=== PATIENT | female | born 1935 | race Caucasian/White ===

== ENCOUNTER → 2025-08-07 04:00 | Outpatient (REF) | payer MEDICARE, SELFPAY ==
--- OUTSIDE RECORDS SUMMARY | 2025-08-07 03:41 | XMS RPT_ITS | CCD ---
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 HOLLY MCNEAL Attending Unavailable Dr. BLAIR BEAUCHAMP Referring Unavaila Dr. Farhan Apple Primary Care Andree vailable Unavailable Unavailable Farhan Husain MD Primary Care Provider Farhan Husain MD Unavailable [phone] Brian Patel Unavailable Don Moran Unavailable Unavailable Don Moran Unavailable Katy PHAN PhD, Don Primary Care Provider Dr. Farhan Husain Primary Care Andree vailable Dr. Darian Dolan Attending Unavailable Juan Antonio II, Dr. Hal Grove Referring Unava ilable Kristi Doyle Attending Unavailable MD DON MORAN Primary Care Unavailable DO JOSHUA GROVE Attending Unavailsimone Husain, Dr. Farhan Poole Primary Care Andree vailable Lisha, Dr. Farhan Poole Primary Care Andree vailaMD BRIAN Lawson Attending Unavailable Lisha, Dr. Farhan Poole Primary Care Andree vailable Keo, MrCathi Casarez Attending Unava ilable Wall, Dr. Mann Fried Attending Unavai lable Wall, Dr. Mann Fried Admitting Unavai Kristi Hummel Referring Unavailable MD DON MORAN Primary Care Unavailable Lisha, Dr. Farhan Poole Attending Andree vailable Lisha, Dr. Farhan Poole Primary Care Andree vasia Husain, Dr. Farhan Poole Attending Andree vailajennifer Husain, Dr. Farhan Poole Referring Andree vailajennifer Husain, Dr. Farhan Poole Primary Care Andree vailable Juan Antonio II, Dr. Hal Grove Attending Unava ilable Juan Antonio II, Dr. Hal Grove Referring Unava ilable Janovick, Dr. Farhan Poole Primary Care Andree vailable Katy, Dr. Baker Attending Unavailable Katy, Dr. Baker Referring Unavailable Lisha, Dr. Farhan Poole Primary Care Andree vailaKristi Dumont Attending Unavailable Katy, Dr. Baker Referring Unavailable Katy, Dr. Baker Primary Care Unavailable Kristi Doyle Attending Unavailable MANN ARIAS Referring Unavailable Moran, Dr. Baker Primary Care Unavailable Juan Antonio II, Dr. Hal Grove Attending Unava ilable Lisha, Dr. Farhan Poole Primary Care Andree vailable Kaiden, Dr. Llanos Attending Unavailable Lisha, Dr. Farhna Poole Primary Care Andree Farhan Hatch MD Unavailable Unavailab peyman Husain MD, Farhan Nicolas Unavailable [phone] Katy PHAN PhD, Don Unavailable DON MORAN Primary Care Unavailable DON MORAN Referring Unavailable DON MORAN Primary Care Unavailable DON MORAN Primary Care Unavailable DON MORAN Primary Care Unavailable DON MORAN Attending Unavailable DON MORAN Primary Care Unavailable DON MORAN Attending Unavailable DON MORAN Primary Care Unavailable DON MORAN Attending Unavailable DON MORAN Primary Care Unavailable DON MORAN Attending Unavailable DON MORAN Primary Care Unavailable Unavailable Primary Care Provider Unavailsimone REY Dahl Primary Care Unavailable CHEKO MALONEY Attending Unavailable Katy PHAN PhD, Don Primary Care Provider Katy PHAN PhD, Don Unavailable Allergies Allergy Classification Reported Allergen(s) Allergy Type Date of Onset Reaction(s) Facility (2 sources) Sertraline Drug Allergy 05-05-2015 Other (See Comments) [place], [place] (2 sources) Sertraline Drug Allergy 05-05-2015 Other [facility] Medications Current Medications Medication Drug Class(es) Dates Sig (Normalized) Sig (Original) amoxicillin 875 mg / clavulanate 125 mg oral tablet (1 source) Penicillin-class Antibacterial Start: 11-27-2022 End: 12-03-2022 take 1 tablet by mouth every twelve hours amoxicillin-clavul anate 875 mg-125 mg oral tablet ; 1 tab(s) orally every 12 hours Quantity: 14 Refills: 0 Ordered: 27-Nov-2022 Norman Allison Start: 27-Nov-2022 End: 03-Dec-2022 Generic Substitution Allowed Comments: Finish all this medication unless otherwise directed by prescriber.Take with food or milk. Comment on above: Finish all this medi cation unless otherwise directed by prescriber.Take with food or milk. aspirin 81 mg delayed release oral tablet (9 sources) Platelet Aggregation Inhibitor, Nonsteroidal Anti-inflammatory Drug take 1 tablet by mouth once daily Aspir 81 oral delayed release tablet ; 1 tab(s) orally once a day Quantity: 0 Refills: 0 Ordered: 06-Jun-2019 Courtney Carroll Generic Substitution Allowed End: 12-23-2021 Aspirin 81 MG TABS Quantity: 0 Refills: 0 Ordered: 23-Dec-2021 DO End : 23-Dec-2021 Complete Aspirin 81 MG TA BS Quantity: 0 Refills: 0 Ordered: 03-Jul-2020 DO Active Aspirin 81 MG TA BS Refills: 0 Active cholecalciferol 0.025 mg ora l tablet (15 sources) Vitamin D take 1 tablet by mouth once daily D3 1000 oral tablet ; 1 tab(s) orally once a day Quantity: 0 Refills: 0 Ordered: 06-Jun-2019 Courtney Carroll Generic Substitution Allowed End: 10-15-2022 Vitamin D3 25 MCG (1000 UT) Oral Tablet Quantity: 0 Refills: 0 Ordered: 15-Oct-2022 DO End : 15-Oct-2022 Complete take 1 capsule by mo uth once daily Vitamin D (CHOLECALCIFEROL) 1000 UNITS CAPS capsule Take 1,000 Units by mouth daily 0 Active colestipol hydrochloride 1000 mg oral tablet (20 sources) Bile Acid Sequestrant Start: 07-26-2024 colestip ol (Colestid) 1 gram tablet Indications: Diarrhea, unspecified TAKE 1 TABLET bid 180 tablet 1 07/26/2024 Active Start: 07-25-2024 End: 07-26-2024 take 2 tablets by mouth once daily in the morning colestipol (Colestid) 1 gram tablet Indications: Diarrhea, unspecified TAKE 2 TABLETS BY MOUTH EVERY MORNING AND 2 TABLETS AT BEDTIME. TAKE AT LEAST 1 HOUR AFTER OR 4 HOURS BEFORE OTHER MEDICATIONS 360 tablet 1 07/25/2024 07/26/2024 Discontinued (Reorder) Start: 12-20-2022 End: 10-18-2023 take 2 tablets by mouth once daily in the morning colestipol (Colestid) 1 gram tablet Indications: Diarrhea, unspecified TAKE 2 TABLETS BY MOUTH EVERY MORNING AND 2 TABLETS AT BEDTIME. TAKE AT LEAST 1 HOUR AFTER OR 4 HOURS BEFORE OTHER MEDICATIONS 120 tablet 5 10/18/2023 Active Start: 11-17-2022 take 2 tablets by [facility] at bedtime colestipol (Colestid) 1 gram tablet Indications: Diarrhea, unspecified Take 2 tablets (2 g) by mouth in the morning and 2 tablets (2 g) before bedtime. Take at least 1 hour after or 4 hours before other medications.. 120 tablet 2 11/17/2022 Active Start: 10-15-2022 End: 11-17-2022 take 1 tablet by mouth three times daily Colestipol HCl - 1 GM Oral Tablet TAKE 1 TABLET 3 TIMES DAILY. Quantity: 90 Refills: 0 Ordered: 15-Oct-2022 Katy PHAN, PhD, Don Start : 15-Oct-2022 Active estradiol 0.5 mg oral tablet (2 sources) Estrogen Start: 10-24-2019 take 1 tablet by mouth once daily estradiol (ESTRACE) 0.5 MG tablet TAKE 1 TABLET BY MOUTH EVERY DAY 90 tablet 3 10/24/2019 Active Start: 10-26-2018 take 1 tablet by josefa th once daily estradiol (ESTRACE) 0.5 MG tablet TAKE 1 TABLET BY MOUTH DAILY 90 tablet 3 10/26/2018 Active levothyroxine sodium 0.025 mg oral tablet (20 sources) l-Thyroxine Start: 01-16-2025 levothyroxine (Synthroid, Levoxyl) 25 MCG tablet Take 12.5 mcg by mouth daily. 01/16/2025 Active Start: 01-16-2025 take 0.5 tablet by m out once daily levothyroxine (Synthroid, Levoxyl) 25 mcg tablet Indications: Acquired hypothyroidism Take 0.5 tablets (12.5 mcg) by mouth once daily. 45 tablet 3 01/16/2025 Active Start: 10-18-2024 End: 01-16-2025 take 0.5 tablet by mouth once daily levothyroxine (Synthroid, Levoxyl) 25 mcg tablet Take 0.5 tablets (12.5 mcg) by mouth once daily. 45 tablet 3 01/16/2025 01/16/2025 Discontinued (Therapy completed) Start: 08-16-2018 End: 10-18-2023 take 0.5 tablet by mouth once daily levothyroxine (Synthroid, Levoxyl) 25 mcg tablet Indications: Hypokalemia Take 0.5 tablets (12.5 mcg) by mouth once daily. 45 tablet 3 10/18/2023 Active take 0.5 capsule by mouth once daily levothyroxine 25 mcg (0.025 mg) oral capsule ; 0.5 cap(s) orally once a day Quantity: 0 Refills: 0 Ordered: 06-Jun-2019 Courtney Carroll Generic Substitution Allowed loperamide hydrochloride 2 mg oral tablet (2 sources) Opioid Agonist Start: 11-01-2023 End: 11-11-2023 take 1 tablet by mouth four times daily as needed for diarrhea loperamide (Imodium A-D) 2 mg tablet Indications: Diarrhea, unspecified type Take 1 tablet (2 mg) by mouth 4 times a day as needed for diarrhea for up to 10 days. 40 tablet 0 11/01/2023 11/11/2023 Active Start: 11-27-2022 take 1 capsule by mo [facility] every two hours loperamide 2 mg oral capsule ; 1 cap(s) orally after episode of diarrhea. Max of 20 mg daily. Quantity: 20 Refills: 0 Ordered: 27-Nov-2022 Norman Allison Start: 27-Nov-2022 Generic Substitution Allowed Comments: It is very important that you take or use this exactly as directed. Do not skip doses or discontinue unless directed by your doctor.May cause drowsiness. Alcohol may intensify this effect. Use care when operating dangerous machinery.Obtain medical advice before taking any non-prescription drugs as some may affect the action of this medication. Comment on above: It is very important that you take or use this exactly as directed. Do not skip doses or discontinue unless directed by your doctor.May cause drowsiness. Alcohol may intensify this effect. Use care when operating dangerous machinery.Obtain medical advice before taking any non-prescription drugs as some may affect the action of this medication. omega-3 acid ethyl esters (chcf) 1200 mg oral capsule (2 sources) [place]-3 Fatty Ac ids (FISH OIL) 1200 MG CAPS Take by mouth 0 Active ondansetron 4 mg disintegrating oral tablet (1 source) Serotonin-3 Receptor Antagonist Start: 2022 take 1 tablet by mouth every four hours ondansetron 4 mg oral tablet, disintegrating ; 1 tab(s) orally every 4 hours as needed for nausea Quantity: 12 Refills: 0 Ordered: 27-Nov-2022 Norman Allison Start: 27-Nov-2022 Generic Substitution Allowed microencapsulated potassium chloride 20 meq extended release oral tablet (10 sources) Start: 2023 End: 2024 take 1 tablet by mouth twice daily potassium chloride CR 20 mEq ER tablet Indications: Hypokalemia Take 1 tablet (20 mEq) by mouth 2 times a day. Do not crush, chew, or split. 180 tablet 1 10/18/2023 04/19/2024 Discontinued (Therapy completed) Start: 12-10-2022 End: 01-14-2024 take 1 tablet by mouth twice daily potassium chloride CR (K-Tab) 20 mEq ER tablet Indications: Hypokalemia Take 1 tablet (20 mEq) by mouth 2 times a day. Do not crush, chew, or split. 180 tablet 1 01/14/2023 10/18/2023 Discontinued (Reorder) Stool studies for C. Difficile toxin and C & S (1 source) Start: 09-21-2022 Stool studies for C. Difficile toxin and C & S ; Diagnosis: Diarrhea Quantity: 1 Refills: 0 Ordered: 21-Sep-2022 Loi Crowley Start: 21-Sep-2022 Generic Substitution Allowed traMADol hydrochloride 50 mg oral tablet (2 sources) Opioid Agonist Start: 11-18-2020 take 1 tablet by mouth every eight hours traMADol 50 mg oral tablet ; 1 tab(s) orally every 8 hours as needed for pain. Do not drive after taking. Day supply: 2 Quantity: 6 Refills: 0 Ordered: 18-Nov-2020 Irvin Fay Start: 18-Nov-2020 Generic Substitution Allowed Comments: Caution federal law prohibits the transfer of this drug to any person other than the person for whom it was prescribed.May cause drowsiness. Alcohol may intensify this effect. Use care when operating dangerous machinery.Obtain medical advice before taking any non-prescription drugs as some may affect the action of this medication. Comment on above: Caution federal law prohibits the transfer of this drug to any person other than the person for whom it was prescribed.May cause drowsiness. Alcohol may intensify this effect. Use care when operating dangerous machinery.Obtain medical advice before taking any non-prescription drugs as some may affect the action of this medication. Vitamins-Lipotropics (LIPOFLAVONOID PO) (1 source) Vitamins-Lipotro pic s (LIPOFLAVONOID PO) Take by mouth 3 times daily 0 Active Completed/Discontinued Medications Medication Drug Class(es) Dates Sig (Normalized) Sig (Original) cephalexin 500 mg oral capsule (7 sources) Cephalosporin Antibacterial Start: 04-21-2021 End: 10-15-2022 take 4 capsules by mouth every hour Cephalexin 500 MG Oral Capsule TAKE 4 CAPSULES 1 HOUR PRIOR DENTAL TREATMENT Quantity: 12 Refills: 0 Ordered: 21-Apr-2021 DO Start : 21-Apr-2021 End : 15-Oct-2022 Complete dicyclomine hydrochloride 10 mg oral capsule (3 sources) Anticholinergic Start: 09-28-2022 Dicyclomine HCl - 10 MG Oral Capsule Quantity: 21 Refills: 0 Ordered: 28-Sep-2022 DO Start : 28-Sep-2022 Complete Start: 09-28-2022 End: 10-04-2022 take 1 capsule by mouth three times daily before mealtime dicyclomine 10 mg oral capsule ; 1 cap(s) orally 3 times a day (before meals) -.Meds to Beds Quantity: 21 Refills: 0 Ordered: 28-Sep-2022 LeonilaMelina Gemma Start: 28-Sep-2022 End: 04-Oct-2022 Generic Substitution Allowed lidocaine 0.05 mg/mg medicated patch (2 sources) Antiarrhythmic, Amide Local Anesthetic Start: 05-26-2022 End: 06-24-2022 lidocaine 5% topical film ; Apply topically to affected area once a day, 12 hours on, 12 hours off Quantity: 10 Refills: 0 Ordered: 26-May-2022 Tereso Burroughs Start: 26-May-2022 End: 24-Jun-2022 Generic Substitution Allowed Comments: For external use only.Remove old patch prior to applying a new patch. Comment on above: For external use onl y.Remove old patch prior to applying a new patch. meclizine hydrochloride 25 mg oral tablet (2 sources) Antiemetic Start: 01-13-2020 End: 01-17-2020 take 1 tablet by mouth every six hours as needed meclizine 25 mg oral tablet ; 1 tab(s) orally every 6 hours, As Needed -for dizziness Quantity: 20 Refills: 0 Ordered: 13-Jan-2020 Marvin Marshall Start: 13-Jan-2020 End: 17-Jan-2020 Generic Substitution Allowed Comments: May cause drowsiness. Alcohol may intensify this effect. Use care when operating dangerous machinery. Comment on above: May cause drowsiness . Alcohol may intensify this effect. Use care when operating dangerous machinery. methylPREDNISolone 4 MG Oral Tablet Therapy Pack (2 sources) Start: 03-31-2022 methylPREDNISolone 4 MG Oral Tablet Therapy Pack Quantity: 21 Refills: 0 Ordered: 31-Mar-2022 DO Start : 31-Mar-2022 Complete Potassium (4 sources) Potassium TABS Quantity: 0 Refills: 0 Ordered: 27-Dec-2022 DO Active potassium citrate 10 meq extended release oral tablet (4 sources) Start: 09-28-2022 End: 10-01-2022 take 1 tablet by mouth twice daily at mealtime potassium citrate 10 mEq oral tablet, extended release ; 1 tab(s) orally 2 times a day Quantity: 3 Refills: 0 Ordered: 29-Sep-2022 Melina Keen Start: 29-Sep-2022 End: 01-Oct-2022 Generic Substitution Allowed Comments: It is very important that you take or use this exactly as directed. Do not skip doses or discontinue unless directed by your doctor.Medication should be taken with plenty of water.Take with food or milk. Comment on above: It is very important that you take or use this exactly as directed. Do not skip doses or discontinue unless directed by your doctor.Medication should be taken with plenty of water.Take with food or milk. predniSONE 20 mg oral tablet (2 sources) Start: 11-18-2020 End: 11-22-2020 take 2 tablets by mouth once daily at mealtime predniSONE 20 mg oral tablet ; 2 tab(s) orally once a day x 5 days Quantity: 10 Refills: 0 Ordered: 18-Nov-2020 Irvin Fay Start: 18-Nov-2020 End: 22-Nov-2020 Generic Substitution Allowed Comments: It is very important that you take or use this exactly as directed. Do not skip doses or discontinue unless directed by your doctor.Obtain medical advice before taking any non-prescription drugs as some may affect the action of this medication.Take with food or milk. Comment on above: It is very important that you take or use this exactly as directed. Do not skip doses or discontinue unless directed by your doctor.Obtain medical advice before taking any non-prescription drugs as some may affect the action of this medication.Take with food or milk. PreserVision AREDS 2 Oral Capsule (1 source) take 2 capsules by mouth once daily PreserVision AREDS 2 Oral Capsule TAKE 2 CAPSULE Daily Refills: 0 Active PreserVision AREDS 2 Oral Capsule (9 sources) End: 10-15-2022 take 2 capsules by mouth once daily PreserVision AREDS 2 Oral Capsule TAKE 2 CAPSULE Daily Quantity: 0 Refills: 0 Ordered: 15-Oct-2022 DO End : 15-Oct-2022 Complete take 2 capsules by mouth once da wil PreserVision AREDS 2 Oral Capsule TAKE 2 CAPSULE Daily Quantity: 0 Refills: 0 Ordered: 03-Jul-2020 DO Active Vitamin B12 TABS (1 source) Vitamin B12 Vitamin B12 TABS Refills: 0 Active Vitamin B12 TABS (9 sources) End: 10-15-2022 Vitamin B12 TABS Quantity: 0 Refills: 0 Ordered: 15-Oct-2022 DO End : 15-Oct-2022 Complete Vitamin B12 TABS Quantity: 0 Refills: 0 Ordered: 03-Jul-2020 DO Active Problems Active Problems Problem Classification Problem Date Documented Date Episodic/Chronic Abdominal pain (1 source) Epigastric pain; Translations: [Epigastric pain] Onset: 11-27-2022 Episodic Biliary tract disease (8 sources) Cholangiectasis; 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] Onset: 01-20-2023 Chronic Disorders of lipid metabolism (20 sources) Pure hypercholesterolemia; Translations: [Dyslipidemia] Onset: 03-24-2015 Resolved: 01-16-2025 06-22-2016 Chronic Diverticulosis and diverticulitis (4 sources) Diverticulosis of large intestine without perforation or abscess without bleeding; Translations: [Diverticulosis of large intestine] Onset: 05-15-2015 02-04-2023 Chronic Diverticulosis and diverticulitis (2 sources) Diverticulosis of large intestine; Translations: [Diverticulosis of large intestine] Onset: 03-24-2015 05-15-2015 Intestinal infection (3 sources) Bacterial enteritis; Translations: [Bacterial enteritis, unspecified] Onset: 11-27-2022 11-27-2022 Episodic Nausea and vomiting (3 sources) Vomiting, unspecified; Translations: [Nausea with vomiting, unspecified] Onset: 09-21-2022 Episodic Osteoarthritis (20 sources) Degenerative joint disease involving multiple joints; 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, primary osteoarthritis of the wrist] Onset: 03-24-2015 Resolved: 01-16-2025 03-24-2015 Chronic Other and unspecified benign neoplasm (1 source) Benign neoplasm of right adrenal gland; Translations: [Benign neoplasm of right adrenal gland] Onset: 01-20-2023 Episodic Other and unspecified benign neoplasm (1 source) Benign neoplasm of left adrenal gland; Translations: [Benign neoplasm of left adrenal gland] Onset: 01-20-2023 Episodic Other connective tissue disease (2 sources) Pain in left thumb; Translations: [Pain in left finger(s)] 01-21-2025 Episodic Other connective tissue disease (2 sources) Pain in left finger(s); Translations: [Pain in left finger(s)] Onset: 01-21-2025 Episodic Other ear and sense organ disorders (2 sources) Impacted cerumen, bilateral; Translations: [Impacted cerumen, bilateral] Onset: 01-16-2025 Episodic Other ear and sense organ disorders (2 sources) Impacted cerumen of bilateral ears; Translations: [Impacted cerumen, bilateral] Onset: 01-16-2025 01-16-2025 Episodic Other injuries and conditions due to external causes (4 sources) Injury of upper extremity; Translations: [Unspecified injury of left shoulder and upper arm, initial encounter] 01-21-2025 Episodic Other injuries and conditions due to external causes (2 sources) Unspecified injury of left shoulder and upper arm, initial encounter; Translations: [Unspecified injury of left shoulder and upper arm, initial encounter] Onset: 01-21-2025 Episodic Other liver diseases (20 sources) Fatty (change of) liver, not elsewhere classified; Translations: [Fatty liver disease, nonalcoholic] Onset: 11-16-2022 11-16-2022 Chronic Other liver diseases (1 source) Steatosis of liver; Translations: [Fatty (change of) liver, not elsewhere classified] 02-04-2023 Chronic Other nervous system disorders (1 source) Carpal tunnel syndrome, right upper limb; 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, right upper limb] Onset: 10-21-2022 Chronic Other non-traumatic joint disorders (2 sources) Pain in left knee; Translations: [Pain in left knee] Onset: 03-10-2024 Episodic Other non-traumatic joint disorders (2 sources) Pain in left hip; Translations: [Pain in left hip] Onset: 01-16-2025 Episodic Other non-traumatic joint disorders (3 sources) Hip pain; Translations: [Pain in left hip] Onset: 01-16-2025 01-16-2025 Episodic Other screening for suspected conditions (not mental disorders or infectious disease) (20 sources) Patient encounter status; Translations: [Screening for lipoid disorders] Onset: 06-14-2022 Episodic Other upper respiratory disease (4 sources) Allergic rhinitis; Translations: [Allergic rhinitis, unspecified] Onset: 03-24-2015 05-15-2015 Chronic Residual codes; unclassified (14 sources) H/O: vertigo; Translations: [Personal history of other disorders of nervous system and sense organs] Episodic Residual codes; unclassified (1 source) Acquired absence of other specified parts of digestive tract; Translations: [Acquired absence of other specified parts of digestive tract] Onset: 01-28-2023 Episodic Residual codes; unclassified (1 source) Acquired absence of both cervix and uterus; Translations: [Acquired absence of both cervix and uterus] Onset: 01-28-2023 Episodic Residual codes; unclassified (1 source) Disorder of digestive tract; Translations: [Acquired absence of other specified parts of digestive tract] 02-04-2023 Episodic Residual codes; unclassified (1 source) Acquired absence of cervix and uterus; Translations: [Acquired absence of both cervix and uterus] 02-04-2023 Episodic Superficial injury; contusion (6 sources) Contusion hand, dorsum; Translations: [Contusion of unspecified hand, initial encounter] Onset: 01-21-2025 01-21-2025 Episodic Thyroid disorders (20 sources) Hypothyroidism; Translations: [Unspecified acquired hypothyroidism] Onset: 03-24-2015 05-15-2015 Chronic Transient cerebral ischemia (1 source) Transient cerebral ischemia; 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 Unclassified (1 source) 6 MONTH F/U 12-23-2021 Comment on above: 6 MONTH F/U Unclassified (2 sources) DIARRHEA X5 DAYS 09-21-2022 Comment on above: DIARRHEA X5 DAYS Unclassified (1 source) 6 MONTH FOLLOW UP / NEW PATIENT 06-25-2022 Comment on above: 6 MONTH FOLLOW UP / NEW PATIENT Unclassified (1 source) EMG RUE 08-23-2022 Comment on above: EMG RUE Unclassified (2 sources) Contact with and (suspected) exposure to COVID-19; Translations: [Contact with and (suspected) exposure to COVID-19] Onset: 09-28-2022 Unclassified (2 sources) VOMITING DIARRHEA 11-27-2022 Comment on above: VOMITING DIARRHEA Past or Other Problems Problem Classification Problem Date Documented Da te Episodic/Chronic Complication of device; implant or graft (14 sources) Vaginal ulcer; Translations: [Erosion of implanted vaginal mesh and other prosthetic materials to surrounding organ or tissue] Resolved: 3 Episodic Conditions associated with dizziness or vertigo (15 sources) Dizziness and giddiness; Translations: [Dizziness and giddiness] Resolved: 3 Episodic Fluid and electrolyte disorders (20 sources) Hypokalemia; Translations: [Hypopotassemia] Onset: 3 Resolved: 5 09-21-2022 Episodic Menopausal disorders (20 sources) Postmenopausal bleeding; Translations: [Postmenopausal bleeding] Onset: 3 Resolved: 3 11-16-2022 Chronic Other aftercare (1 source) residential (current) use of aspirin; Translations: [intermediate designer (current) use of aspirin] Onset: 3 Episodic Other aftercare (1 source) Other [facility] (current) drug therapy; Translations: [Other superintendent terminal (current) drug therapy] Onset: 3 Episodic Other gastrointestinal disorders (20 sources) Diarrhea; Translations: [Diarrhea] Onset: 3 Resolved: 5 09-21-2022 Episodic Comment on above: DIARRHEA - (R19.7) Other gastrointestinal disorders (8 sources) Diarrhea, unspecified; Translations: [Diarrhea, unspecified] Onset: 3 Episodic Other nervous system disorders (20 sources) Carpal tunnel syndrome; 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] Onset: 3 Resolved: 5 11-16-2022 Chronic Residual codes; unclassified (2 sources) Other general symptoms and signs; Translations: [Other general symptoms and signs] Onset: 2 Episodic Residual codes; unclassified (1 source) H/O: gastrointestinal disease; Translations: [Personal history of other diseases of digestive system] Resolved: 3 Episodic Spondylosis; intervertebral disc disorders; other back problems (7 sources) Neck pain; Translations: [Cervicalgia] Onset: 2 05-26-2022 Episodic Comment on above: NECK PAIN Unclassified (1 source) Patient encounter status; Translations: [Screening for hyperlipidemia] Unclassified (11 sources) Onset: 3 Resolved: 5 11-17-2022 NEGATED: Highlighted row has not occurred!Residual codes; unclassified (2 sources) Disease Episodic Results Test Name Value Interpretation Reference Range Facility Basic Metabolic Profile (BMP )on 02-06-2025 BUN Normal 4-19 [facility] Comment on above: Order Comment: 518 Result Comment: CANC EL BLOOD DRAW PER NURSE CANDY @0620 Performed By: #### L 500.2500, L100.0500 #### [facility] [address] [place], [address] BUN/CRE Normal 10-20 [facility] Comment on above: Order Comment: 518 Result Comment: CANC EL BLOOD DRAW PER NURSE CANDY @0620 Performed By: #### L 500.2500, L100.0500 #### [facility] [address] [place], [address] Calcium Normal 7.6-11.0 [facility] Comment on above: Order Comment: 518 Result Comment: CANC EL BLOOD DRAW PER NURSE CANDY @0620 Performed By: #### L 500.2500, L100.0500 #### [facility] [address] [place], [address] CL Normal 98-108 [facility] Comment on above: Order Comment: 518 Result Comment: CANC EL BLOOD DRAW PER NURSE CANDY @0620 Performed By: #### L 500.2500, L100.0500 #### [facility] [address] [place], [address] CO2 Normal 21.0-32.0 [facility] Comment on above: Order Comment: 518 Result Comment: CANC EL BLOOD DRAW PER NURSE CANDY @0620 Performed By: #### L 500.2500, L100.0500 #### [facility] [address] [place], [address] CREAT,SERUM Normal 0.70-1.20 [facility] Comment on above: Order Comment: 518 Result Comment: CANC EL BLOOD DRAW PER NURSE CANDY @0620 Performed By: #### L 500.2500, L100.0500 #### [facility] [address] [place], [address] eGFR Normal >60 [facility] Comment on above: Order Comment: 518 Result Comment: CANC EL BLOOD DRAW PER NURSE CANDY @0620 Performed By: #### L 500.2500, L100.0500 #### [facility] [address] [place], [address] GAP Normal 5-15 [facility] Comment on above: Order Comment: 518 Result Comment: CANC EL BLOOD DRAW PER NURSE CANDY @0620 Performed By: #### L 500.2500, L100.0500 #### [facility] [address] [place], [address] GLU Normal 70-99 [facility] Comment on above: Order Comment: 518 Result Comment: CANC EL BLOOD DRAW PER NURSE CANDY @0620 Performed By: #### L 500.2500, L100.0500 #### [facility] [address] [place], [address] Potassium Normal 3.3-5.1 [facility] Comment on above: Order Comment: 518 Result Comment: CANC EL BLOOD DRAW PER NURSE CANDY @0620 Performed By: #### L 500.2500, L100.0500 #### [facility] [address] [place], [address] Basic Metabolic Profile (BMP) Normal 133-145 [facility] Comment on above: Order Comment: 518 Result Comment: CANC EL BLOOD DRAW PER NURSE CANDY @0620 Performed By: #### L 500.2500, L100.0500 #### [facility] [address] [place], [address] CBC-Complete Blood Cnt No Di ffon 02-06-2025 HCT Normal 37-47 [facility] Comment on above: Order Comment: 518 Result Comment: CANC EL BLOOD DRAW PER NURSE CANDY @0620 Performed By: #### L 500.2500, L100.0500 #### [facility] [address] [place], [address] HGB Normal 12.0-15.0 [facility] Comment on above: Order Comment: 518 Result Comment: CANC EL BLOOD DRAW PER NURSE CANDY @0620 Performed By: #### L 500.2500, L100.0500 #### [facility] [address] [place], [address] MCH Normal 27.0-32.0 [facility] Comment on above: Order Comment: 518 Result Comment: CANC EL BLOOD DRAW PER NURSE CANDY @0620 Performed By: #### L 500.2500, L100.0500 #### [facility] [address] [place], [address] MCHC Normal 32-36 [facility] Comment on above: Order Comment: 518 Result Comment: CANC EL BLOOD DRAW PER NURSE CANDY @0620 Performed By: #### L 500.2500, L100.0500 #### [facility] [address] [place], [address] MCV Normal 81-99 [facility] Comment on above: Order Comment: 518 Result Comment: CANC EL BLOOD DRAW PER NURSE CANDY @0620 Performed By: #### L 500.2500, L100.0500 #### [facility] [address] [place], [address] PLT Normal 150-450 [facility] Comment on above: Order Comment: 518 Result Comment: CANC EL BLOOD DRAW PER NURSE CANDY @0620 Performed By: #### L 500.2500, L100.0500 #### [facility] [address] [place], [address] RBC Normal 4.2-5.4 [facility] Comment on above: Order Comment: 518 Result Comment: CANC EL BLOOD DRAW PER NURSE CANDY @0620 Performed By: #### L 500.2500, L100.0500 #### [facility] [address] [place], [address] RDW CV Normal 11.6-14.6 [facility] Comment on above: Order Comment: 518 Result Comment: CANC EL BLOOD DRAW PER NURSE CANDY @0620 Performed By: #### L 500.2500, L100.0500 #### [facility] [address] [place], [address] RDW SD Normal 35.1-43.9 [facility] Comment on above: Order Comment: 518 Result Comment: CANC EL BLOOD DRAW PER NURSE CANDY @0620 Performed By: #### L 500.2500, L100.0500 #### [facility] [address] [place], [address] WBC Normal 4.4-11.0 [facility] Comment on above: Order Comment: 518 Result Comment: CANC EL BLOOD DRAW PER NURSE CANDY @0620 Performed By: #### L 500.2500, L100.0500 #### [facility] [address] [place], [address] ED Nursing Noteon 01-21-2025 ED Nursing Note States banged left h and on end table yesterday and today it is very painful and swollen. Intact sensation and pulses, right handed. Icebag applied Normal [facility] ED Provider Noteon ED Provider Note [facility] ED EMERGENCY DEPARTMENT ENCOUNTER Pt Name: Vinayak Montes Birthdate 1935 Date of evaluation: 01/21/2025 Provider: Cheko Maloney MD CHIEF COMPLAINT Chief Complaint Patient presents with Arm Injury HISTORY OF PRESENT ILLNESS (Location/Symptom, Timing/Onset,Context/Setting , Quality, Duration, Modifying Factors, Severity) Note limiting factors. Vinayak Montes is a 89 y.o. female who presents to the emergency department with left hand and wrist pain. Yesterday she struck it hard on a piece of furniture and feels like it is bruised and swollen hurts in the distal ulna and the dorsum of the hand. No numbness or tingling. No elbow pain. No finger pain. She did not fall. Did not bend awkwardly. No other injuries or complaints. HPI Historian is the patient Nurse's notes for past medical history, surgical history, social history were reviewed. Medications and allergies reviewed. PAST MEDICAL HISTORY Medical History[1] SURGICALHISTORY Surgical History[2] CURRENT MEDICATIONS Discharge Medication List as of 01/21/2025 3:28 PM CONTINUE these medications which have NOT CHANGED Details levothyroxine (Synthroid, Levoxyl) 25 MCG tablet Take 12.5 mcg by mouth daily., Starting 01/16/2025, Historical Med Sertraline FAMILY HISTORY Family History[3] SOCIAL HISTORY Social History[4] SCREENINGS PHYSICAL EXAM (up to 7 for level 4, 8 or more for level 5) @EDTRIAGEVSS@ Appropriate PPE including n 95, gown, gloves, goggles where worn when appropriate with this patient. Physical Exam General awake alert appropriate. Examination left upper extremity good range of motion left shoulder and elbow. Distal ulnar bruising soft tissue swelling dorsum of the hand. Normal finger tenderness normal capillary refill. Normal finger sensation. Equal pulses. No signs of dislocation. No signs of compartment syndrome no signs of arterial venous insufficiency. No signs of DVT. DIAGNOSTIC RESULTS RADIOLOGY: Interpretation per the Radiologist below, if availableat the time of this note: XR wrist 3+ views left Final Result No fracture or dislocation. Advanced osteoarthritis and chondrocalcinosis. Report Dictated on Electronically Signed By: Wilton Hinson MD Electronically Signed Date/Time: 01/21/2025 3:12 PM EDT XR hand 3+ views left Final Result No acute osseous abnormality of the left hand. Moderate osteoarthritic changes. Report Dictated on Electronically Signed By: Hal Nye DR Electronically Signed Date/Time: 01/21/2025 3:04 PM EDT ED BEDSIDE ULTRASOUND: Performed by ED Physician - none LABS: Labs Reviewed - No data to display All other labs were within normal range or not returned as of thisdictation. EMERGENCYDEPARTMENT COURSE and DIFFERENTIAL DIAGNOSIS/MDM: Vitals: Vitals: 01/21/25 1432 01/21/25 1439 BP: (!) 181/66 Pulse: 80 Resp: 14 Temp: 36.7 ?C (98.1 ?F) TempSrc: Oral SpO2: 98% Weight: 60.8 kg (134 lb) Height: 1.575 m (5' 2") Medical Decision Making Problems Addressed: Arm injury, left, initial encounter: complicated acute illness or injury Contusion of dorsum of hand: complicated acute illness or injury Thumb pain, left: complicated acute illness or injury Amount and/or Complexity of Data Reviewed Radiology: ordered. EMERGENCY DEPARTMENT COURSE and DIFFERENTIAL DIAGNOSIS/MDM: Vitals: Vitals: 01/21/25 1432 01/21/25 1439 BP: (!) 181/66 Pulse: 80 Resp: 14 Temp: 36.7 ?C (98.1 ?F) TempSrc: Oral SpO2: 98% Weight: 60.8 kg (134 lb) Height: 1.575 m (5' 2") The patient presented with a chief complaint of hand wrist pain. The differential diagnosis associated with this patient's presentation includes contusion sprain fracture dislocation. Our workup consisted of ordering/reviewing x-ray of the left hand and wrist. ED Course as of 01/21/25 1544 TueJan 21, 2025 1527 Will apply an Piyush wrap. Use this for comfort. Piyush wrap applied by myself. Patient is neurologically neurovascular tact after applied. Use cool compresses. Gentle range of motion. Recheck with primary care physician or family medicine 1 week return here if any problems or concerns. [GS] 1536 I did talk to the patient further as she does have swelling of her fingers but she reports she did not hit her thumb she actually hit the back of her hand along the fifth metacarpal and ulnar side. She does however have discomfort with moving her thumb. I reviewed the x-rays and I do not see any acute fracture of the thumb. I did the Piyush wrap that goes around her thumb to give a support so she can still move the thumb. She said she did not hit the thumb she did not bend the thumb awkwardly. Certainly possible that she does simply does not remember but she remembers the total event from yesterday she is not forgetting. It is likely all arthritic in nature. I considered a thumb spica splint b (more content not included)... Normal [facility] XR Hand - left 3 Viewson No acute osseous abn ormality of the left hand. Moderate osteoarthritic changes. Report Dictated on Electronically Signed By: Hal Nye DR Electronically Signed Date/Time: 01/21/2025 3:04 PM EDT [facility] Patient Name: Gustavo MONTES : 1935 Exam Date/Time: 01/21/2025 14:50 Procedure: XR HAND 3+ VIEWS LEFT Ordering Provider: MALONEY GREGORY Reason For Exam: Contusion to the dorsum of the left hand struck it on an object yesterday Clinical history: Contusion to the dorsum of the left hand struck it on an object yesterday COMPARISON: None. TECHNIQUE: Left hand, three views FINDINGS: Soft tissue edema of the dorsal hand overlying the MCP joints.. No acute fractures or dislocations. Moderate the degenerative joint space loss, endplate sclerosis, and osteophytosis in the IP joints, first CMC joint, and triscaphe joint with otherwise mild osteoarthritic changes of the left hand. Calcification in the TF[facility]. [facility] Hal Nye MD - 01/21/2025 Patient Name: VINAYAK MONTES : 1935 Exam Date/Time: 01/21/2025 14:50 Procedure: XR HAND 3+ VIEWS LEFT Ordering Provider: MALONEY GREGORY Reason For Exam: Contusion to the dorsum of the left hand struck it on an object yesterday Clinical history: Contusion to the dorsum of the left hand struck it on an object yesterday COMPARISON: None. TECHNIQUE: Left hand, three views FINDINGS: Soft tissue edema of the dorsal hand overlying the MCP joints.. No acute fractures or dislocations. Moderate the degenerative joint space loss, endplate sclerosis, and osteophytosis in the IP joints, first CMC joint, and triscaphe joint with otherwise mild osteoarthritic changes of the left hand. Calcification in the TFCC. IMPRESSION: No acute osseous abnormality of the left hand. Moderate osteoarthritic changes. Report Dictated on Electronically Signed By: Hal Nye DR Electronically Signed Date/Time: 01/21/2025 3:04 PM EDT [facility] [employer] Radiology Study observation (narrative) [employer] XR Hand - left 3 ViewsOrdere d By: Hal Nye on 01-21-2025 [employer] Work Phone: XR Wrist - left 3 Viewson No fracture or dislocation. Advanced osteoarthritis and chondrocalcinosis. Report Dictated on Electronically Signed By: Wilton Hinson MD Electronically Signed Date/Time: 01/21/2025 3:12 PM EDT [facility] [employer] Patient Name: Gustavo MONTES : 1935 Exam Date/Time: 01/21/2025 14:50 Procedure: XR WRIST 3+ VIEWS LEFT Ordering Provider: MALONEY GREGORY Reason For Exam: Contusion and pain to the dorsum of the left wrist LEFT WRIST CLINICAL INDICATION: Contusion and pain to the dorsum of the left wrist AP, lateral, and oblique plain film views of the left wrist were obtained. COMPARISON: 01/21/2025 FINDINGS: No evidence of an acute fracture or dislocation. There is advanced osteoarthritis of the triscaphe and first carpometacarpal joints, and lesser degenerative changes elsewhere in the wrist. Chondrocalcinosis is again noted in the wrist and there is generalized soft tissue swelling. [facility] Wilton Hinson M D - 01/21/2025 Patient Name: VINAYAK MONTES : 1935 Exam Date/Time: 01/21/2025 14:50 Procedure: XR WRIST 3+ VIEWS LEFT Ordering Provider: MALONEY GREGORY Reason For Exam: Contusion and pain to the dorsum of the left wrist LEFT WRIST CLINICAL INDICATION: Contusion and pain to the dorsum of the left wrist AP, lateral, and oblique plain film views of the left wrist were obtained. COMPARISON: 01/21/2025 FINDINGS: No evidence of an acute fracture or dislocation. There is advanced osteoarthritis of the triscaphe and first carpometacarpal joints, and lesser degenerative changes elsewhere in the wrist. Chondrocalcinosis is again noted in the wrist and there is generalized soft tissue swelling. IMPRESSION: No fracture or dislocation. Advanced osteoarthritis and chondrocalcinosis. Report Dictated on Electronically Signed By: Wilton Hinson MD Electronically Signed Date/Time: 01/21/2025 3:12 PM EDT [facility] [employer] Radiology Study observation (narrative) [employer] XR Wrist - left 3 ViewsOrder ed By: Wilton Hinson on 01-21-2025 [employer] Work Phone: COMPREHENSIVE METABOLIC PANE L W/ANION GAPon 01-19-2025 Albumin [Mass/Vol] 4.3 g/dL Normal 3.6-5.1 [facility] Comment on above: Performed By: #### 9 2665, 21393, 14846, 466, 927 #### [facility] [place] [address] [employer] Counsel[employer] Aide: Martin Jiménez MD ALP [Catalytic activity/Vol] 58 U/L Normal 37-153 [facility] Comment on above: Performed By: #### 9 2665, 99636, 87684, 466, 927 #### [facility] [address] [address] [employer] Aide: Martin Jiménez MD ALT [Catalytic activity/Vol] 14 U/L Normal 6-29 [facility] Comment on above: Performed By: #### 9 2665, 19959, 83214, 466, 927 #### [facility] [address] [address] [employer] Aide: Martin Jiménez MD AST [Catalytic activity/Vol] 20 U/L Normal 10-35 [facility] Comment on above: Performed By: #### 9 2665, , , , 927 #### [facility] [place] [address] [employer] Counsel[employer] Aide: Martin Jiménez MD Bilirubin [Mass/Vol] 0.7 mg/dL Normal 0.2-1.2 [facility] Comment on above: Performed By: #### 9 2665, , , , 927 #### [facility] [place] [address] [employer] Counsel[employer] Aide: Martin Jiménez MD Calcium [Mass/Vol] 9.3 mg/dL Normal 8.6-10.4 [facility] Comment on above: Performed By: #### 9 2665, , , 466, 927 #### [facility] [place] [address] [employer] Counsel[employer] Aide: Martin Jiménez MD Chloride [Moles/Vol] 105 mmol/L Normal 98-110 [facility] Comment on above: Performed By: #### 9 2665, , , 466, 927 #### [facility] [place] [address] Pre [employer] Counseling Aide: Martin Jiménez MD CO2 [Moles/Vol] 27 mmol/L Normal 20-32 [facility] Comment on above: Performed By: #### 9 2665, , , , 927 #### [facility] [place] [address] Pre [employer] Counseling Aide: Martin Jiménez MD Creatinine [Mass/Vol] 0.68 mg/dL Normal 0.60-0.95 [facility] Comment on above: Performed By: #### 9 2665, 61202, , , 927 #### [facility] [place] [address] Pre [employer] Counseling Aide: Martin Jiménez MD ELECTROLYTE BALANCE 9 mmol/L (calc) Normal 7-17 [facility] Comment on above: Performed By: #### 9 2665, , , , 927 #### [facility] [place] [address] Pre [employer] Counseling Aide: Martin Jiménez MD GFR/1.73 sq M.predicted among non-blacks MDRD (S/P/Bld) [Vol rate/Area] 84 mL/min/{1.73_m2} Normal > OR = 60 [facility] Comment on above: Performed By: #### 9 266, , , , 927 #### [facility] [place] [address] Pre [employer] Counseling Aide: Martin Jiménez MD Glucose [Mass/Vol] 100 mg/dL High 65-99 [facility] Comment on above: Result Comment: Fasting reference interval For someone without known diabetes, a glucose value between 100 and 125 mg/dL is consistent with prediabetes and should be confirmed with a follow-up test. Performed By: #### 9 266, , , , 927 #### [facility] [place] [address] Pre [employer] Counseling Aide: Martin Jiménez MD Potassium [Moles/Vol] 4.6 mmol/L Normal 3.5-5.3 [facility] Comment on above: Performed By: #### 9 266, , , , 927 #### [facility] [place] [address] Pre [employer] Counseling Aide: Martin Jiménez MD Protein [Mass/Vol] 6.5 g/dL Normal 6.1-8.1 [facility] Comment on above: Performed By: #### 9 266, , , , 927 #### [facility] [place] [address] Pre [employer] Counseling Aide: Martin Jiménez MD Sodium [Moles/Vol] 141 mmol/L Normal 135-146 [facility] Comment on above: Performed By: #### 9 266, , , , 927 #### [facility] [place] [address] Pre [employer] Counseling Aide: Martin Jiménez MD Urea nitrogen [Mass/Vol] 12 mg/dL Normal 7-25 [facility] Comment on above: Performed By: #### 9 2665, 84659, , 466, 927 #### [facility] [place] [address] Pre [employer] Counseling Aide: Martin Jiménez MD FOLATE, SERUMon 01-19-2025 Folate [Mass/Vol] ng/mL Normal [facility] Comment on above: Result Comment: Refe rence Range Low: <3.4 Borderline: 3.4-5.4 Normal: >5.4 Performed By: #### 9 2665, 96580, , 466, 927 #### [facility] [place] [address] Pre [employer] Counseling Aide: Martin Jiménez MD TSH W/REFLEX TO FT4on 2024 TSH W/REFLEX TO FT4 1.67 mIU/L Normal 0.40-4.50 [facility] Comment on above: Performed By: #### 9 2665, 25022, , 466, 927 #### [facility] [place] [address] Pre [employer] Counseling Aide: Martin Jiménez MD VITAMIN B12on 01-19-2025 Cobalamin (Vitamin B12) [Mass/Vol] 1068 pg/mL Normal 200-1100 [facility] Comment on above: Performed By: #### 9 2665, 61872, , 466, 927 #### [facility] [place] [address] Pre [employer] Counseling Aide: Martin Jiménez MD VITAMIN D,25-OH,TOTAL,IAon 0 01-19-2025 VITAMIN D,25-OH,TOTAL,IA 90 ng/mL Normal 30-100 [facility] Comment on above: Result Comment: Renuka min D Status 25-OH Vitamin D: Deficiency: <20 ng/mL Insufficiency: 20 - 29 ng/mL Optimal: > or = 30 ng/mL For 25-OH Vitamin D testing on patients on D2-supplementation and patients for whom quantitation of D2 and D3 fractions is required, the QuestAssureD(TM) 25-OH VIT D, (D2,D3), LC/MS/MS is recommended: order code 81589 (patients >2yrs). See Note 1 Note 1 For additional information, please refer to http://education.[employer]/faq/THW768 (This link is being provided for informational/ educational purposes only.) Performed By: #### 9 2665, 80439, 64148, 466, 927 #### [facility] [address] [facility], [address] [place] [address] Pre [employer] Counseling Aide: Martin Jiménez MD Comprehensive metabolic 2000 panelon 04-06-2024 Albumin BCP dye [Mass/Vol] 4.2 g/dL Normal 3.4-5.0 [facility] Comment on above: Performed By: #### 2 4323-8 #### MARLA Robledo ([id number]) [facility] ([facility] [address] [place] [address] ALP [Catalytic activity/Vol] 71 U/L Normal 33-136 [facility] Comment on above: Performed By: #### 2 4323-8 #### MARLA Robledo ([id number]) [facility] ([facility]) [address] [place] [address] [id number] ALT With P-5'-P [Catalytic activity/Vol] 14 U/L Normal 7-45 [facility] Comment on above: Result Comment: Joann ents treated with Sulfasalazine may generate falsely decreased results for ALT. Performed By: #### 2 4323-8 #### MARLA Robledo ([id number]) [facility] ([facility]) [address] [place] [address] Anion gap [Moles/Vol] 12 mmol/L Normal 10-20 [facility] Comment on above: Performed By: #### 2 4323-8 #### MARLA Robledo ([id number]) [facility] ([facility]) [address] [place] [address] AST With P-5'-P [Catalytic activity/Vol] 23 U/L Normal 9-39 [facility] Comment on above: Performed By: #### 2 4323-8 #### MARLA Robledo ([id number]) [facility] ([facility]) [address] [place] [address] Bilirubin [Mass/Vol] 0.5 mg/dL Normal 0.0-1.2 [facility] Comment on above: Performed By: #### 2 4323-8 #### MARLA Robledo ([id number]) [facility] ([facility]) [address] [place] [address] Calcium [Mass/Vol] 9.4 mg/dL Normal 8.6-10.3 [facility] Comment on above: Performed By: #### 2 4323-8 #### MARLA Robledo ([id number]) [facility] ([facility]) [address] [place] [address] Chloride [Moles/Vol] 103 mmol/L Normal 98-107 [facility] Comment on above: Performed By: #### 2 4323-8 #### MARLA Robledo ([id number]) [facility] ([facility]) [address] [place] [address] CO2 [Moles/Vol] 27 mmol/L Normal 21-32 [facility] Comment on above: Performed By: #### 2 4323-8 #### MARLA Robledo ([id number]) [facility] ([facility] [address] [place] [address] 35116 Creatinine [Mass/Vol] 0.66 mg/dL Normal 0.50-1.05 [facility] Comment on above: Performed By: #### 2 4323-8 #### MARLA Robledo ([id number]) [facility] ([facility]) [address] [place] [address] 46298 Glomerular filtration rate/1.73 sq M.predicted 86 mL/min/1.73m*2 Normal >60 [facility] Comment on above: Result Comment: Calc ulations of estimated GFR are performed using the 2021 CKD-EPI Study Refit equation without the race variable for the IDMS-Traceable creatinine methods. https://jasn.asnjournals.org/content//ASN.991672227 8 Performed By: #### 2 4323-8 #### MARLA Robledo ([id number]) [facility] ([facility]) [address] [place] [address] 44260 Glucose [Mass/Vol] 94 mg/dL Normal 74-99 [facility] Comment on above: Performed By: #### 2 4323-8 #### MARLA Robledo ([id number]) [facility] ([facility]) [address] [place] [address] 22075 Potassium [Moles/Vol] 4.6 mmol/L Normal 3.5-5.3 [facility] Comment on above: Performed By: #### 2 4323-8 #### MARLA Robledo ([id number]) [facility] ([facility]) [address] [place] [address] [place] [address] Protein [Mass/Vol] 6.7 g/dL Normal 6.4-8.2 [facility] Comment on above: Performed By: #### 2 4323-8 #### MARLA Robledo ([id number]) [facility] ([facility]) [address] [place] [address] 77053 Sodium [Moles/Vol] 137 mmol/L Normal 136-145 [facility] Comment on above: Performed By: #### 2 4323-8 #### MARLA Robledo ([id number]) [facility] ([facility]) [address] [place] [address] [place] [address] Urea nitrogen [Mass/Vol] 14 mg/dL Normal 6-23 [facility] Comment on above: Performed By: #### 2 4323-8 #### MARLA Robledo ([id number]) [facility] ([facility]) [address] [place] [address], [place] [address] XR KNEE LEFT 4+ VIEWSon 02-13 XR KNEE LEFT 4+ VIEWS Interpreted By: Jayro Joya, STUDY: XR KNEE LEFT 4+ VIEWS 03/10/2024 11:53 am INDICATION: Signs/Symptoms:knee pain COMPARISON: None. ACCESSION NUMBER(S): [id number] ORDERING CLINICIAN: JACQUELYN HAMPTON TECHNIQUE: Five views of the left knee including AP, lateral and bilateral oblique projections were obtained. FINDINGS: There is no evidence of acute fracture or dislocation identified. 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 The joint spaces are otherwise well preserved throughout without significant degenerative changes. No suprapatellar joint effusion is present. IMPRESSION: 1. No acute fracture or dislocation. 2. Degenerative changes, as described above. MACRO: None. Signed by: Jayro Joya 03/10/2024 12:02 PM Dictation workstation: [id number] Normal [facility] CBC panel Auto (Bld)on 01-11 Erythrocyte distribution width (RBC) [Ratio] 13.4 % Normal 11.5-14.5 [facility] Comment on above: Performed By: #### 5 8410-2 #### MARLA Robledo ([id number]) [facility] ([facility]) [address] [place] [address] 39175 Hematocrit (Bld) [Volume fraction] 43.9 % Normal 36.0-46.0 [facility] Comment on above: Performed By: #### 5 8410-2 #### MARLA Robledo ([id number]) [facility] ([facility]) [address] [place] [address] 55989 Hemoglobin (Bld) [Mass/Vol] 14.8 g/dL Normal 12.0-16.0 [facility] Comment on above: Performed By: #### 5 8410-2 #### MARLA Robledo ([id number]) [facility] ([facility]) [address] [place] [address] 68257 MCH (RBC) [Entitic mass] 32.9 pg Normal 26.0-34.0 [facility] Comment on above: Performed By: #### 5 8410-2 #### MARLA Robledo ([id number]) [facility] ([facility]) [address] [place] [address] 77003 MCHC (RBC) [Mass/Vol] 33.7 g/dL Normal 32.0-36.0 [facility] Comment on above: Performed By: #### 5 8410-2 #### MARLA Robledo ([id number]) [facility] ([facility]) [address] [place] [address] MCV (RBC) [Entitic vol] 98 fL Normal 80-100 [facility] Comment on above: Performed By: #### 5 8410-2 #### MARLA Robledo ([id number]) [facility] ([facility]) [address] [place] [address] Nucleated RBC/100 WBC (Bld) [Ratio] 0.0 /100 WBCs Normal 0.0-0.0 [facility] Comment on above: Performed By: #### 5 8410-2 #### MARLA Robledo ([id number]) [facility] ([facility]) [address] [place] [address] Platelets (Bld) [#/Vol] 309 x10*3/uL Normal 150-450 [facility] Comment on above: Performed By: #### 5 8410-2 #### MARLA Robledo ([id number]) [facility] ([facility]) [address] [place] [address] RBC (Bld) [#/Vol] 4.50 x10*6/uL Normal 4.00-5.20 [facility] Comment on above: Performed By: #### 5 8410-2 #### MARLA Robledo ([id number]) [facility] ([facility]) [address] [place] [address] WBC (Bld) [#/Vol] 7.1 x10*3/uL Normal 4.4-11.3 [facility] Comment on above: Performed By: #### 5 8410-2 #### MARLA Robledo ([id number]) [facility] ([facility]) [address] [place] [address] Comprehensive metabolic 2000 panelon 01-12-2024 Albumin BCP dye [Mass/Vol] 4.5 g/dL Normal 3.4-5.0 [facility] Comment on above: Performed By: #### 2 4323-8 #### MARLA Robledo ([id number]) [facility] ([facility]) [address] [place] [address] 05119 ALP [Catalytic activity/Vol] 74 U/L Normal 33-136 [facility] Comment on above: Performed By: #### 2 4323-8 #### MARLA Robledo ([id number]) [facility] ([facility]) [address] [place] [address] 49087 ALT With P-5'-P [Catalytic activity/Vol] 16 U/L Normal 7-45 [facility] Comment on above: Result Comment: Joann ents treated with Sulfasalazine may generate falsely decreased results for ALT. Performed By: #### 2 432-8 #### MARLA Robledo ([id number]) [facility] ([facility]) [address] [place] [address] 89104 Anion gap [Moles/Vol] 12 mmol/L Normal 10-20 [facility] Comment on above: Performed By: #### 2 432-8 #### MARLA Robledo ([id number]) [facility] ([facility]) [address] [place] [address] 83441 AST With P-5'-P [Catalytic activity/Vol] 24 U/L Normal 9-39 [facility] Comment on above: Performed By: #### 2 4323-8 #### MARLA Robledo ([id number]) [facility] ([facility]) [address] [place] [address] 75509 Bilirubin [Mass/Vol] 0.5 mg/dL Normal 0.0-1.2 [facility] Comment on above: Performed By: #### 2 4323-8 #### MARLA Robledo ([id number]) [facility] ([facility]) [address] [place] [address] 09245 Calcium [Mass/Vol] 9.7 mg/dL Normal 8.6-10.3 [facility] Comment on above: Performed By: #### 2 4323-8 #### MARLA Robledo ([id number]) [facility] ([facility]) [address] [place] [address] Chloride [Moles/Vol] 103 mmol/L Normal 98-107 [facility] Comment on above: Performed By: #### 2 4323-8 #### MARLA Robledo ([id number]) [facility] ([facility]) [address] [place] [address] 28036 CO2 [Moles/Vol] 27 mmol/L Normal 21-32 [facility] Comment on above: Performed By: #### 2 4323-8 #### MARLA Robledo ([id number]) [facility] ([facility]) [address] [place] [address] 66999 Creatinine [Mass/Vol] 0.67 mg/dL Normal 0.50-1.05 [facility] Comment on above: Performed By: #### 2 4323-8 #### MARLA Robledo ([id number]) [facility] ([facility]) [address] [place] [address] 31803 Glomerular filtration rate/1.73 sq M.predicted 85 mL/min/1.73m*2 Normal >60 [facility] Comment on above: Result Comment: Calc ulations of estimated GFR are performed using the 2020 CKD-EPI Study Refit equation without the race variable for the IDMS-Traceable creatinine methods. https://jasn.asnjournals.org/content//ASN.050008014 8 Performed By: #### 2 4323-8 #### MARLA Robledo ([id number]) [facility] ([facility]) [address] [place] [address] 49219 Glucose [Mass/Vol] 87 mg/dL Normal 74-99 [facility] Comment on above: Performed By: #### 2 4323-8 #### MARLA Robledo ([id number]) [facility] ([facility]) [address] [place] [address] 00909 Potassium [Moles/Vol] 4.9 mmol/L Normal 3.5-5.3 [facility] Comment on above: Performed By: #### 2 4323-8 #### MARLA Robledo ([id number]) [facility] ([facility]) [address] [place] [address] 45128 Protein [Mass/Vol] 7.0 g/dL Normal 6.4-8.2 [facility] Comment on above: Performed By: #### 2 4323-8 #### MARLA Robledo ([id number]) [facility] ([facility]) [address] [place] [address] 93913 Sodium [Moles/Vol] 137 mmol/L Normal 136-145 [facility] Comment on above: Performed By: #### 2 4323-8 #### MARLA Robledo ([id number]) [facility] ([facility]) [address] [place] [address] 70296 Urea nitrogen [Mass/Vol] 20 mg/dL Normal 6-23 [facility] Comment on above: Performed By: #### 2 4323-8 #### MARLA Robledo ([id number]) [facility] ([facility]) [address] [place] [address] 03823 Lipid 1996 panelon 4 Cholesterol [Mass/Vol] 246 mg/dL High 0-199 [facility] Comment on above: Result Comment: Age Desirable Borderline High High 0-19 Y 0 - 169 170 - 199 >/= 200 20-24 Y 0 - 189 190 - 224 >/= 225 >24 Y 0 - 199 200 - 239 >/= 240 All ranges are based on fasting samples. Specific therapeutic targets will vary based on patient-specific cardiac risk. Pediatric guidelines reference:Pediatrics 2011, 128(S5).Adult guidelines reference: NCEP ATPIII Guidelines,MARILYN 2001, 258:2486-97 Venipuncture immediately after or during the administration of Metamizole may lead to falsely low results. Testing should be performed immediately prior to Metamizole dosing. Performed By: #### 2 4331-1 #### MARLA Robledo ([id number]) [facility] ([facility]) [address] [place] [address] 88122 Cholesterol in HDL [Mass/Vol] 87.4 mg/dL Normal [facility] Comment on above: Result Comment: Age Very Low Low Normal High 0-19 Y < 35 < 40 40-45 ---- 20-24 Y ---- < 40 >45 ---- >24 Y ---- < 40 40-60 >60 Performed By: #### 2 4331-1 #### MARLA Robledo ([id number]) [facility] ([facility]) [address] [place] [address] 72123 Cholesterol in LDL [Mass/Vol] 121 mg/dL High <=99 [facility] Comment on above: Result Comment: Near Borderline AGE Desirable Optimal High High Very High 0-19 Y 0 - 109 --- 110-129 >/= 130 ---- 20-24 Y 0 - 119 --- 120-159 >/= 160 ---- >24 Y 0 - 99 100-129 130-159 160-189 >/=190 Performed By: #### 2 4331-1 #### MARLA Robledo ([id number]) [facility] ([facility]) [address] [place] [address] 28782 Cholesterol in VLDL [Mass/Vol] 38 mg/dL Normal 0-40 [facility] Comment on above: Performed By: #### 2 4331-1 #### MARLA Robledo ([id number]) [facility] ([facility]) [address] [place] [address] 49866 CHOLESTEROL/HDL RATIO 2.8 Normal [facility] Comment on above: Result Comment: Ref Values Desirable < 3.4 High Risk > 5.0 Performed By: #### 2 4331-1 #### MARLA Robledo ([id number]) [facility] ([facility]) [address] [place] [address] 53609 NON HDL CHOLESTEROL 159 mg/dL High 0-149 [facility] Comment on above: Result Comment: Age Desirable Borderline High High Very High 0-19 Y 0 - 119 120 - 144 >/= 145 >/= 160 20-24 Y 0 - 149 150 - 189 >/= 190 ---- >24 Y 30 mg/dL above LDL Cholesterol goal Performed By: #### 2 4331-1 #### MARLA Robledo ([id number]) [facility] ([facility]) [address] [place] [address] 33995 Triglyceride [Mass/Vol] 190 mg/dL High 0-149 [facility] Comment on above: Result Comment: Age Desirable Borderline High High Very High 0 D-90 D 19 - 174 ---- ---- ---- 91 D- 9 Y 0 - 74 75 - 99 >/= 100 ---- 10-19 Y 0 - 89 90 - 129 >/= 130 ---- 20-24 Y 0 - 114 115 - 149 >/= 150 ---- >24 Y 0 - 149 150 - 199 200- 499 >/= 500 Venipuncture immediately after or during the administration of Metamizole may lead to falsely low results. Testing should be performed immediately prior to Metamizole dosing. Performed By: #### 2 4331-1 #### MARLA Robledo ([id number]) [facility] ([facility]) [address] [place] [address] 22124 TSH WITH REFLEX TO FREE T4 I F ABNORMALon 01-12-2024 TSH Qn 1.91 m[IU]/L Normal 0.44-3.98 [facility] Comment on above: Order Comment: TSH t esting is performed using different testing methodology at [facility] than at other [facility]. Direct result comparisons should only be made within the same method. Performed By: #### T HYDS #### MARLA Robledo ([id number]) [facility] ([facility]) [address] [place] [address] 41313 US Liver limitedon 3 Enlarged steatotic l iver. Stable post cholecystectomy bile duct appearance. MACRO: None. Signed by: Kandice Narvaez 05/20/2023 1:13 PM Dictation workstation: [id number] Interpreted By: Kandice Narvaez, STUDY: US ABDOMEN LIMITED LIVER; 05/19/2023 9:32 am INDICATION: Signs/Symptoms:fatty liver. COMPARISON: MRCP 01/20/2023 ACCESSION NUMBER(S): [id number] ORDERING CLINICIAN: DON MORAN TECHNIQUE: Sonography of the right upper quadrant was performed. FINDINGS: Pancreas: Normal appearance of visualized pancreas;portions obscured: Tail. Liver: *Size: 16.9 *Echotexture: Mildly heterogeneous. *Echogenicity: Normal *Surface contour: Smooth *Lesions: None. Biliary: Stable minimally dilated intrahepatic biliary ducts. CBD: 10 mm at the hilum, normal. Gallbladder: Cholecystectomy. Right Kidney: No hydronephrosis. Ascites: None. Kandice Frey, DO - 05/20/2023 Interpreted By: Kandice Narvaez, STUDY: US ABDOMEN LIMITED LIVER; 05/19/2023 9:32 am INDICATION: Signs/Symptoms:fatty liver. COMPARISON: MRCP 01/20/2023 ACCESSION NUMBER(S): [id number] ORDERING CLINICIAN: DON MORAN TECHNIQUE: Sonography of the right upper quadrant was performed. FINDINGS: Pancreas: Normal appearance of visualized pancreas;portions obscured: Tail. Liver: *Size: 16.9 *Echotexture: Mildly heterogeneous. *Echogenicity: Normal *Surface contour: Smooth *Lesions: None. Biliary: Stable minimally dilated intrahepatic biliary ducts. CBD: 10 mm at the hilum, normal. Gallbladder: Cholecystectomy. Right Kidney: No hydronephrosis. Ascites: None. IMPRESSION: Enlarged steatotic liver. Stable post cholecystectomy bile duct appearance. MACRO: None. Signed by: Kandice Narvaez 05/20/2023 1:13 PM Dictation workstation: [id number] [facility] Work Phone: US Liver limitedOrdered By: Kandice Narvaez on 05-20-2023 [facility] Work Phone: US ABDOMEN LIMITED LIVERon 1 US ABDOMEN LIMITED LIVER Interpreted By: Kandice Narvaez, STUDY: US ABDOMEN LIMITED LIVER; 05/19/2023 9:32 am INDICATION: Signs/Symptoms:fatty liver. COMPARISON: MRCP 01/20/2023 ACCESSION NUMBER(S): [id number] ORDERING CLINICIAN: DON MORAN TECHNIQUE: Sonography of the right upper quadrant was performed. FINDINGS: Pancreas: Normal appearance of visualized pancreas;portions obscured: Tail. Liver: *Size: 16.9 *Echotexture: Mildly heterogeneous. *Echogenicity: Normal *Surface contour: Smooth *Lesions: None. Biliary: Stable minimally dilated intrahepatic biliary ducts. CBD: 10 mm at the hilum, normal. Gallbladder: Cholecystectomy. Right Kidney: No hydronephrosis. Ascites: None. IMPRESSION: Enlarged steatotic liver. Stable post cholecystectomy bile duct appearance. MACRO: None. Signed by: Kandice Narvaez 05/20/2023 1:13 PM Dictation workstation: [id number] [facility] US Liver limitedon 3 Radiology Study observation (narrative) [facility] Work Phone: Established Visit (Gastroent erology)on 02-21-2023 Established Visit (Gastroenterology) Diagnoses/Problems Assessed History of diarrhea (V12.79) (Z87.725) Patient Discussion/Summary Thank you for coming to your appointment today - Your CBD is mildly dilated but stable. This is likely due to age and your history of gallbladder surgery - You have bilateral adrenal nodules that are less than 2cm in size. These are most likely adenomas. The were seen on prior CT scans and have been stable since 2018 according to the radiologist. You can follow this up with Dr. Moran. - Your colonoscopy was normal and random biopsies showed no colitis - I'm happy your diarrhea has resolved. Let me know if it returns - Follow up as needed Call with any questions or concerns [phone] Provider Impressions 1. diarrhea (resolved) No diarrhea in about 1 month. Having formed BMs now. Chronic diarrhea work up was unremarkable. Patient will call if she has return of symptoms 2. liver lesion Previously noted on CT; AFP was normal. MRCP did NOT note a liver lesion 3. CBD dilation Mild CBD dilation 10mm on MRCP; likely related to age and s/p cholecystectomy 4. Adrenal gland nodules vs adenomas Noted on MRCP. Was previously seen on CT A/P in September and as well. Radiologist reported them as stable compared to a CT A/P from 2018 on the report from September 2022. Will have her follow this up with PCP. Follow up with GI as needed Chief Complaint Last seen 12/27/2022 Follow up after colonoscopy done 01/28/2023 History of Present IllnessBEVERLY OHL is a 87 year female with past medical history of hypothyroidism, NAFLD, appendectomy, cholecystectomy, and knee replacement who presents for EGD/colonoscopy follow up. PCP is Don Moran MD, PhD Patient initially seen in this office in December 2022 for diarrhea. She was hospitalized in September [address] A/P showed mild thickening of the sigmoid colon and rectum, a 1.9cm liver lesion, and a CBD of 13mm (previously 9mm). GI saw her inpatient; outpatient colonoscopy and MRCP were recommended, though patient did not follow up. Cdiff, stool path pcr, and fecal calprotectin were all normal (09/2022). PCP checked celiac panel, CRP, TSH, and AFP, which were all normal (10/2022). She went to ER in November 2022 for worsening diarrhea. Cdiff and stool path pcr were again normal (11/2022). CT A/P during this ER visit showed no liver lesion, CBD measuring 8mm, evidence of intrahepatic ductal dilation, mild small bowel thickening, fluid filled colon, and incidental adrenal lesions. CBC was remarkable for leukocytosis of 21.8. At her appointment in December, she reported overall improvement in diarrhea but a weight loss of 24lbs unintentionally. Pancreatic elastase was normal (12/2022). Colonoscopy was completed 01/28/[address] Arias and showed diverticulosis and otherwise normal colon. Random biopsies were negative for colitis. MRCP (01/2023) showed no specific liver lesion, mild CBD dilation of 10mm likely related to cholecystectomy, and small bilateral adrenal lesions measuring 19mm (L) and 16mm (R). Patient has been doing very well and her diarrhea has resolved. She has been having a formed BM every day. She is started to gain weight back and has gained 5lbs so far. She is eating whatever she likes without fear of worsening symptoms. She denies any N/V, abdominal pain, melena, hematochezia, or constipation. Summary of endoscopies: - Colonoscopy 10/2012: diverticulosis, otherwise normal colon - Colonoscopy 01/2023: diverticulosis, otherwise normal colon Social Hx: tobacco: none etoh: rare illicit drug use: none NSAIDs: none Family Hx: No GI malignancy, IBD, or pancreatitis Review of Systems Constitutional: no reported fever, chills, or weight loss. Skin: no reported icterus, lesions, or rash. Eye: no reported itching, pain, vision changes. Ear: no reported discharge, hearing loss, or pain. Nose: no reported congestion, discharge, or epistaxis. Mouth/throat: no reported dysphagia, hoarseness, or throat pain. Resp: no reported cough, dyspnea, or wheezing. Cardiovascular: no reported chest pain, lower extremity edema, or palpitations. GI: see hpi : no reported dysuria, hematuria, or frequency. Neuro: no reported confusion, memory loss, headaches, or dizziness. Psych: no reported anxiety, depression, or insomnia. Musculoskeletal: no reported arthralgia, joint swelling, or myalgias. Heme/lymph: no reported easy bleeding or bruising, or swollen lymph nodes. Endocrine: no reported cold/heat intolerance, polydipsia, or polyuria. 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 Normal [facility] SURGICAL PATHOLOGY RESULTSon 02-03-2023 Pathology Report Name VINAYAK MONTES Pathologist: DONI VELARDE M.D. Date of Procedure: 01/28/2023 Date Received: 01/28/2023 Date Reported 02/03/2023 Submitting Physician: MANN ARIAS MD Location: [facility] Copy To/Referring/Attending: KRISTI DOYLE MACHINE PACKAGING TECHNICIAN Other External # FINAL DIAGNOSIS A. COLON, RANDOM BIOPSIES: -- COLON MUCOSA WITH NO SIGNIFICANT HISTOPATHOLOGIC FINDINGS. -- NO MICROSCOPIC EVIDENCE OF LYMPHOCYTIC OR COLLAGENOUS COLITIS. Electronically Signed Out By DONI VELARDE M.D./JIMMIE By the signature on this report, the individual or group listed as making the Final Interpretation/Diagnosis certifies that they have reviewed this case. Diagnostic interpretation performed at [facility] [address] [place] [address] Clinical History: Physician Contact Number: [phone] Ischemic Time (A): 10:39 Fixative (A): Formalin Fixative Time (A): 10:39 Clinical Diagnosis History Diarrhea, unspecified Specimen A) Rule out microscopic colitis Specimens Submitted As: A: RANDOM COLON BIOPSIES Gross Description: Received in formalin, labeled with the patient's name and hospital number and "A random colon biopsy", are multiple fragments of yoo, soft tissue aggregating to 1.1 x 0.3 x 0.2 cm. The specimen is submitted in toto in one cassette. SBS sbs/02/02/2023 [facility] Department of Pathology [address] [place] [address] Colonoscopyon 01-28-2023 Colonoscopy PATIENTNAME Patient Name: Vinayak Montes EXAMDATE Procedure Date: 01/28/2023 10:09 AM PATIENTID PATIENTACCOUNTNUM PATIENTDOB Date of : 1935 ADMITTYPE Admit Type: Outpatient PATIENTROOM Site: [facility] ETHNICITY Ethnicity: Not or RACE Race: White PROVDR Attending MD: Mann Arias MD, [id number] ENDOPROCEDURENAME Procedure: Colonoscopy INDICATION Indications: Clinically significant diarrhea of unexplained origin COMORBID Comorbidities: Hypothyroidism and NAFLD. PTPROFILE Patient Profile: This is an 87 year old female who has had persistent diarrhea and weight loss. Imaging (CT) suggested sigmoid/rectal wall thickening. Last colonoscoy in 2012 showed diverticulosis, but was otherwise normal. PRIMARYPROVIDER Providers: Mann Arias MD (Doctor) EDREFPROVIDER Referring: Don Moran MD, PhD REQMD Provider Care Team: Kristi Doyle NP CURRENT_MEDS Medicines: Monitored Anesthesia Care COMPLIC Complications: No immediate complications. ENDOPROCEDURETEXT Procedure: Pre-Anesthesia Assessment: - Prior to the procedure, a History and Physical was performed, and patient medications and allergies were reviewed. The patient is competent. The risks and benefits of the procedure and the sedation options and risks were discussed with the patient. All questions were answered and informed consent was obtained. Patient identification and proposed procedure were verified by the physician, the nurse, the associate professor of chemistry and the domestic technician in the pre-procedure area in the procedure room. Mental Status Examination: alert and oriented. Airway Examination: normal oropharyngeal airway and neck mobility and Mallampati Class II (the uvula but not tonsillar pillars visualized). Respiratory Examination: clear to auscultation. CV Examination: normal. Prophylactic Antibiotics: The patient does not require prophylactic antibiotics. Prior Anticoagulants: The patient has taken no anticoagulant or antiplatelet agents. ASA Grade Assessment: II - A patient with mild systemic disease. After reviewing the risks and benefits, the patient was deemed in satisfactory condition to undergo the procedure. The anesthesia plan was to use monitored anesthesia care (MAC). Immediately prior to administration of medications, the patient was re-assessed for adequacy to receive sedatives. The heart rate, respiratory rate, oxygen saturations, blood pressure, adequacy of pulmonary ventilation, and response to care were monitored throughout the procedure. The physical status of the patient was re-assessed after the procedure. After I obtained informed consent, the scope was passed under direct vision. Throughout the procedure, the patient's blood pressure, pulse, and oxygen saturations were monitored continuously. The Colonoscope was introduced through the anus and advanced to the terminal ileum. The colonoscopy was performed without difficulty. The patient tolerated the procedure well. The quality of the bowel preparation was evaluated using the BBPS ([place] Bowel Preparation Scale) with scores of: Right Colon = 2 (minor amount of residual staining, small fragments of stool and/or opaque liquid, but mucosa seen well), Transverse Colon = 2 (minor amount of residual staining, small fragments of stool and/or opaque liquid, but mucosa seen well) and Left Colon = 2 (minor amount of residual staining, small fragments of stool and/or opaque liquid, but mucosa seen well). The total BBPS score equals 6. The quality of the bowel preparation was good. FINDING Findings: The terminal ileum appeared normal. Normal mucosa was found in the entire colon. Biopsies for histology were taken with a cold forceps from the entire colon for evaluation of microscopic colitis. Verification of patient identification for the specimen was done by the physician, nurse and domestic technician using the patient's name, date and medical record number. For hemostasis at one biopsy site in the transverse colon, one hemostatic clip was successfully placed (MR conditional). Clip conference and event organiser: [employer]. There was no bleeding at the end of the maneuver. Diverticula were found in the sigmoid colon and descending colon. SEDATION Moderate Sedation: No sedation administered by endoscopist. Sedation was administered by the anesthesia staff. Refer to anesthesia documentation/charting for details regarding medications administered and doses given. IMPRESS Impression: - The examined portion of the ileum was normal. - Normal mucosa in the entire examined colon. Biopsied. Clip (MR conditional) was placed. Clip conference and event organiser: [employer]. - Diverticulosis in the sigmoid colon and in the descending colon. ENDORECOMMENDATION Recommendation: - Patient has a contact number available for emergencies (more content not included)... Normal [facility] Mann Arias MD - 02/07/2023 Patient Name: Vinayak Montes Procedure Date: 01/28/2023 10:09 AM Date of : 1935 Admit Type: Outpatient Site: [place] [facility] Ethnicity: Not or Race: White Attending MD: Mann Arias MD, [id number] Procedure: Colonoscopy Indications: Clinically significant diarrhea of unexplained origin Comorbidities: Hypothyroidism and NAFLD. Patient Profile: This is an 87 year old female who has had persistent diarrhea and weight loss. Imaging (CT) suggested sigmoid/rectal wall thickening. Last colonoscoy in 2012 showed diverticulosis, but was otherwise normal. Providers: Mann Arias MD (Doctor) Referring: Don Moran MD, PhD Provider Care Team: Kristi Doyle NP Medicines: Monitored Anesthesia Care Complications: No immediate complications. Procedure: Pre-Anesthesia Assessment: - Prior to the procedure, a History and Physical was performed, and patient medications and allergies were reviewed. The patient is competent. The risks and benefits of the procedure and the sedation options and risks were discussed with the patient. All questions were answered and informed consent was obtained. Patient identification and proposed procedure were verified by the physician, the nurse, the associate professor of chemistry and the domestic technician in the pre-procedure area in the procedure room. Mental Status Examination: alert and oriented. Airway Examination: normal oropharyngeal airway and neck mobility and Mallampati Class II (the uvula but not tonsillar pillars visualized). Respiratory Examination: clear to auscultation. CV Examination: normal. Prophylactic Antibiotics: The patient does not require prophylactic antibiotics. Prior Anticoagulants: The patient has taken no anticoagulant or antiplatelet agents. ASA Grade Assessment: II - A patient with mild systemic disease. After reviewing the risks and benefits, the patient was deemed in satisfactory condition to undergo the procedure. The anesthesia plan was to use monitored anesthesia care (MAC). Immediately prior to administration of medications, the patient was re-assessed for adequacy to receive sedatives. The heart rate, respiratory rate, oxygen saturations, blood pressure, adequacy of pulmonary ventilation, and response to care were monitored throughout the procedure. The physical status of the patient was re-assessed after the procedure. After I obtained informed consent, the scope was passed under direct vision. Throughout the procedure, the patient's blood pressure, pulse, and oxygen saturations were monitored continuously. The Colonoscope was introduced through the anus and advanced to the terminal ileum. The colonoscopy was performed without difficulty. The patient tolerated the procedure well. The quality of the bowel preparation was evaluated using the BBPS ([place] Bowel Preparation Scale) with scores of: Right Colon = 2 (minor amount of residual staining, small fragments of stool and/or opaque liquid, but mucosa seen well), Transverse Colon = 2 (minor amount of residual staining, small fragments of stool and/or opaque liquid, but mucosa seen well) and Left Colon = 2 (minor amount of residual staining, small fragments of stool and/or opaque liquid, but mucosa seen well). The total BBPS score equals 6. The quality of the bowel preparation was good. Findings: The terminal ileum appeared normal. Normal mucosa was found in the entire colon. Biopsies for histology were taken with a cold forceps from the entire colon for evaluation of microscopic colitis. Verification of patient identification for the specimen was done by the physician, nurse and domestic technician using the patient's name, date and medical record number. For hemostasis at one biopsy site in the transverse colon, one hemostatic clip was successfully placed (MR conditional). Clip conference and event organiser: [employer]. There was no bleeding at the end of the maneuver. Diverticula were found in the sigmoid colon and descending colon. Moderate Sedation: No sedation administered by endoscopist. Sedation was administered by the anesthesia staff. Refer to anesthesia documentation/charting for details regarding medications administered and doses given. Impression: - The examined portion of the ileum was normal. - Normal mucosa in the entire examined colon. Biopsied. Clip (MR conditional) was placed. Clip conference and event organiser: [employer]. - Diverticulosis in the sigmoid colon and in the descending colon. Recommendation: - Patient has a contact number available for emergencies. The signs and symptoms of potential delayed complications were discussed with the patient. Return to normal activities tomorrow. Written discharge instructions were provided to the patient. - Resume previous (more content not included)... [facility] Work Phone: [facility] Work Phone: Radiology Study observation (narrative) [facility] Work Phone: No Panel Informationon 01-28 [facility] [facility] DO Work Phone: [email or web address] } [employer] [facility] [facility] DO Work Phone: Order Reconciliationon 01-28 Order Reconciliation Page 1 Discharge Reconciliation Document Reconciliation Type: Discharge requested on behalf of Mann Arias (Physician) done by Mann Arias) Discharge - Reconciliation: 28-Jan-2023 10:44 by: Mann Arias) Home Medications EnteredHOME MEDICATIONS AT DISCHARGE DateReconciliation Comment/ Additional Information D3 1000 oral tablet 1 tab(s) orally once a day 06-Jun-2019 00:29 D3 1000 oral tablet 1 tab(s) orally once a day 06-Jun-2019 00:29 D3 1000 oral tablet is continued as D3 1000 oral tablet dicyclomine 10 mg oral capsule 1 cap(s) orally 3 times a day (before meals) -.Meds to Beds 28-Sep-2022 11:26 dicyclomine 10 mg oral capsule 1 cap(s) orally 3 times a day (before meals) -.Meds to Beds 28-Sep-2022 11:26 dicyclomine 10 mg oral capsule is continued as dicyclomine 10 mg oral capsule levothyroxine 25 mcg (0.025 mg) oral capsule 0.5 cap(s) orally once a day 06-Jun-2019 00:16 levothyroxine 25 mcg (0.025 mg) oral capsule 0.5 cap(s) orally once a day 06-Jun-2019 00:16 levothyroxine 25 mcg (0.025 mg) oral capsule is continued as levothyroxine 25 mcg (0.025 mg) oral capsule loperamide 2 mg oral capsule 1 cap(s) orally after episode of diarrhea. Max of 20 mg daily. 27-Nov-2022 18:03 loperamide 2 mg oral capsule 1 cap(s) orally after episode of diarrhea. Max of 20 mg daily. 27-Nov-2022 18:03 loperamide 2 mg oral capsule is continued as loperamide 2 mg oral capsule ondansetron 4 mg oral tablet, disintegrating 1 tab(s) orally every 4 hours as needed for nausea 27-Nov-2022 18:02 ondansetron 4 mg oral tablet, disintegrating 1 tab(s) orally every 4 hours as needed for nausea 27-Nov-2022 18:02 ondansetron 4 mg oral tablet, disintegrating is continued as ondansetron 4 mg oral tablet, disintegrating potassium citrate 10 mEq oral tablet, extended release 1 tab(s) orally 2 times a day 29-Sep-2022 12:33 potassium citrate 10 mEq oral tablet, extended release 1 tab(s) orally 2 times a day 29-Sep-2022 12:33 potassium citrate 10 mEq oral tablet, extended release is continued as potassium citrate 10 mEq oral tablet, extended release potassium citrate 10 mEq oral tablet, extended release 1 tab(s) orally 2 times a day -.Meds to Beds 28-Sep-2022 11:39 potassium citrate 10 mEq oral tablet, extended release 1 tab(s) orally 2 times a day -.Meds to Beds 28-Sep-2022 11:39 potassium citrate 10 mEq oral tablet, extended release is continued as potassium citrate 10 mEq oral tablet, extended release Current OrdersDateHOME MEDICATIONS AT DISCHARGE DateReconciliation Comment/ Additional Information Lactated Ringers Infusion IV Bag Volume = 1,000 mL Run at: 100 mL/hr IntraVenous Clinician Notes: Rosette-operative order ONLY 18-Jan-2023 18:07 Lactated Ringers Infusion is not required Lactated Ringers Infusion IV Bag Volume = 1,000 mL Run at: 100 mL/hr IntraVenous 18-Jan-2023 18:07 Lactated Ringers Infusion is not required Morphine Injectable DOSE = 2 mg IntraVenous Push Every 5 Minutes, PRN Pain - Mod (4-6) (PACU) if unable to take oralClinician Notes: Rosette-operative order ONLYMax total of 20 mg regardless of dose. 18-Jan-2023 18:07 Morphine Injectable is not required Naloxone Injectable (NARCAN)DOSE = 0.2 mg IntraVenous Push Once, PRN If patient RR below 10, obtunded or unarousableClinician Notes: DO NOT ADMINISTER UNTIL PHYSiCIAN HAS BEEN NOTIFIED AND ASSESSED PATIENT 18-Jan-2023 18:07 Naloxone Injectable is not required Ondansetron Injectable (ZOFRAN)DOSE = 4 mg IntraVenous Push Once, PRN PONV, first lineClinician Notes: Rosette-operative order ONLY 18-Jan-2023 18:07 Ondansetron Injectable is not required All Active Home Medications at time of Discharge Reconciliation: 28-Jan-2023 10:44 D3 1000 oral tablet 1 tab(s) orally once a day dicyclomine 10 mg oral capsule 1 cap(s) orally 3 times a day (before meals) -.Meds to Beds levothyroxine 25 mcg (0.025 mg) oral capsule 0.5 cap(s) orally once a day loperamide 2 mg oral capsule 1 cap(s) orally after episode of diarrhea. Max of 20 mg daily. ondansetron 4 mg oral tablet, disintegrating 1 tab(s) orally every 4 hours as needed for nausea potassium citrate 10 mEq oral tablet, extended release 1 tab(s) orally 2 times a day potassium citrate 10 mEq oral tablet, extended release 1 tab(s) orally 2 times a day -.Meds to Beds [facility] Patient Profile - Preop v3on 01-28-2023 Patient Profile - Preop v3 Patient Profile - Preop: Initial Info: Patient DemographicsName: VINAYAK MONTES Date: 1935 Address: [address] [place] [address] Primary Phone [phone] How to be AddressedBev Spoken Language PreferredEnglish Stated Reason for AdmissionColonoscopy Primary Contact Name and NumberSpouse Iron [phone] Medications Brought to Hospitalno General Health: Weight in kg54 kilogram(s) Weight in uax166 pound(s) Weight Methodstated Height in feet5 feet Height in inches1.97 inch(es) Height in cm157.4 centimeter(s) Height Methodstated BMI (kg/m2)21.796 square meter Patient or Family Member Reaction to Anesthesiano previous reaction Blood Avoidance/Restrictionsnone Previous Transfusion Reactionno Health Mgmt: Symptoms/Conditions Managed at [facility] Barriers to Managing Healthnone Relationship/Environ: Lives Withspouse Living Arrangementshouse Resource/Environmental Concernsnone Anticipated Transition [facility] Services Anticipated at Transitionnone Tobacco Use: Tobacco Useno Pre-op Checklist: Arrival [id number] Arrival Time08:38 Procedure TypeColonoscopy NPOyes Last Food [id number] 12:00 ID Band On Patientpatient ID (name), falls risk Consent Signedyes H&P Completeyes Anesthesia Assessment Completedyes Bowel Prepyes TypeMiralax Bowel Prep Completed as Instructedyes Stools Clearyes Additional Information: Information Review: Allergies, Home Meds and Significant Events have been Reviewed and Verified with Patient/Familyyes Allergy, Intolerance, Adverse Event: Allergies: No Known Allergies: Active Electronic Signatures: Luis Alberto Linda) (Signed 28-Jan-2023 08:49) Authored: Initial Info, General Health, Health Mgmt, Relationship/Environ, Tobacco Use, Pre-op Checklist, Additional Information Last Updated: 28-Jan-2023 08:49 by Luis Alberto Linda) [facility] Surgical Pathology Depar tmenton 01-28-2023 [facility] Surgical Pathology Department Name VINAYAK MONTES Pathologist: DONI VELARDE M.D. Date of Procedure: 01/28/2023 Date Received: 01/28/2023 Date Reported 02/03/2023 Submitting Physician: MANN ARIAS MD Location: [facility] Copy To/Referring/Attending: KRISTI DOYLE MACHINE PACKAGING TECHNICIAN Other External # FINAL DIAGNOSIS A. COLON, RANDOM BIOPSIES: -- COLON MUCOSA WITH NO SIGNIFICANT HISTOPATHOLOGIC FINDINGS. -- NO MICROSCOPIC EVIDENCE OF LYMPHOCYTIC OR COLLAGENOUS COLITIS. Electronically Signed Out By DONI VELARDE M.D./JIMMIE By the signature on this report, the individual or group listed as making the Final Interpretation/Diagnosis certifies that they have reviewed this case. Diagnostic interpretation performed at [facility] [address] [id number] Clinical History: Physician Contact Number: [phone] Ischemic Time (A): 10:39 Fixative (A): Formalin Fixative Time (A): 10:39 Clinical Diagnosis History Diarrhea, unspecified Specimen A) Rule out microscopic colitis Specimens Submitted As: A: RANDOM COLON BIOPSIES Gross Description: Received in formalin, labeled with the patient's name and hospital number and "A random colon biopsy", are multiple fragments of yoo, soft tissue aggregating to 1.1 x 0.3 x 0.2 cm. The specimen is submitted in toto in one cassette. SBS sbs/02/02/2023 [facility] Department of Pathology [id number] [place] [address] Normal [facility] Comment on above: Performed By: #### [facility] #### [facility] Surgical Pathology Department [address] [place], [place] [id number] MRCP Liver w/wo Contraston 0 01-20-2023 MR Liver WO and W contrast IV Normal [facility] [facility] DO Work Phone: MRCP WITH LIVER WO/W CONTRAS Ton 01-20-2023 MRCP WITH LIVER WO/W CONTRAST Patient Name: VINAYAK MONTES STUDY: MRCP WITH LIVER WO/W CONTRAST; 01/20/2023 12:17 pm INDICATION: intra and extra hepatic duct dilation K83.8: Intrahepatic bile duct dilation. COMPARISON: Multiple CTs of the abdomen and pelvis, most recently 11/27/2022. ACCESSION NUMBER(S): [id number] ORDERING CLINICIAN: KRISTI DOYLE TECHNIQUE: MRI LIVER; Multiplanar magnetic resonance images of the abdomen were obtained including the following sequences; T2-weighted SSFSE with and without fat saturation, T1-weighted GRE in/opposed phase, DWI, fat saturated 3D-T1w GRE pre and dynamically post contrast. 11 milliliter of DOTAREM GADOTERATE MEGLUMINE INJECTION were administered intravenously without immediate complication. FINDINGS: LIVER: The liver is normal in size with smooth contour and homogeneous hepatic parenchyma. The liver parenchyma demonstrates normal signal intensity in T2w and T1w imaging. No suspicious lesion or enhancement. BILE DUCTS: Mild diffuse intrahepatic ductal dilation. Common bile duct is dilated up to 10 mm. On the MRCP sequences, there is no evidence of choledocholithiasis or filling defects within the common bile duct. GALLBLADDER: The gallbladder is absent. PANCREAS: Normal signal intensity. Normal enhancement. No masses. The pancreatic duct is normal. SPLEEN: The spleen is normal in size without evidence of focal lesions. ADRENAL GLANDS: 19 mm left and 16 mm right adrenal lesions which demonstrate loss of signal on the out of phase sequences and are compatible with adenomas. KIDNEYS: No suspicious mass or enhancement. No hydronephrosis. LYMPH NODES: No lymphadenopathy. ABDOMINAL VESSELS: Aorta and the major abdominal arterial vessels demonstrate no gross abnormality. Superior mesenteric vein, splenic vein, and main, right and left portal vein are patent. Hepatic veins are patent. BOWEL: No bowel dilation or wall thickening. PERITONEUM/RETROPERITONEUM: No ascites. BONES AND LOWER THORAX: No abnormally enhancing focal bony lesions are identified. 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 The visualized lower lung fong are unremarkable. The heart is normal in size. IMPRESSION: 1. Mild diffuse intrahepatic common common bile duct dilation up to 10 mm. No obstructing lesion or evidence of choledocholithiasis. Findings likely related to cholecystectomy. 2. 19 mm left and 16 mm right adrenal adenomas. Electronically signed by: ALLAN DE LOS SANTOS MD Normal [facility] PANCREATIC ELASTASE,FECALon 01-08-2023 PANCREATIC ELASTASE,FECAL >800 Normal >=100 [facility] Comment on above: Result Comment: REFE RENCE INTERVAL: Pancreatic Elastase Fecal by Immunoassay Less than 100 ug/g............Severe insufficiency 100 - 199 ug/g................Moderate insufficiency 200 ug/g or greater...........Normal INTERPRETIVE INFORMATION: Pancreatic Elastase Fecal by Immunoassay Reference intervals do not apply for infants less than one month old. Performed by [email or web address], [address] [place] [id number] [email or web address], Ruddy Mcdonald MD, PHD - Lab. Director Performed By: #### E LAST #### [facility] [address] [place] [address] Pancreatic Elastase, Stoolon 01-05-2023 Elastase.pancreati c (Stl) [Mass/Mass] >800 >=100 -[facility] [facility] DO Work Phone: Comment on above: REFERENCE INTERVAL: Pancreatic Elastase Fecal by Immunoassay Less than 100 ug/g............Severe insufficiency 100 - 199 ug/g................Moderate insufficiency 200 ug/g or greater...........NormalINTERPRETIVE INFORMATION: Pancreatic Elastase Fecal by ImmunoassayReference intervals do not apply for infants less than one month old.Performed by [email or web address], [address] [place] [address] [email or web address], Ruddy Mcdonald MD, PHD - Lab. Director CBCon 01-03-2023 Erythrocyte distribution width (RBC) [Ratio] 15.0 % High 11.5 - 14.5 [facility] Comment on above: Performed By: #### C BC ####[address] [address] Hematocrit (Bld) [Volume fraction] 40.4 % Normal 36.0 - 46.0 [facility] Comment on above: Performed By: #### C BC ####[address] [address] Hemoglobin (Bld) [Mass/Vol] 12.9 g/dL Normal 12.0 - 16.0 [facility] Comment on above: Performed By: #### C BC ####[address] [address] MCHC (RBC) [Mass/Vol] 31.9 g/dL Low 32.0 - 36.0 [facility] Comment on above: Performed By: #### C BC ####[address] [address] MCV (RBC) [Entitic vol] 98 fL Normal 80 - 100 [facility] Comment on above: Performed By: #### C BC ####[address] [address] Platelets (Bld) [#/Vol] 307 10*3/uL Normal 150 - 450 [facility] Comment on above: Performed By: #### C BC ####[address] [address] RBC 4.13 x10E12/L Normal 4.00 - 5.20 [facility] Comment on above: Performed By: #### C BC ####[address] [address] WBC (Bld) [#/Vol] 6.9 10*3/uL Normal 4.4 - 11.3 [facility] Comment on above: Performed By: #### C BC ####[address] [address] COMPREHENSIVE PANELon 2022 Albumin [Mass/Vol] 4.0 g/dL Normal 3.4 - 5.0 [facility] Comment on above: Performed By: #### C MP #### [address] [address] ALP [Catalytic activity/Vol] 62 U/L Normal 33 - 136 [facility] Comment on above: Performed By: #### C MP #### [address] [address] ALT [Catalytic activity/Vol] 13 U/L Normal 7 - 45 [facility] Comment on above: Result Comment: Joann ents treated with Sulfasalazine may generate falsely decreased results for ALT. Performed By: #### C MP #### [address] [address] Anion gap [Moles/Vol] 13 mmol/L Normal 10 - 20 [facility] Comment on above: Performed By: #### C MP #### [address] [address] AST [Catalytic activity/Vol] 22 U/L Normal 9 - 39 [facility] Comment on above: Performed By: #### C MP #### [address] [address] Bilirubin [Mass/Vol] 0.4 mg/dL Normal 0.0 - 1.2 [facility] Comment on above: Performed By: #### C MP #### [address] [address] Calcium [Mass/Vol] 9.5 mg/dL Normal 8.6 - 10.3 [facility] Comment on above: Performed By: #### C MP #### [address] [address] Chloride [Moles/Vol] 105 mmol/L Normal 98 - 107 [facility] Comment on above: Performed By: #### C MP #### [address] [address] Creatinine [Mass/Vol] 0.49 mg/dL Low 0.50 - 1.05 [facility] Comment on above: Performed By: #### C MP #### [address] [address] eGFR FEMALE >90 Normal >90 [facility] Comment on above: Result Comment: CALC ULATIONS OF ESTIMATED GFR ARE PERFORMED USING THE 2020 CKD-EPI STUDY REFIT EQUATION WITHOUT THE RACE VARIABLE FOR THE IDMS-TRACEABLE CREATININE METHODS. https://jasn.asnjournals.org/content//ASN.191319485 8 Performed By: #### C MP #### [address] [address] Glucose [Mass/Vol] 95 mg/dL Normal 74 - 99 [facility] Comment on above: Performed By: #### C MP #### [address] [address] HCO3 (Bld) [Moles/Vol] 27 mmol/L Normal 21 - 32 [facility] Comment on above: Performed By: #### C MP #### [address] [address] Potassium [Moles/Vol] 4.4 mmol/L Normal 3.5 - 5.3 [facility] Comment on above: Performed By: #### C MP #### [facility] [address] [place] [address] Protein [Mass/Vol] 6.6 g/dL Normal 6.4 - 8.2 [facility] Comment on above: Performed By: #### C MP #### [address] [address] Sodium [Moles/Vol] 141 mmol/L Normal 136 - 145 [facility] Comment on above: Performed By: #### C MP #### [address] [address] Urea nitrogen [Mass/Vol] 15 mg/dL Normal 6 - 23 [facility] Comment on above: Performed By: #### C MP #### [address] [address] Laboratory - Chemistry and C hemistry - challengeon 01-03-2023 Albumin BCP dye [Mass/Vol] 4.0 g/dL 3.4 - 5.0 [facility] 200 DO Work Phone: ALP [Catalytic activity/Vol] 62 U/L 33 - 136 -[facility] 200 DO Work Phone: ALT With P-5'-P [Catalytic activity/Vol] 13 U/L 7 - 45 [facility] 200 DO Work Phone: Comment on above: Patients treated wit h Sulfasalazine may generate falsely decreased results for ALT. Anion gap [Moles/Vol] 13 mmol/L 10 - 20 [facility] 200 DO Work Phone: AST With P-5'-P [Catalytic activity/Vol] 22 U/L 9 - 39 [facility] 200 DO Work Phone: Bilirubin [Mass/Vol] 0.4 mg/dL 0.0 - 1.2 [facility] 200 DO Work Phone: Calcium [Mass/Vol] 9.5 mg/dL 8.6 - 10.3 [facility] 200 DO Work Phone: Chloride [Moles/Vol] 105 mmol/L 98 - 107 [facility] 200 DO Work Phone: CO2 [Moles/Vol] 27 mmol/L 21 - 32 [facility] 200 DO Work Phone: Creatinine [Mass/Vol] 0.49 mg/dL below low threshold See Below [facility] 200 DO Work Phone: Comment on above: Reference Range: 0.5 0 - 1.05 Glucose [Mass/Vol] 95 mg/dL 74 - 99 [facility] 200 DO Work Phone: Potassium [Moles/Vol] 4.4 mmol/L 3.5 - 5.3 [facility] 200 DO Work Phone: Protein [Mass/Vol] 6.6 g/dL 6.4 - 8.2 [facility] 200 DO Work Phone: Sodium [Moles/Vol] 141 mmol/L 136 - 145 [facility] 200 DO Work Phone: Urea nitrogen [Mass/Vol] 15 mg/dL 6 - 23 [facility] 200 DO Work Phone: Laboratory - Hematology and Cell countson 01-03-2023 Erythrocyte distribution width (RBC) [Ratio] 15.0 % above high threshold See Below [facility] 200 DO Work Phone: Comment on above: Reference Range: 11. 5 - 14.5 Hematocrit (Bld) [Volume fraction] 40.4 % See Below [facility] 200 DO Work Phone: Comment on above: Reference Range: 36. 0 - 46.0 Hemoglobin (Bld) [Mass/Vol] 12.9 g/dL See Below [facility] 200 DO Work Phone: [phone] Comment on above: Reference Range: 12. 0 - 16.0 MCHC (RBC) [Mass/Vol] 31.9 g/dL below low threshold See Below [facility] 200 DO Work Phone: [phone] Comment on above: Reference Range: 32. 0 - 36.0 MCV (RBC) [Entitic vol] 98 fL 80 - 100 [facility] 200 DO Work Phone: Platelets (Bld) [#/Vol] 307 10*3/uL 150 - 450 [facility] 200 DO Work Phone: RBC (Bld) [#/Vol] 4.13 {x10E12/L} See Below [facility] 200 DO Work Phone: [phone] Comment on above: Reference Range: 4.0 0 - 5.20 WBC (Bld) [#/Vol] 6.9 10*3/uL 4.4 - 11.3 [facility] 200 DO Work Phone: [phone] No Panel Informationon 01-03 >90 >90 [facility] [facility] DO Work Phone: Comment on above: CALCULATIONS OF NEL MATED GFR ARE PERFORMED USING THE 2020 CKD-EPI STUDY REFIT EQUATION WITHOUT THE RACE VARIABLE FOR THE IDMS-TRACEABLE CREATININE METHODS.https://jasn.asnjournals.org/content///ASN.2 997130087 Initial Visit (Gastroenterol ogy)on 12-27-2022 Initial Visit (Gastroenterology) Diagnoses/Problems Assessed Diarrhea (787.91) (R19.7) Intrahepatic bile duct dilation (576.8) (K83.8) Orders Diarrhea Colonoscopy Diagnostic; Status:Active; Requested for:28Jan2023; Perform:[facility]; Due:28Apr2023; Last Updated By:Ana Garcia; 12/27/2022 1:42:45 PM;Ordered; For:Diarrhea; Ordered By:Kristi Doyle; Patient competent to provide consent? : Yes-pt mentally competent to provide consent Complete Blood Count; Status:Active; Requested for:27Dec2022; Perform:Lab Services - Lab To Draw (Blood Test); Due:27Mar2023;Ordered; For:Diarrhea; Ordered By:Kristi Doyle; Pancreatic Elastase, Stool; Status:Active; Requested for:27Dec2022; Perform:Lab Services - Lab To Draw (Non-Blood Test); Due:27Mar2023;Ordered; For:Diarrhea; Ordered By:Kristi Doyle; Intrahepatic bile duct dilation Comprehensive Metabolic Panel; Status:Active; Requested for:27Dec2022; Perform:Lab Services - Lab To Draw (Blood Test); Due:27Mar2023;Ordered; For:Intrahepatic bile duct dilation; Ordered By:Kristi Doyle; MRCP Liver w/wo Contrast; Status:Hold For - Scheduling; Requested for:27Dec2022; Perform: Radiology Services Imaging; Due:27Mar2023;Ordered; For:Intrahepatic bile duct dilation; Ordered By:Kristi Doyle; Radiologist to Determine Optimal Study : Y Does the patient have a Cochlear Implant, Pacemaker, Defibrilator, Pacing Wire, Brain Aneurysm Clip, Implanted Nerve or Bone Graft Simulator, Implanted Breast Tissue Co Founder And Director, Glucose Monitor, or Neulasta Device? : No Is the patient or breast feeding? : No What are the patient's signs and symptoms? : intra and extra hepatic duct dilation Patient Discussion/Summary Thank you for coming to your appointment today - Please do your blood work and stool studies in the outpatient lab - We will schedule you for a colonoscopy in the OR - Please follow the detailed bowel prep instructions given to you at the office today. - Schedule your MRI; call [phone] - Follow up after procedure Call with any questions or concerns [phone] Provider Impressions 1. diarrhea Diarrhea is now improving. Has had some previous workup. Cdiff, stool path pcr, and fecal calprotectin were all normal (09/2022). PCP checked celiac panel, CRP and TSH normal (10/2022). Previously outpatient colonoscopy was recommended by GI while pt was hospitalized. Will schedule pt for colonoscopy in OR due to age. Reviewed risks/benefits of procedure. Check pancreatic elastase. 2. liver lesion, CBD dilation, intrahepatic duct dilation AFP was normal (10/2022) and repeat CT in November did not note a liver lesion that was previously seen in September (1.9cm lesion). She has had CBD and intrahepatic ductal dilation. Discussed MRCP which patient is agreeable to. Will check CMP prior to MRCP. > 60 minutes spent with patient, coordinating care, reviewing prior notes and results, and documentation Chief Complaint Referred by for diarrhea Colon: 2012 History of Present IllnessBEVERLY SIMON is a 86 year female with past medical history of hypothyroidism, NAFLD, appendectomy, cholecystectomy, and knee replacement who presents for consultation requested by her PCP for evaluation of diarrhea PCP is Don Moran MD, PhD Patient was hospitalized in September [address] A/P showed mild thickening of the sigmoid colon and rectum, a 1.9cm liver lesion, and a CBD of 13mm (previously 9mm). GI saw her inpatient; outpatient colonoscopy and MRCP were recommended, though patient did not follow up. Cdiff, stool path pcr, and fecal calprotectin were all normal (09/2022). PCP checked celiac panel, CRP, TSH, and AFP, which were all normal (10/2022). She went to ER in November 2022 for worsening diarrhea. Cdiff and stool path pcr were again normal (11/2022). CT A/P during this ER visit showed no liver lesion, CBD measuring 8mm, evidence of intrahepatic ductal dilation, mild small bowel thickening, fluid filled colon, and incidental adrenal lesions. CBC was remarkable for leukocytosis of 21.8. Patient reports having persistent diarrhea for about 2.5 months. She was given Augmentin in the ER at her visit in November, and reports that after taking this she has felt better overall for the last 2-3 weeks. She did have an episode of diarrhea about 10 days ago when she had 3 loose BMs overnight. Prior to the last 2-3 weeks, she was having multiple BMs per day that would wake her up at night. She has lost 24 lbs in the last few months unintentionally. She denies any abdominal pain, rectal pain, or rectal bleeding. She has been using colestipol TID since October, but states it did not help her diarrhea. She was having some N/V a couple months ago that has resolved. She otherwise denies dysphagia, odynophagia, reflux, melena, or hematochezia. Her last colonoscopy was in 2012. She did have a negative cologuard in 2020. Summary of endoscopies: - Colonoscopy 10/2012: diverticulosis, otherwise normal colon (more content not included)... Normal [facility] STOOL PATHOGEN PCR PANELon 0 11-28-2022 CAMPYLOBACTER GP. Not detected Normal NOT DETECTED [facility] Comment on above: Performed By: #### S TLPP #### [facility] [address] [place] [address] NOROVIRUS GI/GII Not detected Normal NOT DETECTED [facility] Comment on above: Performed By: #### S TLPP #### [facility] [address] [place] [id number] ROTAVIRUS A Not detected Normal NOT DETECTED [facility] Comment on above: Result Comment: The enteric PCR panel is a panel of sensitive and specific amplified nucleic acid tests indicated as an aid in the diagnosis of specific bacterial and viral agents of gastrointestinal illness, in conjunction with other clinical, laboratory, and epidemiological information. This test is not approved for monitoring these infections. Monitoring is available for Salmonella and Shigella infections-request test "Stool PCR Follow-Up (STLPF)". Monitoring tests are not available at this time for other enteric agents in this panel. Performed By: #### S TLPP #### [facility] [address] [place] [id number] SALMONELLA SP. Not detected Normal NOT DETECTED [facility] Comment on above: Performed By: #### S TLPP #### [facility] [address] [place] [address] SHIGA TOXIN 1 Not detected Normal NOT DETECTED [facility] Comment on above: Performed By: #### S TLPP #### [facility] [address] [place] [id number] SHIGA TOXIN 2 Not detected Normal NOT DETECTED [facility] Comment on above: Performed By: #### S TLPP #### [facility] [address] [place] [address] SHIGELLA SP. Not detected Normal NOT DETECTED [facility] Comment on above: Performed By: #### S TLPP #### [facility] [address] [place] [address] [employer] Not detected Normal NOT DETECTED [facility] Comment on above: Performed By: #### S TLPP #### [facility] [address] [place] [address] YERSINIA ENTEROCOLITICA Not detected Normal NOT DETECTED [facility] Comment on above: Performed By: #### S TLPP #### [facility] [address] [place] [address] AMYLASEon 11-27-2022 Amylase [Catalytic activity/Vol] 52 U/L Normal 29 - 103 [facility] Comment on above: Result Comment: MODE RATE HEMOLYSIS DETECTED. The result may be falsely decreased due to hemolysis or other interferents. Clinical correlation is recommended. Repeat testing may be considered. Performed By: #### A PTT #### [address] [address] APTTon 11-27-2022 aPTT Coag (Bld) [Time] 34 s Normal 26 - 39 [facility] Comment on above: Result Comment: THE APTT IS NO LONGER USED FOR MONITORING UNFRACTIONATED HEPARIN THERAPY. FOR MONITORING HEPARIN THERAPY, USE THE HEPARIN ASSAY. Performed By: #### A PTT #### [address] [address] Activated Partial Thrombopla stin Timeon 11-27-2022 aPTT Coag (PPP) [Time] 34 s 26 - 39 [facility] 200 DO Work Phone: Comment on above: THE APTT IS NO LONGE R USED FOR MONITORING UNFRACTIONATED HEPARIN THERAPY. FOR MONITORING HEPARIN THERAPY, USE THE HEPARIN ASSAY. Amylase, Serumon 11-27-2022 Amylase [Catalytic activity/Vol] 52 U/L 29 - 103 [facility] 200 DO Work Phone: Comment on above: MODERATE HEMOLYSIS D ETECTED. The result may be falsely decreased due tohemolysis or other interferents. Clinical correlation is recommended.Repeat testing may be considered. BASIC METABOLIC PANELon 11-13 Anion gap [Moles/Vol] 16 mmol/L Normal 10 - 20 [facility] Comment on above: Performed By: #### H EPFP #### [address] [address] Calcium [Mass/Vol] 9.7 mg/dL Normal 8.6 - 10.3 [facility] Comment on above: Performed By: #### H EPFP #### [address] [address] Chloride [Moles/Vol] 99 mmol/L Normal 98 - 107 [facility] Comment on above: Performed By: #### H EPFP #### [address] [address] Creatinine [Mass/Vol] 0.91 mg/dL Normal 0.50 - 1.05 [facility] Comment on above: Performed By: #### H EPFP #### [address] [address] GFR/1.73 sq M.predicted among non-blacks MDRD (S/P/Bld) [Vol rate/Area] 62 mL/min/{1.73_m2} Normal >90 [facility] Comment on above: Result Comment: CALC ULATIONS OF ESTIMATED GFR ARE PERFORMED USING THE 2020 CKD-EPI STUDY REFIT EQUATION WITHOUT THE RACE VARIABLE FOR THE IDMS-TRACEABLE CREATININE METHODS. https://jasn.asnjournals.org/content//ASN.774948771 8 Performed By: #### H EPFP #### [address] [address] Glucose [Mass/Vol] 100 mg/dL High 74 - 99 [facility] Comment on above: Performed By: #### H EPFP #### [address] [address] HCO3 (Bld) [Moles/Vol] 23 mmol/L Normal 21 - 32 [facility] Comment on above: Performed By: #### H EPFP #### [place] [address] Potassium [Moles/Vol] 4.2 mmol/L Normal 3.5 - 5.3 [facility] Comment on above: Result Comment: MODE RATE HEMOLYSIS DETECTED. The result may be falsely elevated due to hemolysis or other interferents. Clinical correlation is recommended. Repeat testing may be considered. Performed By: #### H EPFP #### [place] [address] Sodium [Moles/Vol] 134 mmol/L Low 136 - 145 [facility] Comment on above: Performed By: #### H EPFP #### [place] [address] Urea nitrogen [Mass/Vol] 14 mg/dL Normal 6 - 23 [facility] Comment on above: Performed By: #### H EPFP #### [place] [id number] CBC AND DIFFERENTIALon 11-27 % AUTOMATED IMMATURE GRAN 0.5 % Normal 0.0 - 0.9 [facility] Comment on above: Result Comment: Harriet ture Granulocyte Count (IG) includes promyelocytes, myelocytes and metamyelocytes but does not include bands. Percent differential counts (%) should be interpreted in the context of the absolute cell counts (cells/L). Performed By: #### H EPFP #### [place] [id number] Basophils (Bld) [#/Vol] 0.08 10*3/uL Normal 0.00 - 0.10 [facility] Comment on above: Performed By: #### H EPFP #### [address] [address] Basophils/100 WBC (Bld) 0.4 % Normal 0.0 - 2.0 [facility] Comment on above: Performed By: #### H EPFP #### [address] [address] Eosinophils (Bld) [#/Vol] 0.03 10*3/uL Normal 0.00 - 0.40 [facility] Comment on above: Performed By: #### H EPFP #### [address] [address] Eosinophils/100 WBC (Bld) 0.1 % Normal 0.0 - 6.0 [facility] Comment on above: Performed By: #### H EPFP #### [address] [address] Erythrocyte distribution width (RBC) [Ratio] 13.2 % Normal 11.5 - 14.5 [facility] Comment on above: Performed By: #### H EPFP #### [address] [address] Hematocrit (Bld) [Volume fraction] 46.0 % Normal 36.0 - 46.0 [facility] Comment on above: Performed By: #### H EPFP #### [address] [address] Hemoglobin (Bld) [Mass/Vol] 15.5 g/dL Normal 12.0 - 16.0 [facility] Comment on above: Performed By: #### H EPFP #### [address] [address] Lymphocytes (Bld) [#/Vol] 1.63 10*3/uL Normal 0.80 - 3.00 [facility] Comment on above: Performed By: #### H EPFP #### [address] [address] Lymphocytes/100 WBC (Bld) 7.5 % Normal 13.0 - 44.0 [facility] Comment on above: Performed By: #### H EPFP #### [address] [address] MCHC (RBC) [Mass/Vol] 33.7 g/dL Normal 32.0 - 36.0 [facility] Comment on above: Performed By: #### H EPFP #### [address] [address] MCV (RBC) [Entitic vol] 94 fL Normal 80 - 100 [facility] Comment on above: Performed By: #### H EPFP #### [address] [address] Monocytes (Bld) [#/Vol] 0.94 10*3/uL High 0.05 - 0.80 [facility] Comment on above: Performed By: #### H EPFP #### [address] [address] Monocytes/100 WBC (Bld) 4.3 % Normal 2.0 - 10.0 [facility] Comment on above: Performed By: #### H EPFP #### [place] [address] Neutrophils (Bld) [#/Vol] 18.98 10*3/uL High 1.60 - 5.50 [facility] Comment on above: Performed By: #### H EPFP #### [address] [address] Neutrophils/100 WBC (Bld) 87.2 % Normal 40.0 - 80.0 [facility] Comment on above: Performed By: #### H EPFP #### [address] [address] Platelets (Bld) [#/Vol] 376 10*3/uL Normal 150 - 450 [facility] Comment on above: Performed By: #### H EPFP #### [address] [address] RBC 4.89 x10E12/L Normal 4.00 - 5.20 [facility] Comment on above: Performed By: #### H EPFP #### [address] [address] WBC (Bld) [#/Vol] 21.8 10*3/uL High 4.4 - 11.3 [facility] Comment on above: Performed By: #### H EPFP #### [place] [address] CLOST DIFF. TOXIN, PCRon CLOST.DIFF.TOXIN,P CR Not detected Normal Not Detected [facility] Comment on above: Result Comment: This assay detects the presence of the tcdB (toxin B) gene via DNA amplification, and results should be interpreted in the context of the patients history and clinical findings. This test cannot be performed on formed stools or used as a test of cure, and should not be performed more than once per 7 days. Performed By: #### C DTPC #### [place] [address] Lab Specimen Source Stool Normal [facility] Comment on above: Performed By: #### C DTPC #### [place] [address] C. difficile toxin genes QUAN+probe Ql (Stl) Not detected See Below [facility] 200 DO Work Phone: Comment on above: SOURCE: StoolReferen ce Range: Not Detected This assay detects the presence of the tcdB (toxin B) gene via DNA amplification, and results should be interpreted in the context of the patients history and clinical findings. This test cannot be performed on formed stools or used as a test of cure, and should not be performed more than once per 7 days. CORONAVIRUS 2019 BY PCRon SARS-CoV-2 (COVID-19) RNA QUAN+probe Ql (Unsp spec) Not detected Normal Not Detected [facility] Comment on above: Result Comment: . This test has received FDA Emergency Use Authorization (EUA) and has been verified by [facility]. This test is only authorized for the duration of time that circumstances exist to justify the authorization of the emergency use of in vitro diagnostic tests for the detection of SARS-CoV-2 virus and/or diagnosis of COVID-19 infection under section 564(b)(1) of the Act, 21 U.S.C. 360bbb-3(b)(1), unless the authorization is terminated or revoked sooner. [facility] is certified under CLIA-88 as qualified to perform high complexity testing. Testing is performed in the [facility] laboratory located at [address] [place] [address]. SARS-CoV-2/Flu/RSV Multiplex Test: Fact sheet for providers: https://www.fda.gov/media/294253/download Fact sheet for patients: https://www.fda.gov/media/244015/download Performed By: #### H EPFP #### [place] [address] Lab Specimen Source Nasal, Nasopharyngeal Normal [facility] Comment on above: Performed By: #### H EPFP #### [place] [address] CT Abdomen and Pelvis with I V Contraston 11-27-2022 CT Abdomen and Pelvis W contrast IV Normal [facility] 200 DO Work Phone: Complete Blood Count + Diffe rentialon 11-27-2022 Basophils/100 WBC (Bld) 0.4 % 0.0 - 2.[address] [facility] 200 DO Work Phone: Erythrocyte distribution width (RBC) [Ratio] 13.2 % See Below [facility] 200 DO Work Phone: Comment on above: Reference Range: 11. 5 - 14.5 Hematocrit (Bld) [Volume fraction] 46.0 % See Below [facility] 200 DO Work Phone: Comment on above: Reference Range: 36. 0 - 46.0 Hemoglobin (Bld) [Mass/Vol] 15.5 g/dL See Below [facility] 200 DO Work Phone: Comment on above: Reference Range: 12. 0 - 16.0 Lymphocytes/100 WBC (Bld) 7.5 % See Below [facility] 200 DO Work Phone: [phone] Comment on above: Reference Range: 13. 0 - 44.0 MCHC (RBC) [Mass/Vol] 33.7 g/dL See Below [facility] 200 DO Work Phone: [phone] Comment on above: Reference Range: 32. 0 - 36.0 MCV (RBC) [Entitic vol] 94 fL 80 - 100 [facility] 200 DO Work Phone: Monocytes/100 WBC (Bld) 4.3 % 2.0 - 10.0 [facility] 200 DO Work Phone: Neutrophils/100 WBC (Bld) 87.2 % See Below [facility] 200 DO Work Phone: Comment on above: Reference Range: 40. 0 - 80.0 Platelets (Bld) [#/Vol] 376 10*3/uL 150 - 450 [facility] 200 DO Work Phone: RBC (Bld) [#/Vol] 4.89 {x10E12/L} See Below [facility] 200 DO Work Phone: [phone] Comment on above: Reference Range: 4.0 0 - 5.20 WBC (Bld) [#/Vol] 21.8 10*3/uL above high threshold 4.4 - 11.3 [facility] 200 DO Work Phone: Complete Blood Count + Differential 0.1 % 0.0 - 6.0 [facility] 200 DO Work Phone: [phone] Complete Blood Count + Differential 0.5 % 0.0 - 0.9 [facility] 200 DO Work Phone: [phone] Comment on above: Immature Granulocyte Count (IG) includes promyelocytes, myelocytes and metamyelocytes but does not include bands. Percent differential counts (%) should be interpreted in the context of the absolute cell counts (cells/L). Complete Blood Count + Differential 0.08 {x10E9/L} See Below [facility] 200 DO Work Phone: Comment on above: Reference Range: 0.0 0 - 0.10 Complete Blood Count + Differential 0.03 {x10E9/L} See Below [facility] 200 DO Work Phone: Comment on above: Reference Range: 0.0 0 - 0.40 Complete Blood Count + Differential 0.94 {x10E9/L} above high threshold See Below [facility] IEV 200 DO Work Phone: Comment on above: Reference Range: 0.0 5 - 0.80 Complete Blood Count + Differential 1.63 {x10E9/L} See Below [employer] IEV 200 DO Work Phone: Comment on above: Reference Range: 0.8 0 - 3.00 Complete Blood Count + Differential 18.98 {x10E9/L} above high threshold See Below [employer]udson 200 DO Work Phone: Comment on above: Reference Range: 1.6 0 - 5.50 Coronavirus 2019 RNA by PCR, Symptomaticon 11-27-2022 Coronavirus 2019 RNA by PCR, Symptomatic Not detected Normal See Below [email or web address] [facility] Hospital[facility] 200 DO Work Phone: Comment on above: SOURCE: Nasal, Nasop haryngealReference Range: Not Detected.This test has received FDA Emergency Use Authorization (EUA) and has been verified by [facility]. This test is only authorized for the duration of time that circumstances exist to justify the authorization of the emergency use of in vitro diagnostic tests for the detection of SARS-CoV-2 virus and/or diagnosis of COVID-19 infection under section 564(b)(1) of the Act, 21 U.S.C. 360bbb-3(b)(1), unless the authorization is terminated or revoked sooner. [facility] is certified under CLIA-88 as qualified to perform high complexity testing. Testing is performed in the [facility] laboratory located at [address] [place] [address].SARS-CoV-2/Flu/RSV Multiplex Test: Fact sheet for providers: https://www.fda.gov/media/489417/downloadFact sheet for patients: https://www.fda.gov/media/207768/download Covid 19 Resultson 3 SARS-CoV-2 (COVID-19) RNA QUAN+probe Ql (Unsp spec) NEGATIVE COVID-19 Test Coronaviruses are common world-wide and are the cause of many common colds. SARS-COV2 is a new coronavirus that began circulating worldwide in 2019 so we are calling it COVID-19. It has been estimated that four out of five patients with COVID-19 will recover at home without the need for medical attention. Symptoms of COVID-19 may include cough, fever, shortness of breath, loss of taste or smell and other flu-like symptoms including chills, sore muscles, sore throat, and headache. Severe illness is more common in older people and people with other health problems such as high blood pressure, obesity, and immune system problems. If the test is positive, you have COVID-19. You will be contacted by the ordering physicians office and instructed to remain on home isolation, in accordance with CDC guidelines. You may also be contacted by the [place] Department of [facility] to see if any of your close contacts may have been exposed to the virus and need to quarantine. If the test is negative, you likely do not have COVID-19 at this time, but you still may have a different illness that can spread to other people (like Influenza, or the Flu) and could still be at risk for getting COVID-19. We recommend that you stay away from other people to limit the spread of illness until your symptoms are improving and you are fever-free for 24 hours without the use of fever lowering medications such as acetaminophen or ibuprofen. No test is 100% accurate so if you are still concerned you may have COVID-19, talk to your doctor about the need to continue to stay away from others. Medicines Unless your provider told you not to use the following: Acetaminophen (Tylenol and others) is generally safe. Anti-inflammatory medications, such as Ibuprofen (Advil or Motrin) or Naproxen (Aleve) can also be used. Rxjp-zad-fzoncgn cough and cold medicines can be used according to the instructions on the package. Some fknq-bnp-zarcsuc medicines also contain acetaminophen. Make sure you are not taking more than your recommended dose. For those not hospitalized, there is no specific treatment available for this illness. Antibiotics do not treat Coronaviruses. Follow-Up Follow up with your doctor by scheduling a virtual visit or consider follow-up at one of our urgent care fever clinics. If you are having difficulty breathing, or are very weak and having difficulty standing, this is a medical emergency. Call 911 or have someone take you to the nearest emergency room immediately. If possible, wear a facemask. Additional guidance from the CDC for patients who tested POSITIVE for COVID-19 How to isolate: Isolate yourself in a specific room at home and limit your contact with others. Use a separate bathroom from other members of the household, when possible. Leave home only to get essential medical care. Do not go to work, school or public areas. Avoid using public transportation, ride-sharing, or taxis. Restrict contact with pets and other animals. If you must care for your pet or be around animals while you are sick, wash your hands before and after your interaction and wear a facemask. Make sure that shared spaces in the home have good airflow, such as by an air conditioner or an opened window, weather permitting. Personal Hygiene Procedures: Wear a face mask when in the same room as other people or pets. If a face mask interferes with your breathing, others should wear a mask when sharing space with you. Frequent hand-washing: wash your hands with soap and water for at least 20 seconds. If soap and water are not available, use alcohol-based hand metal polisher. Avoid touching your eyes, nose, and mouth with unwashed hands. Household Hygiene Procedures: Avoid sharing personal household items such as dishes, glassware, cups, eating utensils, towels or bedding with other people or pets in your home. After use, these items should be washed with soap and hot water. Disinfect all high-touch surfaces every day with antibacterial cleaning solutions such as Lysol wipes, bleach, cleansers, etc. High-touch surfaces include tabletops, doorknobs, bathroom fixtures, toilets, phones, keyboards, tablets and bedside tables. Immediately clean any surfaces that may have blood, poop or body fluids on them, using antibacterial cleaning solutions such as Lysol wipes, bleach, cleansers, etc. If clothing or bedding come into contact with blood, poop or body fluids, they should be washed immediately. Follow the directions on the laundry detergent and clothing labels but hot water is recommended when possible. Stopping home isolation precautions: If possible, consult your doctor before stopping home isolation precautions. According to the CDC, you can discontinue home isolation precautions when you have met both of these criteria: Your fever and respiratory symptoms have been gone for 24 radha (more content not included)... Normal [facility] HEPATIC FUNCTION PANELon Albumin [Mass/Vol] 4.9 g/dL Normal 3.4 - 5.0 [facility] Comment on above: Performed By: #### H EPFP #### [address] [address] ALP [Catalytic activity/Vol] 72 U/L Normal 33 - 136 [facility] Comment on above: Performed By: #### H EPFP #### [address] [address] ALT [Catalytic activity/Vol] 27 U/L Normal 7 - 45 [facility] Comment on above: Result Comment: Joann ents treated with Sulfasalazine may generate falsely decreased results for ALT. Performed By: #### H EPFP #### [address] [address] AST [Catalytic activity/Vol] 52 U/L High 9 - 39 [facility] Comment on above: Result Comment: MODE RATE HEMOLYSIS DETECTED. The result may be falsely elevated due to hemolysis or other interferents. Clinical correlation is recommended. Repeat testing may be considered. Performed By: #### H EPFP #### [address] [address] Bilirubin [Mass/Vol] 0.5 mg/dL Normal 0.0 - 1.2 [facility] Comment on above: Performed By: #### H EPFP #### [address] [place] [address] Bilirubin.indirect [Mass/Vol] 0.1 mg/dL Normal 0.0 - 0.3 [facility] Comment on above: Result Comment: MODE RATE HEMOLYSIS DETECTED. The result may be falsely decreased due to hemolysis or other interferents. Clinical correlation is recommended. Repeat testing may be considered. Performed By: #### H EPFP #### [address] [address] Protein [Mass/Vol] 8.3 g/dL High 6.4 - 8.2 [facility] on/[facility] Comment on above: Performed By: #### H EPFP #### [place] [id number] Hepatic Function Panelon Albumin BCP dye [Mass/Vol] 4.9 g/dL 3.4 - 5.0 -[facility]-[place] 200 DO Work Phone: ALP [Catalytic activity/Vol] 72 U/L 33 - 136 -[facility]-[place] 200 DO Work Phone: ALT With P-5'-P [Catalytic activity/Vol] 27 U/L 7 - 45 -[facility]-[place] 200 DO Work Phone: Comment on above: Patients treated wit h Sulfasalazine may generate falsely decreased results for ALT. AST With P-5'-P [Catalytic activity/Vol] 52 U/L above high threshold 9 - 39 MP-[facility]-[place] 200 DO Work Phone: Comment on above: MODERATE HEMOLYSIS D ETECTED. The result may be falsely elevated due tohemolysis or other interferents. Clinical correlation is recommended.Repeat testing may be considered. Bilirubin [Mass/Vol] 0.5 mg/dL 0.0 - 1.2 [facility]-[place] 200 DO Work Phone: Bilirubin.direct [Mass/Vol] 0.1 mg/dL 0.0 - 0.3 [facility]-[place] 200 DO Work Phone: Comment on above: MODERATE HEMOLYSIS D ETECTED. The result may be falsely decreased due tohemolysis or other interferents. Clinical correlation is recommended.Repeat testing may be considered. Protein [Mass/Vol] 8.3 g/dL above high threshold 6.4 - 8.2 -[email or web address] [facility]-[place] 200 DO Work Phone: LACTATEon 11-27-2022 Lactate [Moles/Vol] 1.4 mmol/L Normal 0.4 - 2.0 [facility] Comment on above: Result Comment: Jeri puncture immediately after or during the administration of Metamizole may lead to falsely low results. Testing should be performed immediately prior to Metamizole dosing. Performed By: #### A PTT #### [place] [id number] LIPASEon 11-27-2022 Lipase [Catalytic activity/Vol] 26 U/L Normal 9 - 82 [facility] Comment on above: Result Comment: Jeri puncture immediately after or during the administration of Metamizole may lead to falsely low results. Testing should be performed immediately prior to Metamizole dosing. I-vtooqy-d-benzoquinone imine (metabolite of Acetaminophen) will generate erroneously low results in samples for patients that have taken toxic doses of acetaminophen. Performed By: #### H EPFP #### [address] [address] Laboratory - Chemistry and C hemistry - challengeon 11-27-2022 Anion gap [Moles/Vol] 16 mmol/L 10 - 20 [email or web address] [facility] 200 DO Work Phone: Calcium [Mass/Vol] 9.7 mg/dL 8.6 - 10.3 -[facility]-[place] 200 DO Work Phone: Chloride [Moles/Vol] 99 mmol/L 98 - 107 [email or web address] [facility] 200 DO Work Phone: CO2 [Moles/Vol] 23 mmol/L 21 - 32 -[email or web address] [facility] 200 DO Work Phone: Creatinine [Mass/Vol] 0.91 mg/dL See Below [email or web address] [facility] 200 DO Work Phone: [phone] Comment on above: Reference Range: 0.5 0 - 1.05 Glucose [Mass/Vol] 100 mg/dL above high threshold 74 - 99 [facility] 200 DO Work Phone: Potassium [Moles/Vol] 4.2 mmol/L 3.5 - 5.3 -[facility] 200 DO Work Phone: Comment on above: MODERATE HEMOLYSIS D ETECTED. The result may be falsely elevated due tohemolysis or other interferents. Clinical correlation is recommended.Repeat testing may be considered. Sodium [Moles/Vol] 134 mmol/L below low threshold 136 - 145 [facility] 200 DO Work Phone: [phone] Urea nitrogen [Mass/Vol] 14 mg/dL 6 - 23 [facility] 200 DO Work Phone: [phone] Laboratory - Coagulationon 0 11-27-2022 INR Coag (PPP) [Relative time] 1.0 {INR} 0.9 - 1.1 -[facility] logy-[place] 200 DO Work Phone: PT Coag (PPP) [Time] 11.9 s 9.8 - 13.4 -[facility] 200 DO Work Phone: Lactate, Levelon 11-27-2022 Lactate [Moles/Vol] 1.4 mmol/L 0.4 - 2.0 -[facility] logy-[place] 200 DO Work Phone: Comment on above: Venipuncture immedia tely after or during the administration of Metamizole may lead to falsely low results. Testing should be performed immediately prior to Metamizole dosing. Lipase, Serumon 11-27-2022 Lipase [Catalytic activity/Vol] 26 U/L 9 - 82 [facility] 200 DO Work Phone: [phone] Comment on above: Venipuncture immedia tely after or during the administration of Metamizole may lead to falsely low results. Testing should be performed immediately prior to Metamizole dosing. Q-wrriap-k-benzoquinone imine (metabolite of Acetaminophen) will generate erroneously low results in samples for patients that have taken toxic doses of acetaminophen. No Panel Informationon 11-27 62 {mL/min/1.73m2} >90 MP-[facility] logy-[place] 200 DO Work Phone: Comment on above: CALCULATIONS OF NEL MATED GFR ARE PERFORMED USING THE 2020 CKD-EPI STUDY REFIT EQUATION WITHOUT THE RACE VARIABLE FOR THE IDMS-TRACEABLE CREATININE METHODS.https://jasn.asnjournals.org/content//09/22/ASN.2 936769135 PT/INRon 11-27-2022 PT Coag (PPP) [Time] 11.9 s Normal 9.8 - 13.4 [facility] Comment on above: Performed By: #### A PTT #### [address] [address] PT, INR 1.0 Normal 0.9 - 1.1 [facility] Comment on above: Performed By: #### A PTT #### [address] [address] Provider Note - ED v3on 11-13 Provider Note - ED v3 Provider Note: Chart Review: ED NOTES ED NOTES: History of present illness: 86-year-old female complains of worsening abdominal pain vomiting and diarrhea since yesterday. Patient has had issues on and off for 2 months. In September she was admitted to [facility] for about 25 days. She says that she got better but then about 2 weeks ago began having vomiting and diarrhea again. There will be days where he would stop and then days where it began again. Patient states that she ate a yogurt yesterday and then since then she has vomited about 7 times and had about 7 episodes of diarrhea. States that when she vomits and has diarrhea she has pain in her abdomen often in the epigastric region. Says that her stool is dark, but is not clear if is black. Denies any gross red blood. Denies any bilious or hematemesis. Has some associated chills, lightheadedness. Denies any chest pain, shortness of breath, cough, congestion, rhinorrhea, dysuria, polyuria. Patient has been taking colestipol and dicyclomine for symptoms. Review of systems: Constitutional, eye, ENT, cardiovascular, respiratory, gastrointestinal, genitourinary, neurologic, musculoskeletal, dermatologic, hematologic, endocrine systems were evaluated and were negative unless otherwise specified in history of present illness. Medications: Reviewed and per nursing note. Family history: Denies relevant medical conditions. Social history: Denies tobacco, alcohol, drug use. Physical exam: Appearance: Elderly, uncomfortable-appearing, alert and oriented x3. Talking in complete sentences. HEENT: Head normocephalic atraumatic, extraocular movements intact, pupils equal round reactive to light, mucous membranes are dry. NECK: Nml Inspection, no meningismus, no thyromegaly, no lymphadenopathy, no JVD, trachea is midline. Respiratory: Clear to auscultation bilaterally with normal bilateral excursion. No wheezes, rhonchi, crackles. Cardiovascular: Regular rate and rhythm, no murmurs, rubs or gallops. Pulses 2+ symmetrically in the dorsalis pedis and radial pulses. Abdomen/GI: Soft, nontender, nondistended, hyperactive bowel sounds x4. No masses or organomegaly. : No CVA tenderness Neuro: Oriented x 3, Speech Clear, cranial nerves grossly intact. Normal sensation to light touch in all 4 extremities. Musculoskeletal: Patient spontaneously moves all 4 extremities. Skin: No cyanosis, clubbing, edema, open wounds, or rashes. HISTORY OF PRESENTING ILLNESS VINAYAK is a 86 year old Female and was seen by me at 27-Nov-2022 12:58 for a chief complaint of (N/V/D x2 months. Pt. reports multiple bouts of N/V/D with recent increase in severity.)(1). Triage Information: Most recent Vital Sign Value Date Temp (F): 97.7 11-27-2022 12:58 Temp (C): 36.5 11-27-2022 12:58 Heart Rate (beats/min): 112 11-27-2022 12:58 Respirations (breaths/min): 16 11-27-2022 12:58 SpO2 (%): 99 11-27-2022 12:58 BP Systolic (mm Hg): 129 11-27-2022 12:58 BP Diastolic (mm Hg): 77 11-27-2022 12:58 PAST MEDICAL HISTORY ALLERGIES/INTOLERANCES: No Known Allergies HEALTH HISTORY: Medical History Name:Arrhythmia Code:I49.9 Name:Hypothyroidism Code:E03.9 OUTPATIENT MEDICATIONS: Home Medications Review Status for Reconciliation: Not Done Med Status: Patient Currently Takes Medications Drug Name: levothyroxine 25 mcg (0.025 mg) oral capsule Instructions: 0.5 cap(s) orally once a day Drug Name: D3 1000 oral tablet Instructions: 1 tab(s) orally once a day Drug Name: dicyclomine 10 mg oral capsule Instructions: 1 cap(s) orally 3 times a day (before meals) -.Meds to Beds Drug Name: potassium citrate 10 mEq oral tablet, extended release Instructions: 1 tab(s) orally 2 times a day -.Meds to Beds Drug Name: potassium citrate 10 mEq oral tablet, extended release Instructions: 1 tab(s) orally 2 times a day Drug Name: amoxicillin-clavulanate 875 mg-125 mg oral tablet Instructions: 1 tab(s) orally every 12 hours Drug Name: ondansetron 4 mg oral tablet, disintegrating Instructions: 1 tab(s) orally every 4 hours as needed for nausea Drug Name: loperamide 2 mg oral capsule Instructions: 1 cap(s) orally after episode of diarrhea. Max of 20 mg daily. SIGNIFICANT EVENTS: Past Medical History Description:Hypothyroid Past Surgical History Description:Knee replacement Description:cataracts Description:Appendectomy CRITICAL CARE RESULTS: Recent Lab Results: I have reviewed these laboratory results: Hepatic Function Panel 27-Nov-2022 14:39:00 ResultValue Aspartate Transaminase, Serum 52 H ALB 4.9 T Bili 0.5 Bilirubin, Serum Direct - Conjugated 0.1 ALKP 72 Alanine Aminotransferase, Serum 27 T Pro 8.3 H Complete Blood Count + Differential 27-Nov-2022 14:39:00 ResultValue White Blood Cell Count 21.8 H Red Blood Cell Count 4.89 HGB 15. (more content not included)... Normal [facility] Radiologyon 11-27-2022 XR Chest Single view Normal [facility] 200 DO Work Phone: STOOL PATHOGEN PCR PANELon 0 11-27-2022 Lab Specimen Source Normal [facility] Comment on above: Performed By: #### S TLPP #### [facility] [address] [place] [address] Campylobacter sp DNA.diarrheagenic QUAN+probe Ql (Stl) Not detected See Below [facility]onitive - [facility]y-[place] 200 DO Work Phone: Comment on above: Reference Range: NOT DETECTED E. coli stx1 gene QUAN+probe Ql (Unsp spec) Not detected See Below Phonitive - [facility] logy-[place] 200 DO Work Phone: Comment on above: Reference Range: NOT DETECTED E. coli stx2 gene QUAN+probe Ql (Unsp spec) Not detected See Below Link_A_ Media[facility] logy-[place] 200 DO Work Phone: Comment on above: Reference Range: NOT DETECTED Norovirus genogroup I and II RNA QUAN+probe Nom (Stl) Not detected See Below Phon[facility] - [facility] logy-[place] 200 DO Work Phone: Comment on above: Reference Range: NOT DETECTED Rotavirus RNA QUAN+probe Nom (Stl) Not detected See Below Link_A_ Media[facility] logy-[place] 200 DO Work Phone: Comment on above: Reference Range: NOT DETECTED The enteric PCR panel is a panel of sensitive and specific amplified nucleic acid tests indicated as an aid in the diagnosis of specific bacterial and viral agents of gastrointestinal illness, in conjunction with other clinical, laboratory, and epidemiological information. This test is not approved for monitoring these infections. Monitoring is available for Salmonella and Shigella infections-request test "Stool PCR Follow-Up (STLPF)". Monitoring tests are not available at this time for other enteric agents in this panel. Shigella sp DNA QUAN+probe Ql (Unsp spec) Not detected See Below Link_A_ Media[facility] logy-[place] 200 DO Work Phone: Comment on above: Reference Range: NOT DETECTED Vibrio sp DNA QUAN+probe Nom (Unsp spec) Not detected See Below Link_A_ Mediao logy-[place] 200 DO Work Phone: Comment on above: Reference Range: NOT DETECTED Yersinia sp DNA QUAN+probe Nom (Unsp spec) Not detected See Below [email or web address] [facility] logy-[place] 200 DO Work Phone: Comment on above: SOURCE: Reference Ra nge: NOT DETECTED STOOL PATHOGEN PCR PANEL Not detected See Below [email or web address] [facility]y-[place] 200 DO Work Phone: Comment on above: Reference Range: NOT DETECTED TROPONIN I, HIGH SENSITIVITY on 11-27-2022 TROPONIN I, HIGH SENSITIVITY 7 ng/L Normal 0 - 13 [facility] Comment on above: Result Comment: . Less than 99th percentile of normal range cutoff- Female and children under 18 years old <14 ng/L; Male <21 ng/L: Negative Repeat testing should be performed if clinically indicated. . Female and children under 18 years old 14-50 ng/L; Male 21-50 ng/L: Consistent with possible cardiac damage and possible increased clinical risk. Serial measurements may help to assess extent of myocardial damage. . >50 ng/L: Consistent with cardiac damage, increased clinical risk and myocardial infarction. Serial measurements may help assess extent of myocardial damage. . NOTE: Children less than 1 year old may have higher baseline troponin levels and results should be interpreted in conjunction with the overall clinical context. . NOTE: Troponin I testing is performed using a different testing methodology at [facility] than at other [facility]. Direct result comparisons should only be made within the same method. Performed By: #### H EP #### [address] [address] Tropinin I.cardiac panel High sensitivity method 7 ng/L 0 - 13 -[facility]-[place] 200 DO Work Phone: Comment on above: .Less than 99th perc entile of normal range cutoff-Female and children under 18 years old <14 ng/L; Male <21 ng/L: NegativeRepeat testing should be performed if clinically indicated. .Female and children under 18 years old 14-50 ng/L; Male 21-50 ng/L:Consistent with possible cardiac damage and possible increased clinical risk. Serial measurements may help to assess extent of myocardial damage. .>50 ng/L: Consistent with cardiac damage, increased clinical risk andmyocardial infarction. Serial measurements may help assess extent of myocardial damage. . NOTE: Children less than 1 year old may have higher baseline troponin levels and results should be interpreted in conjunction with the overall clinical context. .NOTE: Troponin I testing is performed using a different testing methodology at [facility] than at other [facility]. Direct result comparisons should only be made within the same method. URINALYSIS WITH CULTURE IF I NDICATEDon 11-27-2022 Appearance (U) Canceled Normal [facility] Comment on above: Order Comment: TEST URINALYSIS WITH CULTURE IF INDICATED WAS CANCELLED, 11/27/2022 21:03PATIENT DISCHARGED. Performed By: #### U ARFX ####[address] [address] ASCORBIC ACID Canceled Normal [facility] Comment on above: Order Comment: TEST URINALYSIS WITH CULTURE IF INDICATED WAS CANCELLED, 11/27/2022 21:03PATIENT DISCHARGED. Result Comment: Conc entrations > = 20 mg/dL of ascorbic acid can be expected to cause strong interference in the reactions testing for glucose, nitrite and blood. It is recommended to discontinue Vitamin C administration and retest in 10 hours. Performed By: #### U ARFX ####[address] [address] Bilirubin Ql (U) Canceled Normal [facility] Comment on above: Order Comment: TEST URINALYSIS WITH CULTURE IF INDICATED WAS CANCELLED, 11/27/2022 21:03PATIENT DISCHARGED. Performed By: #### U ARFX ####[address] [address] Color (U) Canceled Normal [facility] Comment on above: Order Comment: TEST URINALYSIS WITH CULTURE IF INDICATED WAS CANCELLED, 11/27/2022 21:03PATIENT DISCHARGED. Performed By: #### U ARFX ####[address] [address] Glucose Ql (U) Canceled Normal [facility] Comment on above: Order Comment: TEST URINALYSIS WITH CULTURE IF INDICATED WAS CANCELLED, 11/27/2022 21:03PATIENT DISCHARGED. Performed By: #### U ARFX ####[address] [address] Hemoglobin Ql (U) Canceled Normal [facility] Comment on above: Order Comment: TEST URINALYSIS WITH CULTURE IF INDICATED WAS CANCELLED, 11/27/2022 21:03PATIENT DISCHARGED. Performed By: #### U ARFX ####[address] [address] Ketones Ql (U) Canceled Normal [facility] or [facility] Comment on above: Order Comment: TEST URINALYSIS WITH CULTURE IF INDICATED WAS CANCELLED, 11/27/2022 21:03PATIENT DISCHARGED. Performed By: #### U ARFX ####[place] [address] Leukocyte esterase Test strip Ql (U) Canceled Normal [facility] Comment on above: Order Comment: TEST URINALYSIS WITH CULTURE IF INDICATED WAS CANCELLED, 11/27/2022 21:03PATIENT DISCHARGED. Performed By: #### U ARFX ####[address] [address] Nitrite Ql (U) Canceled Normal [facility] or [facility] Comment on above: Order Comment: TEST URINALYSIS WITH CULTURE IF INDICATED WAS CANCELLED, 11/27/2022 21:03PATIENT DISCHARGED. Performed By: #### U ARFX ####[address] [address] pH Canceled Normal [facility] Comment on above: Order Comment: TEST URINALYSIS WITH CULTURE IF INDICATED WAS CANCELLED, 11/27/2022 21:03PATIENT DISCHARGED. Performed By: #### U ARFX ####[address] [address] Protein Ql (U) Canceled Normal [facility] or [facility] Comment on above: Order Comment: TEST URINALYSIS WITH CULTURE IF INDICATED WAS CANCELLED, 11/27/2022 21:03PATIENT DISCHARGED. Performed By: #### U ARFX ####[address] [address] Specific gravity (U) [Rel density] Canceled Normal [facility] Comment on above: Order Comment: TEST URINALYSIS WITH CULTURE IF INDICATED WAS CANCELLED, 11/27/2022 21:03PATIENT DISCHARGED. Performed By: #### U ARFX ####[place] [id number] UROBILINOGEN Canceled Normal [facility] Comment on above: Order Comment: TEST URINALYSIS WITH CULTURE IF INDICATED WAS CANCELLED, 11/27/2022 21:03PATIENT DISCHARGED. Performed By: #### U ARFX ####[place] [id number] CBCon 11-17-2022 Erythrocyte distribution width (RBC) [Ratio] 13.3 % Normal 11.5 - 14.5 [facility] Work Phone: Comment on above: Reference Range: 11. 5 - 14.5 Performed By: #### A PTT #### [place] [address] Hematocrit (Bld) [Volume fraction] 42.1 % Normal 36.0 - 46.0 [facility] Work Phone: Comment on above: Reference Range: 36. 0 - 46.0 Performed By: #### A PTT #### [place] [address] Hemoglobin (Bld) [Mass/Vol] 14.6 g/dL Normal 12.0 - 16.0 [facility] Work Phone: Comment on above: Reference Range: 12. 0 - 16.0 Performed By: #### A PTT #### [place] [address] MCHC (RBC) [Mass/Vol] 34.7 g/dL Normal 32.0 - 36.0 [facility] Work Phone: Comment on above: Reference Range: 32. 0 - 36.0 Performed By: #### A PTT #### [place] [id number] MCV (RBC) [Entitic vol] 92 fL Normal 80 - 100 [facility] Work Phone: Comment on above: Performed By: #### A PTT #### [place] [id number] Platelets (Bld) [#/Vol] 359 10*3/uL Normal 150 - 450 [facility] Work Phone: Comment on above: Performed By: #### A PTT #### [place] [address] RBC 4.58 x10E12/L Normal 4.00 - 5.20 [facility] Comment on above: Performed By: #### A PTT #### [place] [id number] WBC (Bld) [#/Vol] 8.6 10*3/uL Normal 4.4 - 11.3 [facility] Work Phone: Comment on above: SOURCE: Performed By: #### A PTT #### [place] [id number] CELIAC DISEASE SEROLOGY PANE [facility] 11-17-2022 DEAMIDATED GLIADIN PEPTIDE IGG <1 Normal 0 - 14 [facility] Comment on above: Result Comment: Fals e negative Deamidated Gliadin Peptide Antibody, IgG results can occur in patients already adhering to a gluten-free diet. Tissue Transglutaminase Antibody, IgA is the preferred test for screening patients with suspected Celiac Disease. Performed By: #### H EPFP #### [place] [address] TTG AB,IGG <1 Normal 0 - 14 [facility] Comment on above: Result Comment: Fals e negative Tissue Transglutaminase Antibody, IgG results can occur in patients already adhering to a gluten-free diet. Tissue Transglutaminase Antibody, IgA is the preferred test for screening patients with suspected Celiac Disease. Performed By: #### H EPFP #### [place] [address] DEAMIDATED GLIADIN PEPTIDE IGA <1 Normal 0 - 14 [facility] Comment on above: Result Comment: Fals e negative Deamidated Gliadin Peptide Antibody, IgA results can occur in patients already adhering to a gluten-free diet or patients with IgA deficiency. Tissue Transglutaminase Antibody, IgA is the preferred test for screening patients with suspected Celiac Disease. Performed By: #### H EPFP #### [address] [address] TTG AB,IGA <1 Normal 0 - 14 [facility] Comment on above: Result Comment: Judy ac disease is unlikely. False negative Tissue Transglutaminase Antibody, IgA results can occur in approximately 10% of patients with celiac disease, patients already adhering to a gluten-free diet, or patients with IgA deficiency. Performed By: #### H EPFP #### [address] [address] COMPREHENSIVE PANELon 2022 Anion gap [Moles/Vol] 13 mmol/L Normal 10 - 20 [facility] Work Phone: Comment on above: Performed By: #### A PTT #### [address] [address] Potassium [Moles/Vol] 3.0 mmol/L Low 3.5 - 5.3 [facility] Work Phone: Comment on above: Performed By: #### A PTT #### [address] [address] Albumin [Mass/Vol] 4.4 g/dL Normal 3.4 - 5.0 [facility] Comment on above: Performed By: #### A PTT #### [address] [address] ALP [Catalytic activity/Vol] 76 U/L Normal 33 - 136 [facility] Work Phone: Comment on above: Performed By: #### A PTT #### [address] [address] ALT [Catalytic activity/Vol] 22 U/L Normal 7 - 45 [facility] Comment on above: Result Comment: Joann ents treated with Sulfasalazine may generate falsely decreased results for ALT. Performed By: #### A PTT #### [address] [address] AST [Catalytic activity/Vol] 23 U/L Normal 9 - 39 [facility] Comment on above: Performed By: #### A PTT #### [address] [address] Bilirubin [Mass/Vol] 0.6 mg/dL Normal 0.0 - 1.2 [facility] Work Phone: Comment on above: Performed By: #### A PTT #### [address] [address] Calcium [Mass/Vol] 9.5 mg/dL Normal 8.6 - 10.3 [facility] Work Phone: Comment on above: Performed By: #### A PTT #### [address] [address] Chloride [Moles/Vol] 103 mmol/L Normal 98 - 107 [facility] Work Phone: Comment on above: Performed By: #### A PTT #### [address] [address] Creatinine [Mass/Vol] 0.76 mg/dL Normal 0.50 - 1.05 [facility] Work Phone: Comment on above: Reference Range: 0.5 0 - 1.05 Performed By: #### A PTT #### [address] [address] GFR/1.73 sq M.predicted among non-blacks MDRD (S/P/Bld) [Vol rate/Area] 77 mL/min/{1.73_m2} Normal >90 [facility] Comment on above: Result Comment: CALC ULATIONS OF ESTIMATED GFR ARE PERFORMED USING THE 2020 CKD-EPI STUDY REFIT EQUATION WITHOUT THE RACE VARIABLE FOR THE IDMS-TRACEABLE CREATININE METHODS. https://jasn.asnjournals.org/content//ASN.033813674 8 Performed By: #### A PTT #### [address] [address] Glucose [Mass/Vol] 112 mg/dL High 74 - 99 [facility] Work Phone: [phone] Comment on above: SOURCE: Performed By: #### A PTT #### [address] [address] HCO3 (Bld) [Moles/Vol] 24 mmol/L Normal 21 - 32 [facility] Comment on above: Performed By: #### A PTT #### [address] [address] Protein [Mass/Vol] 6.8 g/dL Normal 6.4 - 8.2 [facility] Work Phone: [phone] Comment on above: Performed By: #### A PTT #### [address] [address] Sodium [Moles/Vol] 137 mmol/L Normal 136 - 145 [facility] Work Phone: [phone] Comment on above: Performed By: #### A PTT #### [address] [address] Urea nitrogen [Mass/Vol] 11 mg/dL Normal 6 - 23 [facility] Work Phone: [phone] Comment on above: Performed By: #### A PTT #### [address] [address] Laboratory - Chemistry and C hemistry - challengeon 11-17-2022 Albumin BCP dye [Mass/Vol] 4.4 g/dL 3.4 - 5.0 [facility] Work Phone: [phone] ALT With P-5'-P [Catalytic activity/Vol] 22 U/L 7 - 45 [facility] Work Phone: [phone] Comment on above: Patients treated wit h Sulfasalazine may generate falsely decreased results for ALT. AST With P-5'-P [Catalytic activity/Vol] 23 U/L 9 - 39 [facility] Work Phone: [phone] CO2 [Moles/Vol] 24 mmol/L 21 - 32 [facility] Work Phone: Laboratory - Hematology and Cell countson 11-17-2022 RBC (Bld) [#/Vol] 4.58 {x10E12/L} See Below Un [facility] Work Phone: Comment on above: Reference Range: 4.0 0 - 5.20 Laboratory - Serology - non- microon 11-17-2022 Gliadin peptide IgA IA Qn (S) <1 0 - 14 [facility] Work Phone: Comment on above: False negative Deami dated Gliadin Peptide Antibody, IgA results can occur in patients already adhering to a gluten-free diet or patients with IgA deficiency. Tissue Transglutaminase Antibody, IgA is the preferred test for screening patients with suspected Celiac Disease. tTG IgA IA Qn (S) <1 0 - 14 [facility] Work Phone: Comment on above: SOURCE: Celiac disea se is unlikely. False negative Tissue Transglutaminase Antibody, IgA results can occur in approximately 10% of patients with celiac disease, patients already adhering to a gluten-free diet, or patients with IgA deficiency. tTG IgG IA Qn (S) <1 0 - 14 [facility] Work Phone: Comment on above: False negative Tissu e Transglutaminase Antibody, IgG results can occur in patients already adhering to a gluten-free diet. Tissue Transglutaminase Antibody, IgA is the preferred test for screening patients with suspected Celiac Disease. No Panel Informationon 11-17 <1 0 - 14 [facility] Work Phone: Comment on above: False negative Deami dated Gliadin Peptide Antibody, IgG results can occur in patients already adhering to a gluten-free diet. Tissue Transglutaminase Antibody, IgA is the preferred test for screening patients with suspected Celiac Disease. 77 {mL/min/1.73m2} >90 [facility] Work Phone: Comment on above: CALCULATIONS OF NEL MATED GFR ARE PERFORMED USING THE 2020 CKD-EPI STUDY REFIT EQUATION WITHOUT THE RACE VARIABLE FOR THE IDMS-TRACEABLE CREATININE METHODS.https://jasn.asnjournals.org/content/early/ASN.2 378120092 TSH WITH REFLEX TO FREE T4 I F ABNORMALon 11-17-2022 TSH Qn 1.08 m[IU]/L Normal 0.44 - 3.98 [facility] Work Phone: Comment on above: SOURCE: Reference Ra nge: 0.44 - 3.98 TSH testing is performed using different testing methodology at [facility] than at [facility]. Direct result comparisons should only be made within the same method. Result Comment: TSH testing is performed using different testing methodology at [facility] than at [facility]. Direct result comparisons should only be made within the same method. Performed By: #### A PTT #### [place] [address] Lab Specimen Source Normal [facility] Comment on above: Performed By: #### A PTT #### [place] [address] Performed By: #### H EPFP #### [place] [address] PROTEIN ELECTROPHORESIS,SERU 10-25-2022 INTERPRETATION NORMAL Normal [facility] Comment on above: Performed By: #### S PE2 ####[id number] [place] [address] SPE PATH REVIEWon 10-25-2022 PATH REVIEW-SPE FABIANO Normal [facility] Comment on above: Result Comment: By h er/his signature above, the Pathologist listed as making the final interpretation certifies that she/he has personally reviewed this case. Performed By: #### P R12 #### [facility] [address] [place] [address] JONATHAN + DAREN PANELon 10-22-2022 JONATHAN PATTERN HOMOGENEOUS Normal [facility] Comment on above: Performed By: #### A NAP2 #### [facility] [address] [place] [address] JONATHAN TITER 1:160 Normal <1:80 [facility] Comment on above: Performed By: #### A NAP2 #### [facility] [address] [place] [address] Nuclear Ab IF (S) [Titer] Positive Abnormal NEGATIVE [facility] Comment on above: Result Comment: The Antinuclear Antibody (JONATHAN) test was performed using indirect immunofluorescence assay with HEp-2 cells slide. Performed By: #### A NAP2 #### [facility] [address] [place] [address] PROTEIN ELECTROPHORESIS,SERU 10-22-2022 Albumin [Mass/Vol] 3.7 g/dL Normal 3.4 - 5.0 [facility] Comment on above: Performed By: #### S PE2 ####[id number] [place] [address] ALPHA 1 GLOBULIN 0.4 g/dL Normal 0.2 - 0.6 [facility] Comment on above: Performed By: #### S PE2 ####[id number] [place] [address] ALPHA 2 GLOBULIN 0.8 g/dL Normal 0.4 - 1.1 [facility] Comment on above: Performed By: #### S PE2 ####[id number] [place] [address] BETA GLOBULIN 0.7 g/dL Normal 0.5 - 1.2 [facility] Comment on above: Performed By: #### S PE2 ####[id number] [place] [address] GAMMA GLOBULIN 0.9 g/dL Normal 0.5 - 1.4 [facility] Comment on above: Performed By: #### S PE2 ####[id number] [place] [address] ALPHA-FETOPROTEINon 10-22-19 ALPHA-FETOPROTEIN 5 ng/mL Normal 0 - 9 [facility] Comment on above: Result Comment: AFP testing is performed by chemiluminescent immunoassay using the [employer]. Values obtained with different analyte methods cannot be used interchangeably. This test can be used as an adjunct in the diagnosis and monitoring of AFP-producing tumors, including non-seminomatous germ cell tumors and hepatocellular carcinomas. Performed By: #### A FP #### [facility] [address] [place] [address] JONATHAN + DAREN PANELon 10-21-2022 ANTI-CENTROMERE <0.2 Normal [facility] Comment on above: Result Comment: REF VALUES < 1.0 = NEGATIVE >=1.0 = POSITIVE Performed By: #### A NAP2 #### [facility] [address] [place] [address] ANTI-CHROMATIN <0.2 Normal [facility] Comment on above: Result Comment: REF VALUES < 1.0 = NEGATIVE >=1.0 = POSITIVE Performed By: #### A NAP2 #### [facility] [address] [place] [address] ANTI-DNA [DS] <1.0 Normal [facility] Comment on above: Result Comment: REF VALUES NEGATIVE: <= 4 IU/ML EQUIVOCAL: 5- 9 IU/ML POSITIVE: >=10 IU/ML Performed By: #### A NAP2 #### [facility] [address] [place] [address] ANTI-BETZAIDA-1 <0.2 Normal [facility] Comment on above: Result Comment: REF VALUES < 1.0 = NEGATIVE >=1.0 = POSITIVE Performed By: #### A NAP2 #### [facility] [address] [place] [address] ANTI-RIBOSOMAL P <0.2 Normal [facility] Comment on above: Result Comment: REF VALUES < 1.0 = NEGATIVE >=1.0 = POSITIVE Performed By: #### A NAP2 #### [facility] [address] [place] [address] ANTI-TRANSPORTATION ANALYST 0.2 AI Normal [facility] Comment on above: Result Comment: REF VALUES < 1.0 = NEGATIVE >=1.0 = POSITIVE Performed By: #### A NAP2 #### [facility] [address] [place] [address] ANTI-SCL-70 <0.2 Normal [facility] Comment on above: Result Comment: REF VALUES < 1.0 = NEGATIVE >=1.0 = POSITIVE Performed By: #### A NAP2 #### [facility] [address] [place] [address] ANTI-SM <0.2 Normal [facility] Comment on above: Result Comment: REF VALUES < 1.0 = NEGATIVE >=1.0 = POSITIVE Performed By: #### A NAP2 #### [facility] [address] [place] [address] ANTI-SM/TRANSPORTATION ANALYST <0.2 Normal [facility] Comment on above: Result Comment: REF VALUES < 1.0 = NEGATIVE >=1.0 = POSITIVE Performed By: #### A NAP2 #### [facility] [address] [place] [address] ANTI-SSA <0.2 Normal [facility] Comment on above: Result Comment: REF VALUES < 1.0 = NEGATIVE >=1.0 = POSITIVE Performed By: #### A NAP2 #### [facility] [address] [place] [address] ANTI-SSB <0.2 Normal [facility] Comment on above: Result Comment: REF VALUES < 1.0 = NEGATIVE >=1.0 = POSITIVE Performed By: #### A NAP2 #### [facility] [address] [place] [address] C Reactive Protein, Serumon 10-21-2022 CRP [Mass/Vol] 0.76 mg/dL [facility] 325 Work Phone: Comment on above: REF VALUE< 1.00 C-REACTIVE PROTEINon 023 C-REACTIVE PROTEIN 0.76 mg/dL Normal [facility] Comment on above: Result Comment: REF VALUE < 1.00 Performed By: #### C RP #### [facility] [address] [place] [address] CELIAC DISEASE SEROLOGY PANE [place] 10-21-2022 DEAMIDATED GLIADIN PEPTIDE IGA <1 Normal 0 - 14 [facility] Comment on above: Result Comment: Fals e negative Deamidated Gliadin Peptide Antibody, IgA results can occur in patients already adhering to a gluten-free diet or patients with IgA deficiency. Tissue Transglutaminase Antibody, IgA is the preferred test for screening patients with suspected Celiac Disease. Performed By: #### C ELP1 #### [facility] [address] [place] [address] DEAMIDATED GLIADIN PEPTIDE IGG <1 Normal 0 - 14 [facility] Comment on above: Result Comment: Fals e negative Deamidated Gliadin Peptide Antibody, IgG results can occur in patients already adhering to a gluten-free diet. Tissue Transglutaminase Antibody, IgA is the preferred test for screening patients with suspected Celiac Disease. Performed By: #### C ELP1 #### [facility] [address] [place] [address] TTG AB,IGA <1 Normal 0 - 14 [facility] Comment on above: Result Comment: Judy ac disease is unlikely. False negative Tissue Transglutaminase Antibody, IgA results can occur in approximately 10% of patients with celiac disease, patients already adhering to a gluten-free diet, or patients with IgA deficiency. Performed By: #### C ELP1 #### [facility] [address] [place] [address] TTG AB,IGG <1 Normal 0 - 14 [facility] Comment on above: Result Comment: Fals e negative Tissue Transglutaminase Antibody, IgG results can occur in patients already adhering to a gluten-free diet. Tissue Transglutaminase Antibody, IgA is the preferred test for screening patients with suspected Celiac Disease. Performed By: #### C ELP1 #### [facility] [address] [place] [address] Laboratory - Serology - non- microon 10-21-2022 Centromere protein B Ab Qn (S) <0.2 -Neurology [facility] 325 Work Phone: Comment on above: REF VALUES < 1.0 = N EGATIVE >=1.0 = POSITIVE Chromatin Ab Qn <0.2 -[place] [facility] [place] [facility] [facility] Work Phone: Comment on above: REF VALUES < 1.0 = N EGATIVE >=1.0 = POSITIVE DNA double strand Ab Qn (S) [IU]/mL -Neurology -[place] 325 Work Phone: Comment on above: REF VALUESNEGATIVE: <= 4 IU/MLEQUIVOCAL: 5- 9 IU/MLPOSITIVE: >=10 IU/ML Gliadin peptide IgA IA Qn (S) <1 0 - 14 [place] [address] Work Phone: Comment on above: False negative Deami dated Gliadin Peptide Antibody, IgA results can occur in patients already adhering to a gluten-free diet or patients with IgA deficiency. Tissue Transglutaminase Antibody, IgA is the preferred test for screening patients with suspected Celiac Disease. Betzaida-1 extractable nuclear Ab IA Ql (S) <0.2 [place] [address] Work Phone: [phone] Comment on above: REF VALUES < 1.0 = N EGATIVE >=1.0 = POSITIVE Ribonucleoprotein extractable nuclear Ab IA Qn (S) 0.2 {AI} [place] [address] Work Phone: [phone] Comment on above: REF VALUES < 1.0 = N EGATIVE >=1.0 = POSITIVE Ribosomal P Ab Qn (S) <0.2 [place] [address] Work Phone: Comment on above: REF VALUES < 1.0 = N EGATIVE >=1.0 = POSITIVE SCL-70 extractable nuclear Ab IA Ql (S) <0.2 [place] [address] Work Phone: Comment on above: REF VALUES < 1.0 = N EGATIVE >=1.0 = POSITIVE Sjogrens syndrome-A extractable nuclear Ab IA Qn (S) <0.2 [place] [address] Work Phone: Comment on above: REF VALUES < 1.0 = N EGATIVE >=1.0 = POSITIVE Sjogrens syndrome-B extractable nuclear Ab IA Qn (S) <0.2 [place] [address] Work Phone: Comment on above: REF VALUES < 1.0 = N EGATIVE >=1.0 = POSITIVE Maloney extractable nuclear Ab IA Qn (S) <0.2 [place] [address] Work Phone: Comment on above: REF VALUES < 1.0 = N EGATIVE >=1.0 = POSITIVE Maloney extractable nuclear Ab+Ribonucleoprote in extractable nuclear Ab IA Ql (S) <0.2 -[place] [address] Work Phone: [phone] Comment on above: REF VALUES < 1.0 = N EGATIVE >=1.0 = POSITIVE tTG IgA IA Qn (S) <1 0 - 14 -[facility] 325 Work Phone: Comment on above: Celiac disease is un likely. False negative Tissue Transglutaminase Antibody, IgA results can occur in approximately 10% of patients with celiac disease, patients already adhering to a gluten-free diet, or patients with IgA deficiency. tTG IgG IA Qn (S) <1 0 - 14 -[facility] 325 Work Phone: Comment on above: False negative Tissu e Transglutaminase Antibody, IgG results can occur in patients already adhering to a gluten-free diet. Tissue Transglutaminase Antibody, IgA is the preferred test for screening patients with suspected Celiac Disease. No Panel Informationon 10-21 <1 0 - 14 -[place] [address] Work Phone: Comment on above: False negative Deami dated Gliadin Peptide Antibody, IgG results can occur in patients already adhering to a gluten-free diet. Tissue Transglutaminase Antibody, IgA is the preferred test for screening patients with suspected Celiac Disease. PROTEIN ELECTROPHORESIS,SERU 10-21-2022 Protein [Mass/Vol] 6.4 g/dL Normal 6.4 - 8.2 [facility] Comment on above: Performed By: #### S PE2 ####[id number] [place] [address] Albumin [Mass/Vol] 3.7 g/dL 3.4 - 5.0 [facility] Work Phone: Protein [Mass/Vol] 6.4 g/dL 6.4 - 8.2 [place] [address] Work Phone: PROTEIN ELECTROPHORESIS,SE [facility] Work Phone: PROTEIN ELECTROPHORESIS,SE RUM 0.9 g/dL 0.5 - 1.4 [facility] Work Phone: PROTEIN ELECTROPHORESIS,SE RUM 0.7 g/dL 0.5 - 1.2 [facility] Work Phone: PROTEIN ELECTROPHORESIS,SE RUM 0.8 g/dL 0.4 - 1.1 [facility] Work Phone: PROTEIN ELECTROPHORESIS,SE RUM 0.4 g/dL 0.2 - 0.6 [facility] Work Phone: Path Review SPEon 10-21-2022 Path Review [facility] Work Phone: Comment on above: By her/his signature above, the Pathologist listed as making the final interpretation certifies that she/he has personally reviewed this case. SEDIMENTATION RATE, ERYTHROC YTEon 10-21-2022 SEDIMENTATION RATE, ERYTHROCYTE 33 mm/h High 0 - 30 [facility] Comment on above: Performed By: #### E SRWS #### [address] [address] Sedimentation Rate, Erythroc yteon 10-21-2022 ESR (Bld) [Velocity] 33 mm/h above high threshold 0 - 30 [facility] 325 Work Phone: Medicare Annual Wellness Vis iton 10-15-2022 Medicare Annual Wellness Visit *Chief Complaint afp, jonathan, crp, esr, spe, celiac panel, GI Reason for visit: Medicare wellcare visit and follow up for low thyroid, diarrhea and fatty liver. CPT: 63493 + G0439 RTC: 3 mos Pt has the contact information of the following providers: GI, dentist, [employer] History of Present Illness The patient is being seen for the subsequent annual wellness visit. Past Medical, Surgical and Family History: reviewed and updated in chart. Interval History: Patient has had 1 previous hospitalizations. Medications and Supplements: Review of all medications by a prescribing practitioner or clinical pharmacist (such as prescriptions, OTCs, herbal therapies and supplements) documented in the medical record. No, the patient is not using opioids. Health Risk Assessment: During the past 4 weeks: How much have you been bothered by feeling anxious, depressed, irritable or sad, downhearted or blue? Not at all. Has your physical and emotional health limited your social activities with family, friends, neighbors or groups? Not at all. Was someone available to help you if you needed or wanted help: Yes, as much as I wanted. The hardest physical activity you could do for at least 2 minutes: Moderate. Yes, can get to places out of walking distance without help. Yes, can shop for groceries or clothes without help. Yes, does prepare meals. Yes, does housework without help. Yes, handles money without help. Does not need help eating, bathing, dressing, or getting around home. Rates health in general: Good. How have things been going for you? Pretty good. Having difficulties driving a car: No. Always fastens seatbelt when in a car: Yes, usually. Has fallen or gotten dizzy when standing up: Seldom Has problems with teeth or dentures: Never Has problems using the telephone: Never Tired or fatigued: Never No, has not fallen 2 or more times in the past year. No, not afraid of falling. Number of drinks of wine, beer or other alcoholic beverages: No alcohol at all. Exercise for about 20 minutes 3 or more days a week: Yes, most of the time. Have you been given any information to help you with the following: Yes, has given information regarding hazards in the home that might hurt you. Yes, has been given information regarding keeping track of medications. Do you have trouble taking medicines the way told to take them: I always take them as prescribed. Confidence in control and management of most health problems: Somewhat cofident. Patient Self Assessment of Health Status: good. Tobacco use: Non-User Alcohol use: Non-User Illicit drug use: Non-User Current diet: well balanced diet, does consume adequate fluids and does consume caffeine. Depression/Suicide Screening: . During the past 2 weeks, the patient has not felt down, depressed or hopeless. During the past 2 weeks, the patient has not felt little interest or pleasure in doing things. Hearing Impairment: none. Bathing: performs independently. Dressing: performs independently. Walking: performs independently. Toileting: performs independently. Feeding: performs independently. Personal Hygiene: performs independently. Bowels: continent. Bladder: continent. Managing Finances: performs independently. Shopping: performs independently. Managing Medications: performs independently. Housework / Basic Home Maintenance: performs independently. Handling Transportation: performs independently. Preparing Meals: performs independently. Using the Telephone/ Communication Devices: performs independently. Falls Risk Screening:. VINAYAK has not fallen in the last 6 months. Home safety risk factors: none. Advance directives:. Advanced Care Planning discussed and documented advance care plan or surrogate decision maker documented in the medical record. diarrhea for a few mos with 2 ER visits lately. diarrhea was trigrred by food or fluid intake. no blood or pus in stools. no abd pain, vomiting. CT showed fatty liver. pt denies excessive eoth drinking. no jaundice, hematemesis, dark or bloody stools. no significant wt loss. pt denies having fatigue, cold or heat intolerance while on current dose of Levoxyl. No vision change, cp, heart palpitation or LE edema. No VANG, dizziness, dry skin or constipation. Pt sleeps well. No depressed mood. *Active Problems Carpal tunnel syndrome of right wrist (354.0) (G56.01) Carpal tunnel syndrome, right (354.0) (G56.01) Diarrhea (787.91) (R19.7) Dyslipidemia (272.4) (E78.5) Encounter for Medicare annual wellness exam (V70.0) (Z00.00) Encounter for vaccination (V05.9) (Z23) Fatty liver disease, nonalcoholic (571.8) (K76.0) Hypothyroidism (244.9) (E03.9) Localized primary osteoarthritis of carpometacarpal (CMC) joint of right wrist (715.14) (M19.031) Postmenopausal bleeding (627.1) (N95.0) Screening for colon cancer (V76.51) (Z12.11) Screening for hyperlipidemia (V77.91) (Z13.220) Visit for screeni (more content not included)... Normal [employer] CALPROTECTIN,FECALon 023 CALPROTECTIN,FECAL 34 ug/g Normal <=49 [facility] Comment on above: Result Comment: REFE RENCE INTERVAL: Calprotectin, Fecal by Immunoassay Less than 50 ug/g.........Normal 50-120 ug/g...............Borderline elevated, test should be re-evaluated in 4-6 weeks. 121 ug/g or greater.......Elevated Performed By: [email or web address] [address] [place] [address] [employer]: Ruddy Mcdonald MD, PhD Performed By: #### L IPAS #### [facility] [address] [place] [address] ELECTROLYTES, STOOLon 2022 CHLORIDE,STOOL 48 mmol/L Normal [facility] Comment on above: Result Comment: INTE RPRETIVE INFORMATION: Fecal Chloride A reference interval has not been established for fecal specimens. This test was developed and its performance characteristics determined by [email or web address]. It has not been cleared or approved by the [place] Food and Drug Administration. This test was performed in a CLIA certified laboratory and is intended for clinical purposes. Performed by [email or web address], [address] [place] [address] [email or web address], Ruddy Mcdonald MD, PHD - Lab. Director Performed By: #### T RP #### [facility] [address] [place] [address] POTASSIUM,STOOL 63 mmol/L Normal [facility] Comment on above: Result Comment: INTE RPRETIVE INFORMATION: Fecal Potassium A reference interval has not been established for fecal specimens. This test was developed and its performance characteristics determined by [email or web address]. It has not been cleared or approved by the [place] Food and Drug Administration. This test was performed in a CLIA certified laboratory and is intended for clinical purposes. Performed By: #### T RPHS #### [facility] [address] [place] [address] SODIUM,STOOL 49 mmol/L Normal [facility] Comment on above: Result Comment: INTE RPRETIVE INFORMATION: Fecal Sodium A reference interval has not been established for fecal specimens. This test was developed and its performance characteristics determined by [email or web address]. It has not been cleared or approved by the US Food and Drug Administration. This test was performed in a CLIA certified laboratory and is intended for clinical purposes. Performed By: #### T [facility] #### [facility] [address] [place] [address] CBCon 09-28-2022 Erythrocyte distribution width (RBC) [Ratio] 13.7 % Normal 11.5 - 14.5 [facility] Comment on above: Performed By: #### C BC #### [facility] [address] [place] [address] Hematocrit (Bld) [Volume fraction] 37.9 % Normal 36.0 - 46.0 [facility] Comment on above: Performed By: #### C BC #### [facility] [id number] [place] [address] [place] [address] Hemoglobin (Bld) [Mass/Vol] 13.2 g/dL Normal 12.0 - 16.0 [facility] Comment on above: Performed By: #### C BC #### [facility] [id number] [place] [address] [address] [facility] [address] MCHC (RBC) [Mass/Vol] 34.8 g/dL Normal 32.0 - 36.0 [facility] Comment on above: Performed By: #### C BC #### [facility] [address] [place] [address] MCV (RBC) [Entitic vol] 92 fL Normal 80 - 100 [facility] Comment on above: Performed By: #### C BC #### [facility] [id number] [place] [address] [place] [address] Platelets (Bld) [#/Vol] 331 10*3/uL Normal 150 - 450 [facility] Comment on above: Performed By: #### C BC #### [facility] [address] [facility] [place] [address] RBC 4.10 x10E12/L Normal 4.00 - 5.20 [facility] Comment on above: Performed By: #### C BC #### [facility] [address] [facility] [place] [address] WBC (Bld) [#/Vol] 6.7 10*3/uL Normal 4.4 - 11.3 [facility] Comment on above: Performed By: #### C BC #### [facility] [address] [place] [address] Laboratory - Hematology and Cell countson 09-28-2022 Erythrocyte distribution width (RBC) [Ratio] 13.7 % See Below [facility] Work Phone: Comment on above: Reference Range: 11. 5 - 14.5 Hematocrit (Bld) [Volume fraction] 37.9 % See Below [facility] Work Phone: Comment on above: Reference Range: 36. 0 - 46.0 Hemoglobin (Bld) [Mass/Vol] 13.2 g/dL See Below [facility] Work Phone: Comment on above: Reference Range: 12. 0 - 16.0 MCHC (RBC) [Mass/Vol] 34.8 g/dL See Below [facility] a Work Phone: Comment on above: Reference Range: 32. 0 - 36.0 MCV (RBC) [Entitic vol] 92 fL 80 - 100 [facility] Work Phone: [phone] Platelets (Bld) [#/Vol] 331 10*3/uL 150 - 450 [facility] Work Phone: RBC (Bld) [#/Vol] 4.10 {x10E12/L} See Below [facility] a Work Phone: Comment on above: Reference Range: 4.0 0 - 5.20 WBC (Bld) [#/Vol] 6.7 10*3/uL 4.4 - 11.3 [facility] Work Phone: MAGNESIUMon 09-28-2022 Magnesium [Mass/Vol] 1.66 mg/dL Normal 1.60 - 2.40 [facility] Comment on above: Performed By: #### M G #### [facility] [address] [place] [address] Magnesium, Serumon Magnesium [Mass/Vol] 1.66 mg/dL See Below -[facility] Work Phone: Comment on above: Reference Range: 1.6 0 - 2.40 RENAL FUNCTION PANELon 09-28 Albumin [Mass/Vol] 3.2 g/dL Low 3.4 - 5.0 [facility] Comment on above: Performed By: #### T RP #### [facility] [address] [place] [address] Anion gap [Moles/Vol] 9 mmol/L Low 10 - 20 [facility] Comment on above: Performed By: #### T RPHS #### [facility] [address] [place] [address] Calcium [Mass/Vol] 8.0 mg/dL Low 8.6 - 10.3 [facility] Comment on above: Performed By: #### T RPHS #### [facility] [address] [facility] [place] [address] Chloride [Moles/Vol] 111 mmol/L High 98 - 107 [facility] Comment on above: Performed By: #### T RPHS #### [facility] [address] [place] [address] Creatinine [Mass/Vol] 0.52 mg/dL Normal 0.50 - 1.05 [facility] Comment on above: Performed By: #### T RPHS #### [facility] [address] [place] [address] eGFR FEMALE >90 Normal >90 [facility] Comment on above: Result Comment: CALC ULATIONS OF ESTIMATED GFR ARE PERFORMED USING THE 2020 CKD-EPI STUDY REFIT EQUATION WITHOUT THE RACE VARIABLE FOR THE IDMS-TRACEABLE CREATININE METHODS. https://jasn.asnjournals.org/content//ASN.333017720 8 Performed By: #### T RPHS #### [facility] [address] [place] [address] Glucose [Mass/Vol] 87 mg/dL Normal 74 - 99 [facility] Comment on above: Performed By: #### T RPHS #### [facility] [address] [place] [address] HCO3 (Bld) [Moles/Vol] 24 mmol/L Normal 21 - 32 [facility] Comment on above: Performed By: #### T RPHS #### [facility] [address] [place] [address] Phosphate [Mass/Vol] 2.6 mg/dL Normal 2.5 - 4.9 [facility] Comment on above: Result Comment: The performance characteristics of phosphorus testing in heparinized plasma have been validated by the individual laboratory site where testing is performed. Testing on heparinized plasma is not approved by the FDA; however, such approval is not necessary. Performed By: #### T RPHS #### [facility] [address] [place] [address] Potassium [Moles/Vol] 3.3 mmol/L Low 3.5 - 5.3 [facility] Comment on above: Performed By: #### T RPHS #### [facility] [address] [facility] [place] [address] Sodium [Moles/Vol] 141 mmol/L Normal 136 - 145 [facility] Comment on above: Performed By: #### T RPHS #### [facility] [address] [place] [address] Urea nitrogen [Mass/Vol] 4 mg/dL Low 6 - 23 [facility] Comment on above: Performed By: #### T RPHS #### [facility] [address] [place] [address] Renal Function Panelon 09-28 Albumin BCP dye [Mass/Vol] 3.2 g/dL below low threshold 3.4 - 5.0 [facility] a Work Phone: Anion gap [Moles/Vol] 9 mmol/L below low threshold 10 - 20 [facility] a Work Phone: Calcium [Mass/Vol] 8.0 mg/dL below low threshold 8.6 - 10.3 [facility] Work Phone: Chloride [Moles/Vol] 111 mmol/L above high threshold 98 - 107 [facility] Work Phone: [phone] CO2 [Moles/Vol] 24 mmol/L 21 - 32 [facility] Work Phone: Creatinine [Mass/Vol] 0.52 mg/dL See Below [facility] Work Phone: Comment on above: Reference Range: 0.5 0 - 1.05 Glucose [Mass/Vol] 87 mg/dL 74 - 99 [facility] Work Phone: Phosphate [Mass/Vol] 2.6 mg/dL 2.5 - 4.9 [facility] Work Phone: [phone] Comment on above: The performance ant acteristics of phosphorus testing in heparinized plasma have been validated by the individual laboratory site where testing is performed. Testing on heparinized plasma is not approved by the FDA; however, such approval is not necessary. Potassium [Moles/Vol] 3.3 mmol/L below low threshold 3.5 - 5.3 [facility] Work Phone: [phone] Sodium [Moles/Vol] 141 mmol/L 136 - 145 [facility] Work Phone: Urea nitrogen [Mass/Vol] 4 mg/dL below low threshold 6 - 23 [facility] Work Phone: Renal Function Panel >90 >90 [facility] Work Phone: Comment on above: CALCULATIONS OF NEL MATED GFR ARE PERFORMED USING THE 2020 CKD-EPI STUDY REFIT EQUATION WITHOUT THE RACE VARIABLE FOR THE IDMS-TRACEABLE CREATININE METHODS.https://jasn.asnjournals.org/content//09/22/ASN.2 939437811 CBC AND DIFFERENTIALon 09-27 % AUTOMATED IMMATURE GRAN 0.3 % Normal 0.0 - 0.9 [facility] Comment on above: Result Comment: Harriet ture Granulocyte Count (IG) includes promyelocytes, myelocytes and metamyelocytes but does not include bands. Percent differential counts (%) should be interpreted in the context of the absolute cell counts (cells/L). Performed By: #### T RPHS #### [facility] [address] [place] [address] Basophils (Bld) [#/Vol] 0.06 10*3/uL Normal 0.00 - 0.10 [facility] Comment on above: Performed By: #### T RPHS #### [facility] [address] [facility] [place] [address] Basophils/100 WBC (Bld) 0.8 % Normal 0.0 - 2.0 [facility] Comment on above: Performed By: #### T RPHS #### [facility] [address] [place] [address] Eosinophils (Bld) [#/Vol] 0.08 10*3/uL Normal 0.00 - 0.40 [facility] Comment on above: Performed By: #### T RPHS #### [facility] [address] [place] [address] Eosinophils/100 WBC (Bld) 1.0 % Normal 0.0 - 6.0 [facility] Comment on above: Performed By: #### T RPHS #### [facility] [address] [place] [address] Erythrocyte distribution width (RBC) [Ratio] 13.4 % Normal 11.5 - 14.5 [facility] Comment on above: Performed By: #### T RPHS #### [facility] [address] [place] [address] Hematocrit (Bld) [Volume fraction] 38.3 % Normal 36.0 - 46.0 [facility] Comment on above: Performed By: #### T RPHS #### [facility] [address] [place] [address] Hemoglobin (Bld) [Mass/Vol] 13.4 g/dL Normal 12.0 - 16.0 [facility] Comment on above: Performed By: #### T RPHS #### [facility] [address] [place] [address] Lymphocytes (Bld) [#/Vol] 1.48 10*3/uL Normal 0.80 - 3.00 [facility] Comment on above: Performed By: #### T RPHS #### [facility] [address] [place] [address] Lymphocytes/100 WBC (Bld) 18.8 % Normal 13.0 - 44.0 [facility] Comment on above: Performed By: #### T RPHS #### [facility] [address] [place] [address] MCHC (RBC) [Mass/Vol] 35.0 g/dL Normal 32.0 - 36.0 [facility] Comment on above: Performed By: #### T RPHS #### [facility] [address] [place] [address] MCV (RBC) [Entitic vol] 91 fL Normal 80 - 100 [facility] Comment on above: Performed By: #### T RPHS #### [facility] [address] [place] [address] Monocytes (Bld) [#/Vol] 0.60 10*3/uL Normal 0.05 - 0.80 [facility] Comment on above: Performed By: #### T RPHS #### [facility] [address] [place] [address] Monocytes/100 WBC (Bld) 7.6 % Normal 2.0 - 10.0 [facility] Comment on above: Performed By: #### T RPHS #### [facility] [address] [place] [address] Neutrophils (Bld) [#/Vol] 5.62 10*3/uL High 1.60 - 5.50 [facility] Comment on above: Performed By: #### T RPHS #### [facility] [address] [place] [address] Neutrophils/100 WBC (Bld) 71.5 % Normal 40.0 - 80.0 [facility] Comment on above: Performed By: #### T RPHS #### [facility] [address] [place] [address] Platelets (Bld) [#/Vol] 335 10*3/uL Normal 150 - 450 [facility] Comment on above: Performed By: #### T RPHS #### [facility] [address] [place] [address] RBC 4.21 x10E12/L Normal 4.00 - 5.20 [facility] Comment on above: Performed By: #### T RPHS #### [facility] [address] [place] [address] WBC (Bld) [#/Vol] 7.9 10*3/uL Normal 4.4 - 11.3 [facility] Comment on above: Performed By: #### T RPHS #### [facility] [address] [place] [address] CLOST DIFF. TOXIN, PCRon CLOST.DIFF.TOXIN,P CR Not detected Normal Not Detected [facility] Comment on above: Result Comment: This assay detects the presence of the tcdB (toxin B) gene via DNA amplification, and results should be interpreted in the context of the patients history and clinical findings. This test cannot be performed on formed stools or used as a test of cure, and should not be performed more than once per 7 days. Performed By: #### C DTPC #### [facility] [address] [place] [address] EMR ADDONon 09-27-2022 ADDON CONFIRMATION REQUEST REC'D Normal [facility] Comment on above: Performed By: #### E MRAD #### [facility] [address] [place] [address] ADDON CONFIRMATION REQUEST REC'D Normal [facility] Comment on above: Performed By: #### T RPHS #### [facility] [address] [place] [address] HIV 1/2 ANTIGEN/ANTIBODY SCR EEN WITH REFLEX TO CONFIRMATIONon 09-27-2022 HIV 1/2 AG/AB SCREEN Non-Reactive Normal NONREACTIVE [facility] Comment on above: Result Comment: HIV Ag/Ab screen is performed using the Siem[employer] HIV Ag/Ab Combo assay which detects the presence of HIV p24 antigen as well as antibodies to HIV-1 (Group M and O) and HIV-2. . No laboratory evidence of HIV infection. If acute HIV infection is suspected, consider testing for HIV RNA by PCR (viral load). Performed By: #### L IPAS #### [facility] [address] [place] [address] Lab Specimen Source Normal [facility] Comment on above: Performed By: #### L IPAS #### [facility] [address] [place] [address] HIV 1+2 Ab Qn (S) Non-Reactive See Below [facility] a Work Phone: Comment on above: SOURCE: Reference Ra nge: NONREACTIVE HIV Ag/Ab screen is performed using the [employer] HIV Ag/Ab Combo assay which detects the presence of HIV p24 antigen as well as antibodies to HIV-1 (Group M and O) and HIV-2..No laboratory evidence of HIV infection. If acute HIV infection is suspected, consider testing for HIV RNA by PCR (viral load). Laboratory - Chemistry and C hemistry - challengeon 09-27-2022 TSH Qn 3.56 m[IU]/L See Below [facility] a Work Phone: Comment on above: Reference Range: 0.4 4 - 3.98 TSH testing is performed using different testing methodology at [facility] than at other [facility]. Direct result comparisons should only be made within the same method. MAGNESIUMon 09-27-2022 Magnesium [Mass/Vol] 1.99 mg/dL Normal 1.60 - 2.40 [facility] Comment on above: Performed By: #### T RPHS #### [facility] [address] [place] [address] MAGNESIUM Canceled Normal [facility] Comment on above: Order Comment: TEST MAGNESIUM WAS CANCELLED, 09/27/2022 04:27 ok to add to AM labs per 1S. Performed By: #### T [facility] #### [facility] [address] [place] [address] Magnesium, Serumon Magnesium [Mass/Vol] 1.99 mg/dL See Below -[facility] Work Phone: Comment on above: Reference Range: 1.6 0 - 2.40 RENAL FUNCTION PANELon 09-27 Albumin [Mass/Vol] 3.4 g/dL Normal 3.4 - 5.0 [facility] Comment on above: Performed By: #### R ENAL #### [facility] [address] [place] [address] Anion gap [Moles/Vol] 10 mmol/L Normal 10 - 20 [facility] Comment on above: Performed By: #### R ENAL #### [facility] [address] [place] [address] Calcium [Mass/Vol] 8.2 mg/dL Low 8.6 - 10.3 [facility] Comment on above: Performed By: #### R ENAL #### [facility] [address] [facility] [place] [address] Chloride [Moles/Vol] 112 mmol/L High 98 - 107 [facility] Comment on above: Performed By: #### R ENAL #### [facility] [address] [place] [address] Creatinine [Mass/Vol] 0.61 mg/dL Normal 0.50 - 1.05 [facility] Comment on above: Performed By: #### R ENAL #### [facility] [address] [place] [address] GFR/1.73 sq M.predicted among non-blacks MDRD (S/P/Bld) [Vol rate/Area] 88 mL/min/{1.73_m2} Normal >90 [facility] Comment on above: Result Comment: CALC ULATIONS OF ESTIMATED GFR ARE PERFORMED USING THE 2020 CKD-EPI STUDY REFIT EQUATION WITHOUT THE RACE VARIABLE FOR THE IDMS-TRACEABLE CREATININE METHODS. https://jasn.asnjournals.org/content//ASN.[id number] 8 Performed By: #### R ENAL #### [facility] [address] [place] [address] Glucose [Mass/Vol] 83 mg/dL Normal 74 - 99 [facility] Comment on above: Performed By: #### R ENAL #### [facility] [address] [place] [address] HCO3 (Bld) [Moles/Vol] 22 mmol/L Normal 21 - 32 [facility] Comment on above: Performed By: #### R ENAL #### [facility] [address] [place] [address] Phosphate [Mass/Vol] 2.6 mg/dL Normal 2.5 - 4.9 [facility] Comment on above: Result Comment: The performance characteristics of phosphorus testing in heparinized plasma have been validated by the individual laboratory site where testing is performed. Testing on heparinized plasma is not approved by the FDA; however, such approval is not necessary. Performed By: #### R ENAL #### [facility] [address] [place] [address] Potassium [Moles/Vol] 3.1 mmol/L Low 3.5 - 5.3 [facility] Comment on above: Performed By: #### R ENAL #### [facility] [address] [facility] [address] Sodium [Moles/Vol] 141 mmol/L Normal 136 - 145 [facility] Comment on above: Performed By: #### R ENAL #### [facility] [address] [facility] [place] [address] Urea nitrogen [Mass/Vol] 8 mg/dL Normal 6 - 23 [facility] Comment on above: Performed By: #### R ENAL #### [facility] [address] [facility] [place] [address] ALBUMIN Canceled Normal [facility] Comment on above: Order Comment: TEST RENAL FUNCTION PANEL WAS CANCELLED, 09/27/2022 04:26 ok to add to AMlabs per 1S. Performed By: #### L IPAS #### [facility] [address] [facility] [place] [address] ANION GAP Canceled Normal [facility] Comment on above: Order Comment: TEST RENAL FUNCTION PANEL WAS CANCELLED, 09/27/2022 04:26 ok to add to AMlabs per 1S. Performed By: #### L IPAS #### [facility] [address] [facility] [place] [address] BICARBONATE Canceled Normal [facility] Comment on above: Order Comment: TEST RENAL FUNCTION PANEL WAS CANCELLED, 09/27/2022 04:26 ok to add to AMlabs per 1S. Performed By: #### L IPAS #### [facility] [address] [facility] [place] [address] CALCIUM Canceled Normal [facility] Comment on above: Order Comment: TEST RENAL FUNCTION PANEL WAS CANCELLED, 09/27/2022 04:26 ok to add to AMlabs per 1S. Performed By: #### L IPAS #### [facility] [address] [facility] [place] [address] CHLORIDE Canceled Normal [facility] Comment on above: Order Comment: TEST RENAL FUNCTION PANEL WAS CANCELLED, 09/27/2022 04:26 ok to add to AMlabs per 1S. Performed By: #### L IPAS #### [facility] [address] [facility] [place] [address] CREATININE Canceled Normal [facility] Comment on above: Order Comment: TEST RENAL FUNCTION PANEL WAS CANCELLED, 09/27/2022 04:26 ok to add to AMlabs per 1S. Performed By: #### L IPAS #### [facility] [address] [facility] [place] [address] eGFR FEMALE Canceled Normal [facility] Comment on above: Order Comment: TEST RENAL FUNCTION PANEL WAS CANCELLED, 09/27/2022 04:26 ok to add to AMlabs per 1S. Result Comment: CALC ULATIONS OF ESTIMATED GFR ARE PERFORMED USING THE 2020 CKD-EPI STUDY REFIT EQUATION WITHOUT THE RACE VARIABLE FOR THE IDMS-TRACEABLE CREATININE METHODS. https://jasn.asnjournals.org/content/early/ASN.125641439 8 Performed By: #### L IPAS #### [facility] [address] [facility] [place] [address] eGFR MALE Canceled Normal [facility] Comment on above: Order Comment: TEST RENAL FUNCTION PANEL WAS CANCELLED, 09/27/2022 04:26 ok to add to AMlabs per 1S. Result Comment: CALC ULATIONS OF ESTIMATED GFR ARE PERFORMED USING THE 2020 CKD-EPI STUDY REFIT EQUATION WITHOUT THE RACE VARIABLE FOR THE IDMS-TRACEABLE CREATININE METHODS. https://jasn.asnjournals.org/content/earlyASN.729898804 8 Performed By: #### L IPAS #### [facility] [address] [facility] [place] [address] GLUCOSE Canceled Normal [facility] Comment on above: Order Comment: TEST RENAL FUNCTION PANEL WAS CANCELLED, 09/27/2022 04:26 ok to add to AMlabs per 1S. Performed By: #### L IPAS #### [facility] [address] [facility] [place] [address] PHOSPHORUS Canceled Normal [facility] Comment on above: Order Comment: TEST RENAL FUNCTION PANEL WAS CANCELLED, 09/27/2022 04:26 ok to add to AMlabs per 1S. Result Comment: The performance characteristics of phosphorus testing in heparinized plasma have been validated by the individual laboratory site where testing is performed. Testing on heparinized plasma is not approved by the FDA; however, such approval is not necessary. Performed By: #### L IPAS #### [facility] [address] [facility] [place] [address] POTASSIUM Canceled Normal [facility] Comment on above: Order Comment: TEST RENAL FUNCTION PANEL WAS CANCELLED, 09/27/2022 04:26 ok to add to AMlabs per 1S. Performed By: #### L IPAS #### [facility] [address] [facility] [place] [address] SODIUM Canceled Normal [facility] Comment on above: Order Comment: TEST RENAL FUNCTION PANEL WAS CANCELLED, 09/27/2022 04:26 ok to add to AMlabs per 1S. Performed By: #### L IPAS #### [facility] [address] [place] [address] UREA NITROGEN Canceled Normal [facility] Comment on above: Order Comment: TEST RENAL FUNCTION PANEL WAS CANCELLED, 09/27/2022 04:26 ok to add to AMlabs per 1S. Performed By: #### L IPAS #### [facility] [address] [place] [address] Renal Function Panelon 09-27 Albumin BCP dye [Mass/Vol] 3.4 g/dL 3.4 - 5.0 [facility] Work Phone: Anion gap [Moles/Vol] 10 mmol/L 10 - 20 [facility] Work Phone: Calcium [Mass/Vol] 8.2 mg/dL below low threshold 8.6 - 10.3 [facility] Work Phone: Chloride [Moles/Vol] 112 mmol/L above high threshold 98 - 107 [facility] Work Phone: CO2 [Moles/Vol] 22 mmol/L 21 - 32 [facility] Work Phone: Creatinine [Mass/Vol] 0.61 mg/dL See Below [facility] Work Phone: Comment on above: Reference Range: 0.5 0 - 1.05 Glucose [Mass/Vol] 83 mg/dL 74 - 99 [facility] Work Phone: Phosphate [Mass/Vol] 2.6 mg/dL 2.5 - 4.9 [facility] Work Phone: Comment on above: The performance ant acteristics of phosphorus testing in heparinized plasma have been validated by the individual laboratory site where testing is performed. Testing on heparinized plasma is not approved by the FDA; however, such approval is not necessary. Potassium [Moles/Vol] 3.1 mmol/L below low threshold 3.5 - 5.3 [facility] Work Phone: Sodium [Moles/Vol] 141 mmol/L 136 - 145 [facility] Work Phone: Urea nitrogen [Mass/Vol] 8 mg/dL 6 - 23 [facility] Work Phone: Renal Function Panel 88 {mL/min/1.73m2} >90 [facility] Work Phone: Comment on above: CALCULATIONS OF NEL MATED GFR ARE PERFORMED USING THE 2020 CKD-EPI STUDY REFIT EQUATION WITHOUT THE RACE VARIABLE FOR THE IDMS-TRACEABLE CREATININE METHODS.https://jasn.asnjournals.org/content/early//ASN.2 420845183 STOOL PATHOGEN PCR PANELon 0 09-27-2022 CAMPYLOBACTER GP. Not detected Normal NOT DETECTED [facility] Comment on above: Performed By: #### S TLPP #### [facility] [address] [place] [address] NOROVIRUS GI/GII Not detected Normal NOT DETECTED [facility] Comment on above: Performed By: #### S TLPP #### [facility] [address] [place] [address] ROTAVIRUS A Not detected Normal NOT DETECTED [facility] Comment on above: Result Comment: The enteric PCR panel is a panel of sensitive and specific amplified nucleic acid tests indicated as an aid in the diagnosis of specific bacterial and viral agents of gastrointestinal illness, in conjunction with other clinical, laboratory, and epidemiological information. This test is not approved for monitoring these infections. Monitoring is available for Salmonella and Shigella infections-request test "Stool PCR Follow-Up (STLPF)". Monitoring tests are not available at this time for other enteric agents in this panel. Performed By: #### S TLPP #### [facility] [address] [place] [address] SALMONELLA SP. Not detected Normal NOT DETECTED [facility] Comment on above: Performed By: #### S TLPP #### [facility] [address] [place] [id number] SHIGA TOXIN 1 Not detected Normal NOT DETECTED [facility] Comment on above: Performed By: #### S TLPP #### [facility] [address] [place] [address] SHIGA TOXIN 2 Not detected Normal NOT DETECTED [facility] Comment on above: Performed By: #### S TLPP #### [facility] [address] [place] [address] SHIGELLA SP. Not detected Normal NOT DETECTED [facility] Comment on above: Performed By: #### S TLPP #### [facility] [address] [place] [address] [employer] Not detected Normal NOT DETECTED [facility] Comment on above: Performed By: #### S TLPP #### [facility] [address] [place] [address] YERSINIA ENTEROCOLITICA Not detected Normal NOT DETECTED [facility] Comment on above: Performed By: #### S TLPP #### [facility] [address] [place] [id number] TSH WITH REFLEX TO FREE T4 I F ABNORMALon 09-27-2022 TSH Qn 3.56 m[IU]/L Normal 0.44 - 3.98 [facility] Comment on above: Result Comment: TSH testing is performed using different testing methodology at [facility] than at other [facility]. Direct result comparisons should only be made within the same method. Performed By: #### T HYDS #### [facility] [address] [place] [address] UA MICROSCOPICon 09-27-2022 BACTERIA 1+ /HPF Abnormal [facility] Comment on above: Performed By: #### L IPAS #### [facility] [address] [place] [address] Mucus Ql (Urine sed) FEW Normal [facility] Comment on above: Performed By: #### L IPAS #### [facility] [address] [facility] [place] [address] RBC 6 /HPF Abnormal 0-5 [facility] Comment on above: Performed By: #### L IPAS #### [facility] [address] [facility] [place] [address] SQUAMOUS EPITH. CELLS 4 /HPF Normal [facility] Comment on above: Performed By: #### L IPAS #### [facility] [address] [facility] [place] [address] WBC 15 /HPF Abnormal 0-5 [facility] Comment on above: Performed By: #### L IPAS #### [facility] [address] [facility] [place] [address] URINALYSISon 09-27-2022 Appearance (U) CLEAR Normal CLEAR [facility] Comment on above: Performed By: #### L IPAS #### [facility] [address] [facility] [place] [address] Bilirubin Ql (U) Negative Normal NEGATIVE [facility] Comment on above: Performed By: #### L IPAS #### [facility] [address] [facility] [place] [address] Color (U) YELLOW Normal STRAW,YELLOW [facility] Comment on above: Performed By: #### L IPAS #### [facility] [address] [facility] [place] [address] Glucose Ql (U) Negative Normal NEGATIVE [facility] Comment on above: Performed By: #### L IPAS #### [facility] [address] [facility] [place] [address] Hemoglobin Ql (U) TRACE Abnormal NEGATIVE [facility] Comment on above: Performed By: #### L IPAS #### [facility] [address] [facility] [place] [address] Ketones Ql (U) Negative Normal NEGATIVE [facility] Comment on above: Performed By: #### L IPAS #### [facility] [address] [facility] [place] [address] Leukocyte esterase Test strip Ql (U) TRACE Abnormal NEGATIVE [facility] Comment on above: Performed By: #### L IPAS #### [facility] [address] [place] [address] Nitrite Ql (U) Negative Normal NEGATIVE [facility] Comment on above: Performed By: #### L IPAS #### [facility] [address] [place] [address] pH (U) 6.0 [pH] Normal 5.0 - 8.0 [facility] Comment on above: Performed By: #### L IPAS #### [facility] [address] [place] [address] Protein Ql (U) TRACE Normal NEGATIVE [facility] Comment on above: Performed By: #### L IPAS #### [facility] [address] [place] [address] Specific gravity (U) [Rel density] <1.005 Abnormal 1.005 - 1.035 [facility] Comment on above: Performed By: #### L IPAS #### [facility] [id number] [place] [address] Urobilinogen (U) [Mass/Vol] mg/dL Normal 0.0 - 1.9 [facility] Comment on above: Performed By: #### L IPAS #### [facility] [id number] [place] [address] APTTon 09-26-2022 aPTT Coag (Bld) [Time] 38 s Normal 26 - 39 [facility] Comment on above: Result Comment: THE APTT IS NO LONGER USED FOR MONITORING UNFRACTIONATED HEPARIN THERAPY. FOR MONITORING HEPARIN THERAPY, USE THE HEPARIN ASSAY. Performed By: #### L IPAS #### [facility] [address] [place] [address] Activated Partial Thrombopla stin Timeon 09-26-2022 aPTT Coag (PPP) [Time] 38 s 26 - 39 [facility] Work Phone: Comment on above: THE APTT IS NO LONGE R USED FOR MONITORING UNFRACTIONATED HEPARIN THERAPY. FOR MONITORING HEPARIN THERAPY, USE THE HEPARIN ASSAY. CBC AND DIFFERENTIALon 09-26 % AUTOMATED IMMATURE GRAN 0.3 % Normal 0.0 - 0.9 [facility] Comment on above: Result Comment: Harriet ture Granulocyte Count (IG) includes promyelocytes, myelocytes and metamyelocytes but does not include bands. Percent differential counts (%) should be interpreted in the context of the absolute cell counts (cells/L). Performed By: #### L IPAS #### [facility] [address] [place] [address] Basophils (Bld) [#/Vol] 0.06 10*3/uL Normal 0.00 - 0.10 [facility] Comment on above: Performed By: #### L IPAS #### [facility] [address] [place] [address] Basophils/100 WBC (Bld) 0.5 % Normal 0.0 - 2.0 [facility] Comment on above: Performed By: #### L IPAS #### [facility] [address] [place] [address] Eosinophils (Bld) [#/Vol] 0.10 10*3/uL Normal 0.00 - 0.40 [facility] Comment on above: Performed By: #### L IPAS #### [facility] [address] [place] [address] Eosinophils/100 WBC (Bld) 0.9 % Normal 0.0 - 6.0 [facility] Comment on above: Performed By: #### L IPAS #### [facility] [address] [place] [address] Erythrocyte distribution width (RBC) [Ratio] 13.3 % Normal 11.5 - 14.5 [facility] Comment on above: Performed By: #### L IPAS #### [facility] [address] [place] [address] Hematocrit (Bld) [Volume fraction] 45.0 % Normal 36.0 - 46.0 [facility] Comment on above: Performed By: #### L IPAS #### [facility] [address] [place] [address] Hemoglobin (Bld) [Mass/Vol] 16.5 g/dL High 12.0 - 16.0 [facility] Comment on above: Performed By: #### L IPAS #### [facility] [address] [facility] [place] [address] Lymphocytes (Bld) [#/Vol] 2.00 10*3/uL Normal 0.80 - 3.00 [facility] Comment on above: Performed By: #### L IPAS #### [facility] [address] [facility] [place] [address] Lymphocytes/100 WBC (Bld) 17.3 % Normal 13.0 - 44.0 [facility] Comment on above: Performed By: #### L IPAS #### [facility] [address] [facility] [place] [address] MCHC (RBC) [Mass/Vol] 36.7 g/dL High 32.0 - 36.0 [facility] Comment on above: Performed By: #### L IPAS #### [facility] [id number] [place] [address] [place] [address] MCV (RBC) [Entitic vol] 89 fL Normal 80 - 100 [facility] Comment on above: Performed By: #### L IPAS #### [facility] [address] [place] [address] Monocytes (Bld) [#/Vol] 0.93 10*3/uL High 0.05 - 0.80 [facility] Comment on above: Performed By: #### L IPAS #### [facility] [id number] [place] [address] [place] [address] Monocytes/100 WBC (Bld) 8.1 % Normal 2.0 - 10.0 [facility] Comment on above: Performed By: #### L IPAS #### [facility] [address] [place] [address] Neutrophils (Bld) [#/Vol] 8.41 10*3/uL High 1.60 - 5.50 [facility] Comment on above: Performed By: #### L IPAS #### [facility] [address] [place] [address] Neutrophils/100 WBC (Bld) 72.9 % Normal 40.0 - 80.0 [facility] Comment on above: Performed By: #### L IPAS #### [facility] [address] [address] [facility] [address] Platelets (Bld) [#/Vol] 385 10*3/uL Normal 150 - 450 [facility] Comment on above: Performed By: #### L IPAS #### [facility] [address] [place] [address] RBC 5.05 x10E12/L Normal 4.00 - 5.20 [facility] Comment on above: Performed By: #### L IPAS #### [facility] [address] [place] [address] WBC (Bld) [#/Vol] 11.5 10*3/uL High 4.4 - 11.3 [facility] Comment on above: Performed By: #### L IPAS #### [facility] [address] [place] [address] CHEST 1 VIEWon 09-26-2022 CHEST 1 VIEW Patient Name: VINAYAK MONTES STUDY: CHEST 1 VIEW; 09/26/2022 5:55 pm INDICATION: nausea vomiting . COMPARISON: 06/05/2019 ACCESSION NUMBER(S): [id number] ORDERING CLINICIAN: ELISE LOPEZ FINDINGS: The cardiomediastinal silhouette and pulmonary vasculature are within normal limits. The aorta is atherosclerotic. There are reticulonodular opacities at the lung bases, slightly more pronounced compared to prior study. The upper lungs are clear. No consolidation, pleural effusion or pneumothorax. IMPRESSION: Slight progression of reticulonodular opacities at the lung bases compared to 06/05/2019 likely on the basis of small airways disease such as bronchiolitis/bronchitis. Electronically signed by: GINNY ANDRADE MD Normal [facility] CLOST DIFF. TOXIN, PCRon Lab Specimen Source Stool Normal [facility] Comment on above: Performed By: #### C DTPC #### [facility] [address] [place] [address] C. difficile toxin genes QUAN+probe Ql (Stl) Not detected See Below -[facility] Work Phone: Comment on above: SOURCE: StoolReferen ce Range: Not Detected This assay detects the presence of the tcdB (toxin B) gene via DNA amplification, and results should be interpreted in the context of the patients history and clinical findings. This test cannot be performed on formed stools or used as a test of cure, and should not be performed more than once per 7 days. COMPREHENSIVE PANELon 2022 Albumin [Mass/Vol] 4.4 g/dL Normal 3.4 - 5.0 [facility] Comment on above: Order Comment: Martin sium called to and readback by Vielka Lima, 09/26/2022 18:17 Performed By: #### L IPAS #### [facility] [address] [place] [address] ALP [Catalytic activity/Vol] 78 U/L Normal 33 - 136 [facility] Comment on above: Order Comment: Potas sium called to and readback by Vielka Lima, 09/26/2022 18:17 Performed By: #### L IPAS #### [facility] [address] [facility] [place] [address] ALT [Catalytic activity/Vol] 19 U/L Normal 7 - 45 [facility] Comment on above: Order Comment: Potas sium called to and readback by Vielka Liam, 09/26/2022 18:17 Result Comment: Joann ents treated with Sulfasalazine may generate falsely decreased results for ALT. Performed By: #### L IPAS #### [facility] [address] [place] [address] Anion gap [Moles/Vol] 16 mmol/L Normal 10 - 20 [facility] Comment on above: Order Comment: Potas sium called to and readback by Vielka Lima, 09/26/2022 18:17 Performed By: #### L IPAS #### [facility] [address] [place] [address] AST [Catalytic activity/Vol] 24 U/L Normal 9 - 39 [facility] Comment on above: Order Comment: Potas sium called to and readback by Vielka Lima, 09/26/2022 18:17 Performed By: #### L IPAS #### [facility] [address] [place] [address] Bilirubin [Mass/Vol] 0.6 mg/dL Normal 0.0 - 1.2 [facility] Comment on above: Order Comment: Potas sium called to and readback by Vielka Lima, 09/26/2022 18:17 Performed By: #### L IPAS #### [facility] [id number] [place] [address] Calcium [Mass/Vol] 9.5 mg/dL Normal 8.6 - 10.3 [facility] Comment on above: Order Comment: Potas sium called to and readback by Vielka Lima, 09/26/2022 18:17 Performed By: #### L IPAS #### [facility] [address] [place] [address] Chloride [Moles/Vol] 103 mmol/L Normal 98 - 107 [facility] Comment on above: Order Comment: Potas sium called to and readback by Vielka Lima, 09/26/2022 18:17 Performed By: #### L IPAS #### [facility] [id number] [place] [address] Creatinine [Mass/Vol] 0.67 mg/dL Normal 0.50 - 1.05 [facility] Comment on above: Order Comment: Potas sium called to and readback by Vielka Lima, 09/26/2022 18:17 Performed By: #### L IPAS #### [facility] [id number] [place] [address] GFR/1.73 sq M.predicted among non-blacks MDRD (S/P/Bld) [Vol rate/Area] 86 mL/min/{1.73_m2} Normal >90 [facility] Comment on above: Order Comment: Potas sium called to and readback by Vielka Lima, 09/26/2022 18:17 Result Comment: CALC ULATIONS OF ESTIMATED GFR ARE PERFORMED USING THE 2020 CKD-EPI STUDY REFIT EQUATION WITHOUT THE RACE VARIABLE FOR THE IDMS-TRACEABLE CREATININE METHODS. https://jasn.asnjournals.org/content//ASN.726436652 8 Performed By: #### L IPAS #### [facility] [address] [place] [address] Glucose [Mass/Vol] 110 mg/dL High 74 - 99 [facility] Comment on above: Order Comment: Potas sium called to and readback by Vielka Lima, 09/26/2022 18:17 Performed By: #### L IPAS #### [facility] [address] [place] [address] HCO3 (Bld) [Moles/Vol] 20 mmol/L Low 21 - 32 [facility] Comment on above: Order Comment: Potas sium called to and readback by Vielka Lima, 09/26/2022 18:17 Performed By: #### L IPAS #### [facility] [address] [place] [address] Potassium [Moles/Vol] 2.8 mmol/L Critically low 3.5 - 5.3 [facility] Comment on above: Order Comment: Potas sium called to and readback by Vielka Lima, 09/26/2022 18:17 Result Comment: Pota ssium called to and readback by Vielka Lima, 09/26/2022 18:17 Performed By: #### L IPAS #### [facility] [address] [place] [address] Protein [Mass/Vol] 7.5 g/dL Normal 6.4 - 8.2 [facility] Comment on above: Order Comment: Potas sium called to and readback by Vielka Lima, 09/26/2022 18:17 Performed By: #### L IPAS #### [facility] [address] [place] [address] Sodium [Moles/Vol] 136 mmol/L Normal 136 - 145 [facility] Comment on above: Order Comment: Potas sium called to and readback by Vielka Lima, 09/26/2022 18:17 Performed By: #### L IPAS #### [facility] [address] [place] [address] Urea nitrogen [Mass/Vol] 13 mg/dL Normal 6 - 23 [facility] Comment on above: Order Comment: Martin mackenzie called to and readback by Vielka Lima, 09/26/2022 18:17 Performed By: #### L IPAS #### [facility] [address] [place] [address] CT Abdomen and Pelvis with I V Contraston 09-26-2022 CT Abdomen and Pelvis W contrast IV Normal [facility] Work Phone: Complete Blood Count + Diffe rentialon 09-26-2022 Basophils/100 WBC (Bld) 0.8 % 0.0 - 2.0 [facility] Work Phone: Erythrocyte distribution width (RBC) [Ratio] 13.4 % See Below [facility] Work Phone: Comment on above: Reference Range: 11. 5 - 14.5 Hematocrit (Bld) [Volume fraction] 38.3 % See Below [facility] Work Phone: Comment on above: Reference Range: 36. 0 - 46.0 Hemoglobin (Bld) [Mass/Vol] 13.4 g/dL See Below [facility] Work Phone: Comment on above: Reference Range: 12. 0 - 16.0 Lymphocytes/100 WBC (Bld) 18.8 % See Below [facility] Work Phone: Comment on above: Reference Range: 13. 0 - 44.0 MCHC (RBC) [Mass/Vol] 35.0 g/dL See Below [facility] Work Phone: Comment on above: Reference Range: 32. 0 - 36.0 MCV (RBC) [Entitic vol] 91 fL 80 - 100 [facility] Work Phone: Monocytes/100 WBC (Bld) 7.6 % 2.0 - 10.0 [facility] Work Phone: Neutrophils/100 WBC (Bld) 71.5 % See Below [facility] Work Phone: Comment on above: Reference Range: 40. 0 - 80.0 Platelets (Bld) [#/Vol] 335 10*3/uL 150 - 450 [facility] Work Phone: [phone] RBC (Bld) [#/Vol] 4.21 {x10E12/L} See Below [facility] Work Phone: Comment on above: Reference Range: 4.0 0 - 5.20 WBC (Bld) [#/Vol] 7.9 10*3/uL 4.4 - 11.3 [facility] Work Phone: [phone] Complete Blood Count + Differential 0.06 {x10E9/L} See Below [facility] Work Phone: [phone] Comment on above: Reference Range: 0.0 0 - 0.10 Complete Blood Count + Differential 0.08 {x10E9/L} See Below [facility] Work Phone: [phone] Comment on above: Reference Range: 0.0 0 - 0.40 Complete Blood Count + Differential 0.60 {x10E9/L} See Below [facility] Work Phone: [phone] Comment on above: Reference Range: 0.0 5 - 0.80 Complete Blood Count + Differential 1.48 {x10E9/L} See Below [facility] Work Phone: Comment on above: Reference Range: 0.8 0 - 3.00 Complete Blood Count + Differential 5.62 {x10E9/L} above high threshold See Below [facility] Work Phone: Comment on above: Reference Range: 1.6 0 - 5.50 Complete Blood Count + Differential 1.0 % 0.0 - 6.0 [facility] Work Phone: Complete Blood Count + Differential 0.3 % 0.0 - 0.9 [facility] Work Phone: Comment on above: Immature Granulocyte Count (IG) includes promyelocytes, myelocytes and metamyelocytes but does not include bands. Percent differential counts (%) should be interpreted in the context of the absolute cell counts (cells/L). Basophils/100 WBC (Bld) 0.5 % 0.0 - 2.0 [facility] Work Phone: Erythrocyte distribution width (RBC) [Ratio] 13.3 % See Below [facility] Work Phone: Comment on above: Reference Range: 11. 5 - 14.5 Hematocrit (Bld) [Volume fraction] 45.0 % See Below [facility] Work Phone: Comment on above: Reference Range: 36. 0 - 46.0 Hemoglobin (Bld) [Mass/Vol] 16.5 g/dL above high threshold See Below [facility] Work Phone: Comment on above: Reference Range: 12. 0 - 16.0 Lymphocytes/100 WBC (Bld) 17.3 % See Below [facility] Work Phone: Comment on above: Reference Range: 13. 0 - 44.0 MCHC (RBC) [Mass/Vol] 36.7 g/dL above high threshold See Below [facility] Work Phone: Comment on above: Reference Range: 32. 0 - 36.0 MCV (RBC) [Entitic vol] 89 fL 80 - 100 [facility] Work Phone: [phone] Monocytes/100 WBC (Bld) 8.1 % 2.0 - 10.0 [facility] Work Phone: Neutrophils/100 WBC (Bld) 72.9 % See Below [facility] Work Phone: Comment on above: Reference Range: 40. 0 - 80.0 Platelets (Bld) [#/Vol] 385 10*3/uL 150 - 450 [facility] Work Phone: RBC (Bld) [#/Vol] 5.05 {x10E12/L} See Below [facility] Work Phone: Comment on above: Reference Range: 4.0 0 - 5.20 WBC (Bld) [#/Vol] 11.5 10*3/uL above high threshold 4.4 - 11.3 [facility] Work Phone: Complete Blood Count + Differential 0.06 {x10E9/L} See Below [facility] Work Phone: Comment on above: Reference Range: 0.0 0 - 0.10 Complete Blood Count + Differential 0.10 {x10E9/L} See Below [facility] Work Phone: Comment on above: Reference Range: 0.0 0 - 0.40 Complete Blood Count + Differential 0.93 {x10E9/L} above high threshold See Below [facility] Work Phone: Comment on above: Reference Range: 0.0 5 - 0.80 Complete Blood Count + Differential 2.00 {x10E9/L} See Below [facility] Work Phone: Comment on above: Reference Range: 0.8 0 - 3.00 Complete Blood Count + Differential 8.41 {x10E9/L} above high threshold See Below [facility] Work Phone: Comment on above: Reference Range: 1.6 0 - 5.50 Complete Blood Count + Differential 0.9 % 0.0 - 6.0 [facility] Work Phone: Complete Blood Count + Differential 0.3 % 0.0 - 0.9 [facility] Work Phone: Comment on above: Immature Granulocyte Count (IG) includes promyelocytes, myelocytes and metamyelocytes but does not include bands. Percent differential counts (%) should be interpreted in the context of the absolute cell counts (cells/L). INFLUENZA A/B, COVID 2019 PC R,SYMPTOMATICon 09-26-2022 Lab Specimen Source Nasal, Nasopharyngeal Normal [facility] Comment on above: Performed By: #### [facility] #### [facility] [address] [place] [address] INFLUENZA A, PCR Not detected Normal Not Detected [facility] Comment on above: Result Comment: Resp iratory virus testing is performed routinely by PCR for Influenza A/B and RSV. Not Detected results do not preclude Influenza A/B or RSV infections since the adequacy of sample collection or low viral burden may impact the clinical sensitivity of this test method. Performed By: #### T RP #### [facility] [address] [place] [address] INFLUENZA B, PCR Not detected Normal Not Detected [facility] Comment on above: Result Comment: Resp iratory virus testing is performed routinely by PCR for Influenza A/B and RSV. Not Detected results do not preclude Influenza A/B or RSV infections since the adequacy of sample collection or low viral burden may impact the clinical sensitivity of this test method. Performed By: #### T [facility] #### [facility] [address] [place] [address] SARS-CoV-2 (COVID-19) RNA QUAN+probe Ql (Unsp spec) Not detected Normal Not Detected [facility] Comment on above: Result Comment: . This test has received FDA Emergency Use Authorization (EUA) and has been verified by [facility]. This test is only authorized for the duration of time that circumstances exist to justify the authorization of the emergency use of in vitro diagnostic tests for the detection of SARS-CoV-2 virus and/or diagnosis of COVID-19 infection under section 564(b)(1) of the Act, 21 U.S.C. 360bbb-3(b)(1), unless the authorization is terminated or revoked sooner. [facility] is certified under CLIA-88 as qualified to perform high complexity testing. Testing is performed in the [facility] laboratory located at [address] [place] [address]. SARS-CoV-2/Flu/RSV Multiplex Test: Fact sheet for providers: https://www.fda.gov/media/751483/download Fact sheet for patients: https://www.fda.gov/media/310121/download Performed By: #### T RP #### [address] [address] LACTATEon 09-26-2022 Lactate [Moles/Vol] 1.0 mmol/L Normal 0.4 - 2.0 [facility] Comment on above: Result Comment: Jeri puncture immediately after or during the administration of Metamizole may lead to falsely low results. Testing should be performed immediately prior to Metamizole dosing. Performed By: #### T RP #### [address] [address] LIPASEon 09-26-2022 Lipase [Catalytic activity/Vol] 31 U/L Normal 9 - 82 [facility] Comment on above: Result Comment: Jeri puncture immediately after or during the administration of Metamizole may lead to falsely low results. Testing should be performed immediately prior to Metamizole dosing. O-ijfoqo-b-benzoquinone imine (metabolite of Acetaminophen) will generate erroneously low results in samples for patients that have taken toxic doses of acetaminophen. Performed By: #### L IPAS #### [address] [address] Laboratory - Chemistry and C hemistry - challengeon 09-26-2022 Calprotectin (Stl) [Mass/Mass] 34 ug/g <=49 [facility] Work Phone: Comment on above: REFERENCE INTERVAL: Calprotectin, Fecal by Immunoassay Less than 50 ug/g.........Normal 50-120 ug/g...............Borderline elevated, test should be re-evaluated in 4-6 weeks. 121 ug/g or greater.......ElevatedPerformed By: [email or web address] [place] [id number] Director: Ruddy Mcdonald MD, PhD Chloride (Stl) [Moles/Vol] 48 mmol/L [facility] Work Phone: Comment on above: INTERPRETIVE INFORMA TION: Fecal ChlorideA reference interval has not been established for fecal specimens.This test was developed and its performance characteristics determined by [email or web address]. It has not been cleared or approved by the [place] Food and Drug Administration. This test was performed in a CLIA certified laboratory and is intended for clinical purposes.Performed by [email or web address], [address] [place] [address] [id number] [email or web address], Ruddy Mcdonald MD, PHD - Lab. Director Potassium (Stl) [Moles/Vol] 63 mmol/L [facility] Work Phone: Comment on above: INTERPRETIVE INFORMA TION: Fecal PotassiumA reference interval has not been established for fecal specimens.This test was developed and its performance characteristics determined by [email or web address]. It has not been cleared or approved by the [place] Food and Drug Administration. This test was performed in a CLIA certified laboratory and is intended for clinical purposes. Sodium (Stl) [Moles/Vol] 49 mmol/L [facility] Work Phone: Comment on above: INTERPRETIVE INFORMA TION: Fecal SodiumA reference interval has not been established for fecal specimens.This test was developed and its performance characteristics determined by [email or web address]. It has not been cleared or approved by the US Food and Drug Administration. This test was performed in a CLIA certified laboratory and is intended for clinical purposes. Albumin BCP dye [Mass/Vol] 4.4 g/dL 3.4 - 5.0 [facility] Work Phone: ALP [Catalytic activity/Vol] 78 U/L 33 - 136 [facility] Work Phone: ALT With P-5'-P [Catalytic activity/Vol] 19 U/L 7 - 45 [facility] Work Phone: Comment on above: Patients treated wit h Sulfasalazine may generate falsely decreased results for ALT. Anion gap [Moles/Vol] 16 mmol/L 10 - 20 [facility] Work Phone: AST With P-5'-P [Catalytic activity/Vol] 24 U/L 9 - 39 [facility] Work Phone: Bilirubin [Mass/Vol] 0.6 mg/dL 0.0 - 1.2 [facility] Work Phone: Calcium [Mass/Vol] 9.5 mg/dL 8.6 - 10.3 [facility] Work Phone: Chloride [Moles/Vol] 103 mmol/L 98 - 107 [facility] Work Phone: CO2 [Moles/Vol] 20 mmol/L below low threshold 21 - 32 [facility] Work Phone: Creatinine [Mass/Vol] 0.67 mg/dL See Below [facility] Work Phone: Comment on above: Reference Range: 0.5 0 - 1.05 Glucose [Mass/Vol] 110 mg/dL above high threshold 74 - 99 [facility] Work Phone: Potassium [Moles/Vol] 2.8 mmol/L Critically low 3.5 - 5.3 [facility] Work Phone: Comment on above: Potassium called to and readback by Vielka Lima, 09/26/2022 18:17 Protein [Mass/Vol] 7.5 g/dL 6.4 - 8.2 [facility] Work Phone: Sodium [Moles/Vol] 136 mmol/L 136 - 145 [facility] Work Phone: Urea nitrogen [Mass/Vol] 13 mg/dL 6 - 23 [facility] Work Phone: Laboratory - Coagulationon 0 09-26-2022 INR Coag (PPP) [Relative time] 1.0 {INR} 0.9 - 1.1 [facility] Work Phone: PT Coag (PPP) [Time] 12.1 s 9.8 - 13.4 [facility] Work Phone: Lactate, Levelon 09-26-2022 Lactate [Moles/Vol] 1.0 mmol/L 0.4 - 2.0 [facility] Work Phone: Comment on above: Venipuncture immedia tely after or during the administration of Metamizole may lead to falsely low results. Testing should be performed immediately prior to Metamizole dosing. Lipase, Serumon 09-26-2022 Lipase [Catalytic activity/Vol] 31 U/L 9 - 82 [facility] Work Phone: Comment on above: Venipuncture immedia tely after or during the administration of Metamizole may lead to falsely low results. Testing should be performed immediately prior to Metamizole dosing. M-esceue-v-benzoquinone imine (metabolite of Acetaminophen) will generate erroneously low results in samples for patients that have taken toxic doses of acetaminophen. MAGNESIUMon 09-26-2022 Magnesium [Mass/Vol] 1.76 mg/dL Normal 1.60 - 2.40 [facility] Comment on above: Performed By: #### T [facility] #### [facility] [address] [place] [address] Magnesium, Serumon 3 Magnesium [Mass/Vol] 1.76 mg/dL See Below [facility] Work Phone: Comment on above: Reference Range: 1.6 0 - 2.40 No Panel Informationon 09-26 86 {mL/min/1.73m2} >90 [facility] Work Phone: Comment on above: CALCULATIONS OF NEL MATED GFR ARE PERFORMED USING THE 2020 CKD-EPI STUDY REFIT EQUATION WITHOUT THE RACE VARIABLE FOR THE IDMS-TRACEABLE CREATININE METHODS.https://jasn.asnjournals.org/content/early//ASN.2 508180607 PT/INRon 09-26-2022 PT Coag (PPP) [Time] 12.1 s Normal 9.8 - 13.4 [facility] Comment on above: Performed By: #### P TINR #### [facility] [address] [place] [address] PT, INR 1.0 Normal 0.9 - 1.1 [facility] Comment on above: Performed By: #### P TINR #### [facility] [address] [place] [address] Radiologyon 09-26-2022 XR Chest Single view Normal [facility] Work Phone: STOOL PATHOGEN PCR PANELon 0 09-26-2022 Lab Specimen Source Normal [facility] Comment on above: Performed By: #### S TLPP #### [facility] [address] [place] [address] Campylobacter sp DNA.diarrheagenic QUAN+probe Ql (Stl) Not detected See Below [facility] Work Phone: Comment on above: Reference Range: NOT DETECTED E. coli stx1 gene QUAN+probe Ql (Unsp spec) Not detected See Below [facility] Work Phone: Comment on above: Reference Range: NOT DETECTED E. coli stx2 gene QUAN+probe Ql (Unsp spec) Not detected See Below [facility] Work Phone: Comment on above: Reference Range: NOT DETECTED Norovirus genogroup I and II RNA QUAN+probe Nom (Stl) Not detected See Below [facility] Work Phone: Comment on above: Reference Range: NOT DETECTED Rotavirus RNA QUAN+probe Nom (Stl) Not detected See Below [facility] Work Phone: Comment on above: Reference Range: NOT DETECTED The enteric PCR panel is a panel of sensitive and specific amplified nucleic acid tests indicated as an aid in the diagnosis of specific bacterial and viral agents of gastrointestinal illness, in conjunction with other clinical, laboratory, and epidemiological information. This test is not approved for monitoring these infections. Monitoring is available for Salmonella and Shigella infections-request test "Stool PCR Follow-Up (STLPF)". Monitoring tests are not available at this time for other enteric agents in this panel. Shigella sp DNA QUAN+probe Ql (Unsp spec) Not detected See Below [facility] Work Phone: Comment on above: Reference Range: NOT DETECTED Vibrio sp DNA QUAN+probe Nom (Unsp spec) Not detected See Below [facility] Work Phone: Comment on above: Reference Range: NOT DETECTED Yersinia sp DNA QUAN+probe Nom (Unsp spec) Not detected See Below [facility] Work Phone: Comment on above: SOURCE: Reference Ra nge: NOT DETECTED STOOL PATHOGEN PCR PANEL Not detected See Below [facility] Work Phone: Comment on above: Reference Range: NOT DETECTED Reference Range: Not Detected.This test has received FDA Emergency Use Authorization (EUA) and has been verified by [facility]. This test is only authorized for the duration of time that circumstances exist to justify the authorization of the emergency use of in vitro diagnostic tests for the detection of SARS-CoV-2 virus and/or diagnosis of COVID-19 infection under section 564(b)(1) of the Act, 21 U.S.C. 360bbb-3(b)(1), unless the authorization is terminated or revoked sooner. [facility] is certified under CLIA-88 as qualified to perform high complexity testing. Testing is performed in the [facility] laboratory located at [address] [place] [address].SARS-CoV-2/Flu/RSV Multiplex Test: Fact sheet for providers: https://www.fda.gov/media/851929/downloadFact sheet for patients: https://www.fda.gov/media/651761/download Reference Range: Not Detected Respiratory virus testing is performed routinely by PCR for Influenza A/B and RSV. Not Detected results do not preclude Influenza A/B or RSV infections since the adequacy of sample collection or low viral burden may impact the clinical sensitivity of this test method. SOURCE: Nasal, Nasop haryngealReference Range: Not Detected Respiratory virus testing is performed routinely by PCR for Influenza A/B and RSV. Not Detected results do not preclude Influenza A/B or RSV infections since the adequacy of sample collection or low viral burden may impact the clinical sensitivity of this test method. TROPONIN I, HIGH SENSITIVITY on 09-26-2022 TROPONIN I, HIGH SENSITIVITY 7 ng/L Normal 0 - 13 [facility] Comment on above: Result Comment: . Less than 99th percentile of normal range cutoff- Female and children under 18 years old <14 ng/L; Male <21 ng/L: Negative Repeat testing should be performed if clinically indicated. . Female and children under 18 years old 14-50 ng/L; Male 21-50 ng/L: Consistent with possible cardiac damage and possible increased clinical risk. Serial measurements may help to assess extent of myocardial damage. . >50 ng/L: Consistent with cardiac damage, increased clinical risk and myocardial infarction. Serial measurements may help assess extent of myocardial damage. . NOTE: Children less than 1 year old may have higher baseline troponin levels and results should be interpreted in conjunction with the overall clinical context. . NOTE: Troponin I testing is performed using a different testing methodology at [facility] than at other [facility]. Direct result comparisons should only be made within the same method. Performed By: #### T [facility] #### [facility] [address] [place] [address] Tropinin I.cardiac panel High sensitivity method 7 ng/L 0 - 13 [facility] Work Phone: Comment on above: .Less than 99th perc entile of normal range cutoff-Female and children under 18 years old <14 ng/L; Male <21 ng/L: NegativeRepeat testing should be performed if clinically indicated. .Female and children under 18 years old 14-50 ng/L; Male 21-50 ng/L:Consistent with possible cardiac damage and possible increased clinical risk. Serial measurements may help to assess extent of myocardial damage. .>50 ng/L: Consistent with cardiac damage, increased clinical risk andmyocardial infarction. Serial measurements may help assess extent of myocardial damage. . NOTE: Children less than 1 year old may have higher baseline troponin levels and results should be interpreted in conjunction with the overall clinical context. .NOTE: Troponin I testing is performed using a different testing methodology at [facility] than at other [facility]. Direct result comparisons should only be made within the same method. Urinalysison 09-26-2022 Color (U) YELLOW See Below [facility] Work Phone: Comment on above: Reference Range: STR AW,YELLOW Glucose Ql (U) Negative NEGATIVE -[facility] Work Phone: Ketones Ql (U) Negative NEGATIVE [facility] Work Phone: Leukocyte esterase Test strip Ql (U) TRACE Abnormal NEGATIVE [facility] Work Phone: pH (U) 6.0 [pH] 5.0 - 8.0 [facility] Work Phone: Protein (U) [Mass/Vol] TRACE NEGATIVE [facility] Work Phone: RBC (U) [#/Vol] TRACE Abnormal NEGATIVE [facility] Work Phone: Specific gravity (U) [Rel density] <1.005 Abnormal See Below [facility] Work Phone: Comment on above: Reference Range: 1.0 05 - 1.035 Urinalysis Negative NEGATIVE [facility] Work Phone: Urinalysis <2.0 0.0 - 1.9 [facility] Work Phone: Urinalysis CLEAR CLEAR [facility] Work Phone: [phone] Urinalysis, Microscopicon Urinalysis, Microscopic FEW [facility] Work Phone: Urinalysis, Microscopic 1+ Abnormal [facility] Work Phone: [phone] Urinalysis, Microscopic 4 {/HPF} [facility] Work Phone: Urinalysis, Microscopic 6 {/HPF} Abnormal 0-5 [facility] Work Phone: [phone] Urinalysis, Microscopic 15 {/HPF} Abnormal 0-5 [facility] Work Phone: [phone] STOOL PATHOGEN PCR PANELon 0 09-22-2022 CAMPYLOBACTER GP. Not detected Normal NOT DETECTED [facility] Comment on above: Performed By: #### A PTT #### [facility] [address] [place] [address] NOROVIRUS GI/GII Not detected Normal NOT DETECTED [facility] ns/Por [facility] Comment on above: Performed By: #### A PTT #### [place] [address] ROTAVIRUS A Not detected Normal NOT DETECTED [facility] Comment on above: Result Comment: The enteric PCR panel is a panel of sensitive and specific amplified nucleic acid tests indicated as an aid in the diagnosis of specific bacterial and viral agents of gastrointestinal illness, in conjunction with other clinical, laboratory, and epidemiological information. This test is not approved for monitoring these infections. Monitoring is available for Salmonella and Shigella infections-request test "Stool PCR Follow-Up (STLPF)". Monitoring tests are not available at this time for other enteric agents in this panel. Performed By: #### A PTT #### [place] [address] SALMONELLA SP. Not detected Normal NOT DETECTED [facility] Comment on above: Performed By: #### A PTT #### [place] [address] SHIGA TOXIN 1 Not detected Normal NOT DETECTED [facility] Comment on above: Performed By: #### A PTT #### [place] [address] SHIGA TOXIN 2 Not detected Normal NOT DETECTED [facility] Comment on above: Performed By: #### A PTT #### [place] [address] SHIGELLA SP. Not detected Normal NOT DETECTED [facility] Comment on above: Performed By: #### A PTT #### [place] [address] VIBRIO GROUP Not detected Normal NOT DETECTED [facility] Comment on above: Performed By: #### A PTT #### [place] [address] YERSINIA ENTEROCOLITICA Not detected Normal NOT DETECTED [facility] Comment on above: Performed By: #### A PTT #### [place] [address] CBC AND DIFFERENTIALon 09-21 % AUTOMATED IMMATURE GRAN 0.2 % Normal 0.0 - 0.9 [facility] Comment on above: Result Comment: Harriet ture Granulocyte Count (IG) includes promyelocytes, myelocytes and metamyelocytes but does not include bands. Percent differential counts (%) should be interpreted in the context of the absolute cell counts (cells/L). Performed By: #### A PTT #### [place] [address] Basophils (Bld) [#/Vol] 0.05 10*3/uL Normal 0.00 - 0.10 [facility] Comment on above: Performed By: #### A PTT #### [place] [address] Basophils/100 WBC (Bld) 0.6 % Normal 0.0 - 2.0 [facility] Comment on above: Performed By: #### A PTT #### [place] [address] Eosinophils (Bld) [#/Vol] 0.06 10*3/uL Normal 0.00 - 0.40 [facility] Comment on above: Performed By: #### A PTT #### [place] [address] Eosinophils/100 WBC (Bld) 0.7 % Normal 0.0 - 6.0 [facility] Comment on above: Performed By: #### A PTT #### [place] [address] Erythrocyte distribution width (RBC) [Ratio] 13.3 % Normal 11.5 - 14.5 [facility] Comment on above: Performed By: #### A PTT #### [place] [address] Hematocrit (Bld) [Volume fraction] 45.4 % Normal 36.0 - 46.0 [facility] Comment on above: Performed By: #### A PTT #### [place] [address] Hemoglobin (Bld) [Mass/Vol] 15.6 g/dL Normal 12.0 - 16.0 [facility] Comment on above: Performed By: #### A PTT #### [address] [address] Lymphocytes (Bld) [#/Vol] 1.09 10*3/uL Normal 0.80 - 3.00 [facility] Comment on above: Performed By: #### A PTT #### [address] [address] Lymphocytes/100 WBC (Bld) 12.8 % Normal 13.0 - 44.0 [facility] Comment on above: Performed By: #### A PTT #### [address] [address] MCHC (RBC) [Mass/Vol] 34.4 g/dL Normal 32.0 - 36.0 [facility] Comment on above: Performed By: #### A PTT #### [address] [address] MCV (RBC) [Entitic vol] 92 fL Normal 80 - 100 [facility] Comment on above: Performed By: #### A PTT #### [address] [address] Monocytes (Bld) [#/Vol] 0.60 10*3/uL Normal 0.05 - 0.80 [facility] Comment on above: Performed By: #### A PTT #### [address] [address] Monocytes/100 WBC (Bld) 7.1 % Normal 2.0 - 10.0 [facility] Comment on above: Performed By: #### A PTT #### [address] [address] Neutrophils (Bld) [#/Vol] 6.67 10*3/uL High 1.60 - 5.50 [facility] Comment on above: Performed By: #### A PTT #### [address] [address] Neutrophils/100 WBC (Bld) 78.6 % Normal 40.0 - 80.0 [facility] Comment on above: Performed By: #### A PTT #### [address] [address] Platelets (Bld) [#/Vol] 305 10*3/uL Normal 150 - 450 [facility] Comment on above: Performed By: #### A PTT #### [place] [id number] RBC 4.96 x10E12/L Normal 4.00 - 5.20 [place]/ or [facility] Comment on above: Performed By: #### A PTT #### [place] [id number] WBC (Bld) [#/Vol] 8.5 10*3/uL Normal 4.4 - 11.3 [facility] Comment on above: Performed By: #### A PTT #### [address] [address] CLOST DIFF. TOXIN, PCRon CLOST.DIFF.TOXIN,P CR Not detected Normal Not Detected [facility] Comment on above: Result Comment: This assay detects the presence of the tcdB (toxin B) gene via DNA amplification, and results should be interpreted in the context of the patients history and clinical findings. This test cannot be performed on formed stools or used as a test of cure, and should not be performed more than once per 7 days. Performed By: #### A PTT #### [address] [address] Lab Specimen Source Stool Normal [facility] Comment on above: Performed By: #### A PTT #### [place] [address] C. difficile toxin genes QUAN+probe Ql (Stl) Not detected See Below -[facility]a wood Work Phone: Comment on above: SOURCE: StoolReferen ce Range: Not Detected This assay detects the presence of the tcdB (toxin B) gene via DNA amplification, and results should be interpreted in the context of the patients history and clinical findings. This test cannot be performed on formed stools or used as a test of cure, and should not be performed more than once per 7 days. COMPREHENSIVE PANEL 2022 Albumin [Mass/Vol] 4.5 g/dL Normal 3.4 - 5.0 [facility] Comment on above: Performed By: #### C MP #### [address] [address] ALP [Catalytic activity/Vol] 87 U/L Normal 33 - 136 [facility] Comment on above: Performed By: #### C MP #### [address] [address] ALT [Catalytic activity/Vol] 21 U/L Normal 7 - 45 [facility] Comment on above: Result Comment: Joann ents treated with Sulfasalazine may generate falsely decreased results for ALT. Performed By: #### C MP #### [address] [address] Anion gap [Moles/Vol] 18 mmol/L Normal 10 - 20 [facility] Comment on above: Performed By: #### C MP #### [address] [address] AST [Catalytic activity/Vol] 30 U/L Normal 9 - 39 [facility] Comment on above: Performed By: #### C MP #### [address] [address] Bilirubin [Mass/Vol] 0.5 mg/dL Normal 0.0 - 1.2 [facility] Comment on above: Performed By: #### C MP #### [address] [address] Calcium [Mass/Vol] 9.6 mg/dL Normal 8.6 - 10.3 [facility] Comment on above: Performed By: #### C MP #### [address] [address] Chloride [Moles/Vol] 106 mmol/L Normal 98 - 107 [facility] Comment on above: Performed By: #### C MP #### [address] [address] Creatinine [Mass/Vol] 0.65 mg/dL Normal 0.50 - 1.05 [facility] Comment on above: Performed By: #### C MP #### [address] [address] GFR/1.73 sq M.predicted among non-blacks MDRD (S/P/Bld) [Vol rate/Area] 86 mL/min/{1.73_m2} Normal >90 [facility] Comment on above: Result Comment: CALC ULATIONS OF ESTIMATED GFR ARE PERFORMED USING THE 2020 CKD-EPI STUDY REFIT EQUATION WITHOUT THE RACE VARIABLE FOR THE IDMS-TRACEABLE CREATININE METHODS. https://jasn.asnjournals.org/content/early//ASN.021364272 8 Performed By: #### C MP #### [address] [address] Glucose [Mass/Vol] 113 mg/dL High 74 - 99 [facility] Comment on above: Performed By: #### C MP #### [address] [address] HCO3 (Bld) [Moles/Vol] 17 mmol/L Low 21 - 32 [facility] Comment on above: Performed By: #### C MP #### [address] [address] Potassium [Moles/Vol] 3.3 mmol/L Low 3.5 - 5.3 [facility] Comment on above: Performed By: #### C MP #### [address] [address] Protein [Mass/Vol] 7.5 g/dL Normal 6.4 - 8.2 [facility] Comment on above: Performed By: #### C MP #### [address] [address] Sodium [Moles/Vol] 138 mmol/L Normal 136 - 145 [place] on/Por [facility] Comment on above: Performed By: #### C MP #### [address] [address] Urea nitrogen [Mass/Vol] 9 mg/dL Normal 6 - 23 [facility] Comment on above: Performed By: #### C MP #### [address] [address] Complete Blood Count + Diffe rentialon 09-21-2022 Basophils/100 WBC (Bld) 0.6 % 0.0 - 2.0 [facility] Work Phone: Erythrocyte distribution width (RBC) [Ratio] 13.3 % See Below [facility] Work Phone: Comment on above: Reference Range: 11. 5 - 14.5 Hematocrit (Bld) [Volume fraction] 45.4 % See Below [facility] Work Phone: Comment on above: Reference Range: 36. 0 - 46.0 Hemoglobin (Bld) [Mass/Vol] 15.6 g/dL See Below [facility] Work Phone: Comment on above: Reference Range: 12. 0 - 16.0 Lymphocytes/100 WBC (Bld) 12.8 % See Below [facility] Work Phone: Comment on above: Reference Range: 13. 0 - 44.0 MCHC (RBC) [Mass/Vol] 34.4 g/dL See Below [facility] Work Phone: Comment on above: Reference Range: 32. 0 - 36.0 MCV (RBC) [Entitic vol] 92 fL 80 - 100 [facility] Work Phone: Monocytes/100 WBC (Bld) 7.1 % 2.0 - 10.0 [facility] Work Phone: Neutrophils/100 WBC (Bld) 78.6 % See Below [facility] Work Phone: Comment on above: Reference Range: 40. 0 - 80.0 Platelets (Bld) [#/Vol] 305 10*3/uL 150 - 450 [facility] Work Phone: RBC (Bld) [#/Vol] 4.96 {x10E12/L} See Below [facility] Work Phone: Comment on above: Reference Range: 4.0 0 - 5.20 WBC (Bld) [#/Vol] 8.5 10*3/uL 4.4 - 11.3 [facility] Work Phone: Complete Blood Count + Differential 0.05 {x10E9/L} See Below [facility] Work Phone: Comment on above: Reference Range: 0.0 0 - 0.10 Complete Blood Count + Differential 0.06 {x10E9/L} See Below [facility] Work Phone: Comment on above: Reference Range: 0.0 0 - 0.40 Complete Blood Count + Differential 0.60 {x10E9/L} See Below [facility] Work Phone: Comment on above: Reference Range: 0.0 5 - 0.80 Complete Blood Count + Differential 1.09 {x10E9/L} See Below [facility] Work Phone: Comment on above: Reference Range: 0.8 0 - 3.00 Complete Blood Count + Differential 6.67 {x10E9/L} above high threshold See Below [facility] Work Phone: Comment on above: Reference Range: 1.6 0 - 5.50 Complete Blood Count + Differential 0.7 % 0.0 - 6.0 [facility] Work Phone: [phone] Complete Blood Count + Differential 0.2 % 0.0 - 0.9 [facility] Work Phone: [phone] Comment on above: Immature Granulocyte Count (IG) includes promyelocytes, myelocytes and metamyelocytes but does not include bands. Percent differential counts (%) should be interpreted in the context of the absolute cell counts (cells/L). LACTATEon 09-21-2022 Lactate [Moles/Vol] 0.7 mmol/L Normal 0.4 - 2.0 [facility] Comment on above: Result Comment: Jeri puncture immediately after or during the administration of Metamizole may lead to falsely low results. Testing should be performed immediately prior to Metamizole dosing. Performed By: #### A PTT #### [facility] [address] [place] [id number] Laboratory - Chemistry and C hemistry - challengeon 09-21-2022 Albumin BCP dye [Mass/Vol] 4.5 g/dL 3.4 - 5.0 [facility] Work Phone: [phone] ALP [Catalytic activity/Vol] 87 U/L 33 - 136 [facility] Work Phone: [phone] ALT With P-5'-P [Catalytic activity/Vol] 21 U/L 7 - 45 [facility] Work Phone: [phone] Comment on above: Patients treated wit h Sulfasalazine may generate falsely decreased results for ALT. Anion gap [Moles/Vol] 18 mmol/L 10 - 20 [facility] Work Phone: [phone] AST With P-5'-P [Catalytic activity/Vol] 30 U/L 9 - 39 [facility] Work Phone: [phone] Bilirubin [Mass/Vol] 0.5 mg/dL 0.0 - 1.2 [facility] Work Phone: Calcium [Mass/Vol] 9.6 mg/dL 8.6 - 10.3 [facility] Work Phone: [phone] Chloride [Moles/Vol] 106 mmol/L 98 - 107 [facility] Work Phone: CO2 [Moles/Vol] 17 mmol/L below low threshold 21 - 32 [facility] Work Phone: Creatinine [Mass/Vol] 0.65 mg/dL See Below [facility] Work Phone: Comment on above: Reference Range: 0.5 0 - 1.05 Glucose [Mass/Vol] 113 mg/dL above high threshold 74 - 99 [facility] Work Phone: Potassium [Moles/Vol] 3.3 mmol/L below low threshold 3.5 - 5.3 [facility] Work Phone: Protein [Mass/Vol] 7.5 g/dL 6.4 - 8.2 [facility] Work Phone: [phone] Sodium [Moles/Vol] 138 mmol/L 136 - 145 [facility] a Work Phone: [phone] Urea nitrogen [Mass/Vol] 9 mg/dL 6 - 23 [facility] Work Phone: Lactate, Levelon 09-21-2022 Lactate [Moles/Vol] 0.7 mmol/L 0.4 - 2.0 [facility] Work Phone: Comment on above: Venipuncture immedia tely after or during the administration of Metamizole may lead to falsely low results. Testing should be performed immediately prior to Metamizole dosing. No Panel Informationon 09-21 86 {mL/min/1.73m2} >90 [facility] Work Phone: Comment on above: CALCULATIONS OF NEL MATED GFR ARE PERFORMED USING THE 2020 CKD-EPI STUDY REFIT EQUATION WITHOUT THE RACE VARIABLE FOR THE IDMS-TRACEABLE CREATININE METHODS.https://jasn.asnjournals.org/content//ASN.2 129001008 Provider Note - ED v3on 02-0 Provider Note - ED v3 Provider Note: Chart Review: HISTORY OF PRESENTING ILLNESS VINAYAK is a 86 year old Female and was seen by me at 21-Sep-2022 08:39 for a chief complaint of diarrhea . Other complaints include: 86 year old female presents to the Emergency Department today complaining of a 4-5 day history of diarrhea. Notes to having intermittent nausea associated with such. Notes that her stool turned black after taking Pepto-Bismol. Denies any associated fever, chills, headache, neck pain, chest pain, shortness of breath, abdominal pain, vomiting, constipation, hematemesis, hematochezia, melena, or urinary symptoms. No recent antibiotics. No known sick contacts. . The historian is the patient. Triage Information: Most recent Vital Sign Value Date Temp (F): 98.3 09-21-2022 08:29 Temp (C): 36.8 09-21-2022 08:29 Heart Rate (beats/min): 90 09-21-2022 08:29 Respirations (breaths/min): 16 09-21-2022 08:29 SpO2 (%): 97 09-21-2022 08:29 BP Systolic (mm Hg): 143 09-21-2022 08:29 BP Diastolic (mm Hg): 81 09-21-2022 08:29 PAST MEDICAL HISTORY CURRENT OR FORMER SUBSTANCE USE: Tobacco/Nicotine Use: never smoker Alcohol Use: occasionally Drug Use: denies,ALLERGIES/INTOLERANCE S: No Known Allergies HEALTH HISTORY: Medical History Name:Arrhythmia Code:I49.9 OUTPATIENT MEDICATIONS: Home Medications Review Status for Reconciliation: N/A Med Status: Incomplete Medication History Drug Name: levothyroxine 25 mcg (0.025 mg) oral capsule Instructions: 0.5 cap(s) orally once a day Drug Name: Aspir 81 oral delayed release tablet Instructions: 1 tab(s) orally once a day Drug Name: D3 1000 oral tablet Instructions: 1 tab(s) orally once a day Drug Name: meclizine 25 mg oral tablet Instructions: 1 tab(s) orally every 6 hours, As Needed -for dizziness Drug Name: predniSONE 20 mg oral tablet Instructions: 2 tab(s) orally once a day x 5 days Drug Name: traMADol 50 mg oral tablet Instructions: 1 tab(s) orally every 8 hours as needed for pain. Do not drive after taking. Day supply: 2 Drug Name: lidocaine 5% topical film Instructions: Apply topically to affected area once a day, 12 hours on, 12 hours off SIGNIFICANT EVENTS: Past Medical History Description:Hypothyroid Past Surgical History Description:Knee replacement Description:cataracts Description:Appendectomy REVIEW OF SYSTEMS All other systems reviewed and are negative PHYSICAL EXAM CONSTITUTIONAL: Well appearing patient who appears in no acute distress. HENMT: Normocephalic. Mucous membranes are moist. All teeth are intact. Uvula midline without deviation rises upon phonation. Tonsils 1+ without exudate. EYES: Bilateral conjunctiva are without injection, discharge, or drainage. PERRL with consensual pupil response bilaterally. EOM's are intact without any signs of entrapment. CARDIOVASCULAR: RRR without murmur, click, or rub. RESPIRATORY: Respirations are spontaneous and nonlabored. Lung sounds are clear in all fong anteriorly and posteriorly. GASTROINTESTINAL: Bowel sounds are active 4 quads. Soft, nondistended, and nontender to palpation. There was no rebound, rigidity, or guarding noted. There were no peritoneal signs noted. Negative Head's sign. Negative McBurney's sign. GENITOURINARY: No suprapubic or CVA tenderness noted. MUSCULOSKELETAL: No edema, cyanosis, or clubbing noted. NEUROLOGICAL: Alert and oriented to person, place, or time. Follows commands well. Hand grasps and push/pulls of upper and lower extremities are equally strong bilaterally. Gait is steady and strong. SKIN: No rashes, lesions, petechiae, or purpura. No signs of infection. PSYCHIATRIC: Alert, interactive, and cooperative. HEME/LYMPH: No adenopathy or splenomegaly. No cervical, supraclavicular, or infraclavicular lymphadenopathy. CRITICAL CARE RESULTS: Recent Lab Results: I have reviewed these laboratory results: Complete Blood Count + Differential 21-Sep-2022 09:09:00 ResultValue White Blood Cell Count 8.5 Red Blood Cell Count 4.96 HGB 15.6 HCT 45.4 MCV 92 MCHC 34.4 PLT 305 RDW-CV 13.3 Neutrophil % 78.6 Immature Granulocytes % 0.2 Lymphocyte % 12.8 Monocyte % 7.1 Eosinophil % 0.7 Basophil % 0.6 Neutrophil Count 6.67 H Lymphocyte Count 1.09 Monocyte Count 0.60 Eosinophil Count 0.06 Basophil Count 0.05 Comprehensive Metabolic Panel 21-Sep-2022 09:09:00 ResultValue Glucose, Serum 113 H NA 138 K 3.3 L CL 106 Bicarbonate, Serum 17 L Anion Gap, Serum 18 BUN 9 CREAT 0.65 GFR Female 86 Calcium, Serum 9.6 ALB 4.5 ALKP 87 T Pro 7.5 T Bili 0.5 Alanine Aminotransferase, Serum 21 Aspartate Transaminase, Serum 30 Lactate, Level 21-Sep-2022 09:09:00 ResultValue Lactate, Level 0.7 VITAL SIGNS: T PRBP SpO2O2(LPM) %FiO2 Method 21-Sep-2022 08:29:[id number] 97 room air, no respiratory support 21-Sep-2022 08:20:[id number] (more content not included)... Normal [facility] STOOL PATHOGEN PCR PANELon 0 09-21-2022 Lab Specimen Source Normal [facility] Comment on above: Performed By: #### A PTT #### [facility] [address] [place] [address] Campylobacter sp DNA.diarrheagenic QUAN+probe Ql (Stl) Not detected See Below [facility] a Work Phone: Comment on above: Reference Range: NOT DETECTED E. coli stx1 gene QUAN+probe Ql (Unsp spec) Not detected See Below [facility] Work Phone: Comment on above: Reference Range: NOT DETECTED E. coli stx2 gene QUAN+probe Ql (Unsp spec) Not detected See Below [facility] Work Phone: Comment on above: Reference Range: NOT DETECTED Norovirus genogroup I and II RNA QUAN+probe Nom (Stl) Not detected See Below [facility] Work Phone: Comment on above: Reference Range: NOT DETECTED Rotavirus RNA QUAN+probe Nom (Stl) Not detected See Below [facility] Work Phone: Comment on above: Reference Range: NOT DETECTED The enteric PCR panel is a panel of sensitive and specific amplified nucleic acid tests indicated as an aid in the diagnosis of specific bacterial and viral agents of gastrointestinal illness, in conjunction with other clinical, laboratory, and epidemiological information. This test is not approved for monitoring these infections. Monitoring is available for Salmonella and Shigella infections-request test "Stool PCR Follow-Up (STLPF)". Monitoring tests are not available at this time for other enteric agents in this panel. Shigella sp DNA QUAN+probe Ql (Unsp spec) Not detected See Below [facility] Work Phone: Comment on above: Reference Range: NOT DETECTED Vibrio sp DNA QUAN+probe Nom (Unsp spec) Not detected See Below [facility] Work Phone: Comment on above: Reference Range: NOT DETECTED Yersinia sp DNA QUAN+probe Nom (Unsp spec) Not detected See Below [facility] Work Phone: Comment on above: SOURCE: Reference Ra nge: NOT DETECTED STOOL PATHOGEN PCR PANEL Not detected See Below [facility] Work Phone: Comment on above: Reference Range: NOT DETECTED Triage - EDon 09-21-2022 Triage - ED Chart Review: ARRIVAL INFORMATION Mode of Arrival: private vehicle CHIEF COMPLAINT VINAYAK MONTES is a Female patient with a chief complaint of diarrhea. Onset of the Complaint: 16-Sep-2022 Triage Date/Time: 21-Sep-2022 08:20 AMBIKA: 3 Pain Rating (0-10): 0 = None Vital Signs: Temperature: 98.3F ( 36.8C) taken noncontact, forehead Blood Pressure: 143/81 Mean: Heart Rate: 90 Respiratory Rate: 16 Pulse Oximetry: 97% on room air, no respiratory support. Height: 5 feet 2.00 inches. 157.4 CM Weight: 138.8 pounds. Calculated 63.0 kg. (stated) Calculated BMI (kg/m2): 25.429 Calculated BSA (m2) 1.66 [place] Coma Scale: Best Eye Response: (E4) spontaneous Best Motor Response: (M6) obeys commands Best Verbal Response: (V5) oriented Josh Score: 15 Cough lasting greater than 3 weeks: no Allergies: no Patient has homicidal thoughts: no Symptoms Are POSITIVE For: diarrhea. Risk Screens Suicide Risk Screen In the Past Month: Have you wished you were or wished you could go to sleep and not wake up no In the Past Month: Have you had any actual thoughts of killing yourself no In Your Lifetime: Have you ever done anything, started to do anything, or prepared to do anything to end your life no Rodriguez Fall Scale Screening Has the patient fallen before (or is the patient in the ED as a result of a fall) has not had a fall Does the patient have an impaired gait does not have impaired gait Is the patient cognitively impaired not cognitively impaired Interventions: Rodriguez Fall Interventions: LOW INTERVENTIONS: *patient oriented to surroundings and call system, * patient/family falls education completed and documented, *patients fall status communicated during bedside handoff, *whiteboard updated, *mode of toileting discussed with patient, *bed in low position with brakes locked, *call light in reach, * non-skid footwear TRAVEL HISTORY Travel History Coronavirus Screening: no exposure or symptoms Travel Exposure History: NO travel to International locations in the past 30 days PAIN Pain Scale Used: MARGARITA Pain Rating (0-10): 0 = None Past Medical History: Past Medical History Reviewedyes Electronic Signatures: Rebekah Gutierrez) (Signed 21-Sep-2022 08:32) Entered: Risk Screens, Pain, Travel History, Chart Review, Scores, Past Medical History Authored: Quick Triage, Risk Screens, Pain, Travel History, Chart Review, Scores, Past Medical History Last Updated: 21-Sep-2022 08:32 by Rebekah Gutierrez (RN) Normal [facility] Initial Visit (Orthopaedic S urgery)on 07-15-2022 Initial Visit (Orthopaedic Surgery) Diagnoses/Problems Assessed Carpal tunnel syndrome, right (354.0) (G56.01) 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 Right CTS, right thumb CMC DJD I discussed the diagnosis and treatment options with the patient today along with their associated risks and benefits. After thorough discussion, the patient has elected to proceed with conservative management. All questions were answered to the patients satisfaction who seems satisfied with the plan. EMG Night splint Comfortcool Voltaren gel prn FU 8 weeks prn - NO XR Chief Complaint new patient bilateral hand pain - Xrs done at [facility] no known injury - right hand dom - no SX on hands History of Present Illness VINAYAK MONTES is a 86 year female who presents today with right hand numbness, tingling, weakness, pain and right base of thumb pain. Patient reports symptoms for months, getting worse. Reports no past surgeries, injections, or trauma to the area. Splint has been worn as directed with some relief. Pain worse with use, better with rest. Pain dull ache, sharp at times in thumb. Pain numb and tingly in hand, wakes her from sleep at times. Review of Systems Constitutional: no fever, no chills, not feeling tired, no recent weight gain and no recent weight loss. ENT: no nosebleeds. Cardiovascular: no chest pain. Respiratory: no shortness of breath and no cough. Gastrointestinal: no abdominal pain, no nausea, no vomiting and no diarrhea. Musculoskeletal: no arthralgias. Integumentary: no rashes and no skin wound. Neurological: no headache. Psychiatric: no depression and no sleep disturbances. Endocrine: no muscle weakness and no muscle cramps. Hematologic/Lymphatic: no swollen glands and no tendency for easy bruising. All other systems have been reviewed and are negative for complaint. 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) Hypothyroidism (244.9) (E03.9) Postmenopausal bleeding (627.1) (N95.0) Screening for colon cancer (V76.51) (Z12.11) Screening for hyperlipidemia (V77.91) (Z13.220) Visit for screening mammogram (V76.12) (Z12.31) Past Medical History Problems History of vertigo (V12.49) (Z87.898) Surgical History Problems History of Appendectomy History of Cataract surgery History of Colonoscopy History of Gallbladder surgery History of Hysterectomy History of Knee replacement History of Knee surgery History of Tonsillectomy Family History Mother Family history of COPD, mild Father No pertinent family history Social History Problems Alcohol use (V49.89) (Z78.9) Caffeine use (V49.89) (Z78.9) Does not use illicit drugs (V49.89) (Z78.9) Non-smoker (V49.89) (Z78.9) Retired from employment (V61.07) (Z63.4) Allergies No Known Allergies Recorded By: An Degroot; 07/03/2020 3:26:28 PM Current Meds Medication NameInstruction Cephalexin 500 MG Oral CapsuleTAKE 4 CAPSULES 1 HOUR PRIOR DENTAL TREATMENT Levothyroxine Sodium 25 MCG Oral TabletTAKE 0.5 TABLET Daily PreserVision AREDS 2 Oral CapsuleTAKE 2 CAPSULE Daily Vitamin B12 TABS Vitamin D3 25 MCG (1000 UT) Oral Tablet Vitals Vital Signs Recorded: [id number] 11:28AM Height5 ft 1.5 in Lvcnhm134 lb BMI Tzfxvvdlyu10.4 kg/m2 BSA Calculated1.64 Physical Exam Carpal Tunnel Exam Inspection: no evidence of infection, no edema, no erythema, no ecchymosis, Palpation: compartments are soft, no pain with palpation, Range of Motion: full wrist and finger range of motion, Stability: no wrist instability detected, Strength: 5/5 APB and intrinsics, Skin: intact, Vascular: capillary refill <2 seconds distally, Sensation: decreased in the median nerve distribution, Test: positive Tinel's at the Carpal Tunnel, positive Direct Carpal Tunnel Compression Test CMC Arthritis Exam Inspection: no evidence of infection, no edema, no erythema, no ecchymosis, Palpation: compartments are soft, pain with palpation over the Thumb CMC joint, Range of Motion: full wrist and finger range of motion, Stability: no wrist or finger instability detected, Strength: 5/5 director operating room and pinch strength, Skin: intact, Vascular: capillary refill <2 seconds distally, Sensation: intact to light touch distally, Tests: negative Paulo's , positive Thumb CMC Grind. Constitutional General appearance: Alert and in no acute distress. Well developed, well nourished. Eyes External Eye, Conjunctiva and lids: Normal external exam - pupils were equal in size, round, reactive to light (PERRL) with normal accommodation and extraocular movements intact (EOMI). Ears, Nose, Mouth, and Throat Hearing: Normal. Neck Neck: No neck mass was observed. Suppl (more content not included)... [facility]on 06-25-2022 Follow-up visit Diagnoses/Problems Encounter for preventive health examination (V70.0) (Z00.00) Encounter for vaccination (V05.9) (Z23) Hypothyroidism (244.9) (E03.9) Dyslipidemia (272.4) (E78.5) Orders Dyslipidemia Lipid Panel; Status:Active - Retrospective Authorization; Requested for:[id number]; Dyslipidemia, Hypothyroidism Comprehensive Metabolic Panel; Status:Active - Retrospective Authorization; Requested for:[id number]; Hypothyroidism Renew: Levothyroxine Sodium 25 MCG Oral Tablet; TAKE 0.5 TABLET Daily TSH WITH REFLEX TO FREE T4 IF ABNORMAL; Status:Active - Retrospective Authorization; Requested for:[id number]; Patient Discussion/Summary Hypothyroid-euthyroid on levothyroxine 25 mcg/day which is refilled, will check TSH with reflex 6 months or sooner if issues Dyslipidemia-spoke at length with patient about statin which was declined. We will continue diet recheck lipids 6 months or sooner if issues Flu shot given Chief Complaint 6 MONTH FOLLOW UP - NO CONCERNS Adult Risk Screening Initial Fall Risk Screening: VINAYAK has not fallen in the last 6 months. Tobacco Screening: VINAYAK does not use tobacco. Domestic Violence Screen: Does not feel threatened or abused physically, emotionally or sexually. Do you feel UNSAFE? The patient feels safe in the home. Depression/Suicide Screening: During the past 2 weeks, the patient has not felt down, depressed or hopeless. During the past 2 weeks, the patient has not felt little interest or pleasure in doing things. She does not have a risk of suicide. She has not had thoughts of harming others. History of Present Illness 6-month follow-up, no complaints. CMP and TSH both normal, hemoglobin A1c 5.6,Lipid panel shows total cholesterol 242 with LDL of 153, both of which are improved since last year Review of Systems Constitutional: not feeling poorly and not feeling tired. Eyes: no eyesight problems. ENT: no hoarseness and no sore throat. Cardiovascular: no chest pain, no lower extremity edema and no palpitations. Respiratory: no cough and no shortness of breath during exertion. Gastrointestinal: no constipation, no diarrhea and no nausea. Genitourinary: no dysuria. Musculoskeletal: no history of falls and no myalgias. Integumentary: no rashes. Neurological: no dizziness and no headache. Psychiatric: no depression. Endocrine: no heat/cold intolerance and no muscle weakness. 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, initial encounter (629.31) (T83.711A) Hypothyroidism (244.9) (E03.9) Postmenopausal bleeding (627.1) (N95.0) Screening for colon cancer (V76.51) (Z12.11) Screening for hyperlipidemia (V77.91) (Z13.220) Visit for screening mammogram (V76.12) (Z12.31) Past Medical History History of vertigo (V12.49) (Z87.898) Surgical History History of Appendectomy History of Cataract surgery History of Colonoscopy History of Gallbladder surgery History of Hysterectomy History of Knee replacement History of Knee surgery History of Tonsillectomy Family History Family history of COPD, mild No pertinent family history Social History Alcohol use (V49.89) (Z78.9) Caffeine use (V49.89) (Z78.9) Does not use illicit drugs (V49.89) (Z78.9) Non-smoker (V49.89) (Z78.9) Retired from employment (V61.07) (Z63.4) Allergies No Known Allergies Recorded By: An Degroot; 07/03/2020 3:26:28 PM Current Meds Medication NameInstructionReason Levothyroxine Sodium 25 MCG Oral TabletTAKE 0.5 TABLET DailyHypothyroidism PreserVision AREDS 2 Oral CapsuleTAKE 2 CAPSULE DailyHypothyroidism Vitamin B12 TABSHypothyroidism Vitamin D3 25 MCG (1000 UT) Oral TabletHypothyroidism Cephalexin 500 MG Oral CapsuleTAKE 4 CAPSULES 1 HOUR PRIOR DENTAL TREATMENT Vitals Vital Signs Recorded: 25Jun2022 09:55AM Heart Rate61 Gdzjddbcgem94 Ojdkagnk841 Chyvllnyh38 Height5 ft 1.5 in Hddslr597 lb 6 oz BMI Xmcrhwsugd62.84 kg/m2 BSA Calculated1.65 O2 Ycjafxwika23 Physical Exam Constitutional: Alert and in no acute distress. Well developed, well nourished. Eyes: Normal external exam. Neck: Thyroid not enlarged and there were no palpable thyroid nodules. Cardiovascular: Heart rate and rhythm were normal, normal S1 and S2, no gallops, no murmurs and no pericardial rub. No peripheral edema. Pulmonary: No respiratory distress. Abdomen: Soft nontender; no abdominal mass palpated. Musculoskeletal: Gait and station: Normal. Skin: Normal skin color and pigmentation, normal skin turgor, and no rash. Psychiatric: Mood and affect: Normal. 'Scores and Scales' Signatures Electronically signed by : Farhan Husain MD; Jun 25 2022 2:20PM EST (Author) Normal [facility] COMPREHENSIVE PANEL 2021 Albumin [Mass/Vol] 4.3 g/dL Normal 3.4 - 5.0 [facility] Comment on above: Performed By: #### C MP #### [facility] [address] [place] [id number] ALP [Catalytic activity/Vol] 69 U/L Normal 33 - 136 [facility] Comment on above: Performed By: #### C MP #### [address] [address] ALT [Catalytic activity/Vol] 14 U/L Normal 7 - 45 [facility] Comment on above: Result Comment: Joann ents treated with Sulfasalazine may generate falsely decreased results for ALT. Performed By: #### C MP #### [address] [address] Anion gap [Moles/Vol] 9 mmol/L Low 10 - 20 [facility] Comment on above: Performed By: #### C MP #### [address] [address] AST [Catalytic activity/Vol] 20 U/L Normal 9 - 39 [facility] Comment on above: Performed By: #### C MP #### [address] [address] Bilirubin [Mass/Vol] 0.5 mg/dL Normal 0.0 - 1.2 [facility] Comment on above: Performed By: #### C MP #### [address] [address] Calcium [Mass/Vol] 9.5 mg/dL Normal 8.6 - 10.3 [facility] Comment on above: Performed By: #### C MP #### [address] [address] Chloride [Moles/Vol] 106 mmol/L Normal 98 - 107 [facility] Comment on above: Performed By: #### C MP #### [address] [address] Creatinine [Mass/Vol] 0.65 mg/dL Normal 0.50 - 1.05 [facility] Comment on above: Performed By: #### C MP #### [address] [address] GFR/1.73 sq M.predicted among non-blacks MDRD (S/P/Bld) [Vol rate/Area] 87 mL/min/{1.73_m2} Normal >90 [facility] Comment on above: Result Comment: CALC ULATIONS OF ESTIMATED GFR ARE PERFORMED USING THE 2020 CKD-EPI STUDY REFIT EQUATION WITHOUT THE RACE VARIABLE FOR THE IDMS-TRACEABLE CREATININE METHODS. https://jasn.asnjournals.org/content//ASN.805914200 8 Performed By: #### C MP #### [address] [address] Glucose [Mass/Vol] 95 mg/dL Normal 74 - 99 [facility] Comment on above: Performed By: #### C MP #### [address] [address] HCO3 (Bld) [Moles/Vol] 28 mmol/L Normal 21 - 32 [facility] Comment on above: Performed By: #### C MP #### [address] [address] Potassium [Moles/Vol] 4.3 mmol/L Normal 3.5 - 5.3 [facility] Comment on above: Performed By: #### C MP #### [address] [address] Protein [Mass/Vol] 7.3 g/dL Normal 6.4 - 8.2 [facility] Comment on above: Performed By: #### C MP #### [address] [address] Sodium [Moles/Vol] 139 mmol/L Normal 136 - 145 [facility] Comment on above: Performed By: #### C MP #### [address] [address] Urea nitrogen [Mass/Vol] 19 mg/dL Normal 6 - 23 [facility] Comment on above: Performed By: #### C MP #### [address] [address] HEMOGLOBIN A1Con 06-14-2022 Glucose [Mass/Vol] 114 mg/dL Normal [facility] Comment on above: Performed By: #### H BA1E #### [address] [address] HbA1c (Bld) [Mass fraction] 5.6 % Normal [facility] Comment on above: Result Comment: Diag nosis of Diabetes-Adults Non-Diabetic: < or = 5.6% Increased risk for developing diabetes: 5.7-6.4% Diagnostic of diabetes: > or = 6.5% . Monitoring of Diabetes Age (y) Therapeutic Goal (%) Adults: >18 <7.0 Pediatrics: 13-18 <7.5 7-12 <8.0 0- 6 7.5-8.5 [place] [employer]. Diabetes Care 33(S1), Aug 2009. Performed By: #### H BA1E #### [facility] [address] [place] [address] Hemoglobin A1Con 06-14-2022 Glucose [Mass/Vol] 114 mg/dL [facility] Work Phone: HbA1c (Bld) [Mass fraction] 5.6 % [facility] Work Phone: Comment on above: Diagnosis of Diabete s-Adults Non-Diabetic: < or = 5.6% Increased risk for developing diabetes: 5.7-6.4% Diagnostic of diabetes: > or = 6.5%. Monitoring of Diabetes Age (y) Therapeutic Goal (%) Adults: >18 <7.0 Pediatrics: 13-18 <7.5 7-12 <8.0 0- 6 7.5-8.5 [place] [employer]. Diabetes Care 33(S1), Aug 2009. LIPID PANEL (CORONARY RISK 2 )on 06-14-2022 Cholesterol [Mass/Vol] 242 mg/dL High 0 - 199 [facility] Comment on above: Result Comment: . AGE DESIRABLE BORDERLINE HIGH HIGH 0-19 Y 0 - 169 170 - 199 >/= 200 20-24 Y 0 - 189 190 - 224 >/= 225 >24 Y 0 - 199 200 - 239 >/= 240 All ranges are based on fasting samples. Specific therapeutic targets will vary based on patient-specific cardiac risk. . Pediatric guidelines reference:Pediatrics 2011, 128(S5). Adult guidelines reference: NCEP ATPIII Guidelines, MARILYN 2001, 258:2486-97 . Venipuncture immediately after or during the administration of Metamizole may lead to falsely low results. Testing should be performed immediately prior to Metamizole dosing. Performed By: #### L IPID #### [address] [address] Cholesterol in HDL [Mass/Vol] 68.7 mg/dL Normal [facility] Comment on above: Result Comment: . AGE VERY LOW LOW NORMAL HIGH 0-19 Y < 35 < 40 40-45 ---- 20-24 Y ---- < 40 >45 ---- >24 Y ---- < 40 40-60 >60 . Performed By: #### L IPID #### [address] [address] Cholesterol in LDL [Mass/Vol] 153 mg/dL High 0 - 99 [facility] Comment on above: Result Comment: . NEAR BORD AGE DESIRABLE OPTIMAL HIGH HIGH VERY HIGH 0-19 Y 0 - 109 --- 110-129 >/= 130 ---- 20-24 Y 0 - 119 --- 120-159 >/= 160 ---- >24 Y 0 - 99 100-129 130-159 160-189 >/=190 . Performed By: #### L IPID #### [address] [address] Cholesterol in VLDL [Mass/Vol] 21 mg/dL Normal 0 - 40 [facility] Comment on above: Performed By: #### L IPID #### [address] [address] Cholesterol.total/ Cholesterol in HDL [Mass ratio] 3.5 {ratio} Normal [facility] Comment on above: Result Comment: REF VALUES DESIRABLE < 3.4 HIGH RISK > 5.0 Performed By: #### L IPID #### [address] [address] Triglyceride [Mass/Vol] 103 mg/dL Normal 0 - 149 [facility] Comment on above: Result Comment: . AGE DESIRABLE BORDERLINE HIGH HIGH VERY HIGH 0 D-90 D 19 - 174 ---- ---- ---- 91 D- 9 Y 0 - 74 75 - 99 >/= 100 ---- 10-19 Y 0 - 89 90 - 129 >/= 130 ---- 20-24 Y 0 - 114 115 - 149 >/= 150 ---- >24 Y 0 - 149 150 - 199 200- 499 >/= 500 . Venipuncture immediately after or during the administration of Metamizole may lead to falsely low results. Testing should be performed immediately prior to Metamizole dosing. Performed By: #### L IPID #### [facility] [address] [place] [address] Laboratory - Chemistry and C hemistry - challengeon 06-14-2022 Albumin BCP dye [Mass/Vol] 4.3 g/dL 3.4 - 5.0 [facility] Work Phone: ALP [Catalytic activity/Vol] 69 U/L 33 - 136 [facility] Work Phone: ALT With P-5'-P [Catalytic activity/Vol] 14 U/L 7 - 45 [facility] Work Phone: Comment on above: Patients treated wit h Sulfasalazine may generate falsely decreased results for ALT. Anion gap [Moles/Vol] 9 mmol/L below low threshold 10 - 20 [facility] Work Phone: AST With P-5'-P [Catalytic activity/Vol] 20 U/L 9 - 39 [facility] Work Phone: Bilirubin [Mass/Vol] 0.5 mg/dL 0.0 - 1.2 [facility] Work Phone: Calcium [Mass/Vol] 9.5 mg/dL 8.6 - 10.3 [facility] Work Phone: Chloride [Moles/Vol] 106 mmol/L 98 - 107 [facility] Work Phone: CO2 [Moles/Vol] 28 mmol/L 21 - 32 [facility] Work Phone: Creatinine [Mass/Vol] 0.65 mg/dL See Below [facility] Work Phone: Comment on above: Reference Range: 0.5 0 - 1.05 Glucose [Mass/Vol] 95 mg/dL 74 - 99 [facility] Work Phone: Potassium [Moles/Vol] 4.3 mmol/L 3.5 - 5.3 [facility] Work Phone: Protein [Mass/Vol] 7.3 g/dL 6.4 - 8.2 [facility] Work Phone: Sodium [Moles/Vol] 139 mmol/L 136 - 145 [facility] Work Phone: TSH Qn 2.27 m[IU]/L See Below [facility] Work Phone: Comment on above: Reference Range: 0.4 4 - 3.98 TSH testing is performed using different testing methodology at [facility] than at [facility]. Direct result comparisons should only be made within the same method. Urea nitrogen [Mass/Vol] 19 mg/dL 6 - 23 [facility] Work Phone: Lipid Panelon 06-14-2022 Cholesterol [Mass/Vol] 242 mg/dL above high threshold 0 - 199 [facility] Work Phone: Comment on above: . AGE DESIRABLE BORD JULY HIGH HIGH 0-19 Y 0 - 169 170 - 199 >/= 200 20-24 Y 0 - 189 190 - 224 >/= 225 >24 Y 0 - 199 200 - 239 >/= 240 All ranges are based on fasting samples. Specific therapeutic targets will vary based on patient-specific cardiac risk.. Pediatric guidelines reference:Pediatrics 2011, 128(S5). Adult guidelines reference: NCEP ATPIII Guidelines, MARILYN 2001, 258:2486-97. Venipuncture immediately after or during the administration of Metamizole may lead to falsely low results. Testing should be performed immediately prior to Metamizole dosing. Cholesterol in HDL [Mass/Vol] 68.7 mg/dL [facility] Work Phone: Comment on above: . AGE VERY LOW LOW N ORMAL HIGH 0-19 Y < 35 < 40 40-45 ---- 20- 24 Y ---- < 40 >45 ---- >24 Y ---- < 40 40-60 >60. Cholesterol in LDL [Mass/Vol] 153 mg/dL above high threshold 0 - 99 [facility] Work Phone: Comment on above: . NEAR BORD AGE JAVIER RABLE OPTIMAL HIGH HIGH VERY HIGH 0-19 Y 0 - 109 --- 110-129 >/= 130 ---- 20-24 Y 0 - 119 --- 120-159 >/= 160 ---- >24 Y 0 - 99 100-129 130-159 160-189 >/=190. Cholesterol.total/ Cholesterol in HDL [Mass ratio] 3.5 {ratio} [facility] Work Phone: Comment on above: REF VALUESDESIRABLE < 3.4HIGH RISK > 5.0 Triglyceride [Mass/Vol] 103 mg/dL 0 - 149 [facility] Work Phone: Comment on above: . AGE DESIRABLE BORD JULY HIGH HIGH VERY HIGH 0 D-90 D 19 - 174 ---- ---- ----91 D- 9 Y 0 - 74 75 - 99 >/= 100 ---- 10-19 Y 0 - 89 90 - 129 >/= 130 ---- 20-24 Y 0 - 114 115 - 149 >/= 150 ---- >24 Y 0 - 149 150 - 199 200- 499 >/= 500. Venipuncture immediately after or during the administration of Metamizole may lead to falsely low results. Testing should be performed immediately prior to Metamizole dosing. Lipid Panel 21 mg/dL 0 - 40 [facility] Work Phone: No Panel Informationon 06-14 87 {mL/min/1.73m2} >90 [facility] Work Phone: Comment on above: CALCULATIONS OF NEL MATED GFR ARE PERFORMED USING THE 2020 CKD-EPI STUDY REFIT EQUATION WITHOUT THE RACE VARIABLE FOR THE IDMS-TRACEABLE CREATININE METHODS.https://jasn.asnjournals.org/content//ASN.2 790263250 TSH WITH REFLEX TO FREE T4 I F ABNORMALon 06-14-2022 TSH Qn 2.27 m[IU]/L Normal 0.44 - 3.98 [facility] Comment on above: Result Comment: TSH testing is performed using different testing methodology at [facility] than at other [facility] hospitals. Direct result comparisons should only be made within the same method. Performed By: #### H EPFP #### [address] [address] Provider Note - ED Care Dyer sitionon 05-26-2022 Provider Note - ED Care Transition ED Care Transition: Chart Review: MEDICAL DECISION MAKING/ED COURSE MDM/ED COURSE: Patient was signed out to me pending CAT scan results. The CAT scan returned with no acute findings. Patient will be discharged with Lidoderm patches. She will follow-up with her doctor if symptoms persist. CLINICAL IMPRESSION Diagnosis/Annotation: ED Dx Name:Neck pain Code:M54.2 Disposition: discharged ATTESTATION CRITICAL CARE TIME Is this a critically ill patient: no Electronic Signatures: Tereso Burroughs) (Signed 26-May-2022 07:31) Authored: MDM/ED Course, Clinical Impression, Attestation, Chart Review, Scores Last Updated: 26-May-2022 07:31 by Tereso Burroughs) Normal [facility] Provider Note - ED v3on 05-15 Provider Note - ED v3 Provider Note: Chart Review: ED NOTES ED NOTES: HISTORY OF PRESENT ILLNESS: Patient is a 86-year-old female presenting to the emergency department neck pain. Patient states that starting 2 days ago, she began to have pain in her bilateral occiput region, radiating down her neck into her trapezius muscles. She denies any falls, injuries, trauma. Patient has been taking Aleve with some improvement in pain initially. Her has also been applying heat and cold pads and performing massages with some improvement of pain. However, patient's pain continued to worsen. She denies any fever, chills, jaw claudication. Pain is worsened with movement of neck. It does not go down the back of her neck. No focal neurologic deficits. Past Medical History: Thyroidism Past Surgical History: Appendectomy, cholecystectomy, other remote histories, no recent Family History: family history not pertinent to presenting problem or chief complaint Social History: Denies current cigarette smoking kind. She is, so drugs __ REVIEW OF SYSTEMS: (Bold = Positive) Pertinent positive and negatives noted above. 14 point review of systems otherwise negative. __ PHYSICAL EXAM: Appearance: female, appears stated age, alert, oriented , cooperative Skin: Intact, dry skin, no lesions, rash, petechiae or purpura. Eyes: PERRLA, EOMs intact, Conjunctiva pink with no redness or exudates. HENT: Normocephalic, atraumatic. Nares patent Neck: Supple. Trachea at midline. Pulmonary: Lung sounds are clear bilaterally. There is no rales, rhonchi, or wheezing. Cardiac: Regular rate and rhythm, no rubs, murmurs, or gallops. No JVD, Abdomen: Abdomen is soft, nontender, and nondistended. No palpable organomegaly. No rebound or guarding. No CVA tenderness. Nonsurgical abdomen Genitourinary: Exam deferred. Musculoskeletal: Patient does have reproducible tenderness with the trapezius muscle. No midline C-spine tenderness. Range of motion is no edema, pain, cyanosis, or deformity in extremities. Pulses full and equal. Neurological: Cranial nerves are grossly intact, grossly normal sensation, no weakness, no focal findings identified. Psychiatric: Appropriate mood and affect. __ MEDICAL DECISION MAKING: Patient was seen and examined. Differential diagnosis for neck pain includes neck strain, muscle spasm, myositis, occult fracture, meningitis. Suspect that this is muscle spasms, given that the tenderness is along her posterior bilateral neck muscles and not midline. Patient also has had no fevers and vital signs are normal, not suggesting meningitis. No jaw claudication suggesting temporal arteritis. Will obtain CT imaging to rule out for occult fracture. She will be treated symptomatically with Toradol and Norflex. At 0700 hrs., patient care was signed out to the daytime physician pending CT imaging results and reevaluation. Suspect that the patient will feel better and that the patient will be discharged with outpatient follow-up. [facility] HISTORY OF PRESENTING ILLNESS VINAYAK is a 86 year old Female and was seen by me at 26-May-2022 05:32 for a chief complaint of neck pain . Other complaints include: Patient arrives from home reporting non-traumatic neck pain for the last 2-3 days, minimally relieved by Aleve and alternating ice and heat. States that today, pain became intolerable and she is unable to turn her head side to side or forward and back due to pain. Denies any numbness/tingling/fevers(1). Triage Information: Most recent Vital Sign Value Date Temp (F): 97.6 05-26-2022 05:18 Temp (C): 36.4 05-26-2022 05:18 Heart Rate (beats/min): 76 05-26-2022 05:18 Respirations (breaths/min): 16 05-26-2022 05:18 SpO2 (%): 99 05-26-2022 05:18 BP Systolic (mm Hg): 163 05-26-2022 05:18 BP Diastolic (mm Hg): 85 05-26-2022 05:18 PAST MEDICAL HISTORY ALLERGIES/INTOLERANCES: No Known Allergies HEALTH HISTORY: Medical History Name:Arrhythmia Code:I49.9 OUTPATIENT MEDICATIONS: Home Medications Review Status for Reconciliation: Incomplete Med Status: Incomplete Medication History Drug Name: levothyroxine 25 mcg (0.025 mg) oral capsule Instructions: 0.5 cap(s) orally once a day Drug Name: Aspir 81 oral delayed release tablet Instructions: 1 tab(s) orally once a day Drug Name: D3 1000 oral tablet Instructions: 1 tab(s) orally once a day Drug Name: meclizine 25 mg oral tablet Instructions: 1 tab(s) orally every 6 hours, As Needed -for dizziness Drug Name: predniSONE 20 mg oral tablet Instructions: 2 tab(s) orally once a day x 5 days Drug Name: traMADol 50 mg oral tablet Instructions: 1 tab(s) orally every 8 hours as needed for pain. Do not drive after taking. (more content not included)... Normal [facility] Risk Screen - Adult Emergenc yon 05-26-2022 Risk Screen - Adult Emergency Preferred Language: Preferred Language: Preferred Language for Discussing Health Care (patient/designee)Egyptian Patient Preferred Pharmacy: Patient Preferred Pharmacy Statement: I have reviewed and updated the patient's preferred pharmacy selection for today's visit. Advanced Directives: Advance Directive/DNRyes Advance Directive typeLiving Will, Durable Power of Sr. Manager for Healthcare Family Violence Adult: Abuse Screen: Are you or have you been threatened or abused physically, emotionally, or sexually by anyoneno Learning Assessment (Patient): Learning Assessment (Patient): Patient is Able to be Assessed for Learningyes Factors Influencing Readiness to Learnpain Factors that Impact Ability to Learnnone Devices/Methods Used to Communicatenone Learning Preferencesindividual instruction Cultural Considerationsnone Developmental Considerationsnone Samaritan Considerationsnone Learning Assessment (Other Learner): Learning Assessment (Other Learner): Other learner availableyes... Learnerspouse Factors Influencing Readiness to Learnfatigue Factors that Impact Ability to Learnnone Devices/Methods Used to Communicatenone Learning Preferencesindividual instruction Cultural Considerationsnone Developmental Considerationsnone Samaritan Considerationsnone Pressure Injury/TB/Substance: Pressure Injury: Do you have a coughno Smoking Statusnever smoker Alcohol Usedenies Drug Usedenies Admission Risk Screen: Significant IndicatorsComplete CAGE: CAGE: [place] this an [place] [place] no Electronic Signatures: Amita Claudio (TIM) (Signed 26-May-2022 05:24) Authored: Preferred Language, Patient Preferred Pharmacy, Advanced Directives, Family Violence Adult, Learning Assessment (Patient), Learning Assessment (Other Learner), Pressure Injury/TB/Substance, Pressure Injury, CAGE Last Updated: 26-May-2022 05:24 by Amita Claudio (RN) Normal [facility] Triage - EDon 05-26-2022 Triage - ED Chart Review: ARRIVAL INFORMATION Mode of Arrival: private vehicle CHIEF COMPLAINT VINAYAK J OHL is a Female patient with a chief complaint of neck pain. Other Complaints: Patient arrives from home reporting non-traumatic neck pain for the last 2-3 days, minimally relieved by Aleve and alternating ice and heat. States that today, pain became intolerable and she is unable to turn her head side to side or forward and back due to pain. Denies any numbness/tingling/fevers Triage Date/Time: 26-May-2022 05:18 AMBIKA: 3V Pain Rating (0-10): 8 = Severe Pain location: neck Vital Signs: Temperature: 97.6F ( 36.4C) Blood Pressure: 163/85 Mean: Heart Rate: 76 Respiratory Rate: 16 Pulse Oximetry: 99% on room air, no respiratory support. Height: 5 feet 2.00 inches. 157.4 CM Weight: 140.2 pounds. Calculated 63.6 kg. Calculated BMI (kg/m2): 25.671 Calculated BSA (m2) 1.67 [place] Coma Scale: Best Eye Response: (E4) spontaneous Best Motor Response: (M6) obeys commands Best Verbal Response: (V5) oriented [place] Score: 15 Patient has homicidal thoughts: no Symptom Notes: . Symptoms Are POSITIVE For: neck pain. Symptoms Are Negative For: bruising, difficulty bending, difficulty walking, flank pain, headache, hematuria, muscle cramps, numbness and tingling. Risk Screens Suicide Risk Screen In the Past Month: Have you wished you were or wished you could go to sleep and not wake up no In the Past Month: Have you had any actual thoughts of killing yourself no In Your Lifetime: Have you ever done anything, started to do anything, or prepared to do anything to end your life no Interventions: Jennifer Fall Interventions: MODERATE INTERVENTIONS: *Low Interventions Plus: * falls risk band/sticker applied to patient, *yellow non-skid footwear, *instruct to call for assistance before getting out of bed, *bed/chair/bedside commode/toilet alarms, *sensory devices/ambulatory aides available and in reach, *medications reviewed for potential side effects and care planning. TRAVEL HISTORY Travel History Coronavirus Screening: no exposure or symptoms Travel Exposure History: NO travel to International locations in the past 30 days PAIN Pain Scale Used: MARGARITA Pain Rating (0-10): 8 = Severe Past Medical History: Past Medical History Reviewedyes Appendectomy: Past Surgical History, Active Knee replacement: Past Surgical History, Active Hypothyroid: Past Medical History, Active Electronic Signatures: Amita Claudio (RN) (Signed 26-May-2022 05:22) Entered: Risk Screens, Pain, Travel History, Chart Review, Scores, Past Medical History Authored: Quick Triage, Risk Screens, Pain, Travel History, Chart Review, Scores, Past Medical History Last Updated: 26-May-2022 05:22 by Amita Claudio (TIM) Normal [facility] - Chemistry and C hemistry - challengeon 12-23-2021 Albumin BCP dye [Mass/Vol] 4.5 g/dL 3.4 - 5.0 [facility] Work Phone: ALP [Catalytic activity/Vol] 73 U/L 33 - 136 [facility] Work Phone: ALT With P-5'-P [Catalytic activity/Vol] 17 U/L 7 - 45 [facility] Work Phone: Comment on above: Patients treated wit h Sulfasalazine may generate falsely decreased results for ALT. Anion gap [Moles/Vol] 12 mmol/L 10 - 20 [facility] Work Phone: AST With P-5'-P [Catalytic activity/Vol] 25 U/L 9 - 39 [facility] Work Phone: Bilirubin [Mass/Vol] 0.4 mg/dL 0.0 - 1.2 [facility] Work Phone: Calcium [Mass/Vol] 9.8 mg/dL 8.6 - 10.3 [facility] Work Phone: Chloride [Moles/Vol] 103 mmol/L 98 - 107 [facility] Work Phone: CO2 [Moles/Vol] 28 mmol/L 21 - 32 [facility] Work Phone: Creatinine [Mass/Vol] 0.64 mg/dL See Below [facility] Work Phone: Comment on above: Reference Range: 0.5 0 - 1.05 Glucose [Mass/Vol] 100 mg/dL above high threshold 74 - 99 [facility] Work Phone: Potassium [Moles/Vol] 4.5 mmol/L 3.5 - 5.3 [facility] Work Phone: Protein [Mass/Vol] 7.5 g/dL 6.4 - 8.2 [facility] Work Phone: Sodium [Moles/Vol] 138 mmol/L 136 - 145 [facility] Work Phone: TSH Qn 2.12 m[IU]/L See Below [facility] Work Phone: Comment on above: Reference Range: 0.4 4 - 3.98 TSH testing is performed using different testing methodology at [facility] than at other [facility]. Direct result comparisons should only be made within the same method. Urea nitrogen [Mass/Vol] 17 mg/dL 6 - 23 [facility] Work Phone: Laboratory - Hematology and Cell countson 12-23-2021 Erythrocyte distribution width (RBC) [Ratio] 13.2 % See Below [facility] Work Phone: Comment on above: Reference Range: 11. 5 - 14.5 Hematocrit (Bld) [Volume fraction] 44.1 % See Below [facility] Work Phone: Comment on above: Reference Range: 36. 0 - 46.0 Hemoglobin (Bld) [Mass/Vol] 14.5 g/dL See Below [facility] Work Phone: Comment on above: Reference Range: 12. 0 - 16.0 MCHC (RBC) [Mass/Vol] 32.9 g/dL See Below [facility] Work Phone: Comment on above: Reference Range: 32. 0 - 36.0 MCV (RBC) [Entitic vol] 98 fL 80 - 100 [facility] Work Phone: Platelets (Bld) [#/Vol] 347 10*3/uL 150 - 450 [facility] Work Phone: RBC (Bld) [#/Vol] 4.48 {x10E12/L} See Below [facility] Work Phone: Comment on above: Reference Range: 4.0 0 - 5.20 WBC (Bld) [#/Vol] 8.1 10*3/uL 4.4 - 11.[address] [facility] [address] Work Phone: No Panel Informationon 12-23 87 {mL/min/1.73m2} >90 [facility] Work Phone: Comment on above: CALCULATIONS OF NEL MATED GFR ARE PERFORMED USING THE 2020 CKD-EPI STUDY REFIT EQUATION WITHOUT THE RACE VARIABLE FOR THE IDMS-TRACEABLE CREATININE METHODS.https://jasn.asnjournals.org/content//ASN.2 349197621 Tobacco Screening.on 022 Fall risk assessment a) No falls within the last year [facility] Work Phone: Tobacco use status [facility] b) No [facility] Work Phone: Otheron 06-10-2020 Interpreted by: DEANNA NICHOLSON06/10/20 19:04MRN: [id number] Name: VINAYAK MONTES STUDY:BONE DENSITY, DEXA 1 OR MORE SITES: AXIAL SKELETN; 06/10/2020 2:14 pm INDICATION:OSTEOPOROSIS. Evaluate for osteopenia/osteoporosis, COMPARISON:07/18/2017 ORDERING CLINICIAN:REY KAN FINDINGS:Standard measurements were obtained utilizing an Dual Energy X-rayAbsorptiometry bone densitometer. Data obtained includes planar bonedensity measurements over the left hip and lumbar spine. Comparisonof measured data and standardized mean data for a young adultpopulation (when peak bone mass occurs) results in a T score. Thisrepresents the number of standard deviations above or below the meanof a young adult population. Comparison of measured data tostandards from an age-adjusted population similarly yields a Z score. Left hip Bone density: 0.902 g/cm2 T score: - 0.3. There has been a 0.3% increase in bone mineraldensity since previous study. Z Score: 1.9 Lumbar Spine (L1-4) Bone density: 1.252 g/cm2 T Score: 1.9. There has been a 3.1% increase in bone mineral densitysince previous study. Z Score: 4.6 World Health Organization (WHO) criteria defines normal bone densityas that which is less than 1 standard deviation below the mean of ayoung adult population. Osteopenia is defined as a measured bonedensity that is between 1 and 2.5 standard deviations below the meanof a young adult population. Osteoporosis is defined as a measuredbone density that is greater than or equal to 2.5 standard deviationsbelow the mean of a young adult population. IMPRESSION:According to World Health Organization criteria, bone mineral densityof the left hip and lumbar spine is within the limits of normal. Thepatient is not at increased risk for fracture . Overall there has been an increase in bone mineral density sinceprevious study as above.Electronically signed by: DEANAN NICHOLSON 06/10/20 19:[address] [facility] Work Phone: Comment on above: Ordering Provider: Venkat KAN [id number] LDL Calculatedon 04-30-2019 Cholesterol in LDL [Mass/Vol] 146 mg/dL Normal [facility] Comment on above: Result Comment: Calculated LDL is unreliable when Triglyceride result is greater than 400. ZLipidon 04-30-2019 Cholesterol [Mass/Vol] 239 mg/dL High 0-200 [facility] Cholesterol in HDL [Mass/Vol] 77 mg/dL Normal [facility] Triglyceride [Mass/Vol] 82 mg/dL Normal 0-149 [facility] CBCon 06-26-2018 Erythrocyte distribution width (RBC) [Ratio] 13.6 % Normal 11.4-16.0 [facility] Hematocrit (Bld) [Volume fraction] 42.8 % Normal 34.7-44.9 [facility] Hemoglobin (Bld) [Mass/Vol] 14.3 g/dL Normal 11.3-15.6 [facility] MCH (RBC) [Entitic mass] 32.1 pg Normal 26.5-33.0 [facility] MCHC (RBC) [Mass/Vol] 33.4 g/dL Normal 32.6-36.0 [facility] MCV (RBC) [Entitic vol] 96.2 fL Normal 80.0-100.0 [facility] Mean Plt Vol 8.3 fL Normal 7.2-10.3 [facility] Platelets (Bld) [#/Vol] 293 10*3/uL Normal 144-400 [facility] RBC (Bld) [#/Vol] 4.45 x10E12/L Normal 3.78-5.45 [facility] WBC (Bld) [#/Vol] 7.6 10*3/uL Normal 3.5-11.5 [facility] TSHon 06-26-2018 TSH Qn 1.76 uIU/mL Normal 0.34-5.60 [facility] UAon 06-26-2018 Bilirubin [Mass/Vol] Negative Normal Negative [facility] Blood Negative Normal Negative [facility] Color (U) Yellow Normal Yellow [facility] Ketones Ql (U) Negative Normal Negative [facility] Leukocyte Mandie Small Abnormal Negative [facility] Nitrite Ql (U) Negative Normal Negative [facility] pH (U) 6.5 [pH] Normal 4.8 - 8.0 [facility] Protein [Mass/Vol] Negative Normal Negative [facility] U Glucose Negative Normal Negative [facility] Ur Appearance Clear Normal Clear [facility] Urine Spec Belcher 1.015 Normal 1.001-1.03 [facility] Urobilinogen Qn (U) 0.2 EU/dL Normal <1.0 [facility] Provider Note - EDon 018 Provider Note - ED TIME SEEN: ? Time [id number] 09:36 CHIEF COMPLAINT/REASON FOR VISIT: ? Chief ComplaintSINCE SAT.(1) ? REASON FOR VISITTROUBLE TURNING NECK(1) ALLERGIES: Allergies: ? 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 Smoking Statusnever smoker(1) ? Alcohol Use Statuscurrent alcohol (1) ? Street Drug/Inhalant/Medication Use Statusstreet drug/inhalants/medication never used (1) ? Exposure to Second Hand Smokenone (1) HISTORY ATTESTATION: ? AttestationI have reviewed and confirmed nurse's/medic's notes for patient's medications, allergies, medical history, and surgical history VITAL SIGNS: 2. Vital Signs: Date/TimeTemp (degrees F) (degrees F)Temp (degrees C) (degrees C)Temperature Site SiteHeart Rate (beats/min) beats/minBP Systolic (mm Hg) Systolic 29-May-2018 09:[id number] BP Diastolic (mm Hg) Diastolic (mm Hg)BP Mean (mm Hg) Mean (mm Hg) Respiration (breaths/min) Respiration (breaths/min)SpO2 (%) SpO2 (%)Height (ft) Height (ft) [id number] Height (remainder in inches) Height (in)Height (cm) Height (cm)BSA (m2)BMI (kg/m2) BMI (kg/m2)Weight (lbs) Weight (lbs) [id number] Weight (kg) Weight (kg)Presence of PainPain Rating 65.7complains of pain/discomfort8/10 PROGRESS NOTE: ? ED Course: PMH: Reviewed PSH: Reviewed Social History: Reviewed. Allergies reviewed. HPI: This is an 82 year old male who presents to the ED today with complaints of neck pain and stiffness x3 days. She was awake when she first noted the pain. She has tried heat, ice, Advil x1 dose, and Aleve x2 doses without relief. No injury or trauma. No weakness, numbness, tingling, or paresthesias. She did not drive here today. PHYSICAL EXAM: GENERAL: Vitals noted, no distress. Alert and oriented x 3. Non-toxic. HEAD: Normocephalic, atraumatic. Pupils equally round and reactive to light. EOMI. TMs clear. NECK: Supple. No midline tenderness with left paraspinal tenderness and tightness through the sternocleidomastoid muscle with limited range of motion due to the pain. CARDIAC: Regular rate, rhythm. No murmurs or rubs. RESPIRATORY: Lungs clear and equal bilaterally. No respiratory distress. MUSCULOSKELETAL and SKIN: Warm, dry, and intact. No rash/lesions. No peripheral edema. NEURO: No focal neurologic deficits, acting appropriately. ED COURSE: This patient was seen and examined by Dr. Marshall. She's given a dose of Norflex here and will be discharged home with norflex pills. Can continue Advil or Aleve at home. Follow up with PCP for repeat evaluation. She is discharged home in a stable condition with computer instructions given and is encouraged to return to the ER for any new or worsening symptoms. DIAGNOSTIC IMPRESSION: #1 left torticollis #2 IM medication therapy #3 prescription therapy DIAGNOSES/PROBLEM LIST: Problem [id number] ? TorticollisED [id number] DISCHARGE DISPOSITION: ? Disposition: discharged ? Discharge Type: home CONDITION ON DISCHARGE: ? Condition on Dispositionstable MEDICATION RECONCILIATION AND DISCHARGE MEDS: * Patient Currently Takes Medications as of 29-May-2018 10:11 documented in Structured Notes MedicationInstructionsStart DateStop DateQuantityRefillsSubmitted By orphenadrine 100 mg oral tablet, extended release1 tab(s) orally 2 times a day, As [id number] 14Bela Newman CO-SIGN/ATTESTATION: Attestation: This is a shared visit. I have reviewed the LIP?s encounter note, approve the LIP?s documentation and provide the following additional information from my personal encounter. Shared Visit Documentation: See comments/additional findings below Comments/ Additional Findings: This is a mid-level supervised note. I independently examined the patient, and made all diagnostic treatment and disposition decisions. This is an 82-year-old white female who is had 2 days of pain in the left side of her neck started in the base of the skull going on to the side, worse with movement, turning her head. She denies any other complaints. She denies any injuries. Denies any numbness or tingling paresthesias down her arms or legs. No back or neck problems in the past. On exam she is afebrile. Vitals are stable. ENT is unremarkable. TMs are clear. Posterior pharynx is clear. Her neck is supple. She does have spasm to the left paracervical muscles, skin lesions. Decreased range of motion with rotation and side bending to the right. There is no neurologic deficits. Strength and sensation is intact ?4. Heart regular. No murmurs. Lungs clear. No wheezes, rales or rhonchi Diagnosis #1. Cervical strain/torticollis #2. Prescription therapy Plan Patient will be placed on muscle Axert, continue anti-inflammatories, moist heat. No strenuous activity or heavy lifting. Electronic Signatures: Bela Saab (MANAGER APPLIED-MACHINE PACKAGING TECHNICIAN) (Signed 29-May-2018 10:16) Entered: Time Seen/ED Notes, Chief Complaint/Reason for Visit via Triage Note, Patient History, History Attestation, Vital Signs, Progress Note, ED Disposition (REQUIRED), Attestation Authored: Time Seen/ED Notes, Chief Complaint/Reason for Visit via Triage Note, Patient History, History Attestation, Progress Note, ED Disposition (REQUIRED), Attestation JULIAN Marshall Herbert E () (Signed 29-May-2018 10:23) Authored: Attestation Co-Signer: Time Seen/ED Notes, Chief Complaint/Reason for Visit via Triage Note, Patient History, History Attestation, Progress Note, ED Disposition (REQUIRED), Attestation Last Updated: 29-May-2018 10:23 by JULIAN Marshall Herbert E () References: 1. Data Referenced From Triage Note, Emergency 05/29/2018 9:12 AM Normal [facility] Vital Signs Date Time Vital Sign Value Performing Clinician Facility 01-21-2025 14:39-0400 Diastolic blood pressure 66 mm[Hg] Cheko Maloney MD Work Phone: [facility] 01-21-2025 14:39-0400 Heart rate 80 /min Cheko Maloney MD Work Phone: [facility] 01-21-2025 14:39-0400 Systolic blood pressure 181 mm[Hg] Cheko Maloney MD Work Phone: [facility] 01-21-2025 14:32-0400 Body height 157.5 cm Cheko Maloney MD Work Phone: [facility] 01-21-2025 14:32-0400 Body mass index (BMI) [Ratio] 24.51 kg/m2 Cheko Maloney MD Work Phone: [facility] 01-21-2025 14:32-0400 Body temperature 98.1 [degF] Cheko Maloney MD Work Phone: [facility] 01-21-2025 14:32-0400 Body weight 60.78 kg Cheko Maloney MD Work Phone: [facility] 01-21-2025 14:32-0400 Respiratory rate 14 /min Cheko Maloney MD Work Phone: [facility] 01-21-2025 14:32-0400 SaO2% (BldA) [Mass fraction] 98 % Cheko Maloney MD Work Phone: [facility] 01-16-2025 09:51-0400 Body height 157.5 cm Don Moran MD PhD Work Phone: [facility] 01-16-2025 09:51-0400 Body mass index (BMI) [Ratio] 26.34 kg/m2 Don Moran MD PhD Work Phone: [facility] 01-16-2025 09:51-0400 Body weight 65.32 kg Don Moran MD PhD Work Phone: [facility] 01-16-2025 09:51-0400 Diastolic blood pressure 69 mm[Hg] Don Moran MD PhD Work Phone: [facility] 01-16-2025 09:51-0400 Heart rate 68 /min Don Moran MD PhD Work Phone: [facility] 01-16-2025 09:51-0400 Respiratory rate 14 /min Don Moran MD PhD Work Phone: [facility] 01-16-2025 09:51-0400 Systolic blood pressure 130 mm[Hg] Don Mroan MD PhD Work Phone: [facility] [facility] 07-26-2024 16:33-0500 Diastolic blood pressure 71 mm[Hg] Don Moran MD PhD Work Phone: [facility] 07-26-2024 16:33-0500 Systolic blood pressure 138 mm[Hg] Don Moran MD PhD Work Phone: [facility] 04-19-2024 10:40-0400 Diastolic blood pressure 67 mm[Hg] Don Moran MD PhD Work Phone: [facility] 04-19-2024 10:40-0400 Heart rate 68 /min Don Moran MD PhD Work Phone: [facility] 04-19-2024 10:40-0400 Systolic blood pressure 122 mm[Hg] Don Moran MD PhD Work Phone: [facility] 01-18-2024 10:48-0400 Diastolic blood pressure 75 mm[Hg] Don Moran MD PhD Work Phone: [facility] 01-18-2024 10:48-0400 Systolic blood pressure 134 mm[Hg] Don Moran MD PhD Work Phone: [facility] 11-01-2023 13:23-0400 Body height 157.5 cm Kristijayjay Pereza MANAGER APPLIED-MACHINE PACKAGING TECHNICIAN Work Phone: [facility] 11-01-2023 13:23-0400 Body mass index (BMI) [Ratio] 25.42 kg/m2 Kristi Chrisa MANAGER APPLIED-MACHINE PACKAGING TECHNICIAN Work Phone: [facility] 11-01-2023 13:23-0400 Body weight 63.05 kg Kristi Chrisa MANAGER APPLIED-MACHINE PACKAGING TECHNICIAN Work Phone: [facility] 11-01-2023 13:23-0400 Diastolic blood pressure 70 mm[Hg] Kristidakotah Pereza MANAGER APPLIED-MACHINE PACKAGING TECHNICIAN Work Phone: [facility] 11-01-2023 13:23-0400 Heart rate 65 /min Kristidakotah Doyle MANAGER APPLIED-MACHINE PACKAGING TECHNICIAN Work Phone: [facility] 11-01-2023 13:23-0400 SaO2% (BldA) [Mass fraction] 95 % Kristi Doyle MANAGER APPLIED-MACHINE PACKAGING TECHNICIAN Work Phone: [facility] 11-01-2023 13:23-0400 Systolic blood pressure 168 mm[Hg] Kristi Doyle MANAGER APPLIED-MACHINE PACKAGING TECHNICIAN Work Phone: [facility] 10-18-2023 10:50-0500 Body height 157.5 cm Don Moran MD PhD Work Phone: [facility] 10-18-2023 10:50-0500 Body mass index (BMI) [Ratio] 25.61 kg/m2 Don Moran MD PhD Work Phone: [facility] 10-18-2023 10:50-0500 Body weight 63.5 kg Don Moran MD PhD Work Phone: [facility] 10-18-2023 10:50-0500 Diastolic blood pressure 70 mm[Hg] Don Moran MD PhD Work Phone: [facility] 10-18-2023 10:50-0500 Heart rate 68 /min Don Moran MD PhD Work Phone: [facility] 10-18-2023 10:50-0500 Respiratory rate 14 /min Don Moran MD PhD Work Phone: [facility] 10-18-2023 10:50-0500 Systolic blood pressure 140 mm[Hg] Don Moran MD PhD Work Phone: [facility] 04-19-2023 12:27-0400 Diastolic blood pressure 57 mm[Hg] Don Morna MD PhD Work Phone: [facility] 04-19-2023 12:27-0400 Heart rate 76 /min Don Moran MD PhD Work Phone: [facility] 04-19-2023 12:27-0400 Systolic blood pressure 132 mm[Hg] Don Moran MD PhD Work Phone: [facility] 02-21-2023 11:12-0400 Body mass index (BMI) [Ratio] 23.98 kg/m2 Don Moran Work Phone: [facility] DO Work Phone: 02-21-2023 11:12-0400 Body surface area Derived from formula 1.58 m2 Don Moran Work Phone: [facility] DO Work Phone: 02-21-2023 11:12-0400 Body weight 58.51 kg Don Moran Work Phone: [facility] DO Work Phone: 02-21-2023 11:12-0400 Diastolic blood pressure 82 mm[Hg] Don Moran Work Phone: [facility] DO Work Phone: 02-21-2023 11:12-0400 Heart rate 63 /min Don Moran Work Phone: [facility] DO Work Phone: 02-21-2023 11:12-0400 SaO2% (BldA) [Mass fraction] 99 % Don Moran Work Phone: [facility] DO Work Phone: 02-21-2023 11:12-0400 Systolic blood pressure 138 mm[Hg] Don Moran Work Phone: [facility] DO Work Phone: 01-28-2023 08:46-0400 Body height 157.4 cm Mann Arias MD Work Phone: [facility] 01-28-2023 08:46-0400 Body mass index (BMI) [Ratio] 21.8 kg/m2 Mann Arias MD Work Phone: [facility] 01-28-2023 08:46-0400 Body weight 54 kg Mann Arias MD Work Phone: [facility] 01-14-2023 10:44-0400 Diastolic blood pressure 68 mm[Hg] Don Moran MD PhD Work Phone: [facility] 01-14-2023 10:44-0400 Heart rate 68 /min Don Moran MD PhD Work Phone: [facility] 01-14-2023 10:44-0400 Systolic blood pressure 113 mm[Hg] Don Moran MD PhD Work Phone: [facility] 12-27-2022 13:00-0400 Body height 156.21 cm Brandenlakeishalloyd Katy Work Phone: [facility] DO Work Phone: 12-27-2022 13:00-0400 Body mass index (BMI) [Ratio] 23.05 kg/m2 Tuliolloyd Katy Work Phone: [facility] DO Work Phone: 12-27-2022 13:00-0400 Body surface area Derived from formula 1.55 m2 Don Moran Work Phone: [facility] DO Work Phone: 12-27-2022 13:00-0400 Body weight 56.25 kg Don Katy Work Phone: [facility] DO Work Phone: 12-27-2022 13:00-0400 Diastolic blood pressure 70 mm[Hg] Brandenlakeishalloyd Katy Work Phone: [facility] DO Work Phone: 12-27-2022 13:00-0400 Heart rate 86 /min Don Moarn Work Phone: [facility] DO Work Phone: 12-27-2022 13:00-0400 Systolic blood pressure 156 mm[Hg] Don Moran Work Phone: [facility] DO Work Phone: 11-27-2022 18:04-0400 Diastolic blood pressure 61 mm[Hg] Farhan Husain Other Phone: [facility] 11-27-2022 18:04-0400 Heart rate 79 /min Farhan Husain Other Phone: [facility] 11-27-2022 18:04-0400 Respiratory rate 18 /min Farhan Husain Other Phone: [facility] 11-27-2022 18:04-0400 SaO2% (BldA) [Mass fraction] 99 % Farhan Husain Other Phone: [facility] 11-27-2022 18:04-0400 Systolic blood pressure 116 mm[Hg] Farhan Husain Other Phone: [facility] 11-27-2022 14:58-0400 Body height 157.4 cm Farhan Husain Other Phone: [facility] 11-27-2022 14:58-0400 Body temperature 97.7 [degF] Farhan Husain Other Phone: [facility] 11-27-2022 14:58-0400 Body weight 55 kg Farhan Husain Other Phone: [facility] 11-17-2022 09:02-0400 Body mass index (BMI) [Ratio] 23.24 kg/m2 Don Moran MD PhD Work Phone: [facility] 11-17-2022 09:02-0400 Body weight 56.7 kg Don Moran MD PhD Work Phone: [facility] 11-17-2022 09:02-0400 Diastolic blood pressure 67 mm[Hg] Don Moran MD PhD Work Phone: [facility] 11-17-2022 09:02-0400 Heart rate 72 /min Don Moran MD PhD Work Phone: [facility] 11-17-2022 09:02-0400 Systolic blood pressure 112 mm[Hg] Don Moran MD PhD Work Phone: [facility] 10-15-2022 13:00-0500 Diastolic blood pressure 63 mm[Hg] Farhan Husain Work Phone: [facility] Work Phone: 10-15-2022 13:00-0500 Heart rate 66 /min Farhan Husain Work Phone: [facility] Work Phone: 10-15-2022 13:00-0500 Respiratory rate 14 /min Farhan Husain Work Phone: [facility] Work Phone: 10-15-2022 13:00-0500 Systolic blood pressure 122 mm[Hg] Farhan Husain Work Phone: [facility] Work Phone: 10-15-2022 10:35-0500 Body mass index (BMI) [Ratio] 24.17 kg/m2 Farhna Husain Work Phone: [facility] Work Phone: 10-15-2022 10:35-0500 Body surface area Derived from formula 1.58 m2 Farhan Husain Work Phone: [facility] Work Phone: 10-15-2022 10:35-0500 Body weight 58.97 kg Farhan Husain Work Phone: [facility] Work Phone: 09-21-2022 10:29-0500 Body height 157.4 cm Farhan Husain Other Phone: [facility] 09-21-2022 10:29-0500 Body temperature 98.24 [degF] Farhan Husain Other Phone: [facility] 09-21-2022 10:29-0500 Body weight 63 kg Farhan Husain Other Phone: [facility] 09-21-2022 10:29-0500 Diastolic blood pressure 81 mm[Hg] Farhan Husain Other Phone: [facility] 09-21-2022 10:29-0500 Heart rate 90 /min Farhan Husain Other Phone: [facility] 09-21-2022 10:29-0500 Respiratory rate 16 /min Farhan Husain Other Phone: [facility] 09-21-2022 10:29-0500 SaO2% (BldA) [Mass fraction] 97 % Farhan Husain Other Phone: [facility] 09-21-2022 10:29-0500 Systolic blood pressure 143 mm[Hg] Farhan Husain Other Phone: [facility] 07-15-2022 11:28-0500 Body height 156.21 cm Farhan Husain Work Phone: [facility] Work Phone: 07-15-2022 11:28-0500 Body mass index (BMI) [Ratio] 26.4 kg/m2 Farhan Husain [facility] Work Phone: 07-15-2022 11:28-0500 Body surface area Derived from formula 1.64 m2 Farhan Husain Work Phone: [facility] Work Phone: 07-15-2022 11:28-0500 Body weight 64.41 kg Farhan Husain Work Phone: [facility] Work Phone: 06-25-2022 09:55-0500 Body height 156.21 cm Farhan Husain Work Phone: [facility] Work Phone: 06-25-2022 09:55-0500 Body mass index (BMI) [Ratio] 26.84 kg/m2 Farhan Husain Work Phone: [facility] Work Phone: 06-25-2022 09:55-0500 Body surface area Derived from formula 1.65 m2 Farhan Husain Work Phone: [facility] Work Phone: 06-25-2022 09:55-0500 Body weight 65.49 kg Farhan Husain Work Phone: [facility] Work Phone: 06-25-2022 09:55-0500 Diastolic blood pressure 60 mm[Hg] Farhan Husain Work Phone: [facility] Work Phone: 06-25-2022 09:55-0500 Heart rate 61 /min Farhan Husain Work Phone: [facility] Work Phone: 06-25-2022 09:55-0500 Respiratory rate 16 /min Farhan Husain Work Phone: [facility] Work Phone: 06-25-2022 09:55-0500 SaO2% (BldA) [Mass fraction] 97 % Farhan Husain Work Phone: [facility] Work Phone: 06-25-2022 09:55-0500 Systolic blood pressure 124 mm[Hg] Farhan Husain Work Phone: [facility] Work Phone: 05-26-2022 07:18-0400 Body height 157.4 cm Farhan Husain Other Phone: [facility] 05-26-2022 07:18-0400 Body temperature 97.52 [degF] Farhan Husain Other Phone: [facility] 05-26-2022 07:18-0400 Body weight 63.6 kg Farhan Husain Other Phone: [facility] 05-26-2022 07:18-0400 Diastolic blood pressure 85 mm[Hg] Farhan Husain Other Phone: [facility] 05-26-2022 07:18-0400 Heart rate 76 /min Farhan Husain Other Phone: [facility] 05-26-2022 07:18-0400 Respiratory rate 16 /min Farhan Husain Other Phone: [facility] 05-26-2022 07:18-0400 SaO2% (BldA) [Mass fraction] 99 % Farhan Husain Other Phone: [facility] 05-26-2022 07:18-0400 Systolic blood pressure 163 mm[Hg] Farhan Husain Other Phone: [facility] 12-23-2021 10:38-0400 Body height 156.21 cm Farhan Husain Work Phone: [facility] Work Phone: 12-23-2021 10:38-0400 Body mass index (BMI) [Ratio] 27.14 kg/m2 Farhan Husain Work Phone: [facility] Work Phone: 12-23-2021 10:38-0400 Body surface area Derived from formula 1.66 m2 Farhan Husain Work Phone: [facility] Work Phone: 12-23-2021 10:38-0400 Body weight 66.23 kg Farhan Husain Work Phone: [facility] Work Phone: 12-23-2021 10:38-0400 Diastolic blood pressure 68 mm[Hg] Frahan Husain Work Phone: [facility] Work Phone: 12-23-2021 10:38-0400 Heart rate 77 /min Farhan Husain Work Phone: [facility] Work Phone: 12-23-2021 10:38-0400 Respiratory rate 16 /min Farhan Husain Work Phone: [facility] Work Phone: 12-23-2021 10:38-0400 SaO2% (BldA) [Mass fraction] 97 % Farhan Husain Work Phone: [facility] Work Phone: 12-23-2021 10:38-0400 Systolic blood pressure 138 mm[Hg] Farhan Husain Work Phone: [facility] Work Phone: 06-23-2021 11:05-0500 Body height 156.21 cm Farhan Maria Isabel Lisha Work Phone: [facility] Work Phone: 06-23-2021 11:05-0500 Body mass index (BMI) [Ratio] 27.51 kg/m2 Farhan Maria Isabel Meñoruddymegan Work Phone: [facility] Work Phone: 06-23-2021 11:05-0500 Body surface area Derived from formula 1.67 m2 Farhan Husain Work Phone: [facility] Work Phone: 06-23-2021 11:05-0500 Body weight 67.13 kg Farhan Maria Isabel Husain Work Phone: [facility] Work Phone: 06-23-2021 11:05-0500 Diastolic blood pressure 74 mm[Hg] Fahran Maria Isabel Husain Work Phone: [facility] Work Phone: 06-23-2021 11:05-0500 Heart rate 74 /min Farhan Maria Isabel Husain Work Phone: [facility] Work Phone: 06-23-2021 11:05-0500 Respiratory rate 16 /min Farhan Maria Isabel Husain Work Phone: [facility] Work Phone: 06-23-2021 11:05-0500 SaO2% (BldA) [Mass fraction] 95 % Farhan Maria Isabel Husain Work Phone: [facility] Work Phone: 06-23-2021 11:05-0500 Systolic blood pressure 150 mm[Hg] Farhan Maria Isabel Husain Work Phone: [facility] Work Phone: 07-03-2020 17:58-0500 BP Diastolic 82 mm[Hg] Farhan Husain [facility] Work Phone: Comment on above: Location: RUE; Position: Sitting 07-03-2020 17:58-0500 BP Systolic 142 mm[Hg] Farhan Lisha [facility] Work Phone: Comment on above: Location: RUE; Position: Sitting 07-03-2020 17:24-0500 BMI (Body Mass Index) 27.54 kg/m2 Farhan Husain [facility] Work Phone: 07-03-2020 17:24-0500 Body weight 67.19 kg Farhan Husain [facility] Work Phone: 07-03-2020 17:24-0500 BP Diastolic 70 mm[Hg] Farhan [facility] Work Phone: 07-03-2020 17:24-0500 BP Systolic 154 mm[Hg] Farhan [facility] Work Phone: 07-03-2020 17:24-0500 BSA (Body Surface Area) 1.67 m2 Farhan [facility] Work Phone: 07-03-2020 17:24-0500 Height 156.21 cm Farhan [facility] Work Phone: 07-03-2020 17:24-0500 Pulse (Heart Rate) 87 /min Farhan [facility] Work Phone: 07-03-2020 17:24-0500 Pulse Oximetry 93 % Farhan [facility] Work Phone: 07-03-2020 17:24-0500 Respiratory Rate 16 /min Farhan [facility] Work Phone: Encounters Encounter Date Encounter Type Care Provider Facility Start: 01-21-2025 End: 01-21-2025 Emergency department patient visit Cheko Maloney MD Work Phone: [facility] Comment on above: Arm injury, left, in itial encounter (Primary Dx); Contusion of dorsum of hand; Thumb pain, left Start: 01-16-2025 End: 01-16-2025 Office outpatient visit 25 minutes Don Moran MD PhD Work Phone: [facility] Comment on above: Acquired hypothyroid ism (Primary Dx); Fatty liver disease, nonalcoholic; Pain of left hip; Routine medical exam [Z00.00]; Bilateral impacted cerumen Start: 01-16-2025 End: 01-16-2025 Patient encounter status Don Moran MD PhD Work Phone: [facility] Work Phone: Start: 01-16-2025 End: 01-16-2025 ambulatory [facility] Start: 01-16-2025 End: 01-16-2025 Encounter for general adult medical examination without abnormal findings [facility] Start: 07-26-2024 End: 07-26-2024 Office outpatient visit 15 minutes Don Moran MD PhD Work Phone: [facility] Comment on above: Diarrhea, unspecifie d Start: 07-26-2024 End: 07-27-2024 ambulatory [facility] Start: 04-19-2024 End: 04-19-2024 Office outpatient visit 25 minutes Don Moran MD PhD Work Phone: [facility] Comment on above: Acquired hypothyroid ism (Primary Dx); Fatty liver disease, nonalcoholic; Hypokalemia; Diarrhea, unspecified type Start: 04-19-2024 End: 04-19-2024 ambulatory [facility] Start: 04-06-2024 End: 04-06-2024 ambulatory [facility] Start: 03-10-2024 End: 03-10-2024 Emergency department patient visit [facility] Start: 01-18-2024 End: 01-18-2024 Office outpatient visit 15 minutes Don Moran MD PhD Work Phone: [facility] Comment on above: Diarrhea, unspecifie d type (Primary Dx) Start: 01-18-2024 End: 01-18-2024 ambulatory [facility] Start: 01-12-2024 End: 01-12-2024 ambulatory [facility] Start: 11-01-2023 End: 11-01-2023 Office outpatient new 30 minutes Kristi Doyle APRN-MACHINE PACKAGING TECHNICIAN Work Phone: [facility][1] Comment on above: Diarrhea, unspecifie d type Start: 10-18-2023 End: 10-18-2023 Office outpatient visit 25 minutes Don Moran MD PhD Work Phone: [facility] Comment on above: Dyslipidemia (Primar y Dx); Acquired hypothyroidism; Diarrhea, unspecified type; Fatty liver disease, nonalcoholic; Hypokalemia; Routine medical exam; Diarrhea, unspecified Start: 10-18-2023 End: 10-18-2023 Patient encounter status Don Moran MD PhD Work Phone: [facility] Work Phone: Start: 05-19-2023 End: 05-19-2023 Subsequent hospital visit by physician [facility] 2 [facility] Comment on above: Fatty liver disease, nonalcoholic Start: 05-19-2023 End: 05-19-2023 ambulatory TULIOLLOYD MORAN [facility] Start: 04-19-2023 End: 04-19-2023 Office outpatient visit 25 minutes Don Moran MD PhD Work Phone: [facility] Comment on above: Acquired hypothyroid ism (Primary Dx); Fatty liver disease, nonalcoholic; Diarrhea, unspecified type; Hypokalemia Start: 02-21-2023 Office outpatient vi sit 25 minutes Don Moran Work Phone: [facility] DO Work Phone: Start: 02-21-2023 ambulatory Kristi Doyle [facility] ty:[id number] Start: 02-04-2023 Chart Update Don Moran Work Phone: [facility] DO Work Phone: Start: 01-28-2023 End: 01-28-[address] Mann Arias Facility:[id number] Start: 01-28-2023 End: 01-28-2023 Subsequent hospital visit by physician Mann Arias MD Work Phone: [facility] Comment on above: Diarrhea, unspecifie d; Hypothyroidism, unspecified; Fatty (change of) liver, not elsewhere classified; Diverticulosis of large intestine without perforation or abscess without bleeding; Hyperlipidemia, unspecified; Acquired absence of other specified parts of digestive tract; Acquired absence of both cervix and uterus Start: 01-20-2023 ambulatory Kristi Cartermarco Patty [id number] Start: 01-18-2023 Chart Update Don Moran Work Phone: [facility] Work Phone: Start: 01-14-2023 End: 01-14-2023 Office outpatient visit 25 minutes Don Moran MD PhD Work Phone: [facility] Comment on above: Diarrhea, unspecifie d type (Primary Dx); Hypokalemia; Acquired hypothyroidism Start: 12-27-2022 Office outpatient ne w 60 minutes Don Moran Work Phone[facility] Work Phone: Start: 12-27-2022 ambulatory Kristi Cartermarco Patty [id number] Start: 11-27-2022 End: 11-27-2022 Emergency department patient visit Brian [facility] 06 Start: 11-17-2022 End: 11-17-2022 Office outpatient visit 15 minutes Don Moran MD PhD Work Phone: [facility] Comment on above: Diarrhea, unspecifie d Start: 10-21-2022 Patient encounter procedure Farhan Husain Work Phone: [place] [id number] Work Phone: Start: 10-21-[address] Farhan Husain Facility:[id number] Start: 10-21-[address] Viet Richey Facility:U Start: 10-15-2022 Adv care pln tlkd & alt dcsn maker docd Farhan Husain Work Phone: [facility] Work Phone: Start: 10-15-[address] Don Brambila ty:[id number] Start: 09-26-2022 End: 09-28-2022 ambulatory Hermelindo Jayro Velazquez Facility: Start: 09-21-2022 End: 09-21-2022 Emergency department patient visit Loi Crowley [facility] Start: 07-15-2022 Office consultation new/estab patient 60 min Farhan Husain Work Phone: [facility] Work Phone: Start: 07-15-[address] Hal Romano II Facility:[id number] Start: 06-27-2022 Chart Update Farhan luong [facility] Work Phone: Start: 06-25-[address] Farhan Husain Facility:[id number] Start: 06-24-[address] Hal Romano II Facility:[facility] Start: 06-14-[address] Farhan Husain Facility:[id number] Start: 05-26-2022 End: 05-26-2022 Emergency department patient visit [facility] 01 Start: 01-21-2022 AUDIT Farhan luong Work Phone: [facility] Work Phone: Start: 12-23-2021 Current tobacco non- user cad cap copd pv dm Farhan Husain Work Phone: [facility] Work Phone: Start: 06-23-2021 Current tobacco non- user cad cap copd pv dm Farhan Husain Work Phone: [facility] Work Phone: Start: 07-03-2020 Patient encounter procedure Farhan Husain [facility] Work Phone: Start: 04-24-2020 Patient encounter procedure Farhan Husain [facility] Work Phone: Start: 03-07-2020 End: 03-08-2020 Patient encounter procedure JOSE CHICAS [facility] Start: 03-07-2020 End: 03-07-2020 Subsequent hospital visit by physician [facility] Start: 06-11-2019 End: 06-11-2019 Subsequent hospital visit by physician Rey Kan Work Phone: [facility] Comment on above: TIA (transient ische micheal attack) Patient encounter procedure Farhan Husain Work Phone: [facility] Work Phone: Procedures Date Procedure Procedure Detail Performing Clinician Start: 01-21-2025 End: 01-21-2025 Radex wrist complete minimum 3 views Cheko Maloney MD Work Phone: Start: 01-12-2024 Lipid 1996 panel - S riana or Plasma Don Moran MD PhD Work Phone: Start: 01-12-2024 Thyrotropin [Units/v olume] in Serum or Plasma Don Moran MD PhD Work Phone: Start: 05-19-2023 US ABDOMEN LIMITED LIVER DON MORAN Start: 05-19-2023 Us abdominal real ti me w/image limited Don Moran MD PhD Work Phone: Start: 01-28-2023 SURGICAL PATHOLOGY RESULTS Mann Arias MD Work Phone: Start: 01-28-2023 Colonoscopy stoma dx including collj spec spx Don Moran MD PhD Work Phone: Start: 01-28-2023 Colonoscopy Don Dupree en Work Phone: Start: 11-27-2022 End: 11-27-2022 EKG impression Norman Allison Start: 11-17-2022 Thyrotropin [Units/v olume] in Serum or Plasma Don Moran MD PhD Work Phone: Start: 10-15-2022 Follow-up visit Start: 06-14-2022 Lipid 1996 panel - S riana or Plasma Don Moran MD PhD Work Phone: Start: 12-15-2020 Thyrotropin [Units/v olume] in Serum or Plasma Don Moran MD PhD Work Phone: Start: 07-03-2020 Assay of free thyroxine Farhan Husain Start: 07-03-2020 Assay of thyroid stimulating hormone tsh Farhan Husain Start: 07-03-2020 CBC W Auto Different ial panel - Blood Farhan Husain Start: 07-03-2020 Comprehensive metabo lic 2000 panel Farhan Husain Start: 07-03-2020 Lipid panel Farhan Akil smith Appendectomy Farhan guzman Arthroplasty of knee Farhan Husain Cataract surgery Farhan Wilder briannaivonne Colonoscopy Farhan guzman Hysterectomy Farhan guzman Operation on gallbladder Pat jin Husain Operative procedure on knee Farhan Husain Tonsillectomy Farhan Wilderjing vega Plan of Treatment Date Care Activity Detail Author Start: 01-11-2029 Lipid panel Lipid Panel [facility] Start: 06-14-2027 Lipid panel Lipid Panel [facility] Start: 04-15-2025 Influenza vaccination Influenza Vaccine (Season Ended) [employer] Start: 01-16-2025 End: 01-16-2026 25-hydroxyvitamin D3 [Mass/volume] in Serum or Plasma Vitamin D 25-Hydroxy,Total (for eval of Vitamin D levels) Lab Routine Acquired hypothyroidism Fatty liver disease, nonalcoholic Expected: 01/16/2025 (Approximate), Expires: 01/16/2026 [facility] Work Phone: Comment on above: Expected: 01/16/2025 (Approximate), Expi res: 01/16/2026 Start: 01-16-2025 End: 01-16-2026 Cobalamin (Vitamin B12) [Mass/volume] in Serum or Plasma Vitamin B12 Lab Routine Acquired hypothyroidism Fatty liver disease, nonalcoholic Expected: 01/16/2025 (Approximate), Expires: 01/16/2026 [facility] Work Phone: Comment on above: Expected: 01/16/2025 (Approximate), Expi res: 01/16/2026 Start: 01-16-2025 End: 01-16-2026 Comprehensive metabolic 2000 panel - Serum or Plasma Comprehensive Metabolic Panel Lab Routine Acquired hypothyroidism Fatty liver disease, nonalcoholic Expected: 01/16/2025 (Approximate), Expires: 01/16/2026 [facility] Service Area Work Phone: Comment on above: Expected: 01/16/2025 (Approximate), Expi res: 01/16/2026 Start: 01-16-2025 End: 01-16-2026 Folate [Mass/volume] in Serum or Plasma Folate Lab Routine Acquired hypothyroidism Fatty liver disease, nonalcoholic Expected: 01/16/2025 (Approximate), Expires: 01/16/2026 [facility] Work Phone: Comment on above: Expected: 01/16/2025 (Approximate), Expi res: 01/16/2026 Start: 01-16-2025 End: 01-16-2026 TSH with reflex to Free T4 if abnormal TSH with reflex to Free T4 if abnormal Lab Routine Acquired hypothyroidism Fatty liver disease, nonalcoholic Expected: 01/16/2025 (Approximate), Expires: 01/16/2026 [facility] Work Phone: Comment on above: Expected: 01/16/2025 (Approximate), Expi res: 01/16/2026 Start: 01-16-2025 End: 01-16-2026 XR Hip Views XR hip left with pelvis when performed 2 or 3 views Imaging Routine Pain of left hip Expected: 01/16/2025, Expires: 01/16/2026 [facility] Work Phone: Comment on above: Expected: 01/16/2025, Expires: Start: 01-11-2025 Thyroid stimulating hormone measurement TSH Level [facility] Start: 11-20-2024 COVID-19 Vaccine ( season) COVID-19 Vaccine () [facility] Start: 10-18-2024 Medicare Annual Wellness Visit Medicare Annual Wellness Visit (AWV) [facility] Start: 08-15-2024 Medicare Advantage Annual Wellness Visit Medicare Advantage Annual Wellness Visit [facility] [employer] Start: 04-19-2024 End: 04-19-2024 Patient encounter procedure 04/19/2024 10:30 AM EDT Office Visit [facility] [address] [place] [phone] [place] Moran [place] PhD [address] [place] [address] [facility] Start: 04-15-2024 COVID-19 Vaccine ( season) COVID-19 Vaccine () [facility] Start: 04-15-2024 COVID-19 Vaccine () COVID-19 Vaccine () [facility] Start: 01-18-2024 End: 01-17-2025 Comprehensive metabolic 2000 panel - Serum or Plasma Comprehensive Metabolic Panel Lab Routine Diarrhea, unspecified type Expected: 01/18/2024 (Approximate), Expires: 01/17/2025 [facility] Service Area Work Phone: Comment on above: Expected: 01/18/2024 (Approximate), Expi res: 01/17/2025 Start: 01-18-2024 End: 01-18-2024 Patient encounter procedure 01/18/2024 10:45 AM EDT Office Visit [facility] [address] [place] [address] [place] PhD [address] [place] [address] [facility] Start: 12-13-2023 End: 12-13-2023 Patient encounter procedure 12/13/2023 1:30 PM EDT [facility] [address] [facility] [address] [place] [address] Kristi Doyle, MANAGER APPLIED-MACHINE PACKAGING TECHNICIAN [address] [facility] [address], [address] [place], [place] [phone] [facility] [employer] Start: 11-25-2023 COVID-19 Vaccine () COVID-19 Vaccine () [facility] Start: 11-18-2023 Thyroid stimulating hormone measurement TSH Level [facility] Start: 10-18-2023 End: 10-17-2024 CBC panel - Blood by Automated count CBC Lab Routine Diarrhea, unspecified type Expected: 10/18/2023 (Approximate), Expires: 10/17/2024 [facility] Work Phone: Comment on above: Expected: 10/18/2023 (Approximate), Expi res: 10/17/2024 Start: 10-18-2023 End: 10-17-2024 Comprehensive metabolic 2000 panel - Serum or Plasma Comprehensive Metabolic Panel Lab Routine Fatty liver disease, nonalcoholic Hypokalemia Expected: 10/18/2023 (Approximate), Expires: 10/17/2024 [facility] Service Area Work Phone: Comment on above: Expected: 10/18/2023 (Approximate), Expi res: 10/17/2024 Start: 10-18-2023 End: 10-17-2024 Lipid 1996 panel - Serum or Plasma Lipid Panel Lab Routine Dyslipidemia Expected: 10/18/2023 (Approximate), Expires: 10/17/2024 [facility] Work Phone: Comment on above: Expected: 10/18/2023 (Approximate), Expi res: 10/17/2024 Start: 10-18-2023 End: 10-17-2024 TSH with reflex to Free T4 if abnormal TSH with reflex to Free T4 if abnormal Lab Routine Acquired hypothyroidism Diarrhea, unspecified type Expected: 10/18/2023 (Approximate), Expires: 10/17/2024 [facility] Work Phone: Comment on above: Expected: 10/18/2023 (Approximate), Expi res: 10/17/2024 Start: 10-18-2023 End: 10-18-2023 Patient encounter procedure 10/18/2023 10:30 AM EST Office Visit [facility] [address] [place] [address] Don Moran MD PhD [address] [place] [address] [facility] Start: 10-17-2023 Medicare Annual Wellness Visit Medicare Annual Wellness Visit (AWV) [facility] Start: 04-19-2023 End: 04-19-2024 Comprehensive metabolic 2000 panel - Serum or Plasma Comprehensive Metabolic Panel Lab Routine Fatty liver disease, nonalcoholic Expected: 04/19/2023 (Approximate), Expires: 04/19/2024 [facility] Service Area Work Phone: Comment on above: Expected: 04/19/2023 (Approximate), Expi res: 04/19/2024 Start: 04-19-2023 End: 04-19-2024 US Liver limited US abdomen limited liver Imaging Routine Fatty liver disease, nonalcoholic Expected: 04/19/2023, Expires: 04/19/2024 [facility] Work Phone: Comment on above: Expected: 04/19/2023, Expires: Start: 04-19-2023 End: 04-19-2023 Patient encounter procedure 04/19/2023 10:30 AM EDT Office Visit [facility] [address] [place] [address] Don Moran [place] PhD [address] [place], [place] [phone] [facility] Start: 04-10-2023 DTaP/Tdap/Td vaccine (2 - Tdap) DTaP/Tdap/Td vaccine (2 - Tdap) [place] Start: 04-10-2023 DTaP/Tdap/Td Vaccines (2 - Tdap) DTaP/Tdap/Td Vaccines (2 - Tdap) [facility] Start: 04-10-2023 DTaP/Tdap/Td Vaccines (3 - Td or Tdap) DTaP/Tdap/Td Vaccines (3 - Td or Tdap) [facility] Start: 02-21-2023 FUV, Provider: Kristi Doyle, Status: Pen, Time: 11:30 AM FUV, Provider: Kristi Doyle, Status: Pen, Time: 11:30 AM [facility] age 89 DO Work Phone: Start: 01-28-2023 COLON, Provider: Mann Arias, Status: Pen, Time: 10:20 AM COLON, Provider: Mann Arias, Status: Pen, Time: 10:20 AM [facility] age 89 DO Work Phone: Start: 01-14-2023 End: 01-14-2023 Patient encounter procedure 01/14/2023 10:30 AM EDT Office Visit [facility] [address] [place] [address] Don Moran MD PhD [address] [place], [place] [phone] [facility] Start: 12-27-2022 NPV, Provider: Kristi Doyle, Status: Pen, Time: 1:00 PM NPV, Provider: Kristi Doyle, Status: Pen, Time: 1:00 PM [facility] Work Phone: Start: 12-27-2022 Patient encounter procedure GASTRO RAVENNA Start: 12-15-2022 NPV, Provider: Josie Ortiz, Status: Pen, Time: 10:00 AM NPV, Provider: Josie Ortiz, Status: Pen, Time: 10:00 AM [facility] Work Phone: Start: 12-15-2022 Patient encounter procedure [facility] Start: 11-17-2022 End: 11-18-2023 CBC panel - Blood by Automated count CBC Lab Routine Diarrhea, unspecified Expected: 11/17/2022 (Approximate), Expires: 11/18/2023 [facility] Service Area Work Phone: Comment on above: Expected: 11/17/2022 (Approximate), Expi res: 11/18/2023 Start: 11-17-2022 End: 11-18-2023 Celiac Panel Celiac Panel Lab Routine Diarrhea, unspecified Expected: 11/17/2022 (Approximate), Expires: 11/18/2023 [facility] Work Phone: Comment on above: Expected: 11/17/2022 (Approximate), Expi res: 11/18/2023 Start: 11-17-2022 End: 11-18-2023 Comprehensive metabolic 2000 panel - Serum or Plasma Comprehensive Metabolic Panel Lab Routine Diarrhea, unspecified Expected: 11/17/2022 (Approximate), Expires: 11/18/2023 [facility] Work Phone: Comment on above: Expected: 11/17/2022 (Approximate), Expi res: 11/18/2023 Start: 11-17-2022 End: 11-18-2023 TSH with reflex to Free T4 if abnormal TSH with reflex to Free T4 if abnormal Lab Routine Diarrhea, unspecified Expected: 11/17/2022 (Approximate), Expires: 11/18/2023 [facility] Work Phone: Comment on above: Expected: 11/17/2022 (Approximate), Expi res: 11/18/2023 Start: 10-28-2022 Patient encounter procedure [facility] Start: 10-21-2022 EMG, Provider: NEURO EMG [id number] EQUIPMENT,[id number], Status: Pen, Time: 8:20 AM EMG, Provider: NEURO EMG [id number] EQUIPMENT,[id number], Status: Pen, Time: 8:20 AM [facility] Work Phone: Start: 08-25-2022 COVID-19 Vaccine (6 - Moderna series) COVID-19 Vaccine (6 - Moderna series) [facility] Start: 07-15-2022 NPV, Provider: Hal Romano II, Status: Pen, Time: 11:30 AM NPV, Provider: Hal Romano II, Status: Pen, Time: 11:30 AM [facility] Work Phone: Start: 06-25-2022 EPV, Provider: Farhan Husain, Status: Pen, Time: 9:40 AM EPV, Provider: Farhan Husain, Status: Pen, Time: 9:40 AM [facility] Work Phone: Start: 06-25-2022 Patient encounter procedure [facility] [place] Start: 12-22-2021 FUV, Provider: Farhan Husain, Status: Pen, Time: 10:20 AM FUV, Provider: Farhan Husain, Status: Pen, Time: 10:20 AM [facility] Work Phone: Start: 12-15-2021 Thyroid stimulating hormone measurement TSH Level [facility] Start: 06-10-2021 Screening for osteoporosis Bone Density Scan [facility] Start: 05-01-2020 End: 05-01-2020 Office Visit 05/01/2020 Office Visit Family Medicine Rey Kan MD [address] [place] [address] [facility] Start: 04-15-2020 Influenza vaccination Flu vaccine (#1) [place], [place] Start: 10-25-2019 End: 10-25-2019 Office Visit 10/25/2019 Office Visit Family Medicine Rey Kan MD [address] [place] [address] [facility] Start: 06-26-2019 TSH Qn TSH testing [place], [place] Start: 06-26-2019 TSH testing TSH testing [place] Start: 06-21-2019 Shingles Vaccine (3 of 3) Shingles Vaccine (3 of 3) [place] Start: 06-21-2019 Zoster Vaccines (3 of 3) Zoster Vaccines (3 of 3) [facility] Start: 02-01-2019 Annual Wellness Visit (AWV) Annual Wellness Visit (AWV) [place] Start: 2012 RSV High Risk: (Elderly (60+) or Population) (1 - 1-dose 75+ series) RSV High Risk: (Elderly (60+) or Population) (1 - 1-dose 75+ series) [facility] Start: 2012 RSV Immunization for Adults (1 - 1-dose 75+ series) RSV Immunization for Adults (1 - 1-dose 75+ series) [facility] Start: 1997 Hepatitis B Vaccines (1 of 3 - Risk 3-dose series) Hepatitis B Vaccines (1 of 3 - Risk 3-dose series) [facility] Start: 1997 RSV patients and/or patients aged 60+ years (1 - 1-dose 60+ series) RSV patients and/or patients aged 60+ years (1 - 1-dose 60+ series) [facility] Start: 1956 Hepatitis A Vaccines (1 of 2 - Risk 2-dose series) Hepatitis A Vaccines (1 of 2 - Risk 2-dose series) [facility] Start: 1949 Depression Screening Depression Screening [facility] Start: 1938 Hepatitis A Vaccines (1 of 2 - Risk 2-dose series) Hepatitis A Vaccines (1 of 2 - Risk 2-dose series) [facility] Start: 1937 Screening for osteoporosis Bone Density Scan [facility] Start: 1937 Thyroid stimulating hormone measurement TSH Level [facility] H/O: hysterectomy History of hysterectomy [facility] History of cholecystectomy History of cholecystectomy [facility] Immunizations Immunization Date Immunization Notes Care Provider Fa cili 05-22-2024 Pfizer COVID-19 vacc ine, 12 years and older, (30mcg/0.3mL) (Comirnaty) Don Moran MD PhD Work Phone: [facility] 04-19-2024 influenza, seasonal, injectable, preservative free Don Moran MD PhD Work Phone: [facility] Work Phone: 07-26-2023 Pfizer COVID-19 vacc ine, Fall 2022, 12 years and older, (30mcg/0.3mL) oDn Moran MD PhD Work Phone: [facility] Work Phone: 04-19-2023 influenza, injectabl e, quadrivalent, preservative free Don Moran MD PhD Work Phone: [facility] Work Phone: 06-30-2022 Pfizer COVID-19 Vac Bivalent 30 MCG/0.3ML Intramuscular Suspension Farhan Husain Work Phone: [facility] Work Phone: 06-30-2022 ImpervaHydrophi COVI D-19 Vacc 30 MCG/0.3ML Intramuscular Suspension Farhan Husain Work Phone: [facility] Work Phone: Comment on above: Series: 06-25-2022 Fluzone High-Dose Quadrivalent 0.7 ML Intramuscular Suspension Prefilled Syringe; Translations: [Fluzone High-Dose Quadrivalent 0.7 ML Intramuscular Suspension Prefilled Syringe] Farhan Husain Work Phone: [facility] Work Phone: Comment on above: Series: 06-25-2022 influenza, seasonal, injectable Don Moran MD PhD Work Phone: [facility] Work Phone: 12-15-2021 Moderna COVID-19 Vac cine 100 MCG/0.5ML Intramuscular Suspension Farhan Husain Work Phone: [facility] Work Phone: 06-23-2021 influenza, injectabl e, quadrivalent, contains preservative Farhanjin Husain Work Phone: [facility] Work Phone: Comment on above: Series: 06-14-2021 Moderna COVID-19 Vac cine 100 MCG/0.5ML Intramuscular Suspension Farhan Husain Work Phone: [facility] Work Phone: 12-23-2020 pneumococcal polysaccharide vaccine, 23 valent; Translations: [Pneumovax 23 25 MCG/0.5ML Injection Injectable] Farhan Husain Work Phone: -[facility] Work Phone: Comment on above: Series: 10-07-2020 Moderna COVID-19 Vac cine 100 MCG/0.5ML Intramuscular Suspension Farhan Husain Work Phone: -[facility] Work Phone: 09-09-2020 Moderna COVID-19 Vac cine 100 MCG/0.5ML Intramuscular Suspension Farhan Maria Isabel Husain Work Phone: [facility] Work Phone: 07-03-2020 Fluzone High-Dose Quadrivalent 0.7 ML Intramuscular Suspension Prefilled Syringe Farhan Lisha [facility] Work Phone: Comment on above: Series: 09-28-2019 zoster vaccine recombinant Farhan Husain Work Phone: [facility] Work Phone: 04-27-2019 influenza, high dose seasonal, preservative-free Farhan Wilderruddymegan Work Phone: [facility] Work Phone: 04-27-2019 zoster vaccine recombinant Farhan Husain Work Phone: [facility] Work Phone: 04-26-2019 influenza, high dose seasonal, preservative-free [facility] [place] 04-26-2019 zoster vaccine recombinant [facility] 04-26-2019 influenza virus vacc ine, unspecified formulation Cheko Maloney MD Work Phone: [facility] 06-22-2018 influenza, high dose seasonal, preservative-free [facility] 06-21-2017 influenza, injectabl e, quadrivalent, preservative free [facility] 06-21-2017 influenza, seasonal, injectable Don Moran MD PhD Work Phone: [facility] Work Phone: 06-22-2016 influenza, injectabl e, quadrivalent, contains preservative Farhan Husain Work Phone: [facility] Work Phone: 06-22-2016 influenza, injectabl e, quadrivalent, preservative free [facility] [place] 06-22-2016 influenza, seasonal, injectable Don Moran MD PhD Work Phone: [facility] Work Phone: 08-26-2015 pneumococcal conjuga te vaccine, 13 valent [facility] 07-08-2015 influenza, injectabl e, quadrivalent, preservative free Farhan Nicolas Lisha Work Phone: [facility] Work Phone: 06-18-2014 influenza, seasonal, injectable Farhan Maria Isabel Husain Work Phone: [facility] Work Phone: 04-10-2013 diphtheria, tetanus toxoids and acellular pertussis vaccine [facility] [place] 05-15-2012 zoster vaccine, live [facility] 04-22-2011 Td, unspecified formulation [facility] 04-22-2011 tetanus toxoid, redu kevin diphtheria toxoid, and acellular pertussis vaccine, adsorbed Don Moran MD PhD Work Phone: [facility] Work Phone: 04-22-2008 pneumococcal polysaccharide vaccine, 23 valent [facility] Payers Date Payer Category Payer Medicare HMO ANTHEM MEDICARE ADVANTAGE [id number] 2021 Medicare ANTHEM MEDICARE ANTHEM MEDICARE ADVANTAGE [id number] 2021-Present [employer] [facility] [address] [place] [address] [id number] 2021 Medicare (Managed Care) ANTHEM MEDICARE ADVANTAGE [id number] 2014 Medicare [id number] 2014 Medicare BCBS MEDICARE AN THEM MEDIBLUE ESSENTIAL/PLUS [id number] 2014-Present [address] [address] [place] [address] [id number] 2014 Medicare BCBS MEDICARE AN THEM MEDIBLUE ESSENTIAL/PLUS xxxxxxxxxxxx 2014-Present [address] [address] [place] [address] [id number] 1937 Unknown [id number] 2.16840.1.398783.3.579.2. 204 1937 Unknown [id number] 2.16840.1.184372.3.579.2. 356 1937 Unknown [id number] 2.16840.1.498746.3.579.2. 1068 1937 Unknown [id number] 2.16840.1.905739.3.579.2. 1068 1937 Unknown [id number] 2.16840.1.375060.3.579.2. 1068 1937 Unknown [id number] 2.16.840.1.045260.3.579.2. 106 1937 Unknown [id number] 2.16.840.1.451956.3.579.2. 1068 1937 Unknown [id number] 2.16.840.1.405034.3.579.2. 1068 1937 Unknown [id number] 2.16.840.1.463607.3.579.2. 1068 1937 Unknown [id number] 2.16.840.1.958104.3.579.2. 356 1937 Unknown [id number] 2.840.1.895393.3.579.2. 1937 Unknown [id number] 2.840.1.340356.3.579.2. 1937 Unknown [id number] 2.840.1.862819.3.579.2. 1937 Unknown [id number] 2.840.1.189063.3.579.2. 1937 Unknown [id number] 2.840.1.306945.3.579.2. 356 1937 Unknown [id number] 2.840.1.489198.3.579.2. 356 1937 Unknown [id number] 2.16840.1.408387.3.579.2. 1242 1937 Unknown [id number] 2.16.840.1.846192.3.579.2. 1242 1937 Unknown [id number] 2.16.840.1.837488.3.579.2. 1244 1937 Unknown [id number] 2.16.840.1.498710.3.579.2. 1244 1937 Unknown [id number] 2.16.840.1.707801.3.579.2. 1244 1937 Unknown [id number] 2.16.840.1.034394.3.579.2. 1244 1937 Unknown [id number] 2.16.840.1.022100.3.579.2. 1244 1937 Unknown [id number] 2.16.840.1.103353.3.579.2. 1244 Self-pay Unknown Social History Date Type Detail Facility Start: 10-25-2019 End: 01-21-2025 Tobacco smoking status NHIS Former smoker [place], [place] End: 06-22-1983 History of tobacco use Current smoker [place] End: 06-22-1983 History of tobacco use Cigarette Smoker [place] Start: 10-25-2019 End: 01-16-2025 Cigarettes smoked current (pack per day) - Reported [place] Start: 10-25-2019 End: 11-16-2022 Tobacco use and exposure Never used [place] Start: 10-25-2019 End: 01-16-2025 Alcohol intake Current drinker of alcohol (finding) [place] Start: 1935 Sex Assigned At Not on file [place] Start: 06-11-2019 End: 01-16-2025 Alcohol intake Yes [place] Tobacco smoking consumption unknown [facility] Start: 11-16-2022 [facility] tobacco [facility] Work Phone: Start: 11-17-2022 End: 03-10-2024 Alcohol intake Lifetime non-drinker (finding) [facility] Work Phone: Start: 11-07-2022 End: 01-16-2025 Exposure to SARS-CoV-2 (event) Not sure [facility] Start: 01-21-2025 Alcoholic beverage intake Ex-drinker (finding) [facility] Start: 03-15-2022 Sex Female (finding) [facility] Functional Status Date Assessment Result Facility 01-16-2025 Patient Health Questionnaire 2 item (PHQ-2) [Reported] [facility] Work Phone: NEGATED: Highlighted row Functional performance Functional status health issues are not documented Disease [facility] Work Phone: Mental Status Date Assessment Result Facility NEGATED: Highlighted row Cognitive function [Interpretation] Cognitive status health issues are not documented Disease [facility] Work Phone: Clinical Notes 09-15-2022 to 01-21-2025 Discharge InstructionsAttachmentsCheko Maloney MD - 01/21/2025 2:27 PM EDWendie Olivares RN - 01/21/2025 2:27 PM Anali Olivares RN - 01/21/2025 2:27 PM EDTPatient Instructions Note Date & Type Note Facility 01-21-2025 Hospital Discharg e instructions Cheko Maloney MD - 01/21/2025 3:27 PM EDT Use Piyush wrap for comfort. Use ice. Do gentle range of motion. The following attachments cannot be sent through Care Everywhere.Contusion Discharge Instructions (Egyptian)documented in this encounter [facility] 01-21-2025 Emergency department Note [facility] ED EMERGENCY DEPARTMENT ENCOUNTER Pt Name: Vinayak Montes Birthdate 1935 Date of evaluation: 01/21/2025 Provider: Cheko Maloney MD CHIEF COMPLAINT Chief Complaint Patient presents with Arm Injury HISTORY OF PRESENT ILLNESS (Location/Symptom, Timing/Onset,Context/Setting, Quality, Duration, Modifying Factors, Severity) Note limiting factors. Vinayak Montes is a 89 y.o. female who presents to the emergency department with left hand and wrist pain. Yesterday she struck it hard on a piece of furniture and feels like it is bruised and swollen hurts in the distal ulna and the dorsum of the hand. No numbness or tingling. No elbow pain. No finger pain. She did not fall. Did not bend awkwardly. No other injuries or complaints. HPI Historian is the patient Nurse's notes for past medical history, surgical history, social history were reviewed. Medications and allergies reviewed. PAST MEDICAL HISTORY Medical History[1] SURGICALHISTORY Surgical History[2] CURRENT MEDICATIONS Discharge Medication List as of 01/21/2025 3:28 PM CONTINUE these medications which have NOT CHANGED Details levothyroxine (Synthroid, Levoxyl) 25 MCG tablet Take 12.5 mcg by mouth daily., Starting 01/16/2025, Historical Med Sertraline FAMILY HISTORY Family History[3] SOCIAL HISTORY Social History[4] SCREENINGS PHYSICAL EXAM (up to 7 for level 4, 8 or more for level 5) @EDTRIAGEVSS@ Appropriate PPE including n 95, gown, gloves, goggles where worn when appropriate with this patient. Physical Exam General awake alert appropriate. Examination left upper extremity good range of motion left shoulder and elbow. Distal ulnar bruising soft tissue swelling dorsum of the hand. Normal finger tenderness normal capillary refill. Normal finger sensation. Equal pulses. No signs of dislocation. No signs of compartment syndrome no signs of arterial venous insufficiency. No signs of DVT. DIAGNOSTIC RESULTS RADIOLOGY: Interpretation per the Radiologist below, if availableat the time of this note: XR wrist 3+ views left Final Result No fracture or dislocation. Advanced osteoarthritis and chondrocalcinosis. Report Dictated on Electronically Signed By: Wilton Hinson MD Electronically Signed Date/Time: 01/21/2025 3:12 PM EDT XR hand 3+ views left Final Result No acute osseous abnormality of the left hand. Moderate osteoarthritic changes. Report Dictated on Electronically Signed By: Hal Nye DR Electronically Signed Date/Time: 01/21/2025 3:04 PM EDT ED BEDSIDE ULTRASOUND: Performed by ED Physician - none LABS: Labs Reviewed - No data to display All other labs were within normal range or not returned as of thisdictation. EMERGENCYDEPARTMENT COURSE and DIFFERENTIAL DIAGNOSIS/MDM: Vitals: Vitals: 01/21/25 1432 01/21/25 1439 BP: (!) 181/66 Pulse: 80 Resp: 14 Temp: 36.7 C (98.1 F) TempSrc: Oral SpO2: 98% Weight: 60.8 kg (134 lb) Height: 1.575 m (5' 2") Medical Decision Making Problems Addressed: Arm injury, left, initial encounter: complicated acute illness or injury Contusion of dorsum of hand: complicated acute illness or injury Thumb pain, left: complicated acute illness or injury Amount and/or Complexity of Data Reviewed Radiology: ordered. EMERGENCY DEPARTMENT COURSE and DIFFERENTIAL DIAGNOSIS/MDM: Vitals: Vitals: 01/21/25 1432 01/21/25 1439 BP: (!) 181/66 Pulse: 80 Resp: 14 Temp: 36.7 C (98.1 F) TempSrc: Oral SpO2: 98% Weight: 60.8 kg (134 lb) Height: 1.575 m (5' 2") The patient presented with a chief complaint of hand wrist pain. The differential diagnosis associated with this patient's presentation includes contusion sprain fracture dislocation. Our workup consisted of ordering/reviewing x-ray of the left hand and wrist. ED Course as of 01/21/25 1544 TueJan 21, 2025 152 Will apply an Piyush wrap. Use this for comfort. Piyush wrap applied by myself. Patient is neurologically neurovascular tact after applied. Use cool compresses. Gentle range of motion. Recheck with primary care physician or family medicine 1 week return here if any problems or concerns. [GS] 1536 I did talk to the patient further as she does have swelling of her fingers but she reports she did not hit her thumb she actually hit the back of her hand along the fifth metacarpal and ulnar side. She does however have discomfort with moving her thumb. I reviewed the x-rays and I do not see any acute fracture of the thumb. I did the Piyush wrap that goes around her thumb to give a support so she can still move the thumb. She said she did not hit the thumb she did not bend the thumb awkwardly. Certainly possible that she does simply does not remember but she remembers the total event from yesterday she is not forgetting. It is likely all arthritic in nature. I considered a thumb spica splint but my concern then should be immobilized and then that would become very stiff and really limit her range of motion. I think the Piyush wrap is appropriate icing and then follow-up with family practice given or her primary care physician in 1 week. Patient agrees and understands. She does have significant arthritic changes she does have sclerosis she does have joint space loss I do not see any obvious acute fracture however in the thumb or the distal radius. Obviously close follow-up appropriate. She may need tera-ray if still having pain. Important elevate above her heart. Return here if any problems or concerns. [GS] ED Course User Index [GS] Cheko Maloney MD Diagnoses as of 01/21/25 1544 Arm injury, left, initial encounter Contusion of dorsum of hand Thumb pain, left Diagnostics considered but not indicated based on history, physical, testing: Vascular ultrasound however not clinical indicated based on history and physical External records reviewed: Patient records reviewed patient seen 01/16/2025 for hypothyroidism Radiologic diagnostics interpreted by me: film images such as CT, Ultrasound and MRI are read by the radiologist. Plain radiographic images are visualized and preliminarily interpreted by the emergency physician with the below findings: Xray(s) x-ray of the left wrist and hand no acute fracture. Discussions with other clinicians: none Chronic conditions impacting care: Hyperlipidemia osteoarthritis diverticulosis macular degeneration thyroid disease Social determinants of health affecting care: Former smoker Shared decision making: Patient agrees to treatment plan ED Medications managed: Medications - No data to display Prescription drugs prescribed: PROCEDURES: Unless otherwise noted below, none Procedures IMPRESSION 1. Arm injury, left, initial encounter 2. Contusion of dorsum of hand 3. Thumb pain, left DISPOSITION/PLAN DISPOSITION Discharge 01/21/2025 03:27:27 PM PATIENT REFERRED TO: [facility] [address] [facility] [id number] In 1 week DISCHARGE MEDICATIONS: Discharge Medication List as of 01/21/2025 3:28 PM @[facility]([id number]:LAST:1) @ (Comment: Please notethis report has been produced using speech recognition software and may contain errors related to that system including errors in grammar, punctuation, and spelling, as well as words and phrases that may be inappropriate.If there is any questions or concerns please feel free to contact the dictating provider for clarification). Cheko Maloney MD (electronically signed) Attending Emergency Physician Cheko Maloney MD 01/21/25 1528 Cheko Maloney MD 01/21/25 1538 [1] Past Medical History: Diagnosis Date Allergic rhinitis C. difficile colitis Deviated septum Diverticulosis of colon (without mention of hemorrhage) Hyperlipidemia Macular degeneration Osteoarthritis [2] Past Surgical History: Procedure Laterality Date BUNIONECTOMY CATARACT EXTRACTION CHOLECYSTECTOMY COLONOSCOPY 2013 CYSTOSCOPY HYSTERECTOMY INTRAOCULAR LENS INSERTION Bilateral 2015 JOINT REPLACEMENT Right knee KNEE SURGERY right knee replacement OTHER SURGICAL HISTORY Clarita Bolden [3] Family History Problem Relation Name Age of Onset Other ([id number]) Mother Other ([id number]) Father Dementia Sister Heart disease Sister [4] Social History Socioeconomic History Marital status: Tobacco Use Smoking status: Former Current packs/day: 0.00 Types: Cigarettes Quit date: 06/22/1983 Years since quittin.6 Smokeless tobacco: Never Substance and Sexual Activity Alcohol use: Not Currently Cheko Maloney MD 01/21/25 1544 States banged left hand on end table yesterday and today it is very painful and swollen. Intact sensation and pulses, right handed. Icebag applied documented in this encounter [facility] 01-21-2025 Emergency department Triage note States banged left hand on end table yesterday and today it is very painful and swollen. Intact sensation and pulses, right handed. Icebag applied [facility] 01-21-2025 Physician Emergency department Note [facility] ED EMERGENCY DEPARTMENT ENCOUNTER Pt Name: Vinayak Montes Birthdate 1935 Date of evaluation: 01/21/2025 Provider: Cheko Maloney MD CHIEF COMPLAINT Chief Complaint Patient presents with Arm Injury HISTORY OF PRESENT ILLNESS (Location/Symptom, Timing/Onset,Context/Setting, Quality, Duration, Modifying Factors, Severity) Note limiting factors. Vinayak Montes is a 89 y.o. female who presents to the emergency department with left hand and wrist pain. Yesterday she struck it hard on a piece of furniture and feels like it is bruised and swollen hurts in the distal ulna and the dorsum of the hand. No numbness or tingling. No elbow pain. No finger pain. She did not fall. Did not bend awkwardly. No other injuries or complaints. HPI Historian is the patient Nurse's notes for past medical history, surgical history, social history were reviewed. Medications and allergies reviewed. PAST MEDICAL HISTORY Medical History[1] SURGICALHISTORY Surgical History[2] CURRENT MEDICATIONS Discharge Medication List as of 01/21/2025 3:28 PM CONTINUE these medications which have NOT CHANGED Details levothyroxine (Synthroid, Levoxyl) 25 MCG tablet Take 12.5 mcg by mouth daily., Starting 01/16/2025, Historical Med Sertraline FAMILY HISTORY Family History[3] SOCIAL HISTORY Social History[4] SCREENINGS PHYSICAL EXAM (up to 7 for level 4, 8 or more for level 5) @EDTRIAGEVSS@ Appropriate PPE including n 95, gown, gloves, goggles where worn when appropriate with this patient. Physical Exam General awake alert appropriate. Examination left upper extremity good range of motion left shoulder and elbow. Distal ulnar bruising soft tissue swelling dorsum of the hand. Normal finger tenderness normal capillary refill. Normal finger sensation. Equal pulses. No signs of dislocation. No signs of compartment syndrome no signs of arterial venous insufficiency. No signs of DVT. DIAGNOSTIC RESULTS RADIOLOGY: Interpretation per the Radiologist below, if availableat the time of this note: XR wrist 3+ views left Final Result No fracture or dislocation. Advanced osteoarthritis and chondrocalcinosis. Report Dictated on Electronically Signed By: Wilton Hinson MD Electronically Signed Date/Time: 01/21/2025 3:12 PM EDT XR hand 3+ views left Final Result No acute osseous abnormality of the left hand. Moderate osteoarthritic changes. Report Dictated on Electronically Signed By: Hal Nye DR Electronically Signed Date/Time: 01/21/2025 3:04 PM EDT ED BEDSIDE ULTRASOUND: Performed by ED Physician - none LABS: Labs Reviewed - No data to display All other labs were within normal range or not returned as of thisdictation. EMERGENCYDEPARTMENT COURSE and DIFFERENTIAL DIAGNOSIS/MDM: Vitals: Vitals: 01/21/25 1432 01/21/25 1439 BP: (!) 181/66 Pulse: 80 Resp: 14 Temp: 36.7 C (98.1 F) TempSrc: Oral SpO2: 98% Weight: 60.8 kg (134 lb) Height: 1.575 m (5' 2") Medical Decision Making Problems Addressed: Arm injury, left, initial encounter: complicated acute illness or injury Contusion of dorsum of hand: complicated acute illness or injury Thumb pain, left: complicated acute illness or injury Amount and/or Complexity of Data Reviewed Radiology: ordered. EMERGENCY DEPARTMENT COURSE and DIFFERENTIAL DIAGNOSIS/MDM: Vitals: Vitals: 01/21/25 1432 01/21/25 1439 BP: (!) 181/66 Pulse: 80 Resp: 14 Temp: 36.7 C (98.1 F) TempSrc: Oral SpO2: 98% Weight: 60.8 kg (134 lb) Height: 1.575 m (5' 2") The patient presented with a chief complaint of hand wrist pain. The differential diagnosis associated with this patient's presentation includes contusion sprain fracture dislocation. Our workup consisted of ordering/reviewing x-ray of the left hand and wrist. ED Course as of 01/21/25 1544 Mon Jan 21, 2025 1527 Will apply an Piyush wrap. Use this for comfort. Piyush wrap applied by myself. Patient is neurologically neurovascular tact after applied. Use cool compresses. Gentle range of motion. Recheck with primary care physician or family medicine 1 week return here if any problems or concerns. [GS] 1536 I did talk to the patient further as she does have swelling of her fingers but she reports she did not hit her thumb she actually hit the back of her hand along the fifth metacarpal and ulnar side. She does however have discomfort with moving her thumb. I reviewed the x-rays and I do not see any acute fracture of the thumb. I did the Piyush wrap that goes around her thumb to give a support so she can still move the thumb. She said she did not hit the thumb she did not bend the thumb awkwardly. Certainly possible that she does simply does not remember but she remembers the total event from yesterday she is not forgetting. It is likely all arthritic in nature. I considered a thumb spica splint but my concern then should be immobilized and then that would become very stiff and really limit her range of motion. I think the Piyush wrap is appropriate icing and then follow-up with family practice given or her primary care physician in 1 week. Patient agrees and understands. She does have significant arthritic changes she does have sclerosis she does have joint space loss I do not see any obvious acute fracture however in the thumb or the distal radius. Obviously close follow-up appropriate. She may need tera-ray if still having pain. Important elevate above her heart. Return here if any problems or concerns. [GS] ED Course User Index [GS] Cheko Maloney MD Diagnoses as of 01/21/25 1544 Arm injury, left, initial encounter Contusion of dorsum of hand Thumb pain, left Diagnostics considered but not indicated based on history, physical, testing: Vascular ultrasound however not clinical indicated based on history and physical External records reviewed: Patient records reviewed patient seen 01/16/2025 for hypothyroidism Radiologic diagnostics interpreted by me: film images such as CT, Ultrasound and MRI are read by the radiologist. Plain radiographic images are visualized and preliminarily interpreted by the emergency physician with the below findings: Xray(s) x-ray of the left wrist and hand no acute fracture. Discussions with other clinicians: none Chronic conditions impacting care: Hyperlipidemia osteoarthritis diverticulosis macular degeneration thyroid disease Social determinants of health affecting care: Former smoker Shared decision making: Patient agrees to treatment plan ED Medications managed: Medications - No data to display Prescription drugs prescribed: PROCEDURES: Unless otherwise noted below, none Procedures IMPRESSION 1. Arm injury, left, initial encounter 2. Contusion of dorsum of hand 3. Thumb pain, left DISPOSITION/PLAN DISPOSITION Discharge 01/21/2025 03:27:27 PM PATIENT REFERRED TO: [facility] - [address] [facility] [phone] In 1 week DISCHARGE MEDICATIONS: Discharge Medication List as of 01/21/2025 3:28 PM @[facility]([id number]:LAST:1) @ (Comment: Please notethis report has been produced using speech recognition software and may contain errors related to that system including errors in grammar, punctuation, and spelling, as well as words and phrases that may be inappropriate.If there is any questions or concerns please feel free to contact the dictating provider for clarification). Cheko Maloney MD (electronically signed) Attending Emergency Physician Cheko Maloney MD 01/21/25 1528 Cheko Maloney MD 01/21/25 1538 [1] Past Medical History: Diagnosis Date Allergic rhinitis C. difficile colitis Deviated septum Diverticulosis of colon (without mention of hemorrhage) Hyperlipidemia Macular degeneration Osteoarthritis [2] Past Surgical History: Procedure Laterality Date BUNIONECTOMY CATARACT EXTRACTION CHOLECYSTECTOMY COLONOSCOPY 2013 CYSTOSCOPY HYSTERECTOMY INTRAOCULAR LENS INSERTION Bilateral 2015 JOINT REPLACEMENT Right knee KNEE SURGERY right knee replacement OTHER SURGICAL HISTORY Clarita Bolden [3] Family History Problem Relation Name Age of Onset Other ([id number]) Mother Other ([id number]) Father Dementia Sister Heart disease Sister [4] Social History Socioeconomic History Marital status: Tobacco Use Smoking status: Former Current packs/day: 0.00 Types: Cigarettes Quit date: 06/22/1983 Years since quittin.6 Smokeless tobacco: Never Substance and Sexual Activity Alcohol use: Not Currently Cheko Maloney MD 01/21/25 1544 [facility] 01-16-2025 Evaluation + Plan note Associated Problem(s): Hypothyroidism Hypothyroidism, asymptomatic. Check TSH for evaluation. Will adjust dose of levothyroxine depending on the TSH level. Orders: levothyroxine (Synthroid, Levoxyl) 25 mcg tablet; Take 0.5 tablets (12.5 mcg) by mouth once daily. Comprehensive Metabolic Panel; Future Vitamin D 25-Hydroxy,Total (for eval of Vitamin D levels); Future TSH with reflex to Free T4 if abnormal; Future Vitamin B12; Future Folate; Future [facility] Work Phone: 01-16-2025 Evaluation + Plan note Associated Problem(s): Fatty liver disease, nonalcoholic Non alcoholic fatty liver, recommend HepB and A vaccines. no alcohol or otc meds. low fat and low cholesterol intake. regular exercise. limit fructose intake. Follow up in 6 mos Orders: Comprehensive Metabolic Panel; Future Vitamin D 25-Hydroxy,Total (for eval of Vitamin D levels); Future TSH with reflex to Free T4 if abnormal; Future Vitamin B12; Future Folate; Future [facility] Work Phone: 01-16-2025 Evaluation + Plan note Associated Problem(s): Pain of left hip Check xr. Tylenol prn for pain Orders: XR hip left with pelvis when performed 2 or 3 views; Future [facility] Work Phone: 01-16-2025 Evaluation + Plan note Associated Problem(s): Bilateral impacted cerumen debrox 4 drops to each ear every 4hr for 4-5 days and then irrigate the cerumen with water. If symptoms do not improve after the procedure, call office. [facility] Work Phone: 01-16-2025 History of Presen t illness Narrative Subjective Patient ID: Vinayak Montes is a 89 y.o. female who presents for Medicare Annual Wellness Visit Subsequent (fu). HPI pt denies having fatigue, cold or heat intolerance while on current dose of Levoxyl. No vision change, cp, heart palpitation or LE edema. No VANG, dizziness, dry skin, abd pain, dark stools, diarrhea or constipation. No wt changes. No depressed mood. Pt has had intermittent mild left hip pain. Walking made the pain worse. No injury Review of Systems Objective BP 130/69 Pulse 68 Resp 14 Ht 1.575 m (5' 2") Wt 65.3 kg (144 lb) BMI 26.34 kg/m Physical Exam NAD, well groomed, eyes: , No sclera icterus. B/l ear cerumen, neck: supple, no cervical lymphadenopathy, no thyroid enlargement. lungs: CTA b/l, heart: RRR, no LE edema, abd: soft, no tenderness, no organomegaly, BS+, normal strength and sensation at bilateral lower extremities. DTR were normal at knees, No dry skin or dry hair. No tremor. Good balance. Mild left hip tenderness, good rom, CNII-XII were grossly intact, No depressed mood Assessment/Plan Assessment & Plan Acquired hypothyroidism Hypothyroidism, asymptomatic. Check TSH for evaluation. Will adjust dose of levothyroxine depending on the TSH level. Orders: levothyroxine (Synthroid, Levoxyl) 25 mcg tablet; Take 0.5 tablets (12.5 mcg) by mouth once daily. Comprehensive Metabolic Panel; Future Vitamin D 25-Hydroxy,Total (for eval of Vitamin D levels); Future TSH with reflex to Free T4 if abnormal; Future Vitamin B12; Future Folate; Future Fatty liver disease, nonalcoholic Non alcoholic fatty liver, recommend HepB and A vaccines. no alcohol or otc meds. low fat and low cholesterol intake. regular exercise. limit fructose intake. Follow up in 6 mos Orders: Comprehensive Metabolic Panel; Future Vitamin D 25-Hydroxy,Total (for eval of Vitamin D levels); Future TSH with reflex to Free T4 if abnormal; Future Vitamin B12; Future Folate; Future Pain of left hip Check xr. Tylenol prn for pain Orders: XR hip left with pelvis when performed 2 or 3 views; Future Routine medical exam [Z00.00] Medicare wellness visit: pt was capable of performing all ADLs and IADLs. Pt has good memory and cognitive function. pt is overweight, morbidly obese. Recommend healthy diet and regular exercise. Advise eye exam by an OD yearly for glaucoma screen and dental exam every 6 months. will monitor blood pressure and weight regularly. Recommend sunscreen application if exposed to the sun when the UV index is over 2. Recommend vaccine shots as indicated in the patient's Care Gaps in Epic. recommend cologuard, HIV, hep C tests, Colonoscopy, LDCT, abdominal aorta US for screening of AAA, DEXA, mammogram. pt declined Recommend pt to clear clutters on floor at home to prevent falls. recommend to update living will and DPOA dc drinking eoth. Bilateral impacted cerumen debrox 4 drops to each ear every 4hr for 4-5 days and then irrigate the cerumen with water. If symptoms do not improve after the procedure, call office. documented in this encounter [facility] Work Phone: 01-16-2025 Miscellaneous Notes Associated Problem(s): Hypothyroidism Hypothyroidism, asymptomatic. Check TSH for evaluation. Will adjust dose of levothyroxine depending on the TSH level. Orders: levothyroxine (Synthroid, Levoxyl) 25 mcg tablet; Take 0.5 tablets (12.5 mcg) by mouth once daily. Comprehensive Metabolic Panel; Future Vitamin D 25-Hydroxy,Total (for eval of Vitamin D levels); Future TSH with reflex to Free T4 if abnormal; Future Vitamin B12; Future Folate; Future Associated Problem(s): Fatty liver disease, nonalcoholic Non alcoholic fatty liver, recommend HepB and A vaccines. no alcohol or otc meds. low fat and low cholesterol intake. regular exercise. limit fructose intake. Follow up in 6 mos Orders: Comprehensive Metabolic Panel; Future Vitamin D 25-Hydroxy,Total (for eval of Vitamin D levels); Future TSH with reflex to Free T4 if abnormal; Future Vitamin B12; Future Folate; Future Associated Problem(s): Pain of left hip Check xr. Tylenol prn for pain Orders: XR hip left with pelvis when performed 2 or 3 views; Future Associated Problem(s): Bilateral impacted cerumen debrox 4 drops to each ear every 4hr for 4-5 days and then irrigate the cerumen with water. If symptoms do not improve after the procedure, call office. documented in this encounter [facility] Work Phone: 07-26-2024 History of Presen t illness Narrative Subjective Patient ID: Vinayak Montes is a 88 y.o. female who presents for No chief complaint on file.. HPI Patient denies diarrhea, nausea, vomiting. No VANG, dizziness, imbalance, sob, cp, heart palpitation. Normal appetite. Patient had normal urination. Review of Systems Objective BP 138/71 Physical Exam A&Ox3. No acute distress. Eyes: PERRLA, EMOI, moist mouth mucosa, Lungs: CTA b/l, Heart: RRR, Abdomen: soft, no abd tenderness. No guarding or rebound, Bowel sound: +. Pt walks with a good balance. Assessment/Plan Assessment & Plan Diarrhea, unspecified Controlled. Cont colestipol at lower dose 1 gram po every day to bid. Fu in 3 mos Orders: colestipol (Colestid) 1 gram tablet; TAKE 1 TABLET bid documented in this encounter [facility] Work Phone: 04-19-2024 Evaluation + Plan note Associated Problem(s): Hypothyroidism Hypothyroidism, asymptomatic. TSH was normal. Cont the same dose of levothyroxine [facility] Work Phone: 04-19-2024 Evaluation + Plan note Associated Problem(s): Fatty liver disease, nonalcoholic LFTs were normal. Hep A and B shots. no eoth or otc meds. low fat and low cholesterol intake. regular exercise. decrease calorie intake to lose weight. limit fructose intake. [facility] Work Phone: 04-19-2024 Evaluation + Plan note Associated Problem(s): Hypokalemia K+ was normal lately. No diarrhea. Dc kcl [facility] Work Phone: 04-19-2024 Evaluation + Plan note Associated Problem(s): Diarrhea Controlled. Cont colestipol. f/u in 3 mos [facility] Work Phone: 04-19-2024 History of Presen t illness Narrative Subjective Patient ID: Vinayak Montes is a 88 y.o. female who presents for fu HPI pt denies having fatigue, cold or heat intolerance while on current dose of Levoxyl. No vision change, cp, heart palpitation or worse LE edema. No VANG, dizziness, dry skin or constipation. No diarrhea, jaundice, abd pain, dark stools, wt changes. Pt sleeps well. No depressed mood. Review of Systems Objective BP 122/67 Pulse 68 Physical Exam NAD, well groomed, eyes: , No sclera icterus. neck: supple, no cervical lymphadenopathy, no thyroid tenderness, nodules or enlargement. lungs: CTA b/l, heart: RRR, no LE edema, abd: soft, no tenderness, no organomegaly. BS+, normal strength and sensation at bilateral lower extremities. No dry skin or dry hair. No tremor. Good balance. No depressed mood Assessment/Plan Assessment & Plan Acquired hypothyroidism Hypothyroidism, asymptomatic. TSH was normal. Cont the same dose of levothyroxine Fatty liver disease, nonalcoholic LFTs were normal. Hep A and B shots. no eoth or otc meds. low fat and low cholesterol intake. regular exercise. decrease calorie intake to lose weight. limit fructose intake. Hypokalemia K+ was normal lately. No diarrhea. Dc kcl Diarrhea, unspecified type Controlled. Cont colestipol. f/u in 3 mos Patient is not sick today. Patient is not anxious about getting a shot today. Patient has never had Guillain Garcia syndrome. Patient has never felt dizzy or faint before, during, or after a shot. Patient has never had a serious reaction to influenza vaccine in the past. Patient has never had an allergy to an ingredient of influenza vaccine. Flu shot was given via IM today. documented in this encounter [facility] Work Phone: 04-19-2024 Miscellaneous Notes Associated Problem(s): Hypothyroidism Hypothyroidism, asymptomatic. TSH was normal. Cont the same dose of levothyroxine Associated Problem(s): Fatty liver disease, nonalcoholic LFTs were normal. Hep A and B shots. no eoth or otc meds. low fat and low cholesterol intake. regular exercise. decrease calorie intake to lose weight. limit fructose intake. Associated Problem(s): Hypokalemia K+ was normal lately. No diarrhea. Dc kcl Associated Problem(s): Diarrhea Controlled. Cont colestipol. f/u in 3 mos documented in this encounter [facility] Work Phone: 01-18-2024 Evaluation + Plan note Associated Problem(s): Diarrhea Controlled. Decrease colestipol to 1g bid and decrease kcl to 20 mEq po every day. Fu in 3 mos [facility] Work Phone: 01-18-2024 Miscellaneous Notes Associated Problem(s): Diarrhea Controlled. Decrease colestipol to 1g bid and decrease kcl to 20 mEq po every day. Fu in 3 mos documented in this encounter [facility] Work Phone: 01-18-2024 History of Presen t illness Narrative Subjective Patient ID: Vinayak Montes is a 88 y.o. female who presents for fu HPI K+ was normal. LFTs were normal. Diarrhea was controlled. No wt loss or dark stools. Normal appetite. Review of Systems Objective BP 134/75 Physical Exam A&Ox3. No acute distress. moist mouth mucosa, No cervical or axillary lymph node tenderness or enlargement. Lungs: CTA b/l, Heart: RRR, capillary refill was less than 2 seconds. Abdomen: soft, no abd tenderness. No guarding or rebound, Bowel sound: +. Pt walks with a good balance. Assessment/Plan Problem List Items Addressed This Visit ICD-10-CM Diarrhea - Primary R19.7 Controlled. Decrease colestipol to 1g bid and decrease kcl to 20 mEq po every day. Fu in 3 mos Relevant Orders Comprehensive Metabolic Panel documented in this encounter [facility] Work Phone: 11-01-2023 History of Presen t illness Narrative Subjective Patient ID: Vinayak Montes is a 87 y.o. female with PMH of hypothyroidism, NAFLD, appendectomy, cholecystectomy, and knee replacement who was referred by Don Moran MD PhD for Follow-up (Diarrhea for apprx 2-3 weeks - has went away./Last OV 01/20/23/Colon done 01/[address] Arias). Patient's PCP is Don Moran MD PhD HPI Patient has previously seen GI in 2022 for diarrhea. Cdiff, stool path pcr, and fecal calprotectin were all normal (09/2022). PCP checked celiac panel, CRP, and TSH which were all normal (10/2022). Pancreatic elastase was normal (12/2022). Colonoscopy was completed 01/28/[address] Arias and showed diverticulosis and otherwise normal colon. Random biopsies were negative for colitis. She had associated weight loss with diarrhea last year which she has since gained back. Her diarrhea resolved last year and she has been doing well. Unfortunately, she developed diarrhea again in August 2023. This has been intermittent and will occur 4-5 days in a row, then subside. She has not had diarrhea in the last week. She states stools are "loosely formed", but previously it was "straight water". She was started on colestid 2g daily by her PCP. This has helped somewhat but she still has diarrhea intermittently. She denies any recent weight loss. No nausea, vomiting, abdominal pain, bloating, constipation, melena, or hematochezia. Summary of endoscopies: - Colonoscopy 10/2012: diverticulosis, otherwise normal colon - Colonoscopy 01/2023: diverticulosis, otherwise normal colon. Random biopsies negative for colitis Social Hx: Tobacco: none Etoh: rare Recreational drug use: none NSAIDs: none Family Hx: No GI malignancy, IBD, or pancreatitis Review of Systems: Review of Systems Constitutional: Negative for chills and fever. HENT: Negative for sore throat and trouble swallowing. Respiratory: Negative for cough and shortness of breath. Cardiovascular: Negative for chest pain and palpitations. Gastrointestinal: SEE HPI Endocrine: Negative for cold intolerance and heat intolerance. Genitourinary: Negative for difficulty urinating. Musculoskeletal: Negative for arthralgias and joint swelling. Skin: Negative for rash and wound. Neurological: Negative for dizziness and weakness. Hematological: Negative for adenopathy. Does not bruise/bleed easily. Psychiatric/Behavioral: Negative for confusion. Medications: Prior to Admission medications Medication Sig Start Date End Date Taking? Authorizing Provider colestipol (Colestid) 1 gram tablet TAKE 2 TABLETS BY MOUTH EVERY MORNING AND 2 TABLETS AT BEDTIME. TAKE AT LEAST 1 HOUR AFTER OR 4 HOURS BEFORE OTHER MEDICATIONS 10/18/23 Don Moran MD PhD levothyroxine (Synthroid, Levoxyl) 25 mcg tablet Take 0.5 tablets (12.5 mcg) by mouth once daily. 10/18/23 Don Moran MD PhD loperamide (Imodium A-D) 2 mg tablet Take 1 tablet (2 mg) by mouth 4 times a day as needed for diarrhea for up to 10 days. 11/01/23 11/11/23 REAL Barone potassium chloride CR 20 mEq ER tablet Take 1 tablet (20 mEq) by mouth 2 times a day. Do not crush, chew, or split. 10/18/23 10/17/24 Don Moran MD PhD Allergies: Patient has no known allergies. Past Medical History: She has a past medical history of Personal history of other specified conditions. Past Surgical History: She has a past surgical history that includes Other surgical history (07/03/2020); Other surgical history (07/03/2020); Other surgical history (07/03/2020); Other surgical history (07/03/2020); Other surgical history (07/03/2020); Other surgical history (07/03/2020); Other surgical history (07/03/2020); Other surgical history (07/03/2020); CT angio head w and wo IV contrast (06/05/2019); MR angio head wo IV contrast (06/06/2019); and MR angio neck wo IV contrast (06/06/2019). Social History: She reports that she has never smoked. She has never used smokeless tobacco. She reports that she does not drink alcohol and does not use drugs. Objective Physical exam: Physical Exam Constitutional: General: She is not in acute distress. Appearance: Normal appearance. HENT: Mouth/Throat: Mouth: Mucous membranes are moist. Comments: pink Eyes: Conjunctiva/sclera: Conjunctivae normal. Pupils: Pupils are equal, round, and reactive to light. Cardiovascular: Rate and Rhythm: Normal rate and regular rhythm. Heart sounds: No murmur heard. Pulmonary: Effort: Pulmonary effort is normal. Breath sounds: Normal breath sounds. Abdominal: General: Bowel sounds are normal. There is no distension. Palpations: Abdomen is soft. Tenderness: There is no abdominal tenderness. There is no guarding. Skin: General: Skin is warm and dry. Coloration: Skin is not jaundiced. Neurological: Mental Status: She is alert and oriented to person, place, and time. Psychiatric: Mood and Affect: Mood normal. Behavior: Behavior normal. Assessment/Plan Diarrhea Similar symptoms last year and extensive work up was negative. Diarrhea eventually resolved but returned in August. It has been occurring intermittently but is seemingly starting to improve again. Currently on colestid 2g daily per PCP. Will add imodium 2mg as needed. Stressed importance of not using imodium with formed stools due to risk of constipation/obstruction in combination with the colestid. Also instructed to keep a food diary and discussed a low FOD-MAPs diet. May consider SIBO testing vs treating for IBS-D with xifaxan in the future. Will have patient follow up in 6 weeks. REAL Barone documented in this encounter [facility] Work Phone: 11-01-2023 Instructions REAL Barone - 11/01/2023 1:30 PM EDT Thank you for coming to your appointment today - Try the low FOD-MAPs diet that I gave you - Keep a food diary to help identify triggering foods - continue the colestipol - I will send imodium to use as needed. Do not use this if you are having formed stools. This in combination with the colestipol will increase the risk of constipation/fecal impaction. Please be careful with this medication - If no improvement of symptoms, we may consider something called xifaxan - Follow up 6-8 weeks Please call [phone] with any questions or concerns If you utilize [employer] messages, please understand that these are intended to be used for simple and straightforward medical questions. If you have a more complex question or numerous complaints, an office appointment may be needed. documented in this encounter [facility] Work Phone: 10-18-2023 Evaluation + Plan note Associated Problem(s): Hypokalemia Cont kcl. Will monitor K+ [facility] Work Phone: 10-18-2023 Miscellaneous Notes Associated Problem(s): Hypokalemia Cont kcl. Will monitor K+ Associated Problem(s): Diarrhea Intermittent. Cont colestipol. Gi eval Associated Problem(s): Hypothyroidism Hypothyroidism, asymptomatic. Check TSH for evaluation. Will adjust dose of levothyroxine depending on the TSH level. Associated Problem(s): Dyslipidemia Hyperlipidemia, not on statin. check labs for evaluation. Health diet and regular exercise. f/u in 3 mos. documented in this encounter [facility] Work Phone: 10-18-2023 Evaluation + Plan note Associated Problem(s): Diarrhea Intermittent. Cont colestipol. Gi eval [facility] Work Phone: 10-18-2023 Evaluation + Plan note Associated Problem(s): Hypothyroidism Hypothyroidism, asymptomatic. Check TSH for evaluation. Will adjust dose of levothyroxine depending on the TSH level. [facility] Work Phone: 10-18-2023 Evaluation + Plan note Associated Problem(s): Dyslipidemia Hyperlipidemia, not on statin. check labs for evaluation. Health diet and regular exercise. f/u in 3 mos. [facility] Work Phone: 10-18-2023 History of Presen t illness Narrative Subjective Patient ID: Vinayak Montes is a 87 y.o. female who presents for Medicare Annual Wellness Visit Subsequent (fu). HPI Patient cont to have intermittent loose stools. No pus or blood in the stools. No fever or chills. No nausea, abdominal cramping, vomiting. No VANG, dizziness, imbalance, sob, cp, heart palpitation or cough. pt had normal appetite. Patient was able to keep food and fluid down. Patient had normal urination. pt denies having fatigue, cold or heat intolerance while on current dose of Levoxyl. No vision change, dry skin or constipation. No wt changes. Pt sleeps well. No depressed mood. No jaundice or weakenss Review of Systems Objective BP 140/70 Pulse 68 Resp 14 Ht 1.575 m (5' 2") Wt 63.5 kg (140 lb) BMI 25.61 kg/m Physical Exam A&Ox3. No acute distress. Eyes: PERRLA, EMOI, moist mouth mucosa, no nasal discharge, No erythematous pharynx. No cervical or axillary lymph node tenderness or enlargement. Neck is supple. No thyroid nodules, Lungs: CTA b/l, Heart: RRR, capillary refill was less than 2 seconds. Abdomen: soft, no abd tenderness. No guarding or rebound, no organomegaly, Bowel sound: +. Pt walks with a good balance. No dry skin or hair. Good mood and memory Assessment/Plan Problem List Items Addressed This Visit ICD-10-CM Dyslipidemia - Primary E78.5 Hyperlipidemia, not on statin. check labs for evaluation. Health diet and regular exercise. f/u in 3 mos. Relevant Orders Lipid Panel Hypothyroidism E03.9 Hypothyroidism, asymptomatic. Check TSH for evaluation. Will adjust dose of levothyroxine depending on the TSH level. Relevant Orders TSH with reflex to Free T4 if abnormal Diarrhea R19.7 Intermittent. Cont colestipol. Gi eval Relevant Orders CBC TSH with reflex to Free T4 if abnormal Referral to Gastroenterology Fatty liver disease, nonalcoholic K76.0 Relevant Orders Comprehensive Metabolic Panel Hypokalemia E87.6 Cont kcl. Will monitor K+ Relevant Orders Comprehensive Metabolic Panel Other Visit Diagnoses Codes Routine medical exam Z00.00 Medicare wellness visit: pt was capable of performing all his ADLs and IADLs. Pt has good memory and cognitive function. Advise eye exam by an OD yearly for glaucoma screen and dental exam every 6 months. check lipids. will monitor blood pressure, cholesterol levels and weight regularly. Recommend shingle vaccines, hep B/A vaccine, tetanus vaccine shot. Recommend pt to clear throw rugs at home and keep good lighting at night to avoid falls. Keep hot water for shower below 120F to avoid burn injury. recommend grab bar at bathtub. pt stated that he had been taking all current medications as prescribed. Non alcoholic fatty liver, recommend HepB and A vaccines. no eoth or otc meds. low fat and low cholesterol intake. regular exercise. limit fructose intake. Pt declined hepatology eval. f/u in 3 mos documented in this encounter [facility] Work Phone: 05-19-2023 Miscellaneous Notes CALLED AND INFORMED THE PT OF THE RESULTS OR LEFT A MESSAGE documented in this encounter [facility] Work Phone: 05-19-2023 Progress note Formatting of t his note might be different from the original. CALLED AND INFORMED THE PT OF THE RESULTS OR LEFT A MESSAGE [facility] Work Phone: 04-19-2023 Evaluation + Plan note Associated Problem(s): Hypothyroidism Hypothyroidism, asymptomatic. Check TSH for evaluation. Will adjust dose of levothyroxine depending on the TSH level. [facility] Work Phone: 04-19-2023 Evaluation + Plan note Associated Problem(s): Diarrhea Controlled. Cont colestipol [facility] Work Phone: 04-19-2023 Miscellaneous Notes Associated Problem(s): Hypothyroidism Hypothyroidism, asymptomatic. Check TSH for evaluation. Will adjust dose of levothyroxine depending on the TSH level. Associated Problem(s): Diarrhea Controlled. Cont colestipol Associated Problem(s): Fatty liver disease, nonalcoholic Non alcoholic fatty liver, recommend HepB and A vaccines. no eoth or otc meds. low fat and low cholesterol intake. regular exercise. Check liver us Associated Problem(s): Hypokalemia On kcl. Check labs documented in this encounter [facility] Work Phone: 04-19-2023 Evaluation + Plan note Associated Problem(s): Fatty liver disease, nonalcoholic Non alcoholic fatty liver, recommend HepB and A vaccines. no eoth or otc meds. low fat and low cholesterol intake. regular exercise. Check liver us [facility] Work Phone: 04-19-2023 Evaluation + Plan note Associated Problem(s): Hypokalemia On kcl. Check labs [facility] Work Phone: 04-19-2023 History of Presen t illness Narrative Subjective Patient ID: Vinayak Montes is a 87 y.o. female who presents for fu HPI Diarrhea was controlled. no nausea, vomiting, abd pain, jaundice, hematemesis, dark or bloody stools. no wt loss. pt denies having fatigue, cold or heat intolerance while on current dose of Levoxyl. No vision change, cp, heart palpitation or LE edema. No VANG, dizziness, dry skin or constipation. No wt changes. Pt sleeps well. No depressed mood. Review of Systems Objective BP 132/57 Pulse 76 Physical Exam NAD, well groomed, eyes: , No sclera icterus. neck: supple, no cervical lymphadenopathy, no thyroid tenderness, nodules or enlargement. lungs: CTA b/l, heart: RRR, no LE edema, abd: soft, no tenderness, no organomegaly, BS+, normal strength and sensation at bilateral lower extremities. DTR were normal at knees, No dry skin or dry hair. No tremor. Good balance. CNII-XII were grossly intact, No depressed mood Assessment/Plan Problem List Items Addressed This Visit Hypothyroidism - Primary Hypothyroidism, asymptomatic. Check TSH for evaluation. Will adjust dose of levothyroxine depending on the TSH level. Diarrhea Controlled. Cont colestipol Fatty liver disease, nonalcoholic Non alcoholic fatty liver, recommend HepB and A vaccines. no eoth or otc meds. low fat and low cholesterol intake. regular exercise. Check liver us Relevant Orders Comprehensive Metabolic Panel US abdomen limited liver Hypokalemia On kcl. Check labs Relevant Medications levothyroxine (Synthroid, Levoxyl) 25 mcg tablet documented in this encounter [facility] Work Phone: 01-28-2023 Note Patient Name: Atiya Montes Procedure Date: 01/28/2023 10:09 AM Date of : 1935 Admit Type: Outpatient Site: [facility] Ethnicity: Not or Race: White Attending MD: Mann Arias MD, [id number] Procedure: Colonoscopy Indications: Clinically significant diarrhea of unexplained origin Comorbidities: Hypothyroidism and NAFLD. Patient Profile: This is an 87 year old female who has had persistent diarrhea and weight loss. Imaging (CT) suggested sigmoid/rectal wall thickening. Last colonoscoy in 2012 showed diverticulosis, but was otherwise normal. Providers: Mann Arias MD (Doctor) Referring: Don Moran MD, PhD Provider Care Team: Kristi Doyle NP Medicines: Monitored Anesthesia Care Complications: No immediate complications. Procedure: Pre-Anesthesia Assessment: - Prior to the procedure, a History and Physical was performed, and patient medications and allergies were reviewed. The patient is competent. The risks and benefits of the procedure and the sedation options and risks were discussed with the patient. All questions were answered and informed consent was obtained. Patient identification and proposed procedure were verified by the physician, the nurse, the associate professor of chemistry and the domestic technician in the pre-procedure area in the procedure room. Mental Status Examination: alert and oriented. Airway Examination: normal oropharyngeal airway and neck mobility and Mallampati Class II (the uvula but not tonsillar pillars visualized). Respiratory Examination: clear to auscultation. CV Examination: normal. Prophylactic Antibiotics: The patient does not require prophylactic antibiotics. Prior Anticoagulants: The patient has taken no anticoagulant or antiplatelet agents. ASA Grade Assessment: II - A patient with mild systemic disease. After reviewing the risks and benefits, the patient was deemed in satisfactory condition to undergo the procedure. The anesthesia plan was to use monitored anesthesia care (MAC). Immediately prior to administration of medications, the patient was re-assessed for adequacy to receive sedatives. The heart rate, respiratory rate, oxygen saturations, blood pressure, adequacy of pulmonary ventilation, and response to care were monitored throughout the procedure. The physical status of the patient was re-assessed after the procedure. After I obtained informed consent, the scope was passed under direct vision. Throughout the procedure, the patient's blood pressure, pulse, and oxygen saturations were monitored continuously. The Colonoscope was introduced through the anus and advanced to the terminal ileum. The colonoscopy was performed without difficulty. The patient tolerated the procedure well. The quality of the bowel preparation was evaluated using the BBPS ([place] Bowel Preparation Scale) with scores of: Right Colon = 2 (minor amount of residual staining, small fragments of stool and/or opaque liquid, but mucosa seen well), Transverse Colon = 2 (minor amount of residual staining, small fragments of stool and/or opaque liquid, but mucosa seen well) and Left Colon = 2 (minor amount of residual staining, small fragments of stool and/or opaque liquid, but mucosa seen well). The total BBPS score equals 6. The quality of the bowel preparation was good. Findings: The terminal ileum appeared normal. Normal mucosa was found in the entire colon. Biopsies for histology were taken with a cold forceps from the entire colon for evaluation of microscopic colitis. Verification of patient identification for the specimen was done by the physician, abdi (more content not included)... [facility] 01-28-2023 Note History of Present I llness: History Present Illness: Reason for surgery: diarrhea HPI: Vinayak Montes is an 86 year female with a history of hypothyroidism, NAFLD, and HLD who presents for colonoscopy to evaluate diarrhea. PCP is Don Moran MD, PhD Patient was hospitalized in September [address] A/P showed mild thickening of the sigmoid colon and rectum, a 1.9cm liver lesion, and a CBD of 13mm (previously 9mm). GI saw her inpatient; outpatient colonoscopy and MRCP were recommended, though patient did not follow up. Cdiff, stool path pcr, and fecal calprotectin were all normal (09/2022). PCP checked celiac panel, CRP, TSH, and AFP, which were all normal (10/2022). She went to ER in November 2022 for worsening diarrhea. Cdiff and stool path pcr were again normal (11/2022). CT A/P during this ER visit showed no liver lesion, CBD measuring 8mm, evidence of intrahepatic ductal dilation, mild small bowel thickening, fluid filled colon, and incidental adrenal lesions. CBC was remarkable for leukocytosis of 21.8. Patient reports having persistent diarrhea for about 2.5 months. She was given Augmentin in the ER at her visit in November, and reports that after taking this she has felt better overall. She has lost 24 lbs in the last few months unintentionally. She denies any abdominal pain, rectal pain, or rectal bleeding. She has been using colestipol TID since October, but states it did not help her diarrhea. Her last colonoscopy was in 2012 and revealed diverticulosis, but was otherwise normal. She did have a negative cologuard in 2020. ROS I performed a complete 10 point review of systems and it is negative except as noted in HPI. All other systems have been reviewed and are negative. 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 Levothyroxine Sodium 25 MCG Oral TabletTAKE 0.5 TABLET Daily Potassium TABS Allergies: Allergies: No Known Allergies: Home Medication Review: Home Medications Reviewed: no Impression/Procedure: Impression and Planned Procedure: colonoscopy for diarrhea ERAS (Enhanced Recovery After Surgery): ERAS Patient: no Physical Exam by System: Constitutional: Resting in bed, NAD ENMT: HEENT: NC/AT, oropharynx clear Respiratory/Thorax: CTAB Cardiovascular: RRR no MRG Gastrointestinal: Good bowel sounds throughout, soft, NT/ND Extremities: No edema Neurological: A&Ox3, strength and sensation grossly intact bilaterally Psychological: appropriate mood and affect Skin: No jaundice, spider angiomas, adamson erythema Consent: COVID-19 Consent: COVID-19 Risk ConsentSurgeon has reviewed rawls risks related to the risk of rosalina COVID-19 and if they contract COVID-19 what the risks are. Electronic Signatures: Mann Arias) (Signed 28-Jan-2023 10:09) Authored: History of Present Illness, Allergies, Home Medication Review, Impression/Procedure, ERAS, Physical Exam, Consent, Note Completion Last Updated: 28-Jan-2023 10:09 by Mann Arias) [facility] 01-28-2023 History and physical note History of Present Illness: History Present Illness: Reason for surgery: diarrhea HPI: Vinayak Montes is an 86 year female with a history of hypothyroidism, NAFLD, and HLD who presents for colonoscopy to evaluate diarrhea. PCP is Don Moran MD, PhD Patient was hospitalized in September [address] A/P showed mild thickening of the sigmoid colon and rectum, a 1.9cm liver lesion, and a CBD of 13mm (previously 9mm). GI saw her inpatient; outpatient colonoscopy and MRCP were recommended, though patient did not follow up. Cdiff, stool path pcr, and fecal calprotectin were all normal (09/2022). PCP checked celiac panel, CRP, TSH, and AFP, which were all normal (10/2022). She went to ER in November 2022 for worsening diarrhea. Cdiff and stool path pcr were again normal (11/2022). CT A/P during this ER visit showed no liver lesion, CBD measuring 8mm, evidence of intrahepatic ductal dilation, mild small bowel thickening, fluid filled colon, and incidental adrenal lesions. CBC was remarkable for leukocytosis of 21.8. Patient reports having persistent diarrhea for about 2.5 months. She was given Augmentin in the ER at her visit in November, and reports that after taking this she has felt better overall. She has lost 24 lbs in the last few months unintentionally. She denies any abdominal pain, rectal pain, or rectal bleeding. She has been using colestipol TID since October, but states it did not help her diarrhea. Her last colonoscopy was in 2012 and revealed diverticulosis, but was otherwise normal. She did have a negative cologuard in 2020. JUAN I performed a complete 10 point review of systems and it is negative except as noted in HPI. All other systems have been reviewed and are negative. 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 Levothyroxine Sodium 25 MCG Oral Tablet TAKE 0.5 TABLET Daily Potassium TABS Allergies: Allergies: No Known Allergies : Home Medication Review: Home Medications Reviewed: no Impression/Procedure: Impression and Planned Procedure: colonoscopy for diarrhea ERAS (Enhanced Recovery After Surgery): ERAS Patient: no Physical Exam by System: Constitutional: Resting in bed, NAD ENMT: HEENT: NC/AT, oropharynx clear Respiratory/Thorax: CTAB Cardiovascular: RRR no MRG Gastrointestinal: Good bowel sounds throughout, soft, NT/ND Extremities: No edema Neurological: A&Ox3, strength and sensation grossly intact bilaterally Psychological: appropriate mood and affect Skin: No jaundice, spider angiomas, adamson erythema Consent: COVID-19 Consent: COVID-19 Risk Consent Surgeon has reviewed rawls risks related to the risk of rosalina COVID-19 and if they contract COVID-19 what the risks are. Electronic Signatures: Mann Arias) (Signed 28-Jan-2023 10:09) Authored: History of Present Illness, Allergies, Home Medication Review, Impression/Procedure, ERAS, Physical Exam, Consent, Note Completion Last Updated: 28-Jan-2023 10:09 by Mann Arias) [facility] Work Phone: 01-28-2023 History and physical note History of Present Illness: History Present Illness: Reason for surgery: diarrhea HPI: Vinayak Montes is an 86 year female with a history of hypothyroidism, NAFLD, and HLD who presents for colonoscopy to evaluate diarrhea. PCP is Don Moran MD, PhD Patient was hospitalized in September [address] A/P showed mild thickening of the sigmoid colon and rectum, a 1.9cm liver lesion, and a CBD of 13mm (previously 9mm). GI saw her inpatient; outpatient colonoscopy and MRCP were recommended, though patient did not follow up. Cdiff, stool path pcr, and fecal calprotectin were all normal (09/2022). PCP checked celiac panel, CRP, TSH, and AFP, which were all normal (10/2022). She went to ER in November 2022 for worsening diarrhea. Cdiff and stool path pcr were again normal (11/2022). CT A/P during this ER visit showed no liver lesion, CBD measuring 8mm, evidence of intrahepatic ductal dilation, mild small bowel thickening, fluid filled colon, and incidental adrenal lesions. CBC was remarkable for leukocytosis of 21.8. Patient reports having persistent diarrhea for about 2.5 months. She was given Augmentin in the ER at her visit in November, and reports that after taking this she has felt better overall. She has lost 24 lbs in the last few months unintentionally. She denies any abdominal pain, rectal pain, or rectal bleeding. She has been using colestipol TID since October, but states it did not help her diarrhea. Her last colonoscopy was in 2012 and revealed diverticulosis, but was otherwise normal. She did have a negative cologuard in 2020. ROS I performed a complete 10 point review of systems and it is negative except as noted in HPI. All other systems have been reviewed and are negative. 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 Levothyroxine Sodium 25 MCG Oral Tablet TAKE 0.5 TABLET Daily Potassium TABS Allergies: Allergies: No Known Allergies : Home Medication Review: Home Medications Reviewed: no Impression/Procedure: Impression and Planned Procedure: colonoscopy for diarrhea ERAS (Enhanced Recovery After Surgery): ERAS Patient: no Physical Exam by System: Constitutional: Resting in bed, NAD ENMT: HEENT: NC/AT, oropharynx clear Respiratory/Thorax: CTAB Cardiovascular: RRR no MRG Gastrointestinal: Good bowel sounds throughout, soft, NT/ND Extremities: No edema Neurological: A&Ox3, strength and sensation grossly intact bilaterally Psychological: appropriate mood and affect Skin: No jaundice, spider angiomas, adamson erythema Consent: COVID-19 Consent: COVID-19 Risk Consent Surgeon has reviewed rawls risks related to the risk of rosalina COVID-19 and if they contract COVID-19 what the risks are. Electronic Signatures: Mann Arias) (Signed 28-Jan-2023 10:09) Authored: History of Present Illness, Allergies, Home Medication Review, Impression/Procedure, ERAS, Physical Exam, Consent, Note Completion Last Updated: 28-Jan-2023 10:09 by Mann Arias) documented in this encounter [facility] Work Phone: 01-14-2023 Evaluation + Plan note Associated Problem(s): Diarrhea Intermittent. Cont colestipol. Fu with gi [facility] Work Phone: 01-14-2023 Evaluation + Plan note Associated Problem(s): Hypokalemia On kcl. K+ was normal. Cont the same [facility] Work Phone: 01-14-2023 Evaluation + Plan note Associated Problem(s): Hypothyroidism Hypothyroidism, asymptomatic. TSH was wnl. Cont current dose of levothyroxine [facility] Work Phone: 01-14-2023 Miscellaneous Notes Associated Problem(s): Diarrhea Intermittent. Cont colestipol. Fu with gi Associated Problem(s): Hypokalemia On kcl. K+ was normal. Cont the same Associated Problem(s): Hypothyroidism Hypothyroidism, asymptomatic. TSH was wnl. Cont current dose of levothyroxine documented in this encounter [facility] Work Phone: 01-14-2023 History of Presen t illness Narrative Subjective Patient ID: Vinayak Montes is a 87 y.o. female who presents for fu HPI pt denies having fatigue, cold or heat intolerance while on current dose of Levoxyl. No vision change, cp, heart palpitation or LE edema. No VANG, dizziness, dry skin or constipation. Pt cont to have intermittent diarrhea. K+ was normal while on kcl supplement. No wt changes. Pt sleeps well. No depressed mood. Review of Systems Objective BP 113/68 Pulse 68 Physical Exam NAD, well groomed, no cervical lymphadenopathy, no thyroid tenderness, nodules or enlargement. lungs: CTA b/l, heart: RRR, no LE edema, abd: soft, no tenderness, BS+, normal strength and sensation at bilateral lower extremities. DTR were normal at knees, No dry skin or dry hair. No tremor. Good balance. CNII-XII were grossly intact, No depressed mood Assessment/Plan documented in this encounter [facility] Work Phone: 12-13-2022 History of Presen t illness Narrative VINAYAK MONTES is a 87 year female with past medical history of hypothyroidism, NAFLD, appendectomy, cholecystectomy, and knee replacement who presents for EGD/colonoscopy follow up.PCP is Don Moran MD, PhDPatient initially seen in this office in December 2022 for diarrhea. She was hospitalized in September [address] A/P showed mild thickening of the sigmoid colon and rectum, a 1.9cm liver lesion, and a CBD of 13mm (previously 9mm). GI saw her inpatient; outpatient colonoscopy and MRCP were recommended, though patient did not follow up. Cdiff, stool path pcr, and fecal calprotectin were all normal (09/2022). PCP checked celiac panel, CRP, TSH, and AFP, which were all normal (10/2022). She went to ER in November 2022 for worsening diarrhea. Cdiff and stool path pcr were again normal (11/2022). CT A/P during this ER visit showed no liver lesion, CBD measuring 8mm, evidence of intrahepatic ductal dilation, mild small bowel thickening, fluid filled colon, and incidental adrenal lesions. CBC was remarkable for leukocytosis of 21.8. At her appointment in December, she reported overall improvement in diarrhea but a weight loss of 24lbs unintentionally. Pancreatic elastase was normal (12/2022). Colonoscopy was completed 01/28/[address] Arias and showed diverticulosis and otherwise normal colon. Random biopsies were negative for colitis. MRCP (01/2023) showed no specific liver lesion, mild CBD dilation of 10mm likely related to cholecystectomy, and small bilateral adrenal lesions measuring 19mm (L) and 16mm (R).Patient has been doing very well and her diarrhea has resolved. She has been having a formed BM every day. She is started to gain weight back and has gained 5lbs so far. She is eating whatever she likes without fear of worsening symptoms. She denies any N/V, abdominal pain, melena, hematochezia, or constipation.Summary of endoscopies:- Colonoscopy 10/2012: diverticulosis, otherwise normal colon- Colonoscopy 01/2023: diverticulosis, otherwise normal colonSocial Hx:tobacco: noneetoh: rareillicit drug use: noneNSAIDs: noneFamily Hx:No GI malignancy, IBD, or pancreatitis -[facility] [address] DO Work Phone: 11-17-2022 History of Presen t illness Narrative Subjective Patient ID: Vinayak Montes is a 86 y.o. female who presents for Hospital Follow-up. HPI Diarrhea with occ dark stools recurred in the past week. No nausea or abd pain. Normal appetite. Pt had wt loss. Colestipol helped relief partially Review of Systems Objective BP 112/67 Pulse 72 Wt 56.7 kg (125 lb) BMI 23.24 kg/m Physical Exam No acute distress. Eyes: PERRLA, EMOI, moist mouth mucosa, no nasal discharge, No erythematous pharynx. No thyroid enlargement. No cervical or axillary lymph node tenderness or enlargement. Neck is supple. Lungs: CTA b/l, Heart: RRR, capillary refill was less than 2 seconds. Abdomen: soft, no abd tenderness. No guarding or rebound, Bowel sound: +. Pt walks with a good balance. Assessment/Plan Problem List Items Addressed This Visit None Visit Diagnoses Diarrhea, unspecified Relevant Medications colestipol (Colestid) 1 gram tablet Other Relevant Orders CBC Comprehensive Metabolic Panel TSH with reflex to Free T4 if abnormal Celiac Panel Referral to Gastroenterology Persistent diarrhea with dark stools and wt loss. GI eval. Cont colestipol for now.. increase fluid intake documented in this encounter [facility] Work Phone: 10-21-2022 Note Reference Documentat ion See scanned note Procedure Note: 10/21/22. Results/Data This is an abnormal study with the following findings: 1. 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 Mild, chronic, right lower cervical radiculopathy (possibly C7) with no active denervation 3. 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 Dr Dolan Signatures Electronically signed by : Darian Dolan MD; Oct 21 2022 9:35AM EST (Author) [facility] 09-15-2022 History of Presen t illness Narrative VINAYAK MONTES is a 86 year female with past medical history of hypothyroidism, NAFLD, appendectomy, cholecystectomy, and knee replacement who presents for consultation requested by her PCP for evaluation of diarrheaPCP is Don Moran MD, PhDPatient was hospitalized in September [address] A/P showed mild thickening of the sigmoid colon and rectum, a 1.9cm liver lesion, and a CBD of 13mm (previously 9mm). GI saw her inpatient; outpatient colonoscopy and MRCP were recommended, though patient did not follow up. Cdiff, stool path pcr, and fecal calprotectin were all normal (09/2022). PCP checked celiac panel, CRP, TSH, and AFP, which were all normal (10/2022).She went to ER in November 2022 for worsening diarrhea. Cdiff and stool path pcr were again normal (11/2022). CT A/P during this ER visit showed no liver lesion, CBD measuring 8mm, evidence of intrahepatic ductal dilation, mild small bowel thickening, fluid filled colon, and incidental adrenal lesions. CBC was remarkable for leukocytosis of 21.8.Patient reports having persistent diarrhea for about 2.5 months. She was given Augmentin in the ER at her visit in November, and reports that after taking this she has felt better overall for the last 2-3 weeks. She did have an episode of diarrhea about 10 days ago when she had 3 loose BMs overnight. Prior to the last 2-3 weeks, she was having multiple BMs per day that would wake her up at night. She has lost 24 lbs in the last few months unintentionally. She denies any abdominal pain, rectal pain, or rectal bleeding. She has been using colestipol TID since October, but states it did not help her diarrhea. She was having some N/V a couple months ago that has resolved. She otherwise denies dysphagia, odynophagia, reflux, melena, or hematochezia.Her last colonoscopy was in 2012. She did have a negative cologuard in 2020.Summary of endoscopies:- Colonoscopy 10/2012: diverticulosis, otherwise normal colonSocial Hx:tobacco: noneetoh: rareillicit drug use: noneNSAIDs: noneFamily Hx:No GI malignancy, IBD, or pancreatitis -[facility] Work Phone: Evaluation note Diagnosis Diarrhea, unspecified documented in this encounter [facility] Work Phone: Evaluation note* Diagnosis Diarrhea, unspecified type- Primary Hypokalemia Hypopotassemia Acquired hypothyroidism Unspecified hypothyroidism documented in this encounter [facility] Work Phone: Evaluation note* Diagnosis Acquired hypothyroidism- Primary Unspecified hypothyroidism Fatty liver disease, nonalcoholic Diarrhea, unspecified type Hypokalemia Hypopotassemia documented in this encounter [facility] Work Phone: Evaluation note* Diagnosis Fatty liver disease, nonalcoholic documented in this encounter [facility] Work Phone: Evaluation note* Diagnosis Diarrhea, unspecified Hypothyroidism, unspecified Fatty (change of) liver, not elsewhere classified Diverticulosis of large intestine without perforation or abscess without bleeding Hyperlipidemia, unspecified Acquired absence of other specified parts of digestive tract Acquired absence of both cervix and uterus documented in this encounter [facility] Work Phone: Evaluation note* Diagnosis Dyslipidemia- Primary Other and unspecified hyperlipidemia Acquired hypothyroidism Unspecified hypothyroidism Diarrhea, unspecified type Fatty liver disease, nonalcoholic Hypokalemia Hypopotassemia Routine medical exam Routine general medical examination at a health care facility documented in this encounter [facility] Work Phone: Evaluation note* Diagnosis Diarrhea, unspecified type documented in this encounter [facility] Work Phone: Evaluation note* Diagnosis Diarrhea, unspecified type- Primary documented in this encounter [facility] Work Phone: Evaluation note* Diagnosis Diarrhea, unspecified type- Primary Hypokalemia Hypopotassemia Acquired hypothyroidism Unspecified hypothyroidism Acquired hypothyroidism- Primary Unspecified hypothyroidism Fatty liver disease, nonalcoholic Diarrhea, unspecified type Hypokalemia Hypopotassemia Dyslipidemia- Primary Other and unspecified hyperlipidemia Acquired hypothyroidism Unspecified hypothyroidism Diarrhea, unspecified type Fatty liver disease, nonalcoholic Hypokalemia Hypopotassemia Routine medical exam Routine general medical examination at a health care facility Diarrhea, unspecified type- Primary Acquired hypothyroidism- Primary Unspecified hypothyroidism Fatty liver disease, nonalcoholic Hypokalemia Hypopotassemia Diarrhea, unspecified type Diarrhea, unspecified documented in this encounter [facility] Work Phone: Evaluation note* Diagnosis Diarrhea, unspecified type- Primary Hypokalemia Hypopotassemia Acquired hypothyroidism Unspecified hypothyroidism Acquired hypothyroidism- Primary Unspecified hypothyroidism Fatty liver disease, nonalcoholic Diarrhea, unspecified type Hypokalemia Hypopotassemia Dyslipidemia- Primary Other and unspecified hyperlipidemia Acquired hypothyroidism Unspecified hypothyroidism Diarrhea, unspecified type Fatty liver disease, nonalcoholic Hypokalemia Hypopotassemia Routine medical exam Routine general medical examination at a health care facility Diarrhea, unspecified type- Primary Acquired hypothyroidism- Primary Unspecified hypothyroidism Fatty liver disease, nonalcoholic Hypokalemia Hypopotassemia Diarrhea, unspecified type documented in this encounter [facility] Work Phone: Evaluation note* Diagnosis Arm injury, left, initial encounter- Primary Contusion of dorsum of hand Thumb pain, left [facility] Diarrhea, unspecified type- Primary Hypokalemia Hypopotassemia Acquired hypothyroidism Unspecified hypothyroidism Acquired hypothyroidism- Primary Unspecified hypothyroidism Fatty liver disease, nonalcoholic Diarrhea, unspecified type Hypokalemia Hypopotassemia Dyslipidemia- Primary Other and unspecified hyperlipidemia Acquired hypothyroidism Unspecified hypothyroidism Diarrhea, unspecified type Fatty liver disease, nonalcoholic Hypokalemia Hypopotassemia Routine medical exam Routine general medical examination at a health care facility Acquired hypothyroidism- Primary Unspecified hypothyroidism Fatty liver disease, nonalcoholic Hypokalemia Hypopotassemia Diarrhea, unspecified type Acquired hypothyroidism- Primary Unspecified hypothyroidism Fatty liver disease, nonalcoholic Pain of left hip Routine medical exam [Z00.00] Routine general medical examination at a health care facility Bilateral impacted cerumen Impacted cerumen documented in this encounter [facility] Work Phone: History of Present illness NarrativeNeeds refill thyroid medications, no complaints. States blood pressures at home running 120s 130s over 80s.[facility] Work Phone: History of Present illness NarrativeNeeds refill thyroid medications, no complaints. States blood pressures at home running 120s 130s over 80s.[facility] Work Phone: History of Present illness Narrative* The patient is being seen for the subsequent annual wellness visit. * Past Medical, Surgical and Family History: reviewed and updated in chart. * Interval History: Patient has not been hospitalized previously. * Medications and Supplements: Review of all medications by a prescribing practitioner or clinical pharmacist (such as prescriptions, OTCs, herbal therapies and supplements) documented in the medical record. * No, the patient is not using opioids. * Patient Self Assessment of Health Status: excellent. * Tobacco use: Non-User * Alcohol use: As noted in social history * Illicit drug use: Non-User * Current diet: Heart Healthy Diet, does consume adequate fluids and does consume caffeine. * Exercise Frequency: regularly. * Depression/Suicide Screening: . * During the past 2 weeks, the patient has not felt down, depressed or hopeless. * During the past 2 weeks, the patient has not felt little interest or pleasure in doing things. * Hearing Impairment: none. * Cognitive Impairment: No cognitive impairment observed. * Bathing: performs independently. * Dressing: performs independently. * Walking: performs independently. * Toileting: performs independently. * Feeding: performs independently. * Personal Hygiene: performs independently. * Bowels: continent. * Bladder: continent. * Managing Finances: performs independently. * Shopping: performs independently. * Managing Medications: performs independently. * Housework / Basic Home Maintenance: performs independently. * Handling Transportation: performs independently. * Preparing Meals: performs independently. * Using the Telephone/ Communication Devices: performs independently. * Falls Risk Screening:. VINAYAK has not fallen in the last 6 months. * Home safety risk factors: none. * Advance directives:. Patient has living will. Patient has healthcare POA. * VINAYAK MONTES is a 85 year old [ ] presenting for [ ] medicare annual wellness visit. * [ ] is feeling [ ] today and denies any concerns of vision/hearing problems, fatigue, fevers/chills, sleep disturbances, lightheadedness/dizziness, chest pain, irregular heart beats, shortness of breath, cough, abdominal pain, N/V/D, blood in urine or stools, leg swelling, skin changes, muscle pain/ cramping. * She checks blood pressures at home which tend to run 120/60's. 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 Work Phone: History of Present illness Narrative* The patient is being seen for the subsequent annual wellness visit. * Past Medical, Surgical and Family History: reviewed and updated in chart. * Interval History: Patient has not been hospitalized previously. * Medications and Supplements: Review of all medications by a prescribing practitioner or clinical pharmacist (such as prescriptions, OTCs, herbal therapies and supplements) documented in the medical record. * No, the patient is not using opioids. * Patient Self Assessment of Health Status: excellent. * Tobacco use: Non-User * Alcohol use: As noted in social history * Illicit drug use: Non-User * Current diet: Heart Healthy Diet, does consume adequate fluids and does consume caffeine. * Exercise Frequency: regularly. * Depression/Suicide Screening: . * During the past 2 weeks, the patient has not felt down, depressed or hopeless. * During the past 2 weeks, the patient has not felt little interest or pleasure in doing things. * Hearing Impairment: none. * Cognitive Impairment: No cognitive impairment observed. * Bathing: performs independently. * Dressing: performs independently. * Walking: performs independently. * Toileting: performs independently. * Feeding: performs independently. * Personal Hygiene: performs independently. * Bowels: continent. * Bladder: continent. * Managing Finances: performs independently. * Shopping: performs independently. * Managing Medications: performs independently. * Housework / Basic Home Maintenance: performs independently. * Handling Transportation: performs independently. * Preparing Meals: performs independently. * Using the Telephone/ Communication Devices: performs independently. * Falls Risk Screening:. VINAYAK has not fallen in the last 6 months. * Home safety risk factors: none. * Advance directives:. Patient has living will. Patient has healthcare POA. * VINAYAK MONTES is a 85 year old female patient of Dr. Husain known to have dyslipidemia and hypothyroidism presenting for subsequent medicare annual wellness visit. * She denies any concerns of vision/hearing problems, fatigue, fevers/chills, sleep disturbances, lightheadedness/dizziness, chest pain, irregular heart beats, shortness of breath, cough, abdominal pain, N/V/D, blood in urine or stools, leg swelling, skin changes, muscle pain/cramping. * She checks blood pressures at home which tend to run 120/60's. 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 Patient reports symptoms for months, getting worse. Reports no pastsurgeries, injections, or trauma to the area. Splint has been worn as directed with some relief. Pain worse with use, better with rest. Pain dull ache, sharp at times in thumb. Pain numb and tingly in hand, wakes her from sleep at times.[facility] Work Phone: History of Present illness Narrative* The patient is being seen for the subsequent annual wellness visit. * Past Medical, Surgical and Family History: reviewed and updated in chart. * Interval History: Patient has had 1 previous hospitalizations. * Medications and Supplements: Review of all medications by a prescribing practitioner or clinical pharmacist (such as prescriptions, OTCs, herbal therapies and supplements) documented in the medical record. * No, the patient is not using opioids. * Health Risk Assessment: * During the past 4 weeks: * How much have you been bothered by feeling anxious, depressed, irritable or sad, downhearted or blue? Not at all. * Has your physical and emotional health limited your social activities with family, friends, neighbors or groups? Not at all. * Was someone available to help you if you needed or wanted help: Yes, as much as I wanted. * The hardest physical activity you could do for at least 2 minutes: Moderate. * Yes, can get to places out of walking distance without help. * Yes, can shop for groceries or clothes without help. * Yes, does prepare meals. * Yes, does housework without help. * Yes, handles money without help. * Does not need help eating, bathing, dressing, or getting around home. * Rates health in general: Good. * How have things been going for you? Pretty good. * Having difficulties driving a car: No. * Always fastens seatbelt when in a car: Yes, usually. * Has fallen or gotten dizzy when standing up: Seldom * Has problems with teeth or dentures: Never * Has problems using the telephone: Never * Tired or fatigued: Never No, has not fallen 2 or more times in the past year. No, not afraid of falling. * Number of drinks of wine, beer or other alcoholic beverages: No alcohol at all. * Exercise for about 20 minutes 3 or more days a week: Yes, most of the time. * Have you been given any information to help you with the following: Yes, has given information regarding hazards in the home that might hurt you. Yes, has been given information regarding keeping track of medications. * Do you have trouble taking medicines the way told to take them: I always take them as prescribed. * Confidence in control and management of most health problems: Somewhat cofident. * Patient Self Assessment of Health Status: good. * Tobacco use: Non-User * Alcohol use: Non-User * Illicit drug use: Non-User * Current diet: well balanced diet, does consume adequate fluids and does consume caffeine. * Depression/Suicide Screening: . * During the past 2 weeks, the patient has not felt down, depressed or hopeless. * During the past 2 weeks, the patient has not felt little interest or pleasure in doing things. * Hearing Impairment: none. * Bathing: performs independently. * Dressing: performs independently. * Walking: performs independently. * Toileting: performs independently. * Feeding: performs independently. * Personal Hygiene: performs independently. * Bowels: continent. * Bladder: continent. * Managing Finances: performs independently. * Shopping: performs independently. * Managing Medications: performs independently. * Housework / Basic Home Maintenance: performs independently. * Handling Transportation: performs independently. * Preparing Meals: performs independently. * Using the Telephone/ Communication Devices: performs independently. * Falls Risk Screening:. VINAYAK has not fallen in the last 6 months. * Home safety risk factors: none. * Advance directives:. Advanced Care Planning discussed and documented advance care plan or surrogatedecision maker documented in the medical record. * diarrhea for a few mos with 2 ER visits lately. diarrhea was trigrred by food or fluid intake. no blood or pus in stools. no abd pain, vomiting. CT showed fatty liver. pt denies excessive eoth drinking. no jaundice, hematemesis, dark or bloody stools. no significant wt loss. pt denies having fatigue, cold or heat intolerance while on current dose of Levoxyl. No vision change, cp, heart palpitation or LE edema. No VANG, dizziness, dry skin or constipation. Pt sleeps well. No depressed mood. [facility] Work Phone: History of Present illness Narrative* The patient is being seen for the subsequent annual wellness visit. * Past Medical, Surgical and Family History: reviewed and updated in chart. * Interval History: Patient has had 1 previous hospitalizations. * Medications and Supplements: Review of all medications by a prescribing practitioner or clinical pharmacist (such as prescriptions, OTCs, herbal therapies and supplements) documented in the medical record. * No, the patient is not using opioids. * Health Risk Assessment: * During the past 4 weeks: * How much have you been bothered by feeling anxious, depressed, irritable or sad, downhearted or blue? Not at all. * Has your physical and emotional health limited your social activities with family, friends, neighbors or groups? Not at all. * Was someone available to help you if you needed or wanted help: Yes, as much as I wanted. * The hardest physical activity you could do for at least 2 minutes: Moderate. * Yes, can get to places out of walking distance without help. * Yes, can shop for groceries or clothes without help. * Yes, does prepare meals. * Yes, does housework without help. * Yes, handles money without help. * Does not need help eating, bathing, dressing, or getting around home. * Rates health in general: Good. * How have things been going for you? Pretty good. * Having difficulties driving a car: No. * Always fastens seatbelt when in a car: Yes, usually. * Has fallen or gotten dizzy when standing up: Seldom * Has problems with teeth or dentures: Never * Has problems using the telephone: Never * Tired or fatigued: Never No, has not fallen 2 or more times in the past year. No, not afraid of falling. * Number of drinks of wine, beer or other alcoholic beverages: No alcohol at all. * Exercise for about 20 minutes 3 or more days a week: Yes, most of the time. * Have you been given any information to help you with the following: Yes, has given information regarding hazards in the home that might hurt you. Yes, has been given information regarding keeping track of medications. * Do you have trouble taking medicines the way told to take them: I always take them as prescribed. * Confidence in control and management of most health problems: Somewhat cofident. * Patient Self Assessment of Health Status: good. * Tobacco use: Non-User * Alcohol use: Non-User * Illicit drug use: Non-User * Current diet: well balanced diet, does consume adequate fluids and does consume caffeine. * Depression/Suicide Screening: . * During the past 2 weeks, the patient has not felt down, depressed or hopeless. * During the past 2 weeks, the patient has not felt little interest or pleasure in doing things. * Hearing Impairment: none. * Bathing: performs independently. * Dressing: performs independently. * Walking: performs independently. * Toileting: performs independently. * Feeding: performs independently. * Personal Hygiene: performs independently. * Bowels: continent. * Bladder: continent. * Managing Finances: performs independently. * Shopping: performs independently. * Managing Medications: performs independently. * Housework / Basic Home Maintenance: performs independently. * Handling Transportation: performs independently. * Preparing Meals: performs independently. * Using the Telephone/ Communication Devices: performs independently. * Falls Risk Screening:. VINAYAK has not fallen in the last 6 months. * Home safety risk factors: none. * Advance directives:. Advanced Care Planning discussed and documented advance care plan or surrogatedecision maker documented in the medical record. * diarrhea for a few mos with 2 ER visits lately. diarrhea was trigrred by food or fluid intake. no blood or pus in stools. no abd pain, vomiting. CT showed fatty liver. pt denies excessive eoth drinking. no jaundice, hematemesis, dark or bloody stools. no significant wt loss. pt denies having fatigue, cold or heat intolerance while on current dose of Levoxyl. No vision change, cp, heart palpitation or LE edema. No VANG, dizziness, dry skin or constipation. Pt sleeps well. No depressed mood. [facility] Work Phone: Reason for referral (narrative)* Consultation (Routine) - Authorized Specialty Diagnoses / Procedures Referred By Eleazar nowak Referred To Contact Gastroenterology Diagnoses Diarrhea, unspecified Procedures [place] OFFICE/OUTPATIENT [facility] 60-74 MINUTES Don Moran MD PhD [address] [place] [address] Referral ID Status Reason Start Date Expiration Date Visits Requested Visits Authorized [id number] Authorized Specialty Services Required 11/17/2022 05/16/2023 1 1 [facility] Work Phone: Reason for referral (narrative)* Consultation (Routine) - Authorized Specialty Diagnoses / Procedures Referred By Contjc t Referred To Contact Gastroenterology Diagnoses Diarrhea, unspecified type Don Moran [place] PhD [address] [place] [address] Referral ID Status Reason Start Date Expiration Date Visits Requested Visits Authorized [id number] Authorized Specialty Services Required 10/18/2023 10/17/2024 1 1 [facility] Work Phone: Summary Purpose Family History No Family History Records Found Mother Name Dates Details Family history of COPD, mild (496, J44.9) Status:Active Father Name Dates Details No pertinent family history( V49.89, Z78.9) Status:Active Unknown Family Member Name Dates Details COPD, mild: Mother Status:Active No pertinent family history: Father(V49.89, Z78.9) Status:Active Unknown Family Member Name Dates Details COPD, mild: Mother Status:Active No pertinent family history: Father(V49.89, Z78.9) Status:Active Unknown Family Member Name Dates Details COPD, mild: Mother Status:Active No pertinent family history: Father(V49.89, Z78.9) Status:Active Unknown Family Member Name Dates Details COPD, mild: Mother Status:Active No pertinent family history: Father(V49.89, Z78.9) Status:Active Unknown Family Member Name Dates Details COPD, mild: Mother Status:Active No pertinent family history: Father(V49.89, Z78.9) Status:Active Unknown Family Member Name Dates Details COPD, mild: Mother Status:Active No pertinent family history: Father(V49.89, Z78.9) Status:Active Unknown Family Member Name Dates Details COPD, mild: Mother Status:Active No pertinent family history: Father(V49.89, Z78.9) Status:Active Unknown Family Member Name Dates Details COPD, mild: Mother Status:Active No pertinent family history: Father(V49.89, Z78.9) Status:Active Unknown Family Member Name Dates Details COPD, mild: Mother Status:Active No pertinent family history: Father(V49.89, Z78.9) Status:Active Unknown Family Member Name Dates Details COPD, mild: Mother Status:Active No pertinent family history: Father(V49.89, Z78.9) Status:Active Unknown Family Member Name Dates Details COPD, mild: Mother Status:Active No pertinent family history: Father(V49.89, Z78.9) Status:Active Unknown Family Member Name Dates Details COPD, mild: Mother Status:Active No pertinent family history: Father(V49.89, Z78.9) Status:Active Unknown Family Member Name Dates Details COPD, mild: Mother Status:Active No pertinent family history: Father(V49.89, Z78.9) Status:Active Advance Directives No Advanced Directives Records FoundDocuments on File Type Date Recorded Patient Csr Expl anation Advance Directives and Living Will Power of Sr. Manager Documents on File Type Date Recorded Patient Csr Expl anation Advance Directives and Living Will Power of Sr. Manager History of Present Illness * Seema Flores, AuD - 03/07/2020 1:00 PM EDT VNG EVALUATION REASON FOR REFERRAL: This patient was referred for VNG testing by Dr. Chicas due to dizziness. The patient reported lightheadedness. She described this feeling as a warm/burning felling in her face, with a fogginess and nausea. This began in April/May of 2019. She has bothersome tinnitus in her left ear. She has not fallen from the dizziness. She has had cataract surgery and has macular degeneration. She denied have high blood pressure, but did report that sometimes it runs low. She was prescribed antivert,but she has not taken it in a while. RESULTS: Bithermal caloric irrigations revealed appropriate beating nystagmus with no unilateral weakness. Directional preponderance and fixation suppression were within normal limits. Long latencies were recorded during saccades. Low gain and asymmetry is noted in pendular tracking. Optokinetic testing yielded low gain when moving 30 degrees per second to the left. No significant nystagmus was recorded during gaze or positional testing. IMPRESSION: VNG test results indicates central involvement. If I can be of further assistance or provide additional information, please do not hesitate to contact this office. Thank you for the referral. * Seema Flores AuD - 03/07/2020 1:00 PM EDT Called patient and gave appointment information and will mail out instruction sheet. * Seema Flores AuD - 03/07/2020 1:00 PM EDT AUDIOLOGY SERVICES Appointment TuesdayMarch 07 1:00 ARRIVE at 12:30 for registration in the [place] [id number] VESTIBULAR TESTING INSTRUCTIONS Your doctor has ordered a Vestibular Test to evaluate your balance system. Several separate parts may be performed and all are simple and not unpleasant. The balance system of the ear and the brain are evaluated by recording eye movement in response to changes in head position, view moving objects,motion of the body, and thermal stimuli (warm and cold) applied to the ear canal. Vestibular testing is about 1-1 hours in duration. PATIENT RESPONSIBILITY: 1. Try to get a full night s sleep before the test. 2. Remove contact lenses before the exam. Inform the agribusiness professor of any vision problems or lens implants. 3. Wear comfortable clothing and flat or low-heeled shoes. 4. Eat a light meal 2 to 4 hours before the test. 5. DO NOT wear eye makeup or mascara. 6. Avoid beverages containing caffeine (coffee, tea or soft drinks) the day of the test. 7. Please bring a list of your current medications. 8. Please continue to take any medications which are necessary to your long-term and immediate health. Any heart, blood pressure, blood thinning, diabetes or epilepsy medications should be taken as usual. FOR 48 HOURS PRIOR TO THE TEST, DO NOT TAKE: 1. Anti-dizziness medications: Meclizine, Antivert, Dramamine, Bonine, Phenergan, Compazine, Transderm Scopolamine. 2. Alcohol: beer, whiskey, clear alcohols, sal and liquid medicines containing alcohol (cough syrup) We would prefer that you not take the following medications. If any cannot be discontinued, please let the agribusiness professor know. 1. Tranquilizers: Valium, Diazepam, Librium, Elavil, Triavil, Klonopin, Xanax, Ativan, etc. 2. Sleeping Pills: Seconal, Ambien, Nembutal, etc. 3. Antidepressants: Paxil, Prozac, Zoloft, etc. 4. Pain Medications: Codeine, Demerol, Percodan, Hydrocodone, etc. 5. Antihistamine/ Decongestant: Dimetapp, Benadryl, Sudafed, Deya, Claritin, etc. Medication can be resumed immediately following VNG evaluation. YOUR COOPERATION WITH THESE INSTRUCTIONS WILL IMPROVE THE QUALITY OF YOUR EXAMINATION. IF YOU ENCOUNTER ANY PROBLEMS FOLLOWING THESE INSTRUCTIONS, OR FOR ANY OTHER QUESTIONS PERTAINING TO THIS TEST PROCEDURE, PLEASE CALL [facility] at [phone] or [facility] [phone]. documented in this encounter Reason for Referral Status Reason Specialty Diagnoses / Procedures Referre d By Contact Referred To Contact Open Diagnoses TIA (transient ischemic attack) Procedures Cardiac event monitor Rey Kan MD [address] [place] [id number] [address] Specialty Diagnoses / Procedures Referred By Contac t Referred To Contact Radiology Diagnoses Fatty liver disease, nonalcoholic Procedures US abdomen limited [place] [address] [place] [address] Referral ID Status Reason Start Date Expiration Date Visits Requested Visits Authorized [id number] Authorized Perform Procedure 04/19/2023 10/16/2023 1 1 Assessments Diagnosis TIA (transient ischemic attack) Unspecified transient cerebral ischemia Chief Complaint 6 MONTH F/U6 MONTH F/Umedicare wellnessSubsequent annual Medicare Wellness Visit * new patient bilateral hand pain - Xrs done at [facility] * no known injury - right hand dom - no SX on hands * afp, jonathan, crp, esr, spe, celiac panel, GI * Reason for visit: Medicare wellcare visit and follow up for low thyroid, diarrhea and fatty liver. * CPT: 31174 + G0439 RTC: 3 mos * Pt has the contact information of the following providers: GI, dentist, no medical equipment company * afp, jonathan, crp, esr, spe, celiac panel, GI * Reason for visit: Medicare wellcare visit and follow up for low thyroid, diarrhea and fatty liver. * CPT: 22278 + G0439 RTC: 3 mos * Pt has the contact information of the following providers: GI, dentist, no medical equipment company * Referred by for diarrhea * Colon: 2012 * Last seen 12/27/2022 * Follow up after colonoscopy done 01/28/2023 Additional Source Comments INFORMATION SOURCE (unrecogn ized section and content) DATE CREATED AUTHOR 05/07/2019 [facility] DATE CREATED AUTHOR AUTHOR'S ORGANIZ ATION 03/09/2020 [facility] DATE CREATED AUTHOR AUTHOR'S ORGANIZ ATION 10/02/2022 [facility] DATE CREATED AUTHOR AUTHOR'S ORGANIZ ATION 02/05/2023 [facility] DATE CREATED AUTHOR AUTHOR'S ORGANIZ ATION 02/21/2023 [facility] DATE CREATED AUTHOR AUTHOR'S ORGANIZ ATION 02/22/2023 [employer] DATE CREATED AUTHOR AUTHOR'S ORGANIZ ATION 03/12/2024 [facility] DATE CREATED AUTHOR AUTHOR'S ORGANIZ ATION 04/11/2024 [facility] DATE CREATED AUTHOR AUTHOR'S ORGANIZ ATION 01/17/2025 [facility] DATE CREATED AUTHOR AUTHOR'S ORGANIZ ATION 01/20/2025 [facility] DATE CREATED AUTHOR AUTHOR'S ORGANIZ ATION 01/22/2025 [facility] [employer] [facility] DATE CREATED AUTHOR AUTHOR'S ORGANIZ ATION 02/07/2025 [facility] <item><item><item> Privacy Markings (unrecogniz ed section and content) Section Author: Ratna Pelayo PROHIBITION ON REDISCLOSURE OF CONFIDENTIAL INFORMATION This notice accompanies a disclosure of information concerning a client made to you with the consent of such client. Section Author: Ratna Pelayo PROHIBITION ON REDISCLOSURE OF CONFIDENTIAL INFORMATION This notice accompanies a disclosure of information concerning a client made to you with the consent of such client. Section Author: Ratna Pelayo PROHIBITION ON REDISCLOSURE OF CONFIDENTIAL INFORMATION This notice accompanies a disclosure of information concerning a client made to you with the consent of such client. Reason for Visit (unrecogniz ed section and content) Reason Comments Hospital Follow-up Specialty Diagnoses / Procedures Referred By Contjc t Referred To Contact Radiology Diagnoses Fatty liver disease, nonalcoholic Procedures US abdomen [place] [address] [place] [address] Referral ID Status Reason Start Date Expiration Date Visits Requested Visits Authorized [id number] Authorized Perform Procedure 04/19/2023 10/16/2023 1 1 Reason Comments Other COLON 78245 OR DX R1 9.7 WALL Reason Comments Medicare Annual Wellness Visit Subsequen t fu Reason Comments Follow-up Diarrhea for apprx 2 -3 weeks - has went away.Last OV 01/20/23Colon done 01/[address] 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 Relationship Specialty Start Date End Date Farhan Husain MD [address] [place] [address] PCP - General 07/03/20 Farhan Husain MD [address] [place] [address] PCP - [employer]age PCP 08/15/21 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 Relationship Specialty Start Date End Date Farhan Husain MD [address] [place] [address] PCP - [employer]age PCP 08/15/21 Don Moran MD PhD [address] [place], [place] [id number] PCP - General 12/27/22 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 Relationship Specialty Start Date End Date Farhan Husain MD Retired From Practice PCP - [employer] PCP 08/15/21 [place] PhD [address] [place], [place] [id number] PCP - General 12/27/22 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 Relationship Specialty Start Date End Date Farhan Husain MD [address] [address] PCP - [employer]vantage PCP 08/15/21 [place] [address] [place] [address] PCP - General 12/27/22 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 Relationship Specialty Start Date End Date Farhan Husain MD [address] [address] PCP - [employer]age PCP 08/15/21 [place] [address] [place] [address] PCP - General 12/27/22 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 Relationship Specialty Start Date End Date Farhan Husain MD [address] [address] PCP - [employer]age PCP 08/15/21 Don [place] PhD [address] [place] [address] PCP - General 12/27/22 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 Relationship Specialty Start Date End Date Farhan Husain MD [address] [address] PCP - [employer] PCP 08/15/21 [place] [id number] [place] [address] PCP - General 12/27/22 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 Relationship Specialty Start Date [place] PhD [id number] [place] [address] PCP - General 12/27/22 [place] PhD [id number] [place] [address] PCP - [employer] PCP 08/15/23 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 Relationship Specialty Start Date [place] PhD [id number] [place] [address] PCP - General 12/27/22 [place] PhD [id number] [place] [address] PCP - [employer] PCP 08/15/23 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 Relationship Specialty Start Date [place] PhD [id number] [place] [address] PCP - General 12/27/22 [place] PhD [address] [place] [address] PCP - [employer] PCP 08/15/23 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 Relationship Specialty Start Date [place] [id number] [place] [address] PCP - General 12/27/22 Don Moran MD PhD [address] [place] [address] PCP - [employer] PCP 08/15/23 FOR RECORDS PERTAINING TO PATIENTS WHO ARE OR HAVE BEEN ENROLLED IN A CHEMICAL DEPENDENCY/SUBSTANCEABUSE PROGRAM, SOME INFORMATION MAY BE OMITTED. This clinical summary was aggregated from multiple sources. Caution should be exercised in using it in the provision of clinical care. This summary normalizes information from multiple sources, and as a consequence, information in this document may materially change the coding, format and clinical context of patient data. In addition, data may be omitted in some cases. CLINICAL DECISIONS SHOULD BE BASED ON THE PRIMARY CLINICAL RECORDS. [employer] [facility]. provides no warranty or guarantee of the accuracy or completeness of information in this document.
[2025-08-07 08:32] LABS: Hematocrit 35.8 % (37-47); Hemoglobin 12.2 g/dL (12.0-15.0); Mean Corp Hgb Conc 34.1 g/dL (32-36); Mean Corpuscular Volume 94.7 fL (81-99); Mean Platelet Vol. 10.0 fl (6.2-12.0); Platelet Count 268 K/mm3 (150-450); RBC Distribution Width CV 13.4 % (11.6-14.6); RBC Distribution Width SD 46.5 fl (35.1-43.9); Red Blood Count 3.78 M/mm3 (4.2-5.4); White Blood Count 4.5 K/mm3 (4.4-11.0)
[2025-08-07 08:59] LABS: Anion Gap 11 (7-18); BUN 20 mg/dL (4-19); BUN/Creat Ratio 30.7 RATIO (10-20); Calcium,Total 8.8 mg/dL (7.6-11.0); Carbon Dioxide 22.8 mmol/L (20.0-29.0); Chloride 109 mmol/L (96-106); Glucose 95 mg/dL (70-99); Potassium 4.1 mmol/L (3.5-5.1)
== END ==
LOC: OLS.ACH2 04:00
PROVIDERS: Referring Provider Internal Medicine; Visit Provider Internal Medicine
DX: E03.9 Hypothyroidism, unspecified (principal); K76.0 Fatty (change of) liver, not elsewhere classified
CPT/HCPCS: 36415; 80048; 84443; 85027